=== PATIENT | female | born 1955 | race Caucasian/White ===

== ENCOUNTER 2020-04-09 12:00 | Emergency (ER) | payer MEDICARE, SELFPAY ==
[2020-04-09 12:17] VITALS: BP 139/55; PULSE 88; RESP 18; TEMP 36.5; O2SAT 98
--- NOTE | 2020-04-09 12:56 | ED.GENADULT ---
HPI - General Adult General Chief complaint: Extremity Injury, Lower Stated complaint: right hip pain Time Seen by Provider: 04/09/20 12:45 Source: patient Mode of arrival: ambulatory Limitations: no limitations History of Present Illness HPI narrative: A 64-year-old female presents to the emergency department today with complaints of low back pain radiating down her right leg. Patient states she feels it across her low back down through her buttock and down to the posterior right leg. Patient does endorse numbness and tingling in her right lower extremity below the knee. Patient notes she had a surgery a few years ago on her foot for which she received a nerve block. 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 She is not sure if her symptoms today could be exacerbating this but she complains of severe pain radiating through her lower back and down through her right leg. She denies any bowel or bladder incontinence or any saddle anesthesia. Related Data Allergies Allergy/AdvReac Type Severity Reaction Status Date / Time erythromycin base AdvReac Unknown Nausea Verified 04/09/20 12:23 fentanyl AdvReac Unknown Nausea Verified 04/09/20 12:23 Penicillins AdvReac Unknown Nausea Verified 04/09/20 12:23 Review of Systems Review of Systems: Narrative: CONSTITUTIONAL: Denies fever, chills, or sweats. EYES: Denies visual changes, redness, or discharge. ENT: Denies rhinorrhea, congestion, sore throat, or otalgia. CARDIOVASCULAR: Denies chest pain, palpitations, or edema. RESPIRATORY: Denies cough or dyspnea. GASTROINTESTINAL: Denies abdominal pain, nausea, vomiting, or diarrhea. GENITOURINARY: Denies dysuria or hematuria. SKIN: Denies rash or itching. MUSCULOSKELETAL: Denies joint pain or myalgia. Endorses back pain and radiculopathy. NEUROLOGIC: Denies headache, numbness, dizziness, or weakness. PSYCHIATRIC: Denies anxiety or depression. PMFSH Social History Social History Smoking end date: 03/24/10 Alcohol intake: never Exam Narrative: Exam Narrative: GENERAL: Well-appearing, well-nourished, and in no acute distress. Appears rather uncomfortable, shifting her weight back and forth on the gurney. HEAD: Normocephalic, atraumatic. EYES: PERRLA and EOMI. ENT: Nares clear, no rhinorrhea or epistaxis. Mucous membranes moist. Oropharynx without tonsillar hypertrophy exudate or other lesions. Bilateral TMs pearly borja nonbulging NECK: Supple. No adenopathy or masses. No carotid bruits or JVD CHEST: Clear to auscultation. No respiratory distress. No wheezes rales or rhonchi HEART: Regular rate and rhythm. No murmur heard. Normal peripheral pulses. ABDOMEN: Soft, nontender, nondistended, normal active bowel sounds. EXTREMITIES: Normal range of motion. No edema. Tenderness to palpation at the right lower back and buttock. SKIN: Warm, dry, no rash. NEURO: No focal deficits. Alert and oriented x3. PSYCH: Normal mood and affect. Course Reevaluation(s) Reevaluation #1: Reevaluated patient and provided care update. She notes that she is already starting to feel better. She notes that she just received the medications approximately 10 minutes ago. Time: 13:48 Reevaluation #2: Patient resting comfortably at this time. She notes a significant improvement in her pain. She states that it is still present but she is at least able to move much more comfortably now. Patient and her state that they are feeling well and ready to be discharged. Time: 14:33 Vital Signs Vital signs: Vital Signs Temperature 36.5 C 04/09/20 12:17 Pulse Rate 88 04/09/20 12:17 Respiratory Rate 18 04/09/20 12:17 Blood Pressure 139/55 L 04/09/20 12:17 Pulse Oximetry 98 04/09/20 12:17 Temperature 36.5 C 04/09/20 12:17 Pulse Rate 88 04/09/20 12:17 Respiratory Rate 18 04/09/20 12:17 Bl
[2020-04-09] MEDS: DEXAMETHASONE SOD PHOS INJ 4 MG/ML VIAL 10 MG IV PUSH (13:22)
[2020-04-09] MEDS: methocarbamoL 500 MG TABLET 1000 MG PO (13:22)
[2020-04-09] MEDS: KETOROLAC 15 MG/ML VIAL (*BKC) IV PUSH (13:23)
[2020-04-09] MEDS: MORPHINE SULFATE (*CRX) 4 MG/ML INJ IV PUSH (13:23)
[2020-04-09 15:10] VITALS: PULSE 80; RESP 20; O2SAT 99
== END 2020-04-09 15:10 | disposition home or self-care (01) ==
PROVIDERS: Emergency Provider Emergency Medicine
DX: M54.41 Lumbago with sciatica, right side (principal)
CPT/HCPCS: 96374; 96375; 99284; A9270; J1100; J1885; J2270

== ENCOUNTER 2020-05-25 16:27 | Outpatient (CLI) | payer MEDICARE, SELFPAY ==
--- NOTE | ~2020-05-25 | MR_ITS ---
EXAMINATION: MR lumbar spine wo con DATE: 05/25/2020 17:41 INDICATION: Low back pain. TECHNIQUE: Magnetic resonance imaging (MRI) of the lumbar spine was performed without intravenous con trast. Sequences included sagittal T2-weighted FSE, sagittal T2-weighted FS FSE, sagittal T1-weighted FSE, and axial T2-weighted FSE. COMPARISON: None FINDINGS: There is 9 degrees dextrocurvature of thoracolumbar spine. There are Schmorl's nodes at mul tiple levels. There is severely decreased disc height at L2-L3 and mildly decreased disc height at L3 -L4. The distal spinal cord signal intensity is normal. The conus medullaris is at L1-L2. The followi ng disc levels are specifically discussed: L1-L2: The disc is bulging. There is moderate bilateral facet joint osteoarthritis. There is mild lef t neural foraminal stenosis. There is mild central canal stenosis. L2-L3: The disc is bulging and has an annular fissure. There is moderate bilateral facet joint osteoa rthritis. There is mild bilateral neural foraminal stenosis. There is mild central canal stenosis. L3-L4: The disc is bulging and has an annular fissure. There is moderate right and mild left facet jose int osteoarthritis. There is moderate bilateral neural foraminal stenosis. There is mild central michelle l stenosis. L4-L5: The disc is bulging. There is mild right and moderate left facet joint osteoarthritis. There i s mild bilateral neural foraminal stenosis. There is mild central canal stenosis. L5-S1: The disc is bulging. There is severe bilateral facet joint osteoarthritis. There is mild bilat eral neural foraminal stenosis. There is mild central canal stenosis. IMPRESSION: 1. Severe spondylosis at L2-L3 and mild spondylosis at other levels. Reviewed, dictated and finalized at location A. [employer]
== END 2020-05-25 16:28 | disposition home or self-care (01) ==
PROVIDERS: Visit Provider Orthopaedic Surgery
DX: M47.896 Other spondylosis, lumbar region (principal)
CPT/HCPCS: 72148

== ENCOUNTER 2020-06-05 10:55 | Outpatient (CLI) | payer MEDICARE, SELFPAY ==
--- NOTE | 2020-06-05 11:39 | ECG_ITS ---
Measurements Intervals [place] Rate: 86 P: 73 MO: 163 QRS: -16 QRSD: 90 T: 66 QT: 353 QTc: 424 Interpretive Statements SINUS RHYTHM POSSIBLE LEFT ATRIAL ENLARGEMENT INCOMPLETE RIGHT BUNDLE BRANCH BLOCK DELAYED PRECORDIAL R/S TRANSITION BORDERLINE ECG Electronically Signed On 06-05-2020 12:45:25 CDT by Ahmet Medina D.O.
[2020-06-05 11:51] LABS: Albumin Level 4.1 g/dL (3.5-5.1); Estimated Glomerular Filt Rate > 60
== END 2020-06-05 10:56 | disposition home or self-care (01) ==
PROVIDERS: Visit Provider Orthopaedic Surgery
DX: M16.11 Unilateral primary osteoarthritis, right hip (principal); Z01.818 Encounter for other preprocedural examination; I45.10 Unspecified right bundle-branch block
CPT/HCPCS: 36415; 82040; 82565; 93005

== ENCOUNTER 2020-07-03 08:48 | Outpatient (CLI) | payer MEDICARE, SELFPAY ==
[2020-07-03 10:39] LABS: Basophils Absolute Auto 0.1 K/mm3 (0.0-0.1); Basophils Percent Auto 0.6 % (0.2-1.2); Eosinophils Absolute Auto 0.1 K/mm3 (0-0.3); Hematocrit 43.2 % (37.0-47.0); Hemoglobin 14.3 g/dL (12.0-15.0); Immature Granulocyte Absolute 0.03 K/mm3 (0.00-0.031); Immature Granulocyte Percent A 0.4 % (0-0.5); Lymphocytes Absolute Auto 2.18 K/mm3 (0.9-3.2); Lymphocytes Percent Auto 27.4 % (18.3-44.2); Mean Corpuscular HGB Conc 33.1 g/dl (32-36); Mean Corpuscular Hemoglobin 30.4 pg (26-34); Mean Corpuscular Volume 91.9 fl (80-100); Mean Platelet Volume 9.5 fl (7.4-10.4); Monocytes Absolute Auto 0.7 K/mm3 (0.1-0.6); Monocytes Percent Auto 8.2 % (2.6-8.5); Neutrophils Percent Auto 62.4 % (45.5-73.1); Platelet Count Result 314 k/mm3 (150-375); Red Cell Distribution Width 13.2 % (11.5-14.5)
[2020-07-03 10:41] LABS: Glucose 95 mg/dL (65-105)
[2020-07-03 10:45] LABS: Hemoglobin A1C 5.3 % (<5.7); Urine Cotinine NEGATIVE
== END 2020-07-03 08:49 | disposition home or self-care (01) ==
PROVIDERS: Visit Provider Orthopaedic Surgery
DX: M16.11 Unilateral primary osteoarthritis, right hip (principal); Z01.818 Encounter for other preprocedural examination
CPT/HCPCS: 80307; 82947; 83036; 85025; 87081

== ENCOUNTER → 2020-07-15 00:40 | Outpatient (CLI) | payer MEDICARE, SELFPAY ==
[2020-07-15 20:54] LABS: SARS-CoV-2 RNA PCR Negative
== END ==
PROVIDERS: Visit Provider Orthopaedic Surgery
DX: Z01.812 Encounter for preprocedural laboratory examination (principal); Z20.822 Contact with and (suspected) exposure to COVID-19
CPT/HCPCS: C9803; U0003; U0005

== ENCOUNTER 2020-07-18 01:17 | Day surgery (SDC) | payer MEDICARE, SELFPAY ==
[2020-07-03 08:57] VITALS: BMI 29.3
[2020-07-03 09:42] VITALS: BP 145/67; PULSE 71; RESP 16; TEMP 37; O2SAT 98
[2020-07-18] VITALS (23 sets, daily range): BP systolic 115–150; BP diastolic 46–78; PULSE 76–100; RESP 14–22; TEMP 35.7–36.7; O2SAT 96–100
--- NOTE | ~2020-07-18 | XR_ITS ---
EXAMINATION: XR hip RT min 2V EXAM DATE: 07/18/2020 10:30 INDICATION: Right hip arthroplasty. Postoperative image. TECHNIQUE: Portable frontal, crosstable lateral projections right hip obtained immediately following arthroplasty by Vidal Flores MD. FINDINGS: Patient is status post right hip arthroplasty. The orthopedic hardware is in expected pos ition. There is small amount of subcutaneous gas, some soft tissue swelling. Correlate with proce dure note. IMPRESSION: Status post right hip arthroplasty. Reviewed, dictated and finalized at location A.
[2020-07-18] MEDS: LACTATED RINGERS 1,000 ML 30 ML IV CONT ×2 (07:07→10:01)
[2020-07-18] MEDS: ACETAMINOPHEN 500 MG TABLET 1000 MG PO (07:08)
--- NOTE | 2020-07-18 07:15 | WPDHPUPDATE1 ---
History and Physical Update Update Date/Time: 07/18/20 07:15 History and Physical has been reviewed, including an updated exam of the patient. There are NO changes in the patient's condition. Risks, benefits, and alternatives have been discussed and questions answered. Patient agrees to proceed with procedure.
--- NOTE | 2020-07-18 07:19 | WPDANESEPPF ---
Anes - Initial Pre Proc Eval Procedure: Operation Date: 07/18/20 08:00 Proposed Procedures p Right Total Hip Arthroplasty - Vidal Flores MD Date/Time: 07/18/20 07:19 Surgeon: Vidal Flores MD Pre Op Diagnosis: primary OA right hip Patient Data Age: 65 Gender: F Height: 1.7 m Weight: 83.9 kg Last Vital Signs Temp 37.0 C 07/03/20 09:42 Pulse 71 07/03/20 09:42 Resp 16 07/03/20 09:42 BP 145/67 H 07/03/20 09:42 Pulse Ox 98 07/03/20 09:42 Allergies Allergy/AdvReac Type Severity Reaction Status Date / Time fentanyl AdvReac Severe Nausea Verified 07/18/20 06:18 erythromycin base AdvReac Mild Nausea Verified 07/18/20 06:18 Penicillins AdvReac Mild Nausea Verified 07/18/20 06:18 Home Medications Medication Instructions Recorded Confirmed Type atorvastatin 40 mg tablet 40 mg PO HS 04/18/20 07/18/20 History duloxetine 60 mg capsule,delayed 60 mg PO BID 04/18/20 07/18/20 History release levothyroxine 75 mcg tablet 75 mcg PO DAILY 04/18/20 07/18/20 History omeprazole 20 mg capsule,delayed 40 mg PO QAM 04/18/20 07/18/20 History release trazodone 50 mg tablet 50 mg PO HS 04/18/20 07/18/20 History acetaminophen [Tylenol Extended 1,300 mg PO Q12H PRN 07/03/20 07/03/20 History Release] sennosides-docusate sodium 2 tab-cap PO BID 07/03/20 07/18/20 History [Senna-S] Patient hx anesthesia problems: post op nausea/vomiting Family hx anesthesia problems: none PMFSH Past Medical History Medical History (Updated 07/17/20 @ 12:52 by Delta Castro DO) Anxiety Foot drop, 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 GERD (gastroesophageal reflux disease) History of breast cancer History of Mohs micrographic surgery for skin cancer (~2014) History of skin cancer Hyperlipidemia Hypothyroidism Osteoarthritis PONV (postoperative nausea and vomiting) Surgical History Surgical History (Updated 07/17/20 @ 12:52 by Delta Castro DO) History of appendectomy History of cholecystectomy History of hysterectomy History of spinal fusion fusion C5-6 Hx of breast surgery (~2016) Social History Social History Years smoked: 10 Smoking status: Former smoker Tobacco type: cigarettes Smoking end date: 03/24/10 Additional smoking assessment comments: DENIES ANY FORM OF TOBACCO USE Alcohol intake: never Living arrangements: with family Spiritual care concerns: No Anes - Eval Final PreProcedure Day of Procedure 07/18/20 07:19 Patient weight: overweight Heart: regular rate and rhythm Lungs: clear to auscultation and normal air movement Airway: Mallampati scale class II Neurological: alert and oriented Last oral intake: >/= 8 hours ASA classification: III Emergent: no Anesthetic plan: proceed Anesthesia type and monitoring: general ETT and standard monitoring Informed Consent: The patient's anesthetic plan and its attendant risks and benefits were discussed with the patient/family/POA. Questions were solicited and answers provided to the satisfaction of the patient/family/POA.
[2020-07-18] MEDS: SCOPOLAMINE 1.5 MG PATCH TRANSDERM (07:31)
[2020-07-18] MEDS: FAMOTIDINE 20 MG/2 ML VIAL IV PUSH (07:31)
[2020-07-18] MEDS: TRANEXAMIC ACID 1,000MG/ISO100 1,000 MG/100 ML BAG 200 MG IVPB (07:35)
[2020-07-18] MEDS: ceFAZolin 2 GM/D5W 50 ML 2 GM/50 ML BAG IVPB (08:10)
--- NOTE | 2020-07-18 10:41 | SUR.PHASEI ---
1034- Call to Dr. Castro patient complaining it feels hard to breathe and take breaths. Patient noted to have some expiratory coarseness upon auscultation. Oxygen saturation stable on 2 liters at 100%. Per Dr. Castro he will order the patient a breathing treatment at this time. Will continue to monitor status closely.
[2020-07-18] MEDS: ALBUTEROL SULFATE NEB 2.5 MG/3 ML INH INHALATION (10:45)
[2020-07-18] MEDS: racEPINEPHrine 2.25% NEBU SOLN 0.5 ML VIAL.NEB INHALATION (10:52)
--- NOTE | 2020-07-18 11:10 | SUR.PHASEI ---
1110- Updated Dr. Flores after he rounded on patient in PACU of patient's respiratory status and nebulizer treatments given, informed MD patient reports improvement with her breathing and monitoring her closely. No new orders from MD at this time.
[2020-07-18] MEDS: diphenhydrAMINE HCl INJ 50 MG/ML VIAL 12.5 MG IV PUSH (11:13)
[2020-07-18] MEDS: MIDAZOLAM HCL (*CRX) 2 MG/2 ML VIAL IV PUSH (11:16)
--- NOTE | 2020-07-18 11:19 | P.OP_ITS ---
Procedure Note - Detailed Date of procedure: 07/18/20 Pre-op diagnosis: primary OA right hip Post-op diagnosis: same Procedure performed: Total hip arthroplasty, right hip Implants: The Accolade II hip stem, 132 degree size 5 , was utilized with excellent press-fit. The 52 mm ADM acetabular component was impacted with excellent press-fit stability. The +0 , 28 mm Biolox ceramic femoral head was utilized. Anesthesia: GLMA Surgeon: Vidal Flores MD Estimated blood loss (mL): 200 Drains: No Complications: None Condition: stable Findings: OPERATIVE DETAILS: The patient was given preoperative antibiotics. A general anesthetic was administered. The patient was carefully placed in the lateral decubitus position on the PEG board. The shoulders and hips were carefully positioned for component and leg length positioning reference. The hip was prepped and draped in the usual sterile fashion. A longitudinal incision was created over the posterior aspect of the greater trochanter. Careful dissection was brought down through the deep fascia with electrocautery. A minimally invasive optimized posterior approach to the hip was performed. The short external rotators and capsule were taken down in an L-shaped capsulotomy. The tissue was tagged for later repair using number 2 high strength suture. The femoral neck was measured and taken in situ. The femoral head was removed. The acetabulum was carefully exposed. The inferior capsule was released. The labrum was resected. The acetabulum was sequentially reamed to one over the intended cup size. The cup was impacted into position with excellent press-fit. Typical anatomic landmarks, including the bony contact points as well as the inferior transverse acetabular ligament were used to confirm cup positioning with preoperative templating. Attention was turned to the femur, which was carefully exposed. The hip was reamed and then broached sequentially. Excellent press-fit was obtained with the broach. The hip was trialed. Measurements were utilized, including the lesser trochanter as well as the center of the femoral head and the tip of the trochanter, and excellent assessment of the offset and leg lengths were confirmed. The real component was impacted into position. Trialing confirmed appropriate leg length and offset with soft tissue balancing as well apparent feel of the leg, both at the knee and the heel. Soft tissues were assessed using the the iliotibial band. Reduction of the posterior capsule and external rotators were also used as a secondary assessment. The hip was copiously irrigated with pulsatile lavage antibiotic solution periodically throughout the procedure. The real components were then assembled and reduced. The hip was stable throughout typical maneuvers, including extension, external rotation to 70 degrees, the position of sleep as well as flexion to 90 degrees with internal rotation past 45 degrees. The shake test confirmed stability without impingement. Osteophytes were removed as necessary. The short external rotators and capsule were repaired back to the posterior trochanter through drill holes. The deep fascia was repaired with running number 2 Quill suture, followed by 0 Stratafix suture and 2-0 Stratafix suture in the dermis. Steri- Strips were placed on the skin, followed by a sterile silver occlusive dressing. There were no complications. Meticulous hemostasis was maintained with the AquaMantys device. The patient was brought to the recovery room in stable condition. There were no complications.
--- NOTE | 2020-07-18 11:36 | SUR.PHASEI ---
1050- Call to Dr. Castro to obtain additional orders for breathing treatment, patient stable at 100% on 2 liters nasal cannula. Orders obtained for Racemic Epi nebulizer. Per Dr. Castro continue to monitor patient and he will see her at bedside once breathing treatments finished. 1105- Call to notify Dr. Castro patient's breathing treatments complete at this time and patient stable at 100% on 2 liters nasal cannula. Patient's breathing improved and lung sounds along with upper airway have improved aeration at this time. 1107- Dr. Castro to bedside and assessing patient's respiratory status and lung sounds. Patient reporting improvement with breathing treatments complete but still feeling anxious about taking breaths and notes minimal difficulty with breaths. Patient remains stable at 100% on 2 liters nasal cannula. Orders obtained for 12.5MG benadryl IVP and 2MG versed IVP.
--- NOTE | 2020-07-18 12:18 | ADMGEN ---
This patient, Leanne Larsen, was admitted to Medical Room 248-. Patient/family oriented to hospital policies and general routines including ID bracelet, bed and alarms, visiting hours, pain management, procedures, bathroom and other care routines, personal items, smoking policy, room service/diet, and visiting hours. Information on how to activate the Rapid Response Team has been discussed. Patient/Family are encouraged to report perceived risks to care and to ask questions if they do not understand what they are told or what they should do.
[2020-07-18 12:22] LABS: Hematocrit 40.4 % (37.0-47.0); Hemoglobin 13.3 g/dL (12.0-15.0)
[2020-07-18] MEDS: SODIUM CHLORIDE 0.9% IV 1,000 ML 125 ML IV CONT (12:44)
[2020-07-18] MEDS: KETOROLAC 15 MG/ML VIAL (*BKC) IV PUSH ×3 (12:47→23:43)
[2020-07-18] MEDS: ASPIRIN 81 MG ENTERIC TABLET PO (16:30)
[2020-07-18] MEDS: DULoxetine HCL 60 MG CAPSULE.DR PO (16:32)
[2020-07-18] MEDS: traZODone HCL 50 MG TABLET PO (20:32)
[2020-07-18] MEDS: ATORVASTATIN 40 MG TABLET PO (20:32)
[2020-07-18] MEDS: oxyCODONE HCL (*CRX) 5 MG TAB IR PO (20:34)
[2020-07-19 05:17] VITALS: BP 121/47; PULSE 89; RESP 20; TEMP 36.1; O2SAT 18
[2020-07-19 05:45] LABS: Basophils Percent Auto 0.2 % (0.2-1.2); Hematocrit 33.7 % (37.0-47.0); Hemoglobin 10.8 g/dL (12.0-15.0); Immature Granulocyte Absolute 0.08 K/mm3 (0.00-0.031); Immature Granulocyte Percent A 0.5 % (0-0.5); Lymphocytes Absolute Auto 1.77 K/mm3 (0.9-3.2); Lymphocytes Percent Auto 11.5 % (18.3-44.2); Mean Corpuscular Hemoglobin 29.8 pg (26-34); Mean Corpuscular Volume 92.8 fl (80-100); Mean Platelet Volume 9.7 fl (7.4-10.4); Monocytes Percent Auto 13.1 % (2.6-8.5); Neutrophils Absolute Auto 11.5 K/mm3 (1.3-6.7); Neutrophils Percent Auto 74.7 % (45.5-73.1); Platelet Count Result 263 k/mm3 (150-375); Red Blood Count 3.63 M/mm3 (4.2-5.4); Red Cell Distribution Width 13.2 % (11.5-14.5); White Blood Count 15.4 K/mm3 (4.5-10.0)
[2020-07-19 05:56] LABS: Anion Gap 3 mmol/L (8-16); Blood Urea Nitrogen 13 mg/dL (7-17); Calcium 8.7 mg/dL (8.4-10.2); Carbon Dioxide 30 mmol/L (22-30); Chloride 103 mmol/L (98-107); Estimated CRCL calculation 76 ml/min; Estimated Glomerular Filt Rate > 60; Glucose 113 mg/dL (65-105); Sodium 136 mmol/L (137-145)
[2020-07-19] MEDS: KETOROLAC 15 MG/ML VIAL (*BKC) IV PUSH ×2 (06:02→11:52)
[2020-07-19] MEDS: LEVOTHYROXINE SODIUM 75 MCG TABLET PO (06:06)
[2020-07-19 08:00] VITALS: BP 121/44; PULSE 90; RESP 16; TEMP 36.6; O2SAT 97
[2020-07-19] MEDS: oxyCODONE HCL (*CRX) 5 MG TAB IR 10 MG PO (08:24)
[2020-07-19] MEDS: SENNA/DOCUSATE SODIUM TABLET 2 TAB PO (08:25)
[2020-07-19] MEDS: ASPIRIN 81 MG ENTERIC TABLET PO (08:25)
[2020-07-19] MEDS: DOCUSATE SODIUM 100 MG CAPSULE PO (08:25)
[2020-07-19] MEDS: PANTOPRAZOLE 40 MG TABLET PO (08:26)
[2020-07-19] MEDS: DULoxetine HCL 60 MG CAPSULE.DR PO (08:26)
--- NOTE | 2020-07-19 09:23 | WPDANESPN ---
Anes - Prog Note Post-Op Date/Time: 07/19/20 09:23 Cardiovascular status: normal Respiratory status: normal Airway patency: baseline Mental status: baseline Post-Op hydration status: normal Vital Signs: Last Vital Signs Temp 36.6 C 07/19/20 08:00 Pulse 90 07/19/20 08:00 Resp 16 07/19/20 08:00 BP 121/44 L 07/19/20 08:00 Pulse Ox 97 07/19/20 08:00 Pain Score (VAS): 4 I/O: Intake & Output 07/18/20 07/19/20 07/19/20 23:59 07:59 15:59 Intake Total 1240 540 580 Output Total 700 1950 Balance 540 -1410 580 Laboratory Tests 07/19/20 05:36 07/19/20 05:36 07/18/20 07/19/20 07/19/20 12:15 05:36 05:36 WBC 15.4 H RBC 3.63 L Hgb 13.3 10.8 L Hct 40.4 33.7 L MCV 92.8 MCH 29.8 MCHC 32.0 RDW 13.2 Plt Count 263 MPV 9.7 Immature Gran % (Auto) 0.5 Neut % (Auto) 74.7 H Lymph % (Auto) 11.5 L [place] % (Auto) 13.1 H Eos % (Auto) 0.0 Baso % (Auto) 0.2 Lymph # (Auto) 1.77 [place] # (Auto) 2.0 H Eos # (Auto) 0.0 Baso # (Auto) 0.0 Abs Immat Gran (auto) 0.08 H Absolute Neuts (auto) 11.5 H Absolute Nucleated RBC 0.0 Nucleated RBC % 0.0 Sodium 136 L Potassium 4.0 Chloride 103 Carbon Dioxide 30 Anion Gap 3 L BUN 13 Creatinine 0.70 Estim Creat Clear Calc 76 Estimated GFR > 60 Glucose 113 H Calcium 8.7 Post-procedural complaints: none Patient Feedback: Patient satisfied with anesthetic care.
--- NOTE | 2020-07-19 12:25 | PM.DS ---
DS: Admitting Diagnosis Admitting Diagnosis Admitting Diagnosis: hip arthritis right. DS: Discharge Diagnosis Discharge Diagnosis (1) Primary osteoarthritis of right hip: Code(s): M16.11 - Unilateral primary osteoarthritis, right hip Status: Acute (2) Status post total hip replacement, right: Code(s): Z96.641 - Presence of right artificial hip joint Status: Acute DS: Summary Hospital Course Reason for hospitalization: Total hip arthroplasty. Hospital Course: Tolerated surgery well. Progressed appropriately with therapy. Status at Discharge Functional status at discharge: uses cane/walker Overall status at discharge: patient is progressing back to baseline Time Spent with Patient Time attestation: Total time spent providing and/or coordinating discharge services: Exam Const: General: no acute distress Resp: Effort & Inspection: normal respiratory effort Skin: Other: Wound healing well. Mepilex dressing intact. No hematoma or drainage. Neuro: Motor exam (neuro): 5/5 motor strength present throughout Sensory Exam: normal sensation Psych: Mental Status: mental status grossly normal Speech and movement: Normal speech and movement present DS: Data Data Completed and Pending Labs on day of discharge: Labs from last 24 hours 07/19/20 07/19/20 05:36 05:36 WBC 15.4 H RBC 3.63 L Hgb 10.8 L Hct 33.7 L MCV 92.8 MCH 29.8 MCHC 32.0 RDW 13.2 Plt Count 263 MPV 9.7 Immature Gran % (Auto) 0.5 Neut % (Auto) 74.7 H Lymph % (Auto) 11.5 L [place] % (Auto) 13.1 H Eos % (Auto) 0.0 Baso % (Auto) 0.2 Lymph # (Auto) 1.77 [place] # (Auto) 2.0 H Eos # (Auto) 0.0 Baso # (Auto) 0.0 Abs Immat Gran (auto) 0.08 H Absolute Neuts (auto) 11.5 H Absolute Nucleated RBC 0.0 Nucleated RBC % 0.0 Sodium 136 L Potassium 4.0 Chloride 103 Carbon Dioxide 30 Anion Gap 3 L BUN 13 Creatinine 0.70 Estim Creat Clear Calc 76 Estimated GFR > 60 Glucose 113 H Calcium 8.7 Discharge Plan Discharge Patient Disposition: Home, Self-Care Discharge Instructions: Remove the Scopolamine patch that was placed behind your ear in 72 hours or less. Wash your hands after touching. See instruction sheet. Stand Alone Forms: General Discharge Instructions Follow-up/Referrals: Vidal Flores MD [Physician] - Discharge Medications: New oxycodone-acetaminophen 5-325 mg tablet 1 - 2 tablet PO Q4-6H MDD 8 tablets PRN (Reason: pain) Qty: 30 RF: 0 Continued trazodone 50 mg tablet 50 mg PO HS RF: 0 atorvastatin 40 mg tablet 40 mg PO HS RF: 0 omeprazole 20 mg capsule,delayed release(DR/EC) 40 mg PO QAM RF: 0 levothyroxine [Synthroid] 75 mcg tablet 75 mcg PO DAILY RF: 0 duloxetine 60 mg capsule,delayed release(DR/EC) 60 mg PO BID RF: 0 sennosides-docusate sodium [Senna-S] 8.6-50 mg Tablet 2 tab-cap PO BID RF: 0 Discontinued acetaminophen [Tylenol Extended Release] 650 mg Tablet Extended Release 1,300 mg PO Q12H PRN (Reason: Pain) RF: 0
--- NOTE | 2020-07-19 13:42 | PC.NURSE ---
On 07/19/20, the student, [Sue Goncalves ], provided care and [facility]. I have reviewed the student's documentation and agree with the findings.
== END 2020-07-19 13:55 | disposition home or self-care (01) ==
LOC: ANHSURGERY 10:20 → ANH2MED 12:03
PROVIDERS: Visit Provider Orthopaedic Surgery
PROC: (CPT 27130; principal; 2020-07-18 08:00)
DX: M16.11 Unilateral primary osteoarthritis, right hip (principal); E78.5 Hyperlipidemia, unspecified; E03.9 Hypothyroidism, unspecified; K21.9 Gastro-esophageal reflux disease without esophagitis; F41.9 Anxiety disorder, unspecified; E66.3 Overweight; Z68.28 Body mass index [BMI] 28.0-28.9, adult; Z85.828 Personal history of other malignant neoplasm of skin; Z85.3 Personal history of malignant neoplasm of breast; Z87.891 Personal history of nicotine dependence
CPT/HCPCS: 27130; 36415; 73502; 80048; 80307; 82947; 83036; 85014; 85018; 85025; 86850; 86900; 86901; 87081; 94640; 97110; 97116; 97161; 97165; 97530; 97535; A9270; C1776; C9803; J0131; J0171; J0690; J1100; J1170; J1200; J1885; J2250; J2270; J2370; J2405; J2704; J2710; J2795; J3010; J7030; J7120; U0003; U0005

== ENCOUNTER 2020-11-08 11:11 | Outpatient (CLI) | payer MEDICARE, SELFPAY ==
--- NOTE | ~2020-11-08 | CT_ITS ---
EXAMINATION:CT lung screening DATE: 11/08/2020 11:32 INDICATION: Personal history of tobacco dependence. Smoker who quit 5 years ago with 43 pack year his tory. TECHNIQUE: Computed tomography (CT) of the chest was performed without intravenous contrast. Automate d exposure control and iterative reconstruction technique were employed. The dose-length product (DLP ) was 84.47 mGy-cm. COMPARISON: CT abdomen and pelvis 10/04/2009 FINDINGS: There is mild scarring at the lung apices. There is a 4 mm nodule in right middle lobe. The re is a 2 mm nodule in right upper lobe. There is a 3 mm nodule at left major fissure. There is mild atelectasis in right middle lobe and lingula. There is a 4 mm nodule in left lower lobe. No pleural e ffusion. The heart size is normal. No pericardial effusion. There is a small sliding hiatal hernia. T here are changes of cholecystectomy. There are changes of anterior fusion procedure in cervical spine . There is moderate thoracic spondylosis. IMPRESSION: 1. Lung-RADS category 2: Benign appearance or behavior. Continue annual screening with noncontrast lo w-dose chest CT in 12 months. Reviewed, dictated and finalized at location B. IMPRESSION: 1. Lung-RADS category 2: Benign appearance or behavior. Continue annual screeni ng with noncontrast low-dose chest CT in 12 months.
== END 2020-11-08 11:12 | disposition home or self-care (01) ==
LOC: ANHIMG 11:16
PROVIDERS: PCP Family Medicine
DX: Z87.891 Personal history of nicotine dependence (principal)
CPT/HCPCS: 71271

== ENCOUNTER → 2020-12-13 14:12 | Outpatient (CLI) | payer MEDICARE, SELFPAY ==
--- NOTE | ~2020-12-13 | DEXA_ITS ---
Bone Density Report Name: Leanne Larsen Age: 65 Sex: Female Ethnicity: White Date of : 1955 Indication: osteopenia; height loss; prior fracture; hysterectomy; Referring Provider: Tri Matos Study: Bone densitometry was performed. Exam Date: December 13, 2020 Accession number: [id number] Bone Density: Region BMD T-score Z-score Classification AP Spine (L1-L4) 1.155 1.0 2.9 Normal Femoral Neck (Left) 0.701 -1.3 0.3 Osteopenia Total Hip (Left) 0.828 -0.9 0.4 Normal World Health Organization criteria for BMD impression classify patients as: Normal (T-score at or above -1.0), Osteopenia (T-score between -1.0 and -2.5), or Osteoporosis (T-score at or below -2.5). 10-year Fracture Risk: FRAX not reported because: Prior hip or vertebral fracture Previous Exams: Region Exam Age BMD T-score BMD Change BMD Change Date g/cm2 vs Baseline vs Previous AP Spine(L1-L4) 12/13/2020 65 1.155 1.0 0.044* 0.044* 02/26/2008 52 1.111 0.6 Total Hip(Left) 12/13/2020 65 0.828 -0.9 0.024 0.024 02/26/2008 52 0.804 -1.1 *Denotes significance at 95% confidence level, LSC for AP Spine = 0.022 g/cm2, LSC for Total Hip = 0.027 g/cm2 Clinical Information Provided by Patient: Have had a previous hip or vertebral fracture Has had a low trauma fracture Has the following medical conditions: Hysterectomy Patient maximum height was 67 Menopause Age: 37 No regular weight bearing exercise Drinks caffeinated beverages Onset of menses at age 11 Number of children 2 Impression: The patient has low bone mass, based on the Left Femoral Neck T-score. The patient has risk factors, including: previous fracture. No significant bone loss was observed. Discussion: INCREASED RISK OF FRACTURE DUE TO HISTORY OF FRACTURE. The patient's previous fracture puts the patient at high risk of a future fracture. In untreated patients, the risk of osteoporotic fracture increases approximately two-fold for each 1.0 SD decrease in T-score. Low bone density is not the only risk factor for fracture; also consider factors such as patient's age, frailty or poor health, risk of falling, risk of injury, previous osteoporotic fracture, family history of osteoporosis, cigarette smoking, low body weight, etc. Not everyone with a low trauma fracture has osteoporosis; osteomalacia and other metabolic bone disorders should also be considered. Patients who have osteoporosis should be evaluated for specific diseases and conditions (secondary
== END ==
DX: Z78.0 Asymptomatic menopausal state (principal); M85.852 Other specified disorders of bone density and structure, left thigh
CPT/HCPCS: 77080

== ENCOUNTER → 2020-12-29 08:55 | Outpatient (CLI) | payer MEDICARE, SELFPAY ==
--- NOTE | ~2020-12-29 | MR_ITS ---
EXAMINATION: MR knee RT wo con DATE: 12/29/2020 09:36 INDICATION: Unilateral primary osteoarthritis of the right knee with generalized right knee pain, bur shellie and giving out. TECHNIQUE: Magnetic resonance imaging (MRI) of the right knee was performed without intravenous contr ast. Sequences included coronal PD-weighted FSE, coronal PD-weighted FS FSE, sagittal T2-weighted FS E, sagittal PD-weighted FS FSE and axial PD weighted fat saturated FSE. COMPARISON: Right knee radiographs dated 12/19/2020 FINDINGS: Medial compartment: Medial meniscus is normal. Partial-thickness chondral ulceration at the junction of the anterior most weightbearing medial femoral condyle and the inferior margin of the medial trochlea. Cartilage in me dial compartment is otherwise normal. Lateral compartment: Lateral meniscus is normal. Approximately 6 x 5 mm region of full/near full-thickness chondral ulcera tion without degenerative subchondral changes at the anterior weightbearing lateral femoral condyle. Juxtaposed deep chondral fissuring without degenerative subchondral changes at the central aspect of the lateral tibial plateau. Patellofemoral compartment: Diffusely partial-thickness patellar cartilage loss. This is most prominent at the apical ridge and m edial facet where it involves greater than 50% of the cartilage thickness with scattered deep chondra l fissuring and minimal underlying subarticular edema. Shallow chondral ulceration at the trochlear g roove and is previous noted at the inferior most aspect of the medial trochlea. Ligaments and tendons: Anterior and posterior cruciate ligaments are normal. The medial collateral ligament and fibular nolan ateral ligament complex are normal. Mild distal quadriceps tendinopathy without discrete tear. The pa tellar tendon is normal. The visualized medial and lateral hamstring tendons as well as the iliotibia l band are normal. Fluid: Physiologic amount of fluid in the joint space. No loose osteochondral bodies identified. Mild prepat ellar edema without discrete bursal fluid collection. Osseous/other: Normal marrow signal. No fracture or pathologic marrow replacing process. IMPRESSION: 1. Mild tricompartmental osteoarthritis with high-grade patellar chondromalacia and small regions of moderate grade chondromalacia in the lateral compartment, trochlear groove and junction of the medial trochlea and anterior most weightbearing medial femoral condyle. Reviewed, dictated and finalized at location A. IMPRESSION: 1. Mild tricompartmental osteoarthritis with high-grade patellar chondromalacia and small regions of moderate grade chondromalacia in the lateral compartment, trochlear groove and junction of the medial trochlea and anterior most weightb earing medial femoral condyle.
== END ==
PROVIDERS: Visit Provider Orthopaedic Surgery
DX: M17.11 Unilateral primary osteoarthritis, right knee (principal); M22.41 Chondromalacia patellae, right knee
CPT/HCPCS: 73721

== ENCOUNTER → 2021-02-01 14:03 | Outpatient (CLI) | payer MEDICARE, SELFPAY ==
--- NOTE | ~2021-02-01 | MR_ITS ---
EXAMINATION: MR ankle LT wo con DATE: 02/01/2021 15:49 INDICATION: Chronic left ankle pain and swelling. TECHNIQUE: Magnetic resonance imaging (MRI) of the left ankle was performed without intravenous contr ast. Sequences included sagittal PD-weighted FS FSE, sagittal PD-weighted FSE, coronal PD-weighted FS FSE, coronal PD-weighted FSE, axial PD-weighted FS FSE, and axial PD-weighted FSE. COMPARISON: None. FINDINGS: Medial ankle ligaments: The superficial and deep components of the deltoid ligament are intact. Lateral ankle ligaments: There are changes of prior sprains of anterior talofibular ligament and anterior tibiofibular ligamen t characterized by thickening and increased signal intensity. Calcaneofibular ligament is normal. Pos terior talofibular ligament and posterior tibiofibular ligament are normal. Tendons: The anterior and medial ankle tendons are normal. The peroneal tendons are normal. Achilles tendon is normal. Plantar fascia: The central band of plantar fascia demonstrates thickening and increased signal intensity, consistent with fasciitis. There is an enthesophyte at the calcaneal attachment. Bones/other: Bone alignment is normal. No fracture. The talar dome is normal. Fluid: There is no joint effusion. There is subcutaneous edema of the foot and lower leg. IMPRESSION: 1. Changes of lateral ankle sprain. 2. Plantar fasciitis. Reviewed, dictated and finalized at location A. RICT DIRECTOR
== END ==
DX: M72.2 Plantar fascial fibromatosis (principal); S93.402A Sprain of unspecified ligament of left ankle, initial encounter; X58.XXXA Exposure to other specified factors, initial encounter
CPT/HCPCS: 73721

== ENCOUNTER 2021-05-27 11:31 | Emergency (ER) | payer MEDICARE, SELFPAY ==
--- NOTE | ~2021-05-27 | XR_ITS ---
EXAMINATION: XR foot RT min 3V DATE: 05/27/2021 12:08 INDICATION: Right foot pain. Fall. TECHNIQUE: 4 views of right foot were obtained. COMPARISON: None. FINDINGS: Bone alignment is normal. There are changes of bunionectomy. There is severe osteoarthritis of first metatarsophalangeal joint and mild osteoarthritis of talonavicular joint and some the inter phalangeal joints. There are enthesophytes at the posterior and plantar aspects of calcaneal tuberosi ty. IMPRESSION: 1. Polyarticular osteoarthritis. Reviewed, dictated and finalized at location A. R TESTER PRIMARY
--- NOTE | ~2021-05-27 | XR_ITS ---
EXAMINATION: XR ankle RT min 3V DATE: 05/27/2021 12:08 INDICATION: Right ankle pain. Fall. TECHNIQUE: 4 views of right ankle were obtained. COMPARISON: None. FINDINGS: Bone alignment is normal. No fracture. There is mild osteoarthritis of talonavicular joint. There are enthesophytes at the posterior and plantar aspects of calcaneal tuberosity. Ankle soft tis valorie swelling is noted. IMPRESSION: 1. No fracture. Reviewed, dictated and finalized at location A. WARE DESIGN ANALYST IMPRESSION: 1. No fracture.
[2021-05-27 11:43] VITALS: BP 136/71; PULSE 82; RESP 16; TEMP 36.6; O2SAT 97
--- NOTE | 2021-05-27 12:07 | ED.GENADULT ---
HPI - General Adult General Chief complaint: Extremity Injury, Lower Stated complaint: Right foot injury Source: patient Mode of arrival: ambulatory Limitations: no limitations History of Present Illness HPI narrative: Patient presents for evaluation of right foot/ankle pain since yesterday. She states she was coming down a ladder and missed the last step. Her foot hit the ground and she developed pain in right ankle at that time. Pain has been constant since that time. She rates her pain 6/10 in severity and describes pain as sharp. Movement makes her pain worse. She has been ambulating with a cane since that time. She does intermittently use a cane on a regular basis. She took tylenol for her pain which has not made considerable amount of difference in her pain level. No paresthesias. Her tobacco sweeper is Dr Nicholas. Related Data Home Medications Medication Instructions Recorded Confirmed atorvastatin 40 mg tablet 40 mg PO HS 04/18/20 01/01/21 duloxetine 60 mg capsule,delayed 60 mg PO BID 04/18/20 01/01/21 release levothyroxine 75 mcg tablet 75 mcg PO DAILY 04/18/20 01/01/21 omeprazole 05/27/21 trazodone 05/27/21 Allergies Allergy/AdvReac Type Severity Reaction Status Date / Time fentanyl AdvReac Severe Nausea Verified 01/01/21 11:14 erythromycin base AdvReac Mild Nausea Verified 01/01/21 11:14 Penicillins AdvReac Mild Nausea Verified 01/01/21 11:14 Review of Systems Review of Systems: CONSTITUTIONAL: Denies fever, chills, or sweats. EYES: Denies visual changes, redness, or discharge. ENT: Denies rhinorrhea, congestion, sore throat, or otalgia. CARDIOVASCULAR: Denies chest pain, palpitations RESPIRATORY: Denies cough or dyspnea. GASTROINTESTINAL: Denies abdominal pain, nausea, vomiting, or diarrhea. GENITOURINARY: Denies dysuria or hematuria. SKIN: Denies rash or itching. MUSCULOSKELETAL: Reports right ankle pain and swelling. NEUROLOGIC: Denies headache, numbness, dizziness, or weakness. PSYCHIATRIC: Denies anxiety or depression. [facility] Past Medical History Medical History Anxiety Foot drop, 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 GERD (gastroesophageal reflux disease) History of breast cancer History of Mohs micrographic surgery for skin cancer (~2014) History of skin cancer Hyperlipidemia Hypothyroidism Osteoarthritis PONV (postoperative nausea and vomiting) Surgical History Surgical History History of appendectomy History of cholecystectomy History of hysterectomy History of spinal fusion fusion C5-6 Hx of breast surgery (~2015) Status post total hip replacement, right (~07/18/20) Family History Family History Mother Lung cancer Social History Social History Years smoked: 10 Tobacco type: cigarettes Smoking end date: 03/24/10 Additional smoking assessment comments: DENIES ANY FORM OF TOBACCO USE Alcohol intake: never Substance use: never Living arrangements: with family Gender identity (if verbalized by the patient): Female Sexual Orientation (if Verbalized by the Patient): Straight or Heterosexual Spiritual care concerns: No Exam Narrative: GENERAL: Well-appearing, well-nourished, and in no acute distress. HEAD: Normocephalic, atraumatic. EYES: PERRLA and EOMI. ENT: Nares clear, no rhinorrhea or epistaxis. Mucous membranes moist. Oropharynx without tonsillar hypertrophy exudate or other lesions. Bilateral TMs pearly borja nonbulging NECK: Supple. No adenopathy or masses. No carotid bruits or JVD CHEST: Clear to auscultation. No respiratory distress. No wheezes rales or rhonchi HEART: Regular rate and rhythm. No murmur heard. Normal peripheral pulses. ABDOMEN: Soft, nontender, nondistended, normal active bowel sounds. E
== END 2021-05-27 12:29 | disposition home or self-care (01) ==
PROVIDERS: Emergency Provider Nurse Practitioner
DX: S93.401A Sprain of unspecified ligament of right ankle, initial encounter (principal); W11.XXXA Fall on and from ladder, initial encounter; K21.9 Gastro-esophageal reflux disease without esophagitis; E78.5 Hyperlipidemia, unspecified; E03.9 Hypothyroidism, unspecified; M19.90 Unspecified osteoarthritis, unspecified site; Z96.641 Presence of right artificial hip joint
CPT/HCPCS: 73610; 73630; 99213; G0463

== ENCOUNTER → 2021-07-26 08:48 | Outpatient (CLI) | payer MEDICARE, SELFPAY ==
--- NOTE | ~2021-07-26 | MR_ITS ---
EXAMINATION: MR lumbar spine wo con DATE: 07/26/2021 13:17 INDICATION: Low back pain. Right-sided sciatica. TECHNIQUE: Magnetic resonance imaging (MRI) of the lumbar spine was performed without intravenous con trast. Sequences included sagittal T2-weighted FSE, sagittal T2-weighted FS FSE, sagittal T1-weighted FSE, and axial T2-weighted FSE. COMPARISON: Lumbar spine MRI 05/25/2020 FINDINGS: There is 5 degrees dextrocurvature of lumbar spine. There is 3 mm retrolisthesis of L2 on L 3. There is mild chronic anterior wedging of T11 and L1 vertebral bodies. There are Schmorl's nodes a t most levels. There is mildly decreased disc height at L1-L2, severely decreased disc height at L2-L 3, and mildly decreased disc height at L3-L4. The distal spinal cord signal intensity is normal. The conus medullaris is at L1. The following disc levels are specifically discussed: L1-L2: There is a left central extrusion. There is severe right and moderate left facet joint osteoar thritis. There is mild left neural foraminal stenosis. There is mild central canal stenosis. L2-L3: The disc is bulging. There is moderate right and mild left facet joint osteoarthritis. There i s mild bilateral neural foraminal stenosis. There is mild central canal stenosis. L3-L4: The disc is bulging and has an annular fissure. There is moderate right and mild left facet jose int osteoarthritis. There is mild bilateral neural foraminal stenosis. There is mild central canal st enosis. L4-L5: The disc is bulging and has an annular fissure. There is moderate bilateral facet joint osteoa rthritis. There is mild bilateral neural foraminal stenosis. There is mild central canal stenosis. L5-S1: The disc does not extend beyond the endplate margin. There is severe bilateral facet joint ost eoarthritis. There is mild bilateral neural foraminal stenosis. There is no central canal stenosis. IMPRESSION: 1. Severe lumbar spondylosis, stable from 05/25/2020. Reviewed, dictated and finalized at location A.
== END ==
DX: M54.31 Sciatica, right side (principal); M47.896 Other spondylosis, lumbar region
CPT/HCPCS: 72148

== ENCOUNTER → 2021-11-16 10:01 | Outpatient (CLI) | payer MEDICARE, SELFPAY ==
--- NOTE | ~2021-11-16 | CT_ITS ---
EXAMINATION: CT lung screening DATE: 11/16/2021 10:20 INDICATION: Personal history of nicotine dependence prior smoker with 43 pack year history TECHNIQUE: Computed tomography (CT) of the chest was performed without intravenous contrast. The dose -length product (DLP) was 89.43 mGy-cm. Automated exposure control and iterative reconstruction techn [id number] were employed. COMPARISON: 11/08/2020 FINDINGS: There is a stable 2 mm nodule of the right upper lobe. The previously described 4 mm nodule of the right middle lobe is slightly decreased in size. There is a stable 4 mm nodule of the left lo wer lobe. No new pulmonary nodules are identified. No pleural effusion or pneumothorax. The lungs are free of acute opacities. No pathologically enlarged thoracic lymph nodes are identified. The heart s ize is normal. There are changes of anterior fusion in the lower cervical spine. The gallbladder is s urgically absent. There is moderate thoracic spondylosis. IMPRESSION: 1. Lung-RADS category 2: Benign appearance or behavior. Continue annual screening with noncontrast lo w-dose chest CT in 12 months. Reviewed, dictated and finalized at location B. IMPRESSION: 1. Lung-RADS category 2: Benign appearance or behavior. Continue annual screeni ng with noncontrast low-dose chest CT in 12 months.
== END ==
DX: Z12.2 Encounter for screening for malignant neoplasm of respiratory organs (principal); Z87.891 Personal history of nicotine dependence
CPT/HCPCS: 71271

== ENCOUNTER → 2022-01-17 17:44 | Outpatient (CLI) | payer MEDICARE, SELFPAY ==
--- NOTE | ~2022-01-17 | XR_ITS ---
XR chest 2V DATE: 01/17/2022 17:56 INDICATION: Emphysema TECHNIQUE: 2 views COMPARISON: 11/16/2021 CT lung screening examinations FINDINGS: Normal heart size. No hilar or mediastinal enlargement. Moderate bilateral hyperinflation. No pulmonary infiltrate or consolidation, pleural effusion or pulmonary vascular congestion or pneumo thorax. Status post lower anterior cervical spine surgical fusion. IMPRESSION: Moderate hyperinflation; no active cardiopulmonary disease Reviewed, dictated and finalized at location A.
== END ==
PROVIDERS: PCP Family Medicine; Visit Provider Family Medicine
DX: J43.9 Emphysema, unspecified (principal); R91.8 Other nonspecific abnormal finding of lung field
CPT/HCPCS: 71046

== ENCOUNTER 2022-04-08 06:07 | Day surgery (SDC) | payer MEDICARE, SELFPAY ==
[2022-02-06 13:58] VITALS: BMI 28.5
[2022-03-26 11:53] VITALS: BMI 27.9
--- NOTE | 2022-04-05 11:58 | PM.HPGS ---
History of Present Illness History of Present Illness Consent: Risks, benefits, and alternatives have been discussed and questions answered. Patient agrees to proceed with procedure. Chief complaint: Neoplasm Screening Narrative: Leanne Larsen is a 66 year old female Referred for colon cancer screening. Review of Systems Review of Systems: All systems reviewed & are unremarkable except as noted in HPI and below PMFSH Past Medical History Medical History Anxiety Foot drop, 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 GERD (gastroesophageal reflux disease) History of breast cancer History of Mohs micrographic surgery for skin cancer (~2014) History of skin cancer Hyperlipidemia Hypothyroidism Osteoarthritis PONV (postoperative nausea and vomiting) Surgical History Surgical History History of appendectomy History of cholecystectomy History of hysterectomy History of spinal fusion fusion C5-6 Hx of breast surgery (~2015) Status post total hip replacement, right (~07/18/20) Family History Family History Mother Lung cancer Social History Social History Years smoked: 30 Smoking status: Former smoker Tobacco type: cigarettes Smoking end date: 03/24/10 Additional smoking assessment comments: DENIES ANY FORM OF TOBACCO USE Alcohol intake: never Substance use: never Living arrangements: with family Gender identity (if verbalized by the patient): Female Sexual Orientation (if Verbalized by the Patient): Straight or Heterosexual Spiritual care concerns: No Meds Home Medications and Allergies Home Medications Medication Instructions Recorded Confirmed Type atorvastatin 40 mg tablet 40 mg PO HS 04/18/20 04/08/22 History levothyroxine 75 mcg tablet 75 mcg PO DAILY 04/18/20 04/08/22 History (Synthroid) omeprazole 20 mg PO DAILY 05/27/21 04/08/22 History trazodone 50 mg PO HS 05/27/21 04/08/22 History Bifidobacterium infantis 4 mg 4 mg PO DAILY 03/26/22 04/08/22 History capsule (Align) biotin 1,250 mcg-collagen 50 1 tablet PO DAILY 03/26/22 04/08/22 History mg-vit C 67.5 mg-vit E-herbal chew tablet pregabalin 75 mg capsule 75 mg PO HS 03/26/22 04/08/22 History vitamin B complex 1 cap PO DAILY 03/26/22 04/08/22 History Allergies Allergy/AdvReac Type Severity Reaction Status Date / Time fentanyl AdvReac Severe Nausea Verified 04/08/22 06:44 erythromycin base AdvReac Mild Nausea Verified 04/08/22 06:44 Penicillins AdvReac Mild Nausea Verified 04/08/22 06:44 Exam Resp: Auscultation: clear to auscultation bilaterally Cardio: Rate: regular rate Rhythm: regular rhythm GI: GI Palp: Yes Soft to palpation and No Tenderness to palpation present (GI) Assessment and Plan Assessment and plan (1) Colon cancer screening: Code(s): Z12.11 - Encounter for screening for malignant neoplasm of colon Status: Acute Assessment and Plan: Colonoscopy with possible biopsy or polypectomy or cautery or injection of substances.
[2022-04-08 06:35] VITALS: BP 127/74; PULSE 89; RESP 18; TEMP 36.9; O2SAT 97
[2022-04-08] MEDS: LACTATED RINGERS 1,000 ML 150 ML IV CONT (06:35)
--- NOTE | 2022-04-08 07:40 | WPDANESEPPF ---
Anes - Initial Pre Proc Eval Procedure: Operation Date: 04/08/22 08:00 Proposed Procedures p Screening Colonoscopy - Maik Lee MD Date/Time: 04/08/22 07:40 Surgeon: Maik Lee MD Pre Op Diagnosis: Neoplasm Screening Patient Data Age: 66 Gender: F Height: 1.7 m Weight: 87 kg Last Vital Signs Temp 36.9 C 04/08/22 06:35 Pulse 89 04/08/22 06:35 Resp 18 04/08/22 06:35 BP 127/74 04/08/22 06:35 Pulse Ox 97 04/08/22 06:35 O2 Del Method Room Air 04/08/22 06:35 Allergies Allergy/AdvReac Type Severity Reaction Status Date / Time fentanyl AdvReac Severe Nausea Verified 04/08/22 06:44 erythromycin base AdvReac Mild Nausea Verified 04/08/22 06:44 Penicillins AdvReac Mild Nausea Verified 04/08/22 06:44 Home Medications Medication Instructions Recorded Confirmed Type atorvastatin 40 mg tablet 40 mg PO HS 04/18/20 04/08/22 History levothyroxine 75 mcg tablet 75 mcg PO DAILY 04/18/20 04/08/22 History (Synthroid) omeprazole 20 mg PO DAILY 05/27/21 04/08/22 History trazodone 50 mg PO HS 05/27/21 04/08/22 History Bifidobacterium infantis 4 mg 4 mg PO DAILY 03/26/22 04/08/22 History capsule (Align) biotin 1,250 mcg-collagen 50 1 tablet PO DAILY 03/26/22 04/08/22 History mg-vit C 67.5 mg-vit E-herbal chew tablet pregabalin 75 mg capsule 75 mg PO HS 03/26/22 04/08/22 History vitamin B complex 1 cap PO DAILY 03/26/22 04/08/22 History Patient hx anesthesia problems: none Family hx anesthesia problems: none Results Review: All pre-operative results and documents have been reviewed as part of the pre-operative evaluation. [facility] Past Medical History Medical History Anxiety Foot drop, 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 GERD (gastroesophageal reflux disease) History of breast cancer History of Mohs micrographic surgery for skin cancer (~2014) History of skin cancer Hyperlipidemia Hypothyroidism Osteoarthritis PONV (postoperative nausea and vomiting) Surgical History Surgical History History of appendectomy History of cholecystectomy History of hysterectomy History of spinal fusion fusion C5-6 Hx of breast surgery (~2015) Status post total hip replacement, right (~07/18/20) Family History Family History Mother Lung cancer Social History Social History Years smoked: 30 Smoking status: Former smoker Tobacco type: cigarettes Smoking end date: 03/24/10 Additional smoking assessment comments: DENIES ANY FORM OF TOBACCO USE Alcohol intake: never Substance use: never Living arrangements: with family Gender identity (if verbalized by the patient): Female Sexual Orientation (if Verbalized by the Patient): Straight or Heterosexual Spiritual care concerns: No Anes - Eval Final PreProcedure Day of Procedure 04/08/22 07:40 Patient weight: overweight Heart: regular rate and rhythm Lungs: clear to auscultation Airway: Mallampati scale class 1 Neurological: alert and oriented ASA classification: III Emergent: no Anesthetic plan: proceed Anesthesia type and monitoring: general GIVS and standard monitoring Results Review: All pre-operative results and documents have been reviewed as part of the pre-operative evaluation. Informed Consent: The patient's anesthetic plan and its attendant risks and benefits were discussed with the patient/family/POA. Questions were solicited and answers provided to the satisfaction of the patient/family/POA.
[2022-04-08 08:19] VITALS: BP 108/61; PULSE 66; RESP 16; O2SAT 98
[2022-04-08 08:29] VITALS: BP 128/66; PULSE 70; RESP 18; O2SAT 100
[2022-04-08 08:39] VITALS: BP 116/55; PULSE 68; RESP 20; O2SAT 99
--- NOTE | 2022-04-08 12:23 | WPDANESPN ---
Anes - Prog Note Post-Op Date/Time: 04/08/22 12:23 Cardiovascular status: normal Respiratory status: normal Airway patency: baseline Mental status: baseline Post-Op hydration status: normal Vital Signs: Last Vital Signs Temp 36.9 C 04/08/22 06:35 Pulse 68 04/08/22 08:39 Resp 20 04/08/22 08:39 BP 116/55 L 04/08/22 08:39 Pulse Ox 99 04/08/22 08:39 O2 Del Method Room Air 04/08/22 08:39 Pain Score (VAS): 0 I/O: Intake & Output 04/07/22 04/08/22 04/08/22 23:59 07:59 15:59 Intake Total 450 Balance 450 Patient Feedback: Patient satisfied with anesthetic care.
== END 2022-04-08 08:55 | disposition home or self-care (01) ==
PROVIDERS: PCP Family Medicine; Visit Provider Internal Medicine Gastroenterology
PROC: 0DJD8ZZ Inspection of Lower Intestinal Tract, Via Natural or Artificial Opening Endoscopic (ICD-10-PCS; CPT 45378; principal; 2022-04-08 08:00)
DX: Z12.11 Encounter for screening for malignant neoplasm of colon (principal)
CPT/HCPCS: 45378

== ENCOUNTER 2022-04-08 09:00 | Outpatient (NON) | payer MEDICARE, SELFPAY | END 2022-04-08 09:01 | disposition home or self-care (01) | PROVIDERS: PCP Family Medicine; Visit Provider Internal Medicine Gastroenterology | DX: Z12.11 Encounter for screening for malignant neoplasm of colon (principal) | CPT/HCPCS: 88305 ==

== ENCOUNTER → 2022-04-25 10:41 | Outpatient (CLI) | payer MEDICARE, SELFPAY ==
--- NOTE | ~2022-04-25 | XR_ITS ---
Left ankle Technique: AP, oblique, and lateral views were obtained. Clinical History: Pain Findings: No acute fracture or dislocation is seen. Osseous alignment is anatomic. Ankle mortise and other visualized joint spaces are preserved. Mild diffuse soft tissue swelling noted. Impression: No fracture or dislocation. Mild diffuse soft tissue swelling. Reviewed, dictated and finalized at [facility]. NTEER RECRUITMENT COORDINATOR Impression: No fracture or dislocation. Mild diffuse soft tissue swelling.
== END ==
PROVIDERS: PCP Family Medicine
DX: M25.572 Pain in left ankle and joints of left foot (principal); G89.29 Other chronic pain; M79.89 Other specified soft tissue disorders
CPT/HCPCS: 73610

== ENCOUNTER 2022-05-29 11:18 | Emergency (ER) | payer MEDICARE, SELFPAY ==
[2022-05-29 11:27] VITALS: BP 151/61; PULSE 80; RESP 16; TEMP 36.5; O2SAT 100
--- NOTE | 2022-05-29 11:36 | ED.URI ---
HPI - URI/Sore Throat General Chief Complaint: Upper Respiratory Infection Stated Complaint: COLD/SWEATS/CONGESTION Time Seen by Provider: 05/29/22 11:28 Source: patient Mode of arrival: ambulatory Limitations: no limitations History of Present Illness HPI Narrative: Patient is a 67-year-old female presenting with body aches, fever, chills, headache, ear pain, congestion, sore throat, cough for 1 week. Has tried DayQuil and NyQuil with no relief. Related Data Home Medications Medication Instructions Recorded Confirmed atorvastatin 40 mg tablet 40 mg PO HS 04/18/20 05/29/22 levothyroxine 75 mcg tablet 75 mcg PO DAILY 04/18/20 05/29/22 (Synthroid) omeprazole 20 mg PO DAILY 05/27/21 05/29/22 trazodone 50 mg PO HS 05/27/21 05/29/22 Bifidobacterium infantis 4 mg 4 mg PO DAILY 03/26/22 05/29/22 capsule (Align) biotin 1,250 mcg-collagen 50 1 tablet PO DAILY 03/26/22 05/29/22 mg-vit C 67.5 mg-vit E-herbal chew tablet pregabalin 75 mg capsule 75 mg PO BID 03/26/22 05/29/22 vitamin B complex 1 cap PO DAILY 03/26/22 05/29/22 Allergies Allergy/AdvReac Type Severity Reaction Status Date / Time fentanyl AdvReac Severe Nausea Verified 05/29/22 11:33 erythromycin base AdvReac Mild Nausea Verified 05/29/22 11:33 Penicillins AdvReac Mild Nausea Verified 05/29/22 11:33 Review of Systems Review of Systems: All systems reviewed & are unremarkable except as noted in HPI and below Constitutional: Constitutional: Reports body ache(s), Reports fever(s), Reports malaise and Denies weakness Eyes: Eyes: Denies loss of vision ENT: Reports otalgia, Reports headache(s), Reports nasal congestion, Reports sinus pain and Reports sore throat Cardiovascular: Cardiovascular: Denies chest pain, Denies irregular heart rhythm and Denies dyspnea Respiratory: Respiratory: Reports cough and Denies dyspnea Gastrointestinal: Gastrointestinal: Denies abdominal pain, Denies melena, Denies hematochezia, Denies diarrhea, Denies nausea and Denies vomiting Musculoskeletal: Musculoskeletal: Denies back pain, Denies myalgias and Denies arthralgias Integumentary/Breasts: Skin/Breast: Denies pruritus and Denies rash Neurologic: Denies headache(s), Denies loss of vision and Denies weakness Psychiatric: Psychiatric: Reports no additional psychiatric complaints PMFSH Past Medical History Medical History Anxiety Foot drop, 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 GERD (gastroesophageal reflux disease) History of breast cancer History of Mohs micrographic surgery for skin cancer (~2014) History of skin cancer Hyperlipidemia Hypothyroidism Osteoarthritis PONV (postoperative nausea and vomiting) Surgical History Surgical History History of appendectomy History of cholecystectomy History of hysterectomy History of spinal fusion fusion C5-6 Hx of breast surgery (~2015) Status post total hip replacement, right (~07/18/20) Family History Family History Mother Lung cancer Social History Social History Years smoked: 30 Smoking status: Former smoker Tobacco type: cigarettes Smoking end date: 03/24/10 Additional smoking assessment comments: DENIES ANY FORM OF TOBACCO USE Alcohol intake: never Substance use: never Living arrangements: with family Gender identity (if verbalized by the patient): Female Sexual Orientation (if Verbalized by the Patient): Straight or Heterosexual Spiritual care concerns: No Comments At time of signature, agree with nursing past medical, surgical, social and family history. There is no relevant family history pertinent to the presenting complaint. Exam Const: General: cooperative, healthy appearing, comfortable, no acute distress and well nourished Nutritional Rohan
== END 2022-05-29 11:44 | disposition home or self-care (01) ==
PROVIDERS: Emergency Provider Nurse Practitioner Family
DX: H66.90 Otitis media, unspecified, unspecified ear (principal); E03.9 Hypothyroidism, unspecified; E78.5 Hyperlipidemia, unspecified; Z85.3 Personal history of malignant neoplasm of breast; Z85.828 Personal history of other malignant neoplasm of skin; Z87.891 Personal history of nicotine dependence
CPT/HCPCS: 99213; G0463

== ENCOUNTER 2022-07-18 07:43 | Outpatient (CLI) | payer MEDICARE, SELFPAY | END 2022-07-18 07:44 | disposition home or self-care (01) | LOC: ANHAUDIO 07:46 | PROVIDERS: Visit Provider Otolaryngology | DX: H90.3 Sensorineural hearing loss, bilateral (principal); H74.02 Tympanosclerosis, left ear | CPT/HCPCS: 92557; 92567 ==

== ENCOUNTER 2022-12-06 17:52 | Emergency (ER) | payer MEDICARE, SELFPAY ==
[2022-12-06 18:09] VITALS: BP 141/73; PULSE 68; RESP 16; TEMP 36.5; O2SAT 98
--- NOTE | 2022-12-06 18:26 | ED.GENADULT ---
HPI - General Adult General Chief complaint: Upper Respiratory Infection Stated complaint: BODY ACHES S/P VACCINATIONS Time Seen by Provider: 12/06/22 18:20 Source: patient, RN notes reviewed and old records reviewed Mode of arrival: ambulatory Limitations: no limitations History of Present Illness HPI narrative: 67-year-old female who presents to [facility] with complaints of having body aches, low grade temperature extreme fatigue,and sore throat for the past 2 days. Patient reports that she had RSV, shingles, and Flu shot on Friday and symptoms started after vaccinations. Patient reports that she has taken some Tylenol and gargled MD complaint: sore throat, low grade temp, body aches and extreme fatigue Onset (ago): day(s) (2) Treatments prior to arrival: other (Tylenol) Related Data Home Medications Medication Instructions Recorded Confirmed atorvastatin 40 mg tablet 40 mg PO HS 04/18/20 12/06/22 levothyroxine 75 mcg tablet 75 mcg PO DAILY 04/18/20 12/06/22 (Synthroid) omeprazole 20 mg PO DAILY 05/27/21 12/06/22 trazodone 50 mg PO HS 05/27/21 12/06/22 Bifidobacterium infantis 4 mg 4 mg PO DAILY 03/26/22 12/06/22 capsule (Align) biotin 1,250 mcg-collagen 50 1 tablet PO DAILY 03/26/22 12/06/22 mg-vit C 67.5 mg-vit E-herbal chew tablet pregabalin 75 mg capsule 75 mg PO BID 03/26/22 12/06/22 vitamin B complex 1 cap PO DAILY 03/26/22 12/06/22 linaclotide 290 mcg capsule 290 mcg PO DAILY 07/02/22 12/06/22 (Linzess) furosemide 20 mg tablet 20 mg PO BID 07/30/22 12/06/22 Allergies Allergy/AdvReac Type Severity Reaction Status Date / Time fentanyl AdvReac Severe Nausea Verified 12/06/22 18:01 erythromycin base AdvReac Mild Nausea Verified 12/06/22 18:01 Penicillins AdvReac Mild Nausea Verified 12/06/22 18:01 Review of Systems Review of Systems: CONSTITUTIONAL: Reports malaise, chills, sweats, or fever. EYES: Denies visual changes, redness, or discharge. ENT: Reports rhinorrhea, congestion, sinus pain, no otalgia positive for sore throat. CARDIOVASCULAR: Denies chest pain, palpitations, or edema. RESPIRATORY: Reports no cough.? Denies dyspnea. GASTROINTESTINAL: Denies abdominal pain, nausea, vomiting, diarrhea SKIN: Denies rash or itching. MUSCULOSKELETAL: Reports myalgia.denies any muscle weakness, reports fatigue NEUROLOGIC: Denies headache. All systems reviewed & are unremarkable except as noted in HPI and below PMFSH Past Medical History Medical History Anxiety Foot drop, 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 GERD (gastroesophageal reflux disease) History of breast cancer History of Mohs micrographic surgery for skin cancer (~2014) History of skin cancer Hyperlipidemia Hypothyroidism Osteoarthritis PONV (postoperative nausea and vomiting) Surgical History Surgical History History of appendectomy History of cholecystectomy History of hysterectomy History of spinal fusion fusion C5-6 Hx of breast surgery (~2015) Status post total hip replacement, right (~07/18/20) Family History Family History Mother Lung cancer Heart disease Father Heart disease Social History Social History Years smoked: 30 Smoking status: Former smoker Tobacco type: cigarettes Smoking end date: 03/24/10 Additional smoking assessment comments: DENIES ANY FORM OF TOBACCO USE Alcohol intake: never Substance use: never Lack of Transportation: No Lack of Food: Never True Current Housing: I Have Housing Concerned About Future Housing: No Difficulty Paying Gas/Electric Bills: No Difficulty Paying for Meds: No Currently Unemployed: No Education: High School Diploma/GED Difficulty w/ Childcare or Family Care: No Living arrangements: with famil
== END 2022-12-06 18:48 | disposition home or self-care (01) ==
PROVIDERS: Emergency Provider Registered Nurse
DX: R52 Pain, unspecified (principal); R53.83 Other fatigue; T50.B95A Adverse effect of other viral vaccines, initial encounter; Z20.822 Contact with and (suspected) exposure to COVID-19; Z87.891 Personal history of nicotine dependence; K21.9 Gastro-esophageal reflux disease without esophagitis; E78.5 Hyperlipidemia, unspecified; E03.9 Hypothyroidism, unspecified; M19.90 Unspecified osteoarthritis, unspecified site; Z85.3 Personal history of malignant neoplasm of breast; Z85.828 Personal history of other malignant neoplasm of skin; Z96.641 Presence of right artificial hip joint
CPT/HCPCS: 87426; 87804; 99213; C9803; G0463

== ENCOUNTER 2022-12-16 12:58 | Emergency (ER) | payer MEDICARE, SELFPAY ==
--- NOTE | ~2022-12-16 | XR_ITS ---
EXAMINATION: XR chest 2V 12/16/2022 14:27 INDICATION: Chest congestion PROCEDURE: 2 view chest COMPARISON: 01/17/2022 FINDINGS: The lungs are clear. The cardiomediastinal silhouette is within normal limits. There are no pleural effusions. There is no pneumothorax suspected. IMPRESSION: 1: NO ACUTE CARDIOPULMONARY DISEASE. Reviewed, dictated and finalized at location B.
--- NOTE | 2022-12-16 13:02 | ED.URI ---
HPI - URI/Sore Throat General Chief Complaint: Upper Respiratory Infection Stated Complaint: Sore Throat;Chest pain Time Seen by Provider: 12/16/22 13:02 Source: patient Mode of arrival: ambulatory Limitations: no limitations History of Present Illness HPI Narrative: Patient is a 59-year-old female who presents with 10 days of sore throat, hoarse voice and chest pressure. Patient states she was seen and tested negative for COVID. Patient has also been seen by primary care provider without any diagnosis. Patient states symptoms started after receiving flu, RSV, and shingles vaccines in 1 day. Patient denies any fever, chills, nausea, vomiting, diarrhea, congestion. Related Data Home Medications Medication Instructions Recorded Confirmed atorvastatin 40 mg tablet 40 mg PO HS 04/18/20 12/16/22 levothyroxine 75 mcg tablet 75 mcg PO DAILY 04/18/20 12/16/22 (Synthroid) omeprazole 20 mg PO DAILY 05/27/21 12/16/22 trazodone 50 mg PO HS 05/27/21 12/16/22 Bifidobacterium infantis 4 mg 4 mg PO DAILY 03/26/22 12/16/22 capsule (Align) biotin 1,250 mcg-collagen 50 1 tablet PO DAILY 03/26/22 12/16/22 mg-vit C 67.5 mg-vit E-herbal chew tablet pregabalin 75 mg capsule 75 mg PO BID 03/26/22 12/16/22 vitamin B complex 1 cap PO DAILY 03/26/22 12/16/22 linaclotide 290 mcg capsule 290 mcg PO DAILY 07/02/22 12/16/22 (Linzess) furosemide 20 mg tablet 20 mg PO BID 07/30/22 12/16/22 meloxicam submicronized 10 mg 10 mg PO DAILY 12/16/22 12/16/22 capsule Allergies Allergy/AdvReac Type Severity Reaction Status Date / Time fentanyl AdvReac Severe Nausea Verified 12/16/22 13:07 erythromycin base AdvReac Mild Nausea Verified 12/16/22 13:07 Penicillins AdvReac Mild Nausea Verified 12/16/22 13:07 Review of Systems Review of Systems: All systems reviewed & are unremarkable except as noted in HPI and below Constitutional: Constitutional: Denies body ache(s), Denies chills, Denies fatigue, Denies fever(s), Denies headache(s), Denies malaise and Denies weakness Eyes: Eyes: Denies blurry vision, Denies itchy eyes and Denies loss of vision ENT: Denies otalgia, Denies headache(s), Reports hoarseness, Denies nasal congestion, Denies sinus pain and Reports sore throat Cardiovascular: Cardiovascular: Denies chest pain, Denies irregular heart rhythm and Denies dyspnea Respiratory: Respiratory: Reports cough and Denies dyspnea Gastrointestinal: Gastrointestinal: Denies abdominal pain, Denies diarrhea, Denies nausea and Denies vomiting Musculoskeletal: Musculoskeletal: Denies back pain, Denies myalgias and Denies arthralgias Integumentary/Breasts: Skin/Breast: Denies pruritus and Denies rash Neurologic: Denies headache(s), Denies loss of vision and Denies weakness Psychiatric: Psychiatric: Reports no additional psychiatric complaints Endocrine: Endocrine: Denies fatigue Allergic/Immunologic: Allergic/Immunologic: Denies itchy eyes PMFSH Past Medical History Medical History Anxiety Foot drop, 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 GERD (gastroesophageal reflux disease) History of breast cancer History of Mohs micrographic surgery for skin cancer (~2014) History of skin cancer Hyperlipidemia Hypothyroidism Osteoarthritis PONV (postoperative nausea and vomiting) Surgical History Surgical History History of appendectomy History of cholecystectomy History of hysterectomy History of spinal fusion fusion C5-6 Hx of breast surgery (~2015) Status post total hip replacement, right (~07/18/20) Family History Family History Mother Lung cancer Heart disease Father Heart disease Social History Social History Years smoked: 30 Smoking status: Former smoker Tobacco type: cigarettes Smoking end date:
[2022-12-16 13:06] VITALS: BP 133/61; PULSE 79; RESP 20; TEMP 36.7; O2SAT 96
[2022-12-16 13:09] VITALS: BP 133/61; PULSE 79; RESP 20; TEMP 36.7; O2SAT 96
== END 2022-12-16 14:40 | disposition home or self-care (01) ==
PROVIDERS: Emergency Provider Nurse Practitioner Family
DX: J04.0 Acute laryngitis (principal); E78.5 Hyperlipidemia, unspecified; E03.9 Hypothyroidism, unspecified; Z85.3 Personal history of malignant neoplasm of breast; Z79.899 Other long term (current) drug therapy; Z79.1 Long term (current) use of non-steroidal anti-inflammatories (NSAID); Z87.891 Personal history of nicotine dependence
CPT/HCPCS: 71046; 99213; G0463

== ENCOUNTER 2022-12-30 13:40 | Emergency (ER) | payer MEDICARE, SELFPAY ==
--- NOTE | 2022-12-30 13:51 | ED.WOUNDLAC ---
HPI - Wound/Laceration General Chief Complaint: Wound/Laceration Stated Complaint: Cut finger Time Seen by Provider: 12/30/22 13:42 Source: patient Mode of arrival: ambulatory Limitations: no limitations History of Present Illness HPI narrative: Leanne is a 67-year-old female patient presenting to the clinic today with complaints of a cut to her right thumb. She reports she was closing an umbrella and she cut the tip of her right thumb. Bleeding is controlled. This occurred prior to arrival. Tetanus is greater than 10 years Related Data Home Medications Medication Instructions Recorded Confirmed atorvastatin 40 mg tablet 40 mg PO HS 04/18/20 12/30/22 levothyroxine 75 mcg tablet 75 mcg PO DAILY 04/18/20 12/30/22 (Synthroid) omeprazole 20 mg PO DAILY 05/27/21 12/30/22 trazodone 50 mg PO HS 05/27/21 12/30/22 Bifidobacterium infantis 4 mg 4 mg PO DAILY 03/26/22 12/30/22 capsule (Align) biotin 1,250 mcg-collagen 50 1 tablet PO DAILY 03/26/22 12/30/22 mg-vit C 67.5 mg-vit E-herbal chew tablet pregabalin 75 mg capsule 75 mg PO BID 03/26/22 12/30/22 vitamin B complex 1 cap PO DAILY 03/26/22 12/30/22 linaclotide 290 mcg capsule 290 mcg PO DAILY 07/02/22 12/30/22 (Linzess) furosemide 20 mg tablet 20 mg PO BID 07/30/22 12/30/22 meloxicam submicronized 10 mg 10 mg PO DAILY 12/16/22 12/30/22 capsule chlorthalidone 25 mg tablet 25 mg PO DAILY 12/30/22 12/30/22 Allergies Allergy/AdvReac Type Severity Reaction Status Date / Time fentanyl AdvReac Severe Nausea Verified 12/30/22 13:48 erythromycin base AdvReac Mild Nausea Verified 12/30/22 13:48 Penicillins AdvReac Mild Nausea Verified 12/30/22 13:48 Review of Systems Review of Systems: Pertinent positives per HPI. Patient denies any fever, chills, rash, headache, visual changes, dizziness, cough, runny nose, sore throat, shortness of breath, chest pain, palpitations, nausea, vomiting, diarrhea, constipation, abdominal pain, or any urinary issues. 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 GERD (gastroesophageal reflux disease) History of breast cancer History of Mohs micrographic surgery for skin cancer (~2014) History of skin cancer Hyperlipidemia Hypothyroidism Osteoarthritis PONV (postoperative nausea and vomiting) Surgical History Surgical History History of appendectomy History of cholecystectomy History of hysterectomy History of spinal fusion fusion C5-6 Hx of breast surgery (~2015) Status post total hip replacement, right (~07/18/20) Family History Family History Mother Lung cancer Heart disease Father Heart disease Social History Social History Years smoked: 30 Smoking status: Former smoker Tobacco type: cigarettes Smoking end date: 03/24/10 Additional smoking assessment comments: DENIES ANY FORM OF TOBACCO USE Alcohol intake: never Substance use: never Lack of Transportation: No Lack of Food: Never True Current Housing: I Have Housing Concerned About Future Housing: No Difficulty Paying Gas/Electric Bills: No Difficulty Paying for Meds: No Currently Unemployed: No Education: High School Diploma/GED Difficulty w/ Childcare or Family Care: No Living arrangements: with family Gender identity (if verbalized by the patient): Female Sexual Orientation (if Verbalized by the Patient): Straight or Heterosexual Spiritual care concerns: No Comments At the time of my signature, I reviewed and agree with the nursing past medical, surgical, social, and family history. There is no relevant family history pertinent to the patient complaint. Exam Narrative: General: Well-developed, well nourished, in no tiny
[2022-12-30 13:52] VITALS: BP 139/78; PULSE 98; RESP 16; TEMP 37.1; O2SAT 97
[2022-12-30] MEDS: TETANUS,DIPHTHERIA,AC PERTUSSIS ADULT (0.5 ML) BOOSTRIX IM (14:00)
== END 2022-12-30 14:09 | disposition home or self-care (01) ==
PROVIDERS: Emergency Provider Nurse Practitioner Family
DX: S61.001A Unspecified open wound of right thumb without damage to nail, initial encounter (principal); E78.5 Hyperlipidemia, unspecified; E03.9 Hypothyroidism, unspecified; Z85.828 Personal history of other malignant neoplasm of skin; Z79.899 Other long term (current) drug therapy; Z79.1 Long term (current) use of non-steroidal anti-inflammatories (NSAID); Z85.3 Personal history of malignant neoplasm of breast; Z87.891 Personal history of nicotine dependence; Z23 Encounter for immunization; W45.8XXA Other foreign body or object entering through skin, initial encounter
CPT/HCPCS: 90471; 90715; 99212; G0463

== ENCOUNTER → 2023-01-07 08:40 | Outpatient (CLI) | payer MEDICARE, SELFPAY ==
--- NOTE | ~2023-01-07 | CT_ITS ---
CT Scan of the Chest without Contrast: Clinical Indication: Lung cancer screening, personal history of nicotine dependence Technique: Contiguous sections were acquired throughout the chest without intravenous contrast. Dose reduction technique was used on this scan by utilizing automated exposure control and iterative recon struction technique. The dose-length product (DLP) was 80.53 mGy-cm. COMPARISON: 11/16/2021, 11/08/2020 Findings: There is no evidence of any significant mediastinal, hilar or axillary lymphadenopathy. The mediastin al soft tissues appear normal. There is no evidence of pleural or pericardial effusion. Stable 2 mm right upper lobe pulmonary nodule. Stable linear scarring left upper lobe. Stable 3 mm ri ght middle lobe pulmonary nodule. Images through the upper abdomen reveal no abnormalities. Impression: Lung RADS 2: Benign appearance. 12 month follow-up screening CT advised. Reviewed, dictated and finalized at [facility]. Impression: Lung RADS 2: Benign appearance. 12 month follow-up screening CT advised.
== END ==
DX: Z12.2 Encounter for screening for malignant neoplasm of respiratory organs (principal); Z87.891 Personal history of nicotine dependence
CPT/HCPCS: 71271

== ENCOUNTER → 2023-02-27 14:03 | Outpatient (CLI) | payer MEDICARE, SELFPAY ==
--- NOTE | ~2023-02-27 | DEXA_ITS ---
Bone Density Report Name: KAILA VAEL Age: 67 Sex: Female Ethnicity: White Date of : 1955 Indication: postmenopausal; screening for osteoporosis; height loss; prior fracture; hysterectomy; Referring Provider: UNKNOWN, UNKNOWN Study: Bone densitometry was performed. Exam Date: February 27, 2023 Accession number: [id number] Bone Density: Region BMD T-score Z-score Classification AP Spine (L1, L4) 1.086 0.4 2.5 Normal Femoral Neck (Left) 0.679 -1.5 0.2 Osteopenia Total Hip (Left) 0.842 -0.8 0.6 Normal World Health Organization criteria for BMD impression classify patients as: Normal (T-score at or above -1.0), Osteopenia (T-score between -1.0 and -2.5), or Osteoporosis (T-score at or below -2.5). 10-year Fracture Risk: FRAX not reported because: Prior hip or vertebral fracture Previous Exams: Region Exam Age BMD T-score BMD Change BMD Change Date g/cm2 vs Baseline vs Previous AP Spine(L1, L4) 02/27/2023 67 1.086 0.4 0.058* 0.044* 12/13/2020 65 1.042 0.0 0.014 0.014 02/26/2008 52 1.028 -0.1 Total Hip(Left) 02/27/2023 67 0.842 -0.8 0.038* 0.014 12/13/2020 65 0.828 -0.9 0.024 0.024 02/26/2008 52 0.804 -1.1 *Denotes significance at 95% confidence level, LSC for AP Spine = 0.022 g/cm2, LSC for Total Hip = 0.027 g/cm2 Clinical Information Provided by Patient: Have had a previous hip or vertebral fracture Has had a low trauma fracture Has the following medical conditions: Hysterectomy Patient maximum height was 67 Menopause Age: 37 No regular weight bearing exercise Does not regularly consume dairy products Drinks caffeinated beverages Onset of menses at age 11 Number of children 2 Impression: The patient has low bone mass, based on the Left Femoral Neck T-score. The patient has risk factors, including: previous fracture. No significant bone loss was observed. Discussion: INCREASED RISK OF FRACTURE DUE TO HISTORY OF FRACTURE. The patient's previous fracture puts the patient at high risk of a future fracture. In untreated patients, the risk of osteoporotic fracture increases approximately two-fold for each 1.0 SD decrease in T-score. Low bone density is not the only risk factor for fracture; also consider factors such as patient's age, frailty or poor health, risk of falling, risk of injury, previous osteoporotic fracture, family history of osteoporosis, cigarette smoking, low body weight, etc. Not everyone with a low trauma
== END ==
DX: M85.88 Other specified disorders of bone density and structure, other site (principal); M85.852 Other specified disorders of bone density and structure, left thigh; Z78.0 Asymptomatic menopausal state
CPT/HCPCS: 77080

== ENCOUNTER 2023-05-03 09:40 | Outpatient (CLI) | payer MEDICARE, SELFPAY ==
--- NOTE | ~2023-05-03 | MR_ITS ---
MRI of the lumbar spine Clinical History: Spinal stenosis Technique: Axial T2-weighted images, and sagittal T1-weighted, T2-weighted, and T2 fat-sat images wer e acquired. Findings: No fracture and 5. Minimal grade 1 retrolisthesis of L2 over L3 present. No suspicious bone marrow signal abnormality seen. At L1-L2, there is mild degenerative disc narrowing. There is minimal disc bulge and moderate facet a rthropathy. No central canal stenosis or neural foraminal narrowing. At L2-L3, there is advanced degenerative disc narrowing. There is mild disc bulge and mild facet arth ropathy. No central canal stenosis or neural foraminal narrowing. L3-L4, there is mild disc bulge and moderate facet arthropathy. No central canal stenosis. There is m ild right neural foraminal narrowing. Left neural foramen preserved. At L4-L5, there is mild disc bulge and moderate facet arthropathy. No central canal stenosis or defin ite neural foraminal narrowing. At L5-S1, there is minimal disc bulge and moderate to advanced facet arthropathy. No central canal st enosis or neural foraminal narrowing. Paravertebral soft tissues are unremarkable. Impression: Mild degenerative spondylosis overall, as detailed above. Reviewed, dictated and finalized at location M. [employer] Impression: Mild degenerative spondylosis overall, as detailed above.
== END 2023-05-03 09:41 ==
LOC: MICIMG 09:40
DX: M48.062 Spinal stenosis, lumbar region with neurogenic claudication (principal)
CPT/HCPCS: 72148

== ENCOUNTER 2023-12-03 09:11 | Emergency (ER) | payer MEDICARE, SELFPAY ==
--- NOTE | 2023-12-03 09:20 | ED.GENADULT ---
HPI - General Adult General Chief complaint: Upper Respiratory Infection Stated complaint: COVID Time Seen by Provider: 12/03/23 09:20 Source: patient, RN notes reviewed and old records reviewed Mode of arrival: ambulatory Limitations: no limitations History of Present Illness HPI narrative: 68-year-old [facility] to [facility] complaint excessive sneezing, runny nose, body aches, diarrhea for 2 days. Patient also endorses generalized fatigue. Patient denies fever, nausea, vomiting, headache, dizziness, urinary changes, abdominal pain, pertinent medical history. Patient's states that she was able to eat a bagel this morning and has been able to tolerate fluids well. Patient reports last urinary output this morning prior to arrival. Patient has treated at home with [place]leen-[place] Plus cold and flu. Patient reports that her symptoms are generally improving. [facility] with her to tested positive for COVID at home last night. Patient resting in exam room comfortably, appears tired. Respirations even and nonlabored. Patient in no acute distress. Related Data Home Medications Medication Instructions Recorded Confirmed levothyroxine 75 mcg tablet 75 mcg PO DAILY 04/18/20 12/03/23 (Synthroid) omeprazole 20 mg PO DAILY 05/27/21 12/03/23 trazodone 50 mg PO HS 05/27/21 12/03/23 biotin 1,250 mcg-collagen 50 1 tablet PO DAILY 03/26/22 12/03/23 mg-vit C 67.5 mg-vit E-herbal chew tablet pregabalin 75 mg capsule 75 mg PO BID 03/26/22 12/03/23 vitamin B complex 1 cap PO DAILY 03/26/22 12/03/23 chlorthalidone 25 mg tablet 25 mg PO DAILY 12/30/22 12/03/23 furosemide 20 mg tablet 20 mg PO BID PRN Edema 05/14/23 12/03/23 linaclotide 290 mcg capsule 290 mcg PO DAILY PRN Constipation 05/14/23 12/03/23 (Linzess) meloxicam 7.5 mg tablet 7.5 mg PO DAILY 05/14/23 12/03/23 pravastatin 10 mg tablet 10 mg PO DAILY 11/19/23 12/03/23 Allergies Allergy/AdvReac Type Severity Reaction Status Date / Time fentanyl AdvReac Severe Nausea Verified 12/03/23 09:28 erythromycin base AdvReac Mild Rash Verified 12/03/23 09:28 Penicillins AdvReac Mild Nausea Verified 12/03/23 09:28 Review of Systems Review of Systems: All systems reviewed & are unremarkable except as noted in HPI and below Constitutional: Constitutional: Reports as per HPI, Reports body ache(s) and Reports fatigue Eyes: Eyes: Reports no additional eye complaints ENT: Reports as per HPI, Reports nasal discharge and Reports other ( Sneezing) Cardiovascular: Cardiovascular: Reports no additional cardiovascular complaints, Denies chest pain and Denies dyspnea Respiratory: Respiratory: Reports no additional respiratory complaints, Denies cough and Denies dyspnea Gastrointestinal: Gastrointestinal: Reports as per HPI, Reports diarrhea, Denies nausea and Denies vomiting Musculoskeletal: Musculoskeletal: Reports no additional musculoskeletal complaints Neurologic: Reports system reviewed and no additional complaints, except as documented Psychiatric: Psychiatric: Reports no additional psychiatric complaints PMFSH Past Medical History Medical History Anxiety Foot drop, 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
[2023-12-03 09:29] VITALS: BP 99/58; PULSE 77; RESP 16; TEMP 36.6; O2SAT 98
[2023-12-03 09:32] VITALS: BP 99/58; PULSE 77; RESP 16; TEMP 36.6; O2SAT 98
[2023-12-03 09:59] LABS: EDCOVIDSCREEN Negative (Negative)
== END 2023-12-03 10:10 | disposition home or self-care (01) ==
LOC: EXPGOSH 10:20
PROVIDERS: Emergency Provider Nurse Practitioner Family
DX: U07.1 COVID-19 (principal); F41.9 Anxiety disorder, unspecified; K21.9 Gastro-esophageal reflux disease without esophagitis; Z85.3 Personal history of malignant neoplasm of breast; E78.5 Hyperlipidemia, unspecified; E03.9 Hypothyroidism, unspecified; Z90.710 Acquired absence of both cervix and uterus; Z96.641 Presence of right artificial hip joint; Z87.891 Personal history of nicotine dependence
CPT/HCPCS: 87635; 99212; G0463

== ENCOUNTER 2023-12-30 08:13 | Emergency (ER) | payer MEDICARE, SELFPAY ==
--- NOTE | ~2023-12-30 | XR_ITS ---
CHEST RADIOGRAPH, PA AND LATERAL CLINICAL HISTORY: heaviness upper chest post COVID 4 weeks ago sob . COMPARISON: 12/16/2022 TECHNIQUE: PA and lateral views of the chest. FINDINGS The cardiomediastinal silhouette is unremarkable. The lungs are clear. Fixation hardware within the lower cervical spine. Clips within the right upper quadrant consistent with prior cholecystectomy. Visualized osseous structures and remaining soft tissues are otherwise unremarkable. IMPRESSION: No focal infiltrate or effusion. Reviewed, dictated and finalized at location A.
[2023-12-30 08:30] VITALS: BP 115/63; PULSE 69; RESP 16; TEMP 36.6; O2SAT 100
[2023-12-30 08:32] VITALS: BP 115/63; PULSE 69; RESP 16; TEMP 36.6; O2SAT 100
--- NOTE | 2023-12-30 08:53 | ED.FEMALEGU ---
HPI - Female Genitourinary General Chief complaint: Urogenital-Female Stated complaint: uti,chest discomfort Time Seen by Provider: 12/30/23 08:44 Source: patient Mode of arrival: ambulatory Limitations: no limitations History of Present Illness HPI Narrative: 68 year old female who presents to [facility] care with complaints of 1 week duration of urinary urgency and frequency and odorous urine with no known fevers, chills or any nausea or vomiting. Patient reports that she has urostimulator in place for overactive bladder problems. Patient also reports that she had COVID 12/06/2023 and has since had heaviness sensation to her upper chest, denies chest pain, no radiation of pain or any cough or any shortness of breath. MD elicited complaint: UTI Pertinent past history: other (previous UTI's and uro-stimulator for overactive bladder) Onset (ago): week(s) (1) Location of symptoms: urethra Severity: mild Severity scale (1-10): 2 Quality of pain: aching Vaginal discharge: none Treatment prior to arrival: none Related Data Home Medications Medication Instructions Recorded Confirmed levothyroxine 75 mcg tablet 75 mcg PO DAILY 04/18/20 12/30/23 (Synthroid) biotin 1,250 mcg-collagen 50 1 tablet PO DAILY 03/26/22 12/30/23 mg-vit C 67.5 mg-vit E-herbal chew tablet vitamin B complex 1 cap PO DAILY 03/26/22 12/30/23 chlorthalidone 25 mg tablet 25 mg PO DAILY 12/30/22 12/30/23 furosemide 20 mg tablet 20 mg PO BID PRN Edema 05/14/23 12/30/23 linaclotide 290 mcg capsule 290 mcg PO DAILY PRN Constipation 05/14/23 12/30/23 (Linzess) meloxicam 7.5 mg tablet 7.5 mg PO DAILY 05/14/23 12/30/23 pravastatin 10 mg tablet 10 mg PO DAILY 11/19/23 12/30/23 omeprazole 20 mg capsule,delayed 20 mg PO DAILY 12/30/23 12/30/23 release pregabalin 300 mg capsule 300 mg PO DAILY 12/30/23 12/30/23 trazodone 50 mg tablet 50 mg PO DAILY 12/30/23 12/30/23 Allergies Allergy/AdvReac Type Severity Reaction Status Date / Time fentanyl AdvReac Severe Nausea Verified 12/30/23 08:29 erythromycin base AdvReac Mild Rash Verified 12/30/23 08:29 Penicillins AdvReac Mild Nausea Verified 12/30/23 08:29 Review of Systems Review of Systems: CONSTITUTIONAL: Denies fever, chills, or sweats. CARDIOVASCULAR: Denies chest pain, palpitations, or edema.reports upper chest heaviness feeling since had COVID 4 weeks ago, denies chest pain or any shortness of breath RESPIRATORY: Denies cough or dyspnea. GASTROINTESTINAL: Denies abdominal pain, nausea, vomiting, or diarrhea. GENITOURINARY: Reports no burning positive for frequency, urgency.of urination, foul odor of urine, Denies flank pain or hematuria. SKIN: Denies rash or itching. MUSCULOSKELETAL: Denies back pain or myalgia. 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 Social History Social History Years smoked: 30 Smoking status: Former smoker Tobacco type: cigarettes Smoking end date: 03/24/10 Additional smoking assessmen
[2023-12-30 09:01] LABS: EDUAAPPEAR Cloudy; EDUABILI Negative (Negative); EDUABLOOD Negative (Negative); EDUACOLOR1 Yellow; EDUAGLUCOSE Negative (Negative); EDUAKETONE Negative (Negative); EDUALEUKO 2+ (Negative); EDUANITRATE Positive (Negative); EDUAPH 6.5; EDUAPROTEIN Negative (Negative); EDUAUROBILI 0.2
== END 2023-12-30 09:43 | disposition home or self-care (01) ==
PROVIDERS: Emergency Provider Registered Nurse
DX: N39.0 Urinary tract infection, site not specified (principal); R07.89 Other chest pain; Z87.891 Personal history of nicotine dependence; K21.9 Gastro-esophageal reflux disease without esophagitis; E78.5 Hyperlipidemia, unspecified; E03.9 Hypothyroidism, unspecified; M19.90 Unspecified osteoarthritis, unspecified site; Z96.641 Presence of right artificial hip joint; Z86.16 Personal history of COVID-19
CPT/HCPCS: 71046; 81003; 87077; 87086; 87186; 99213; G0463

== ENCOUNTER → 2024-01-08 13:58 | Outpatient (REF) | payer MEDICARE, SELFPAY | LOC: ANHLAB 13:58 | PROVIDERS: Visit Provider Plastic Surgery | DX: D22.9 Melanocytic nevi, unspecified (principal) | CPT/HCPCS: 88305 ==

== ENCOUNTER 2024-02-26 12:35 | Outpatient (CLI) | payer MEDICARE, SELFPAY ==
--- NOTE | ~2024-02-26 | CT_ITS ---
CT Scan of the Chest without Contrast: Clinical Indication: Lung cancer screening, nicotine dependence Technique: Contiguous sections were acquired throughout the chest without intravenous contrast. Dose reduction technique was used on this scan by utilizing automated exposure control and iterative recon struction technique. The dose-length product (DLP) was 73.03 mGy-cm. COMPARISON: 01/07/2023 Findings: There is no evidence of any significant mediastinal, hilar or axillary lymphadenopathy. The mediastin al soft tissues appear normal. There is no evidence of pleural or pericardial effusion. Stable linear scarring anterior left lung apex. Tiny group nodular opacities in the inferior right up per lobe are stable from prior exam. Stable 3 mm right middle lobe pulmonary nodule. Stable scarring right middle lobe. Stable 2 mm left lower lobe pulmonary nodule. Images through the upper abdomen reveal no abnormalities. Impression: Lung RADS 2: Benign appearance. 12 month follow-up screening CT advised. Reviewed, dictated and finalized at [facility]. RT PROGRAMMER Impression: Lung RADS 2: Benign appearance. 12 month follow-up screening CT advised.
== END 2024-02-26 12:36 | disposition home or self-care (01) ==
DX: Z12.2 Encounter for screening for malignant neoplasm of respiratory organs (principal); Z87.891 Personal history of nicotine dependence
CPT/HCPCS: 71271

== ENCOUNTER 2024-04-08 10:37 | Emergency (ER) | payer MEDICARE, SELFPAY ==
--- NOTE | ~2024-04-08 | XR_ITS ---
EXAMINATION: XR hand RT min 3V, XR wrist RT min 3V DATE: 04/08/2024 11:48 INDICATION: Right hand and wrist injury post fall onto outstretched hand one week prior TECHNIQUE: 1. Posteroanterior, ulnar deviation, oblique, and lateral views of the right wrist were obtained. 2. Dorsal palmar, oblique and lateral views of the right hand were obtained. COMPARISON: None. FINDINGS: Alignment of the right hand and wrist is normal. No fracture identified. Mild polyarticular osteoart hritis at the triscaphe, first carpometacarpal and multiple metacarpophalangeal and interphalangeal j oints. No focal soft tissue swelling. IMPRESSION: 1. Typical distribution of mild polyarticular osteoarthritis. No acute osseous abnormality. Reviewed, dictated and finalized at location B. EANT MISSILE CREWMAN IMPRESSION: 1. Typical distribution of mild polyarticular osteoarthritis. No acute osseous abnormality.
[2024-04-08 10:54] VITALS: BP 132/64; PULSE 73; RESP 16; TEMP 36.6; O2SAT 98
--- NOTE | 2024-04-08 11:36 | ED.UPPEXIN ---
HPI - Extremity Injury (Upper) General Chief Complaint: Extremity Injury, Upper Stated Complaint: R ARM INJURY Time Seen by Provider: 04/08/24 11:29 Source: patient and RN notes reviewed Mode of arrival: ambulatory Limitations: no limitations History of Present Illness HPI narrative: Patient presents today complaining of right wrist and hand pain. She fell 7 days ago backwards, putting her hand behind her to catch her fall. States symptoms have not improved since the injury. Denies numbness or tingling in the arm or hand. She currently rates her pain 3/10 and describes the pain as throbbing. Pain increases with movement or when making a fist. She has tried Tylenol with short-term relief. Related Data Home Medications ?Medication ?Instructions ?Recorded ?Confirmed ?Last Taken ?Type levothyroxine 75 mcg tablet 75 mcg PO DAILY 04/18/20 04/08/24 03/26/22 History (Synthroid) biotin 1,250 mcg-collagen 50 1 tablet PO DAILY 03/26/22 12/30/23 03/26/22 History mg-vit C 67.5 mg-vit E-herbal chew tablet vitamin B complex 1 cap PO DAILY 03/26/22 04/08/24 03/26/22 History chlorthalidone 25 mg tablet 25 mg PO DAILY 12/30/22 04/08/24 Unknown History furosemide 20 mg tablet 20 mg PO BID PRN Edema 05/14/23 12/30/23 Unknown History linaclotide 290 mcg capsule 290 mcg PO DAILY PRN Constipation 05/14/23 04/08/24 Unknown History (Linzess) meloxicam 7.5 mg tablet 7.5 mg PO DAILY 05/14/23 04/08/24 Unknown History pravastatin 10 mg tablet 10 mg PO DAILY 11/19/23 04/08/24 Unknown History pregabalin 300 mg capsule 300 mg PO DAILY 12/30/23 04/08/24 Unknown History trazodone 50 mg tablet 50 mg PO DAILY 12/30/23 04/08/24 Unknown History famotidine 20 mg tablet mg 04/08/24 Unknown History Allergies Allergy/AdvReac Type Severity Reaction Status Date / Time fentanyl AdvReac Severe Nausea Verified 04/08/24 10:58 erythromycin base AdvReac Mild Rash Verified 04/08/24 10:58 Penicillins AdvReac Mild Nausea Verified 04/08/24 10:58 Review of Systems Review of Systems: CONSTITUTIONAL: Denies body aches, fever, chills, or sweats. EYES: Denies visual changes, redness, or discharge. ENT: Denies rhinorrhea, congestion, sore throat, or otalgia. CARDIOVASCULAR: Denies chest pain, palpitations, or edema. RESPIRATORY: Denies cough or dyspnea. GASTROINTESTINAL: Denies abdominal pain, nausea, vomiting, or diarrhea. GENITOURINARY: Denies dysuria or hematuria. SKIN: Denies rash, itching, or wounds. MUSCULOSKELETAL: + right hand and wrist injury. NEUROLOGIC: Denies headache, numbness, tingling, or weakness. PSYCH: Denies depression or anxiety. [facility] Past Medical History Medical History PONV (postoperative nausea and vomiting) Anxiety Hypothyroidism Osteoarthritis GERD (gastroesophageal reflux disease) Hyperlipidemia Foot drop, 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 History of Mohs micrographic surgery for skin cancer (~2014) History of skin cancer History of breast cancer Surgical History Surgical History Status post total hip replacement, right (~07/18/20) History of hysterectomy History of spinal fusion fusion C5-6 History of cholecystectomy History of appendectomy Hx of breast surgery (~2015) Family History Family History Mother Lung cancer Heart disease Hypertension Father Heart disease Hypertension Social History Social History Years smoked: 30 Smoking status: Former smoker Tobacco type: cigarettes Smoking end date: 03/24/10 Additional smoking assessment comments: DENIES ANY FORM OF TOBACCO USE Alcohol intake: never Substance use: never Do You Feel Safe in your Home?: Yes Lack of Transportation: No Lack of Food: Never True Current Housing: I Have Housing Concerned About Future Housing: No Difficulty Paying Gas/Electric Bills: No Difficulty Paying for Meds: No Currently Unemployed: No Education: High School Diploma/GED Difficulty w/ Childcare or Family Care: No Living arrangements: with family Gender identity (if verbalized by the patient): Female Sexual Orientation (if Verbalized by the Patient): Straight or Heterosexual Spiritual care concerns: No Comments At time of signature, I have reviewed and agree with nursing past medical, surgical, social and family history unless otherwise noted. Please see nursing chart for further information. There is no relevant family history pertinent to the presenting complaint Exam Narrative: GENERAL: Well-appearing, well-nourished, and in no acute distress. HEAD: Normocephalic, atraumatic. EYES: EOMI. No redness or drainage. Conjunctivae normal. ENT: Mucous membranes pink and moist. NECK: Normal AROM. CHEST: No respiratory distress. EXTREMITIES: Right arm: Tenderness generally about the wrist and dorsum of the hand. Scant edema of the wrist. No ecchymosis of the wrist or hand. Distal sensation intact. Capillary refill normal. Radial pulse normal. Full range of motion of the wrist and fingers with increased pain. SKIN: Warm, dry, no rash. Capillary refill normal. Normal skin turgor. NEURO: No focal deficits. Alert and oriented x3. Gait steady. PSYCH: Normal affect. No signs of depression or anxiety. Course Course Level of Care: Express Care Visit Vital Signs Vital signs: Vital Signs Temperature 97.8 F 04/08/24 10:54 Pulse Rate 73 04/08/24 10:54 Respiratory Rate 16 04/08/24 10:54 Blood Pressure 132/64 04/08/24 10:54 Pulse Oximetry 98 04/08/24 10:54 Temperature 97.8 F 04/08/24 10:54 Pulse Rate 73 04/08/24 10:54 Respiratory Rate 16 04/08/24 10:54 Blood Pressure 132/64 04/08/24 10:54 Pulse Oximetry 98 04/08/24 10:54 Reviewed MDM - Extremity Injury (Upper) MDM Narrative Medical decision making narrative: Wrist and hand x-rays are negative. Recommend conservative treatment with PCP/ortho follow-up in 1-2 weeks if symptoms persist. Patient agrees with plan. Anticipatory guidance given. Differential Diagnosis Differential diagnosis: Likely sprain and strain of wrist, fracture of wrist, fracture of hand and other Imaging Data Radiologist's impression: ITS Impressions Hand X-Ray 04/08/24 11:49 IMPRESSION: 1. Typical distribution of mild polyarticular osteoarthritis. No acute osseous abnormality. Wrist X-Ray 04/08/24 11:49 IMPRESSION: 1. Typical distribution of mild polyarticular osteoarthritis. No acute osseous abnormality. Critical Care Time Critical Care Time Critical Care Time: No Discharge Plan Discharge Clinical Impression: Right wrist sprain Qualifiers: Encounter type: initial encounter Qualified Code(s): S63.501A - Unspecified sprain of right wrist, initial encounter Sprain of hand, right Qualifiers: Encounter type: initial encounter Qualified Code(s): S63.91XA - Sprain of unspecified part of right wrist and hand, initial encounter Patient Disposition: Home, Self-Care Condition: Stable Instructions: Wrist Sprain (ED) Additional Instructions: Your x-rays are negative for fracture. Elevate and ice your wrist and hand. Take Tylenol or ibuprofen if needed. Follow-up with your PCP or hand specialist if symptoms persist. Your blood pressure was elevated above 120/80 today at Urgent Care. This puts you above the threshold for follow up. Please schedule a followup visit with your personal physician as soon as possible, for further evaluation and treatment. Even blood pressure exceeding 120/80 may indicate pre-hypertension. Patient Language: Nepali Prescriptions: No Action (DME) Aerochamber MV Spacer See Rx Instructions .Route Qty: 1 0RF Rx Instructions: As directed albuterol sulfate 90 mcg/actuation HFA aerosol inhaler 2 puff inhalation QID PRN (Reason: shortness of breath or wheezing) Qty: 6.7 0RF chlorthalidone 25 mg tablet 25 mg PO DAILY trazodone 50 mg tablet 50 mg PO DAILY pregabalin 300 mg capsule 300 mg PO DAILY cefuroxime axetil 250 mg tablet 250 mg PO BID Qty: 14 0RF famotidine 20 mg tablet levothyroxine [Synthroid] 75 mcg tablet 75 mcg PO DAILY Linzess 290 mcg capsule 290 mcg PO DAILY PRN (Reason: Constipation) pravastatin 10 mg tablet 10 mg PO DAILY furosemide 20 mg tablet 20 mg PO BID PRN (Reason: Edema) meloxicam 7.5 mg tablet 7.5 mg PO DAILY vitamin B complex Capsule 1 cap PO DAILY qafvrt-tgyfikhi-hjm C-E-herbal 1,250 mcg-50 mg -67.5 mg-15 mg Tablet,Chewable 1 tablet PO DAILY Follow-up/Referrals: Yas,Tri [Other] Brenda Guerra MD [Physician] - Time of Disposition: 12:01
== END 2024-04-08 12:06 | disposition home or self-care (01) ==
PROVIDERS: Emergency Provider Nurse Practitioner
DX: S63.501A Unspecified sprain of right wrist, initial encounter (principal); S63.91XA Sprain of unspecified part of right wrist and hand, initial encounter; E03.9 Hypothyroidism, unspecified; Z79.1 Long term (current) use of non-steroidal anti-inflammatories (NSAID); Z79.899 Other long term (current) drug therapy; Z87.891 Personal history of nicotine dependence; W19.XXXA Unspecified fall, initial encounter
CPT/HCPCS: 73110; 73130; 99213; G0463

== ENCOUNTER 2024-10-02 09:15 | Outpatient (CLI) | payer MEDICARE, SELFPAY ==
--- NOTE | ~2024-10-02 | XR_ITS ---
Left Shoulder Technique: AP and axillary views were obtained. Clinical History: Pain Findings: No fracture or dislocation is seen. Osseous alignment is anatomic. The glenohumeral joint s pace is intact, with small inferomedial humeral head osteophyte. AC joint intact. Soft tissues are un remarkable. Impression: Mild degenerative change of the glenohumeral joint, as above. Reviewed, dictated and finalized at location M. Impression: Mild degenerative change of the glenohumeral joint, as above.
--- OUTSIDE RECORDS SUMMARY | 2024-10-02 09:20 | XMS_ITS | Encounter Summary ---
Author Organization [facility] Address [facility] [place] [address] Care Team Providers Care Irrigator Name Role Phone Tri Sorenson MD Primary Care Provider [phone] Encounter Details Date Type Department Care Team (Late st Contact Info) Description 01/22/2021 MyChart Message Enc [facility] Medical Group Family Medicine [facility] [address] [place], [place] [id number] Tri Sorenson MD [address] [place] [phone] RE: Medication Questions Social History Tobacco Use Types Packs/Day Years Used Date Smoking Tobacco: Former Cigarettes 1 43 0 10/17/1972 - 10/18/2015 Smokeless Tobacco: Never Alcohol Use Standard Drinks/Week Comments Not Currently 0 (1 standard drink = 0.6 oz pur e alcohol) PHQ-2 Answer Date Recorded PHQ-2 Score - If the patient scores above 3, please move on to questions 3-9 2 12/08/2020 Comments No Sex and Gender Information Value Date Recorded Sex Assigned at Not on file Legal Sex Female 1:40 PM CDT Gender Identity Not on file Sexual Orientation Not on file COVID-19 Exposure Response Date Recorded In the last month, have you been in contact with someone who was confirmed or suspected to have Coronavirus / COVID-19? No / Unsure 01/08/2021 11:06 AM CDT documented as of this encounter Plan of Treatment Upcoming Encounters Date Type Department Care Team (Late st Contact Info) Description 10/21/2024 7:[address] Coord[employer] [address] [address] Sanford Martines MD Three [facility]. [address] [place] [address] documented as of this encounter Visit Diagnoses Not on filedocumented in this encounter Additional Health Concerns Assessment Noted Time PHQ-9 Depression Total Score: 2 12/09/19 21 11:40 AM CDT documented as of this encounter Care Teams Irrigator Relationship Specialty Start Date End Date Tri Sorenson MD PCP - General FAMILY PRACTICE 10/17/20 documented as of this encounter
--- OUTSIDE RECORDS SUMMARY | 2024-10-02 09:20 | XMS_ITS | Encounter Summary ---
Author Organization [facility] Address [facility] [place] [address] Care Team Providers Care Preload Supervisor Name Role Phone Sherine Flor MD Unavailable [phone] Ashley Dyson MD Unavailable [phone] Jodi Cooper MD Unavailable Juvenal Whipple MD, Reinaldo Hyde Primary Care Provider Tri Sorenson MD Primary Care Provide r Tri Sorenson MD Unavailable [phone] Encounter Details Date Type Department Care Team (Late st Contact Info) Description 12/15/2019 [facility] Outpatient Visit [facility] - Family Medicine [address] [place] [id number] Reinaldo Sanford Jr., MD [address] [place] [address] Social History Tobacco Use Types Packs/Day Years Used Date Smoking Tobacco: Former Cigarettes Q uit: 11/22/1997 Smokeless Tobacco: Never Alcohol Use Standard Drinks/Week Comments No 0 (1 standard drink = 0.6 oz pur e alcohol) Comments No Sex and Gender Information Value Date Recorded Sex Assigned at Female 06/10/2020 6:46 PM CDT Legal Sex Female 6:25 AM ROBOTICS SOFTWARE ENGINEER Gender Identity Female 06/10/2020 6:46 PM CDT Sexual Orientation Choose not to disclose 2020 6:46 PM CDT 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 Answer Date of Assessment Author No 02/05/2017 3:39 PM Cheyenne Montalvo RN * Is person blind or have serious difficulty seeing? Answer Date of Assessment Author No 02/05/2017 3:39 PM Cheyenne Montalvo RN * Does person have serious difficulty walking/climbing stairs? Answer Date of Assessment Author No 02/05/2017 3:39 PM Cheyenne Montalvo RN * Does person have difficulty dressing/bathing? Answer Date of Assessment Author No 02/05/2017 3:39 PM Cheyenne Montalvo RN * Does person have difficulty doing errands alone? Answer Date of Assessment Author No 02/05/2017 3:39 PM Cheyenne Montalvo RN documented as of this encounter Mental Status * Does person have difficulty concentrating/remembering/making decisions? Answer Entry Date Author No 02/05/2017 3:39 PM Cheyenne Montalvo RN documented in this encounter Plan of Treatment Not on file documented as of this encounter Goals Goal Patient Goal Type Associated Problems Recent Progress Patient-Stated? Author Quit smoking / using tobacco Lifestyle On track( 12:59 PM CDT) No Nora Nickerson Take recommended medication(s) Lifestyle On track( 12:59 PM CDT) No Amina Tadeo MA documented as of this encounter Visit Diagnoses Not on filedocumented in this encounter Care Teams Preload Supervisor Relationship Specialty Start Date End Date Jodi Cooper MD [address] [place] [address] PCP - [facility] 09/22/19 09/09/22 Reinaldo Sanford Jr., MD [address] [place] [address] PCP - General 04/17/21 09/06/21 Tri Sorenson MD [address] [place] [address] PCP - General Family Medicine 09/07/21 Tri Sorenson MD [address] [facility] [address] [place] [address] PCP - [facility] 03/24/22 Sherine Flor MD [address] [place] [address] Referring Physician General Surgery 04/16/15 Ashley Dyson MD [address] [place] [address] Urogynecology 12/14/18 documented as of this encounter
--- OUTSIDE RECORDS SUMMARY | 2024-10-02 09:20 | XMS_ITS | Encounter Summary ---
Author Organization [facility] Address [facility] [place] [address] Care Team Providers Care Medical Staff Physician Name Role Phone Tri Sorenson MD Primary Care Provider [phone] Encounter Details Date Type Department Care Team (Late st Contact Info) Description 03/18/2021 MyChart Message Enc [facility] Medical Group Family Medicine [facility] [address], [place] [id number] Tri Sorenson MD [address] [place] [phone] Flu Symptoms Social History Tobacco Use Types Packs/Day Years [...] on file Sexual Orientation Not on file documented as of this encounter Plan of Treatment Upcoming Encounters Date Type Department Care Team (Late st Contact Info) Description 10/21/2024 7:30 AM CDT Appointment [employer] [address] [address] Sanford Martines MD Three [facility]. [id number] [place] [address] documented as of this encounter Visit Diagnoses Not on filedocumented in this encounter Additional Health Concerns Assessment Noted Time PHQ-9 Depression Total Score: 2 12/09/19 21 11:40 AM CDT documented as of this encounter Care Teams Medical Staff Physician Relationship Specialty Start Date End Date Tri Sorenson MD PCP - General FAMILY PRACTICE 10/17/20 documented as of this encounter
--- OUTSIDE RECORDS SUMMARY | 2024-10-02 09:20 | XMS_ITS | Encounter Summary ---
Author Organization [facility] Address [facility] [place] [address] Care Team Providers Care Gun Barrel Finisher Name Role Phone Tri Sorenson MD Primary Care Provider [phone] Encounter Details Date Type Department Care Team (Late st Contact Info) Description 04/27/2021 Optifreeze Message Enc [facility] Medical Group Family Medicine [facility] [address] [place], [place] [phone] [facility], [facility] Provider Refills from [employer] Social History Tobacco Use Types Packs/Day Years [...] Info) Description 10/21/2024 7:30 AM CDT Appointment [employer] [address] [place], [place] [id number] Sanford Martines MD Three [facility]. [address] [place], [place] [id number] documented as of this encounter Visit Diagnoses Not on filedocumented in this encounter Additional Health Concerns Assessment Noted Time PHQ-9 Depression Total Score: 2 12/09/19 21 11:40 AM CDT documented as of this encounter Care Teams Gun Barrel Finisher Relationship Specialty Start Date End Date Tri Sorenson MD PCP - General FAMILY PRACTICE 10/17/20 documented as of this encounter
--- OUTSIDE RECORDS SUMMARY | 2024-10-02 09:20 | XMS_ITS | Clinical Summary ---
Author Organization [employer] [address] Address [address] [place] [address] Care Team Providers Care Chute Boss Name Role Phone Tri Sorenson MD Primary Care Provide r Allergies Active Allergy Reactions Criticality Noted Date Comments Erythromycin Nausea and Vomiting, Shortness of Breath/Wheezing High 08/26/2008 Fentanyl Nausea and Vomiting, Shortness of Breath/Wheezing High 08/26/2008 Penicillins Nausea and Vomiting, Rash,Shortness of Breath/Wheezing High 06/23/2009 Medications albuterol sulfate HFA 90 mcg/actuation aerosol inhaler 07/30/19 24 Active Bifidobacterium infantis (Align) 4 mg Capsule Take by mouth. 07/12/19 22 Active vitamin B complex (B COMPLEX VITAMINS ORAL) Take by mouth. 07/12/19 22 Active omeprazole (PriLOSEC) 20 mg Capsule, Delayed Release(E.C.) Take 2 Capsules by mouth daily. 04/12/19 23 Active linaCLOtide (LINZESS) 290 mcg capsule Take 290 mcg by mouth 1 time daily as needed. Active doxycycline hyclate (VIBRAMYCIN) 100 mg capsule 09/02/19 24 Active levothyroxine 75 mcg tablet Take 1 Tablet (75 mcg) by mouth daily before breakfast. 100 Tablet 3 11/25/19 24 Active chlorthalidone (HYGROTON) 25 mg tablet Take 1 Tablet (25 mg) by mouth daily. 100 Tablet 3 12/24/19 24 Active calcium carbonate-vitamin D3 1,000 mg-20 mcg (800 unit) Tablet Take 1 tablet every day by oral route. 03/25/19 24 Active furosemide (LASIX) 20 mg tablet TAKE 2 TABLETS BY MOUTH ONCE DAILY NEEDED FOR LEG SWELLING Active meloxicam (MOBIC) 7.5 mg tabletIndications: Osteoarthritis, unspecified osteoarthritis type, unspecified site Take 1 Tablet (7.5 mg) by mouth daily. 100 Tablet 3 05/11/19 25 Active pravastatin (PRAVACHOL) 10 mg tablet Take 1 Tablet (10 mg) by mouth daily at bedtime. 90 Tablet 3 07/15/19 25 Active traZODone (DESYREL) 50 mg tablet Take 1 Tablet (50 mg) by mouth daily at bedtime. 90 Tablet 3 07/20/19 25 Active pregabalin (LYRICA) 300 mg Capsule Take 1 Capsule (300 mg) by mouth every 12 hours. 180 Capsule 3 08/03/19 25 Active propranoloL (INDERAL) 40 mg tabletIndications: Intractable headache, unspecified chronicity pattern, unspecified headache type Take 1 Tablet (40 mg) by mouth 2 times daily. 180 Tablet 08/31/19 25 Active famotidine (PEPCID) 20 mg tablet TAKE 1 TABLET BY MOUTH TWICE DAILY 200 Tablet 3 09/08/19 25 Active famotidine (PEPCID) 20 mg tablet Take 1 Tablet (20 mg) by mouth 2 times daily. 100 Tablet 3 03/04/20 24 025 Discontinued Active Problems Problem Noted Date Diagnosed Date Headache, unspecified 08/09/2024 Dyslipidemia 11/04/2023 Overview (11/04/2023): Has elevated ASCVD risk, and had been on atorvastatin 40 but requested to stop it around to see if it stopping would help with pains in legs - it has not Assessment & Plan (11/04/2023 8:04 AM CDT): Revisit restarting statin next visit since it didn't seem to be overly helpful Venous stasis 11/04/2023 Overview (11/04/2023): See neuropathy Gastroesophageal reflux disease without esophagi tis 11/04/2023 Overview (11/04/2023): Continues on PPI therapy BID, has been on it years If she misses dose will get sx Assessment & Plan (11/04/2023 8:06 AM CDT): Discussed option of going for screening endoscopy given length of use and persistent symptoms, does not want to do that at this time but is agreeable to try to cut down, will try to go to [facility] just once daily 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 Flor Assessment & Plan (11/04/2023 8:12 AM CDT): F/U per Dr. Flor Benign hypertension 11/04/2023 Overview (11/04/2023): Asymptomatic On chlorthalidone and Lasix Assessment & Plan (11/04/2023 8:04 AM CDT): Good control today, renal function pending Intercostal pain 11/04/2023 Overview (11/04/2023): APR23: A few weeks of chest pain. Seems to occur mostly at rest, doesn't notice on exertion if it is happening. Lasts about 15 seconds, resolves on it's own. Sharp/dull. Feels heart race also, several times a day. Never feels like she'll pass out. No SOB. No nausea/diaphoresis. Has been a bit more anxious lately, related to her relationship. Doesn't think will attend counseling with her but he assures me today he will. SEP23: Noted last visit, EKG ok. Thought to be costochondritis. Still has it occ, no change in character A&P: Continue to monitor Neurocognitive disorder 11/04/2023 Overview (11/04/2023): Has been showing signs of forgetfulness at last few visits, has also noticed Assessment & Plan (11/04/2023 8:41 AM CDT): Discussed differentials for memory loss Labs pending, if ok my consider MRI vs neuro referral Anxiety/stress may be playing a role OAB (overactive bladder) 11/03/2023 Overview (11/04/2023): Had been on Vesicare but recently had bladder stimulator placed and working well Follows with Dr. Dyson Functional constipation 11/03/2023 Overview (11/04/2023): Has been on Linzess to control symptoms but recently had bladder stimulator placed and seems to be helping her have regular bowel movements as well! Has only needed Linzess 1 time since the procedure Assessment & Plan (11/04/2023 8:06 AM CDT): Improved with bladder stimulator, continue Linzess. COPD (chronic obstructive pulmonary disease) 02/2024 Overview (11/04/2023): History of tobacco use Used to be on ICS, now just uses albuterol as needed which is rare Assessment & Plan (11/04/2023 8:03 AM CDT): Continue with albuterol as needed Neuropathy 11/03/2023 Overview (11/04/2023): Has ongoing problems with weakness in her right leg with occasional sciatica, complicated by swelling and venous stasis SEP23: Hx of R sided sciatica. MRI lumbar spine showed multilevel DDD and severe stenosis L4-S1. Saw Neurosurg (Dr. Vicente) who didn't think surgery would help. Then had EMG which showed length dependent axonal sensorimotor neuropathy in lower ext, no evidence of radiculopathy Then went for lab testing - CRP, ESR, B12, CBC all nl; A/G ration increased but normal SPEP, a1c 5.7. Now following with neurology, Dr. Mcfarland, who thinks this IS lumbosacral radiculopathy. The plan is to repeat EMG to try to localize issue. Also going to send her to pain management. has already had R SI joint injection without relief; they think ZAY might help. SEP23: Has had 2 SI joints which has helped radicular sx but numbness and swelling in feet remain. Sounds like most recent test she had was repeat SARAH, not EMG. After test was done Dr. Martines started her on pneumatic compression which she's been doing. A&P: Sx are managed about as best can be expected; no changes DEC23: Continues to struggle with heaviness or legs, especially RLE as well as numbness on bottom of R foot and unsteady gait. Had been on cymbalta previously for help with pain but stopped that at some point and pain hasn't really returned. Very bothered by unsteadiness/heaviness. AP: Back to square one - I think her issues are still from her spinal stenosis however I'm questioning my memory because I cannot see most recent MRI results from , last results on chart are from 2019. In any case she saw Dr. Vicente and his read was that there was no significant stenosis, more likely sacroilitis. Certainly since that time, her SI pain has improved with injections, but still has problems with discomfort, paresthesias, and unsteadiness on feet. She has also undergone vascular eval for her issues and she does daily pneumatic compression with out great relief in sx. She would like to get a second opinion with neurosurg. I will track down MRI results from 2021 and if she did indeed have stenosis, will order updated MRI and send referral for second opinion. Here for f/u. Sx seem to be worsening - more unsteady, still struggles with pain. At last we increased her gabapentin from 150mg BID to 150mg in AM 300mg in PM and that seems to be helping. She would love to have definitive tx for this. I have received MRI results from 2021 and reviewed them. AP: At this time she'd like to go forward with another neurosurgeon opinion. We will get an updated MRI given her worsening pain, parathesia, and gait. Exam today is negative radicular pain - she has very tight hamstrings and I'm wondering if she would be feeling better with some PT to the RLE which she's not done before and she's agreeable to do APR24: Has done PT an sx are not any better. Has appt with PM coming up. Saw neurosurg also but doesn't seem to remember having this appt 2 months ago. Continues with pneumatic compression. AP: Discussed I think that her lack of sensation, weakness, and unsteadiness unfortunately may be chronic but I'm hopeful PM can help with some relief. I'm somewhat worried about her memory - will administer SLUMS at next visit : No change in symptoms today. Has seen pain management and got a shot in her back, this was about 3 months ago, sounds like she again does not recall having this appointment or getting any relief. Going to see Ortho soon to discuss right knee pain Assessment & Plan (11/04/2023 8:10 AM CDT): Not sure what options we have left at this point, not sure if an orthotic to the right ankle would help keep her foot from turning inward which is her biggest concern, tripping over herself and falling. Appreciate orthopedic input. Lumbar radiculopathy 11/03/2023 Overview (11/04/2023): See neuropathy SI joint arthritis 06/20/2023 Marital conflict 07/19/2022 Overview (11/05/2023): Continues to be an ongoing issue for her that is quite distressing and mostly related to her insomnia and anxiety. Denies other depressive sx, no anhedonia/SI but is frustrated by her 's lack of effort to resolve their issues Assessment & Plan (11/04/2023 8:11 AM CDT): Conversations about next steps with her are ongoing Unclear if her memory issues are due to her mood issues at this time but it is a possibility Insomnia 10/17/2020 Overview (11/04/2023): On trazodone with good relief Osteoarthrosis 10/17/2020 Overview (11/04/2023): Dr. Flores S/p total R hip, toe surgeries On meloxicam, renal function ok Assessment & Plan (11/04/2023 8:14 AM CDT): No changes renal function pending Right foot drop 04/25/2017 Overview (11/04/2023): See neuropathy Hx of tobacco use, presenting hazards to health 05/11/2014 Overview (11/04/2023): Quit completely in 2016 Gets yearly screening for lung cancer Assessment & Plan (11/04/2023 8:12 AM CDT): Will be due for lung cancer screening in about 2 months, she will call at that time for orders Stress incontinence in female 05/11/2014 Overview (11/04/2023): S/p bladder sling with Dr. Dyson with [facility] and recently also had bladder stimulator Acquired hypothyroidism 06/14/2010 Overview (11/04/2023): TFTs in range OCT23 Levo 75mcg Asymptomatic Assessment & Plan (11/04/2023 8:05 AM CDT): TFTs pending Low bone mass 08/26/2008 Overview (11/04/2023): Dexas from [place]: (Has also had done with [facility] and they measure different sites) DEXA 2020: AP spine 0.0, L hip -0.9 DEXA 2022: AP spine 0.4, L hip -0.8 On ca/vit D Assessment & Plan (11/04/2023 4:14 PM CDT): Improving. No hx of fracture, only hip replacement. Will consider repeating ~2027. Supposed to be on both ca and Vit D but apparently no longer taking vit d. Will check level. Resolved Problems Problem Noted Date Diagnosed Date Resolved Date Preventative health care 11/04/2023 Overview (11/04/2023): Colorectal screening: LDCT: Vaccines: UTD on all recommend POA/Code Status: Encounters Date Type Department Care Team Description 09/30/2024 Telephone [facility] [address] [place] [phone] Tri Sorenson MD Needs Orders Written 09/07/2024 Refill [facility] [address] [place] [phone] Tri Sorenson MD 08/27/2024 Telephone [facility] [address] [place] [phone] Tri Sorenson MD Medication Question 08/11/2024 External Device Data [facility] ABSTRACTION Provider, Abstract 08/10/2024 External Device Data [facility] Provider, Abstract 08/09/2024 10:00 AM CDT Office Visit [facility] [address] [phone] Tri Sorenson MD SI joint arthritis (Primary Dx); Venous stasis; Chronic obstructive pulmonary disease, unspecified COPD type ([facility]); Benign hypertension; Dyslipidemia; Acquired hypothyroidism; Functional constipation; Nonintractable headache, unspecified chronicity pattern, unspecified headache type; Insomnia, unspecified type; Low bone mass; Neuropathy; OAB (overactive bladder); Stress incontinence in female 08/02/2024 Refill [facility] [address] [phone] Tri Sorenson MD 08/01/2024 Refill [facility] [address] [place] [phone] Tri Sorenson MD 07/27/2024 External Device Data [facility] ABSTRACTION Provider, Abstract 07/27/2024 Orders Only [facility] [address] [phone] Provider, Abstract 07/19/2024 Refill [facility] [address] [place] [phone] Tri Sorenson MD 07/14/2024 Refill [facility] [address] [phone] Tri Sorenson MD from Last 3 Months Immunizations Immunization Administration Dates Next Due (ADACEL/BOOSTRIX)(10 YR UP) TDAP VACCINE, 0.5ML, IM 12/30/2022,09/18/2012 (AREXVY)(60 YR UP) RSV, DMITRI MBINANT, PROTEIN SUBUNIT RSVPREF, ADJUVANT RECONSTITUTED, 0.5 ML, PF 12/04/2022 (CAPVAXIVE)(18 YRS AND UP) PNEUMOCOCCAL CONJUGATE PCV21, POLYSACCHARIDE CRM [id number] CONJUGATE, 0.5 ML (PF) IM ADJUVANT 0.5 ML (PF) IM 04/21/2024 (PFIZER)(12 YR UP) COVID-19 VACCINE - EMERGENCY USE AUTHORIZATION, MRNA, [id number](PF) 30 MCG/0.3 ML IM SUSP 10/01/2021 (PNEUMOVAX 23)(50 YRS UP) PN EUMOCOCCAL POLYSACCHARIDE (PPV23) 0.5 ML, IM 07/21/2018 (PREVNAR 13)(6 WKS UP) PNEUM OCOCCAL CONJUGATE (PCV13) 0.5 ML, IM 01/31/2015 (PREVNAR 20)(6 WKS UP) PNEUM OCOCCAL CONJUGATE VACCINE 20-VALENT (PCV20), POLYSACCHARIDE [id number] CONJUGATE, ADJUVANT 0.5 ML (PF) IM 11/01/2021 (Pfizer Bivalent)(12 Yr Up) COVID-19 Vaccine - Emergency Use Authorization, MRNA, Lnp-S(Pf) 30 Mcg/0.3 Ml Susp 02/04/2022 (SHINGRIX)(50 YRS UP) ZOSTER VACCINE RECOMBINANT, 0.5 ML, IM 01/19/2020,10/13/2019 INFLUENZA VACCINE HIGH DOSE QUADRIVALENT 65 YR UP PF IM 12/21/2022,01/09/2021 INFLUENZA VACCINE QUADRIVALE NT RECOMB 18 YR UP PF IM 12/31/2019 Influenza, Unspecified Formulation 12/14,01/03/2018,12/16/2016,12/17,11/22/2014 Zoster, Unspecified Formulation 12/04/2022,10/03 Family History Medical History Relation Name Comments Cancer Mother Relation Name Status Comments Father Mother Social History Tobacco Use Types Packs/Day Years Used Date Smoking Tobacco: Former Cigarettes 0.5 39 S tarted: 1977 Smokeless Tobacco: Never Tobacco Cessation:Counseling Given: Not Answered Alcohol Use Standard Drinks/Week Comments Yes 0 (1 standard drink = 0.6 oz pur e alcohol) Comments No Sex and Gender Information Value Date Recorded Sex Assigned at Female 03/12/2024 2:21 PM LINK TRAINER TEACHER Legal Sex Female 8:50 AM CDT Gender Identity Female 03/12/2024 2:21 PM LINK TRAINER TEACHER Sexual Orientation Choose not to disclose 2023 2:21 PM LINK TRAINER TEACHER Last Filed Vital Signs Vital Sign Reading Time Taken Comments Blood Pressure 136/76 08/09/2024 10:04 AM CDT Pulse 61 08/09/2024 10:04 AM CDT Temperature 36.7 C (98.1 F) 08/09/2024 10:04 AM CDT Respiratory Rate 16 11/03/2023 9:51 AM CDT Oxygen Saturation 94% 08/09/2024 10:04 AM CDT Inhaled Oxygen Concentration - - Weight 79.4 kg (175 lb) 08/09/2024 10:04 AM CDT Height 167.6 cm (5' 6) 08/09/2024 10:04 AM CDT Body Mass Index 28.25 08/09/2024 10:04 AM CDT Plan of Treatment Upcoming Encounters Date Type Department Care Team (Late st Contact Info) Description 11/26/2024 8:30 AM CDT Office Visit [facility] [address] [phone] Tri Sorenson MD [address] [phone] Health Maintenance Due Date Last Done Comments Pre-Diabetes and Diabetes Screening 1954 FIT/ DNA Q 3 YEARS (AUTO ORDER) 1972 FIT/FOBT Q 1 YEAR (AUTO ORDER) 1972 FIT-DNA Q 3 years 1999 FIT/FOBT Q 1 year 1999 Flex Sig/CT Colonography Q 5 years 1999 COVID-19 Vaccine (5 - 2024-2 5 season) 2023 02/04/2022, 10/01/2021, 05/13/2020, Additional history exists Medicare Ad[place] ([place] Preventative Visit/Annual Wellness Visit 03/24/2024 02/09/2024 INFLUENZA VACCINE (#1) 2024 , 01/09/2021, 01/19/2020, Additional history exists BREAST CANCER SCREENING 07/27/2025 07/27/2024 OSTEOPOROSIS SCREENING 12/13/2025 12/13/2020, 2020 FLEX SIG/CT COLONOGRAPHY Q 5 YEARS (AUTO ORDER) 04/08/2027 04/08/2022, 04/08/2022 COLORECTAL CANCER SCREENING (AUTO ORDER) 04/08/2032 04/08/2022 COLORECTAL SCREENING 04/08/2032 04/08/2022 Colorectal Cancer Screening (AUTO ORDER) 04/08/2032 Colorectal Cancer Screening 04/08/2032 DTAP/TDAP/TD VACCINES (3 - T d or Tdap) 12/30/2032 12/30/2022, 09/18/2012 ZOSTER VACCINE Completed 01/19/2020, 10/13/2019 RSV VACCINE (60+ or ) Completed 12/04/2022 PNEUMOCOCCAL VACCINE 50+ YEARS Completed 0 04/21/2024, 11/01/2021, 07/21/2018, Additional history exists Procedures Procedure Name Priority Date/Time Associated Diagnosis Comments MAMMOGRAM REPORT Routine 07/27/2024 2:14 PM CDT from Last 3 Months Results * MAMMOGRAM REPORT (07/27/2024 2:14 PM CDT) us Abstract Provider MAMMO ORDERABLES Final Result [facility] CLIA# [id number] [address] [phone] from Last 3 Months Insurance [facility] [id number] Care Teams Chute Boss Relationship Specialty Start Date End Date Tri Sorenson MD [address] [phone] PCP - General Family Practice 11/03/23
--- OUTSIDE RECORDS SUMMARY | 2024-10-02 09:20 | XMS_ITS | Encounter Summary ---
Author Organization [facility] Address [facility] [place] [address] Care Team Providers Care [employer]. Revenue Officer Name Role Phone Tri Sorenson MD Primary Care Provider [phone] Encounter Details Date Type Department Care Team (Late Contact Info) Description 12/07/2020 MyChart Message Enc [facility] Family Medicine [facility] [address], [place] [id number] Tri Sorenson MD [address] [place] [phone] Question Social History Tobacco Use Types Packs/Day Years [...] have Coronavirus / COVID-19? No / Unsure 12/07/2020 10:57 AM CDT documented as of this encounter Plan of Treatment Upcoming Encounters Date Type Department Care Team (Late st Contact Info) Description 10/21/2024 7:[address] [employer] [place] [address] Sanford Martines MD Three [facility]. [address] [place], [place] [id number] documented as of this encounter Visit Diagnoses Not on filedocumented in this encounter Care Teams U.[employer]. Revenue Officer Relationship Specialty Start Date End Date Tri Sorenson MD PCP - General FAMILY PRACTICE 10/17/20 documented as of this encounter
--- OUTSIDE RECORDS SUMMARY | 2024-10-02 09:20 | XMS_ITS | Encounter Summary ---
Author Organization [facility] Address [address] [place] [address] Care Team Providers Care Flower Buncher Or Picker Name Role Phone Tri Sorenson MD Primary Care Provide r Reason for Visit * Reason Comments Needs Orders Written Encounter Details Date Type Department Care Team (Late st Contact Info) Description 09/30/2024 Telephone [facility] [address] [address] Tri Sorenson MD 637 [facility] [address] [place] [address] Needs Orders Written Social History Tobacco Use Types Packs/Day Years Used Date Smoking Tobacco: Former Cigarettes 0.5 39 S tarted: 1978 Smokeless Tobacco: Never Alcohol Use Standard Drinks/Week Comments Yes 0 (1 standard drink = 0.6 oz pur e alcohol) Comments No Sex and Gender Information Value Date Recorded Sex Assigned at Female 03/12/2024 2:21 PM FACILITY PLANNER Legal Sex Female 8:50 AM CDT Gender Identity Female 03/12/2024 2:21 PM FACILITY PLANNER Sexual Orientation Choose not to disclose 2023 2:21 PM FACILITY PLANNER documented as of this encounter Miscellaneous Notes * Telephone Encounter - Clara Singh RN - 10/01/2024 2:36 PM CDT This nurse printed the order for the x-ray and faxed it over to the fax number the patient providedas their preferred location. See information below. Preferred Facility/Location: [facility] [address], [place] [address] COREEN Elizabeth * Telephone Encounter - Clara Singh RN - 10/01/2024 1:31 PM CDT 10/01/2024 1:31 PM Returned call and spoke with patient. Patient would like to complete the x-ray first and discuss the results with Dr. Sorenson at her upcoming appointment on 11/26/24. She does not want to make a sooner appointment at this time. Clara ANGELA * Addendum Note - Tri Sorenson MD - 10/01/2024 10:43 AM CDTAddended by: TRI SORENSON on: 10/01/2024 10:43 AM Modules accepted: Orders * Telephone Encounter - Tri Sorenson MD - 10/01/2024 10:42 AM CDT I'm happy to see her for acute appt if she wants to see me before Dr. Flores. * Addendum Note - Clara Singh RN - 10/01/2024 9:04 AM CDTAddended by: CLARA SINGH on: 10/01/2024 09:04 AM Modules accepted: Orders * Telephone Encounter - Clara Singh RN - 10/01/2024 8:38 AM CDT 10/01/2024 8:38 AM Returned call and spoke with patient. Discussed pain in her left shoulder and her request for an X-ray. Patient states that her left shoulder hurts and dubon all the time. She reports 4-5/10 pain in her left shoulder that shoots down her left arm. The burning sensation is located in the ball and joint of the left shoulder. She said that she is able to move her left arm slightly, but that she stops after she feels the pain. Patient reports taking Aleve and extra strength Tylenol for the pain. She reports that the Tylenol is more effective and it brings the pain down to a 2/10. She also tried topical Bengay, but it wasn't as effective. She has an upcoming appointment with Dr. Vidal Flores an Orthopedic surgeon at [place], [place] in November. She states that he told her to call her PCP and get an order for anX-ray in the mean time. Last office visit: 08/09/24 Upcoming office visit: 11/26/24 Order request: XRAY Reason for Request: Left shoulder Preferred Facility/Location: [facility] [address] [address], [place] [address] Clara ANGELA * Telephone Encounter - Radha Diaz RN - 09/30/2024 2:13 PM CDT 09/30/2024 2:13 PM Returned call. No answer. Left voice mail/message to return our call. If patient/caregiver calls back, contact center please transfer caller to N line. Radha ANGELA * Telephone Encounter - Ashley Gong - 09/30/2024 12:28 PM CDT Copied from [facility] #[id number]. Topic: CPA Information Request - Order or Referral Request >> Sep 30, 2024 12:23 PM Ashley Cordero wrote: Caller Name: Leanne Larsen Patient/Caregiver Callback Number: [phone] (home) Call Notes: Patient states she can't see an ortho doctor until november and states she was told to call her pcp and get an xray in the meantime . Caller is requesting: New Non Lab Order Has the patient been seen for this issue? Yes Order: XRAY Reason for Request: Left shoulder Preferred Facility/Location: [facility] [address], [place], [place] [id number] documented in this encounter Plan of Treatment Upcoming Encounters Date Type Department Care Team (Late st Contact Info) Description 11/26/2024 8:30 AM CDT Office Visit [facility] [address] [place] [phone] Tri Sorenson MD [address] [facility] [address] [place] [address] Scheduled Orders Name Type Priority Associated Diagnoses Orde r Schedule XR SHOULDER 2+ VW LEFT Imaging Routine Acute pain of left shoulder 1 Occurrences starting 10/01/2024 until 10/01/2025 documented as of this encounter Visit Diagnoses Diagnosis SI joint arthritis- Primary Sacroiliitis, not elsewhere classified Acute pain of left shoulder documented in this encounter Additional Health Concerns Assessment Noted Time PHQ-9 Depression Total Score: 1 02/09/20 24 10:00 AM FACILITY PLANNER documented as of this encounter Care Teams Flower Buncher Or Picker Relationship Specialty Start Date End Date Tri Sorenson MD [address] [place] [phone] PCP - General Family Practice 11/03/23 documented as of this encounter
--- OUTSIDE RECORDS SUMMARY | 2024-10-02 09:20 | XMS_ITS | Encounter Summary ---
Author Organization [facility] Address [facility] [place] [address] Care Team Providers Care Inner Tube Inserter Name Role Phone Sherine Flor MD Unavailable [phone] Ashley Dyson MD Unavailable [phone] Jodi Cooper MD Unavailable Juvenal Whipple MD, Reinaldo Hyde Primary Care Provider Tri Sorenson MD Primary Care Provide r Tri Sorenson MD Unavailable [phone] Encounter Details Date Type Department Care Team (Late st Contact Info) Description 12/30/2019 [facility] Outpatient Visit [facility] - Family Medicine [address] [place] [phone] Reinaldo Sanford Jr., MD [address] [place] [address] Social History Tobacco Use Types Packs/Day Years Used Date Smoking Tobacco: Former Cigarettes Q uit: 11/22/1997 Smokeless Tobacco: Never Alcohol Use Standard Drinks/Week Comments No 0 (1 standard drink = 0.6 oz pur e alcohol) Comments No Sex and Gender Information Value Date Recorded Sex Assigned at Female 06/10/2020 6:46 PM CDT Legal Sex Female 6:25 AM BIOLOGICAL AIDE Gender Identity Female 06/10/2020 6:46 PM CDT Sexual Orientation Choose not to disclose 2020 6:46 PM CDT 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 Not on file Not on [...] on filedocumented in this encounter Care Teams Inner Tube Inserter Relationship Specialty Start Date End Date Jodi Cooper MD [address] [place] [address] PCP - Attributed[facility] 09/22/19 09/09/22 Reinaldo Sanford Jr., MD [address] [place] [address] PCP - General 04/17/21 09/06/21 Tri Sorenson MD [address] [place] [address] PCP - General Family Medicine 09/07/21 Tri Sorenson MD [address] [facility] [address] [place] [address] PCP - [facility] 03/24/22 Sherine Flor MD [address] [place] [address] Referring Physician General Surgery 04/16/15 Ashley Dyson MD [address] [place] [address] Urogynecology 12/14/18 documented as of this encounter
--- OUTSIDE RECORDS SUMMARY | 2024-10-02 09:21 | XMS_ITS | Clinical Summary ---
Author Organization [facility] Address [facility] [place] [address] Care Team Providers Care Dehydrogenation Supervisor Name Role Phone Tri Sorenson MD Primary Care Provider [phone]- [phone] Allergies Active Allergy Reactions Criticality Noted Date Comments Erythromycin Nausea Only High 08/26/2008 Fentanyl Nausea Only,Nausea and Vomiting High 07/2008 Penicillins Nausea Only,Rash High 06/23/2009 Medications B Complex Vitamins (VITAMIN B COMPLEX) Tab 2 Active Probiotic Product (ALIGN) 4 MG Cap 2 Active traZODone (DESYREL) 50 MG tabletIndications:P rimary insomnia TAKE 1 TABLET BY MOUTH AT NIGHT AT BEDTIME 90 tablet 3 2 Active levothyroxine (SYNTHROID) 75 MCG tabletIndications:A cquired hypothyroidism TAKE 1 TABLET BY MOUTH IN THE MORNING 90 tablet 3 2 Active chlorthalidone (HYGROTEN) 25 MG tablet 3 Active meloxicam (MOBIC) 7.5 MG tablet 3 Active linaCLOtide (LINZESS) 290 MCG capsule Take 1 capsule (290 mcg total) by mouth daily as needed. Take on empty stomach at least 30 minutes prior to first meal of the day. Swallow whole. Do not open capsule or chew. Active albuterol sulfate HFA 108 (90 Base) MCG/ACT inhaler 4 Active Pregabalin 300 MG Cap Take 1 capsule by mouth 2 (two) times daily. 4 Active pravastatin (PRAVACHOL) 10 MG tablet Take 1 tablet (10 mg total) by mouth. 5 Active famotidine (PEPCID) 20 MG tablet Take 1 tablet (20 mg total) by mouth 2 (two) times daily. 5 Active propranolol (INDERAL) 40 MG tablet Take 1 tablet (40 mg total) by mouth 2 (two) times daily. 5 Active Active Problems Problem Noted Date Diagnosed Date Intercostal pain 11/04/2023 Overview (08/25/2024): APR23: A few weeks of chest pain. [...] Continue to monitor Neurocognitive disorder 11/04/2023 Overview (08/25/2024): Has been showing signs of forgetfulness at last few visits, has also noticed Neuropathy 11/03/2023 Overview (08/25/2024): Has ongoing problems with weakness in her right leg with occasional sciatica, complicated by swelling and venous stasis JUL23: Hx of R sided sciatica. MRI lumbar [...] not EMG. After test was done Dr. Cornell started her on pneumatic compression which she's [...] Ortho soon to discuss right knee pain OAB (overactive bladder) 11/03/2023 Overview (08/25/2024): Had been on Vesicare but recently had bladder stimulator placed and working well Follows with Dr. Dyson SI joint arthritis 06/20/2023 Secondary lymphedema 09/01/2022 History of malignant neoplasm of breast 07/20/19 23 Marital conflict 07/19/2022 Overview (08/25/2024): Continues to be an ongoing issue for her that is quite distressing and mostly related to her insomnia and anxiety. Denies other depressive sx, no anhedonia/SI but is frustrated by her 's lack of effort to resolve their issues Osteopenia 07/19/2022 Obesity (BMI 30-39.9) 04/05/2022 Overview (04/05/2022): In about 10 pounds in the last year, attributed to Cymbalta and less activity because of lower extremity symptoms Dietary recall from yesterday Oatmeal - premade Skipped lunch Supper - beef stroganoff and salad Evening snack - pringles A&P: Offered doctor of veterinary medicine referral, declines at this time, wants to see if she is able to get more activity and lose the weight, will work on adding in more fruits and vegetables Pain in both lower extremities 04/04/2022 Constipation 11/01/2021 Overview (04/05/2022): Uses Linzess as needed with good relief Eating more prunes lately A&P: No changes Pulmonary emphysema, unspeci fied emphysema type ([facility]) 07/11/2021 Overview (11/01/2021): Used to be on symbicort but was able to get of when she quit smoking around 2016 Has an albuterol inhaler she uses PRN ( last year) Feeling a bit wheezy today A&P: Lungs sound ok. 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 Cornell, [facility] 10/17/2020 Overview (11/02/2021): Colon screening: overdue -agreeable for referral today Lung screening: Breast screening: just had 5 years cancer free; will continue f/u with local care A&P referred for colonoscopy, would like to continue lung ca screening (we've previously discussed risk and benefits of screening); Prev 20 today Assessment & Plan (10/17/2020 7:51 PM CDT): Agreeable to do a bone density and lung cancer screening, holding off on colonoscopy at this time The patient and I discussed benefits and harms of screening, follow-up diagnostic testing, over-diagnosis, false positive rate and radiation exposure. We also discussed the importance of adherence to annual lung cancer Low Dose CT screening, impact of co-morbidities, and ability or willingness to undergo diagnosis and treatment. Finally, we discussed the importance of maintaining cigarette smoking abstinence as a former smoker. Up-to-date on Covid vaccination, discussed pneumonia vaccination next visit Osteoarthritis 10/17/2020 Overview (11/01/2021): Has problems all over her body, just had a right hip replacement about 3 months ago, also has had surgery on her toes, has issues with her knees and hands Right knee is giving her more problems now that the hip is better, continues to see Dr. Flores Has found that topical CBD oil is quite helpful Also uses 8-hour Tylenol Also put on meloxicam for some foot pain, she is no longer taking that At her last visit last year she was on Cymbalta for this problem, it still been getting dispensed but she does not think she been taking it A&P: She will make sure that she has not been taking Cymbalta, it was discontinued from med list. She does not think she has been a problem to take daily meloxicam so we have stopped that as well Assessment & Plan (10/17/2020 7:45 PM CDT): Information given for how to set up medical cannabis account, will call me to verify when the account is ready Dyslipidemia 10/17/2020 Overview (11/01/2021): Atorvastatin 40 mg daily Asymptomatic Lipids ok , mildly high trigs A&P: No changes Assessment & Plan (10/17/2020 7:46 PM CDT): Lipids pending Insomnia 10/17/2020 Overview (11/01/2021): Uses trazodone with good relief A&P: No changes Assessment & Plan (10/17/2020 7:48 PM CDT): Continue trazodone Venous stasis 10/17/2020 Overview (04/05/2022): See leg numnbness Studies pending Assessment & Plan (10/17/2020 7:50 PM CDT): We will send Lasix for her to use as needed Continue to avoid sodium and elevate feet at the end of the day Primary localized osteoarthrosis, hand 9 Neck pain 06/10/2017 Overview (03/27/2022): Fell on Feb 21 on her R side in a parking lot. Was wearing a boot on R side after foot surgery. Fell again on the and hit her R side of her head and R shoulder and neck. Since then she has pain in her R neck and shoulder. Cerivical fusion done in 2004 and 2005. No numbness or tingling of arm. No arm weakness. No imaging done of cervical spine since surgery. Last Assessment & Plan: Concerned about possible cervical spine damage. Continues to have pain. Not relieved with NSAIDs or Ultram. Requesting Percocet. MRI ordered. Need to see consumer affairs specialist after MRI. Right foot drop 04/25/2017 Overview (03/27/2022): 04/24/2018: Ongoing problem. Seeing a neurologist. She continues to have painful paresthesia affecting her right lower extremity both proximal and distal in the sciatic nerve distribution as well as right peroneal nerve distribution Has been referred to a neurologist at [facility]. Scheduled to see her next week. No worsening of symptoms. 07/21/18: Received EMG results. No further treatment. 10/14/18: Still has numbness of lateral aspect of R lower leg. Did not get labs done. 12/14/18: No change in symptoms. More frequent falls due to foot drop. Last Assessment & Plan: Recommend imaging. Consult neuro again. 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 Flor Just had 5 year clearance Stress incontinence in female 05/11/2014 Overview (04/05/2022): S/p bladder sling with Dr. Dyson with [facility]; still follows Has issues now with retention as well as overactivity, urgency/frequency; has to self cath Never done PT A&P: Will talk to about utility of PT Hx of tobacco use, presenting hazards to health 05/11/2014 Overview (03/27/2022): Has cut down so that a pack lasts for 3 days She would like to cut down altogether but is trying to talk her into quitting with her 04/24/18: Quit completely in 2015. Last Assessment & Plan: Resolved. IBS (irritable bowel syndrome) 05/11/2014 Restless legs syndrome 05/11/2014 Lumbar radiculopathy 10/15/2011 Overview (03/27/2022): Last Assessment & Plan: NSAIDs, RICE, tylenol PT Acquired hypothyroidism 06/14/2010 Overview (04/05/2022): Asymptomatic, levothyroxine 75 mcg daily TSH nl A&P: no changes Assessment & Plan (10/17/2020 7:47 PM CDT): Thyroid function tests pending Esophageal reflux 06/14/2010 Overview (11/01/2021): Was on omeprazole 40mg daily, weaned last year to 20mg and doing ok A&P: No changes Assessment & Plan (10/17/2020 7:47 PM CDT): Try reducing to 20 mg daily and if successful at next visit we will start to alternate with H2 mena Hypercholesterolemia 08/26/2008 Low bone mass 08/26/2008 Overview (04/05/2022): DEXA SEP21 A&P: Repeat dexa 2022 Palpitations 08/26/2008 Resolved Problems Problem Noted Date Diagnosed Date Resolved Date Low bone mass 12/18/2020 04/05/2022 Overview (12/18/2020): DEXA SEP21; repeat SEP23 Hypertension, essential 08/26/2008 07/2 09/2020 Encounters Date Type Department Care Team Description 09/22/2024 10:15 AM CDT Office Visit [facility] [address] [place] [address] Sanford Cornell MD Follow Up 09/22/2024 Prep for Procedure [facility], [address] [address] Sanford Cornell MD 09/22/2024 Orders Only [facility] [address] [address] Snaford Cornell MD 09/01/2024 11:38 AM CDT - 09/01/2024 11:59 PM CDT Hospital Encounter [facility] [address] [place] [address] Sanford Cornell MD Discharge Disposition: Home or Self Care (Routine Discharge) 09/01/2024 Travel 08/30/2024 MyChart Message Enc [facility] [address] [place] [address] Sanford Cornell MD Right leg 08/25/2024 11:30 AM CDT Office Visit [facility] [address] [place] [address] Sanford Cornell MD Follow Up 08/25/2024 Orders Only [facility] [address] [address] Sanford Cornell MD 08/25/2024 Travel 07/13/2024 9:20 AM CDT - 07/13/2024 9:40 AM CDT Surgery [facility] [place] [address] [phone] Tanesha Walsh MD BLOCK SACROILIAC JOINT 07/13/2024 8:13 AM CDT - 07/13/2024 9:43 AM CDT Hospital Encounter [facility] [place] [address] [phone] Tanesha Walsh MD Discharge Disposition: Home or Self Care (Routine Discharge) 07/13/2024 Travel from Last 3 Months Immunizations Immunization Administration Dates Next Due Arexvy Respiratory Syncytial Virus (RSV, adjuvanted) 0.5 mL, PF 12/04/2022 Flublok (Quadrivalent) 12/31/2019 Fluzone High Dose - >Age 65 (Prefilled Syringe) 01/09/2021 Influenza (Generic) 01/03/2018, 7,12/18/2015,2014 Influenza Adult (Generic) 12/14/2018 PFIZER COVID-19 (ORIGINAL FORMULATION, PURPLE CAP) mRNA, LNP-S, PF, 30 MCG/0.3 ML DOSE 10/01/2021,05/13/2020,04/25/2020 PFIZER COVID-19 BIVALENT (12 +) mRNA, LNP-S, PF, 30 MCG/0.3 ML DOSE 02/04/2022 Pneumococcal (Capvaxive - PCV 21) 04/21/2024 Pneumococcal (Pneumovax 23) 07/21/2018 Pneumococcal (Prevnar 13) 01/31/2015 Pneumococcal (Prevnar 20) 11/01/2021 Shingrix 01/19/2020,10/13/2019 Tdap (Generic) 12/30/2022,09/18/2012 Zoster Unspecified Formulation 12/04/2022,2022 Family History Medical History Relation Comments Diabetes Father Cancer Mother Relation Status Comments Father Alive Mother Social History Tobacco Use Types Packs/Day Years Used Date Smoking Tobacco: Former Cigarettes 1 43 0 10/17/1972 - 10/18/2015 Smokeless Tobacco: Never Tobacco Cessation:Counseling Given: No Alcohol Use Standard Drinks/Week Comments Not Currently 0 (1 standard drink = 0.6 oz pur e alcohol) PHQ-2 Answer Date Recorded Patient Health Questionnaire-2 Score 0 04/25/2022 Comments No Sex and Gender Information Value Date Recorded Sex Assigned at Not on file Legal Sex Female 1:40 PM CDT Gender Identity Not on file Sexual Orientation Not on file Last Filed Vital Signs Vital Sign Reading Time Taken Comments Blood Pressure 128/64 09/22/2024 10:19 AM CDT Pulse 72 09/22/2024 10:19 AM CDT Temperature 36.3 C (97.3 F) 07/13/2024 8:26 AM CDT Respiratory Rate 18 07/13/2024 9:33 AM CDT Oxygen Saturation 98% 07/13/2024 9:33 AM CDT Inhaled Oxygen Concentration - - Weight 78.9 kg (174 lb) 09/22/2024 10:19 AM CDT Height 165.1 cm (5' 5) 09/22/2024 10:19 AM CDT Body Mass Index 28.96 09/22/2024 10:19 AM CDT Plan of Treatment Upcoming Encounters Date Type Department Care Team (Late st Contact Info) Description 10/21/2024 7:30 AM CDT Appointment [facility] [place], [place] [phone] Sanford Cornell MD Three [facility]. [address] [id number] [place], [place] [phone] Health Maintenance Due Date Last Done Comments Lung Cancer Screening 2004 Annual Medicare Wellness Visit 2019 COVID-19 Vaccine ( season) 2023 02/04/2022, 10/01/2021, 11/21/2020, Additional history exists Mammogram Screening 07/27/2026 07/27/2024, 07/23/2023, 06/24/2022, Additional history exists Colorectal Cancer Screening Colonoscopy (10 Years) 04/08/2032 04/08/2022, 04/08/2022 DTaP, Tdap and Td Vaccines (3 - Td or Tdap) 12/30/2032 12/30/2022, 09/18/2012 Hepatitis C Completed 10/19/2020, 05/11/2014 Dexa Scan (General) Completed 12/13/2020, 12/13/2020, 12/23/2018, Additional history exists RSV Immunization or 60+ Years Completed 12/04/2022 Zoster Vaccines Completed 12/04/2022, 09/21, 01/19/2020, Additional history exists Pneumococcal Vaccine: 50+ Years Completed 04/21/2024, 11/01/2021, 07/21/2018, Additional history exists Meningococcal B Vaccine Aged Out No l onger eligible based on patient's age to complete this topic Meningococcal Vaccine Aged Out No ranulfo silvestre eligible based on patient's age to complete this topic RSV Immunizations Under 20 Months Aged Out No longer eligible based on patient's age to complete this topic Procedures Procedure Name Priority Date/Time Associated Diagnosis Comments USV VENOUS REFLUX LOW ANTONINO Routine 09/01/2024 12:51 PM CDT Varicose veins of both lower extremities with pain INJECTION,SACROILIAC JOINT 07/13/2024 9:25 AM CDT SI joint arthritis Lumbar radiculopathy XR PAIN CLINIC C-ARM Today 07/13/2024 8:28 AM CDT COLONOSCOPY GENERIC (SCAN ORDER) 04/08/2022 BONE DENSITY GENERIC (SCAN ORDER) 12/13/2020 HEPATITIS C ANTIBODY 10/19/2020 10:49 AM CDT from Last 3 Months or Most Recently Relevant to Health Maintenance Results * USV VENOUS REFLUX LOW ANTONINO (09/01/2024 12:51 PM CDT) Anatomical Region Laterality Modality Extremity Ultrasound 09/01/2024 1:08 PM CDT Impressions 09/01/2024 1:10 PM CDT IMPRESSION: 1. No evidence of DVT in either lower extremity. 2. Positive reflux in the right saphenofemoral junction, right greater saphenous vein in the mid thigh, right greater saphenous vein at the knee, and right greater saphenous vein in the mid calf. Ordered By: SANFORD CORNELL Interpreted By: Yahaira Shrestha, 09/01/2024 1:08 PM Narrative 09/01/2024 1:10 PM CDT [facility] [address] [address] [place] [address] IMAGING STUDIES: USV VENOUS REFLUX LOW ANTONINO EXAM DATE/TIME: 09/01/2024 11:59 AM CLINICAL HISTORY: EVAL FOR VENOUS INSUFF. & REFLUX AT SAPHENOUS FEMORAL JUNCTION . Varicose veins FINDINGS: THERE IS NO EVIDENCE OF DVT WITHIN THE RIGHT AND LEFT COMMON FEMORAL VEINS OR BILATERAL PROXIMAL SAPHENOUS VEINS. THERE IS NO EVIDENCE OF DVT WITHIN THE ENTIRE COURSE OF THE RIGHT AND LEFT FEMORAL VEINS. NO EVIDENCE OF DVT WITHIN THE RIGHT AND LEFT POPLITEAL VEINS OR POSTERIOR TIBIAL VEINS. . No evidence of reflux within the deep venous system. Positive reflux in the right saphenofemoral junction of 0.72 seconds. Diameter of 8.2 mm. Positive reflux in the right greater saphenous vein in the mid thigh of 2.3 seconds. Diameter of 3 mm. Positive reflux in the right greater saphenous vein at the knee of 3.6 seconds. Diameter of 2.7 mm. Positive reflux in the right greater saphenous vein in the mid calf of 4.6 seconds. Diameter of 3.5 mm. No reflux within the left superficial venous system. COLOR FLOW DOPPLER WITH SPECTRAL AND WAVEFORM ANALYSIS Procedure Note Gerardo Shrestha MD - 09/01/2024 [facility] [address] [place] [phone] IMAGING STUDIES: USV VENOUS REFLUX LOW ANTONINO EXAM DATE/TIME: 09/01/2024 11:59 AM CLINICAL HISTORY: EVAL FOR VENOUS INSUFF. & REFLUX AT SAPHENOUS FEMORALJUNCTION . Varicose veins FINDINGS: THERE IS NO EVIDENCE OF DVT WITHIN THE RIGHT AND LEFT COMMON FEMORAL VEINSOR BILATERAL PROXIMAL SAPHENOUS VEINS. THERE IS NO EVIDENCE OF DVT WITHIN THE ENTIRE COURSE OF THE RIGHT AND LEFTFEMORAL VEINS. NO EVIDENCE OF DVT WITHIN THE RIGHT AND LEFT POPLITEAL VEINS OR POSTERIORTIBIAL VEINS. . No evidence of reflux within the deep venous system. Positive reflux in the right saphenofemoral junction of 0.72 seconds.Diameter of 8.2 mm. Positive reflux in the right greater saphenous vein in the mid thigh of2.3 seconds. Diameter of 3 mm. Positive reflux in the right greater saphenous vein at the knee of 3.6seconds. Diameter of 2.7 mm. Positive reflux in the right greater saphenous vein in the mid calf of 4.6seconds. Diameter of 3.5 mm. No reflux within the left superficial venous system. COLOR FLOW DOPPLER WITH SPECTRAL AND WAVEFORM ANALYSIS IMPRESSION: 1. No evidence of DVT in either lower extremity. 2. Positive reflux in the right saphenofemoral junction, right greatersaphenous vein in the mid thigh, right greater saphenous vein at the knee,and right greater saphenous vein in the mid calf. Ordered By: SANFORD CORNELL Interpreted By: Yahaira Shrestha, 09/01/2024 1:08 PM us Sanford Cornell MD [facility] Final Result * XR PAIN CLINIC C-ARM (07/13/2024 8:28 AM CDT) Narrative Radiology, Technologist - 07/13/2024 8:28 AM CDT This report does not contain a radiologist's interpretation. Please review associated procedure and/or operative report. us Tanesha Walsh MD GENERAL IMAGING Final Result * COLONOSCOPY GENERIC (04/08/2022) 04/08/2022 [facility] Scanned SCANNING Final Resu lt * BONE DENSITY GENERIC (12/13/2020) Anatomical Region Laterality Modality Other 12/13/2020 Narrative 12/13/2020 Ordered by an unspecified provider. us Documents Scanned SCANNING Final Result * HEPATITIS C ANTIBODY (10/19/2020 10:49 AM CDT) HEPATITIS C AB <0.1 0.0 - 0.9 s/co ratio [facility] 1 Comment: Negative: < 0.8 Indeterminate: 0.8 - 0.9 Positive: > 0.9 The CDC recommends that a positive HCV antibody result be followed up with a HCV Nucleic Acid Amplification test ([id number]). 10/19/2020 10:4 9 AM CDT 10/19/2020 Narrative [facility] - 10/20/2020 4:06 AM CDT Performed at: 01 - [facility] [address] [id number] Lamina Searcher: Daniel Faith PhD, Phone: [phone] us Tri Sorenson MD LABORATORY Final Resu lt Performing Organization Address City/State/[facility] Co de Phone Number [facility] [address] [place] [address] [facility] 1 from Last 3 Months or Most Recently Relevant to [place] [address] Care Teams Dehydrogenation Supervisor Relationship Specialty Start Date End Date Tri Sorenson MD PCP - General FAMILY PRACTICE 10/17/20
--- OUTSIDE RECORDS SUMMARY | 2024-10-02 09:21 | XMS_ITS | Encounter Summary ---
Author Organization [facility] Address [facility] [place] [address] Care Team Providers Care Care Clinician Name Role Phone Tri Sorenson MD Primary Care Provider +1- [phone] Encounter Details Date Type Department Care Team (Late st Contact Info) Description 02/20/2022 Semasiohart Message Enc [facility] Family Medicine [facility] [address] [place], [place] [phone] Tri Sorenson MD [address] [place] [phone] Leg pain Social History Tobacco Use Types Packs/Day Years Used Date Smoking Tobacco: Former Cigarettes 1 43 0 10/17/1972 - 10/18/2015 Smokeless Tobacco: Never Alcohol Use Standard Drinks/Week Comments Not Currently 0 (1 standard drink = 0.6 oz pur e alcohol) PHQ-2 Answer Date Recorded PHQ-2 Score - If the patient scores above 3, please move on to questions 3-9 0 12/27/2021 Comments No Sex and Gender Information Value Date Recorded Sex Assigned at Not on file Legal Sex Female 1:40 PM CDT Gender Identity Not on file Sexual Orientation Not on file COVID-19 Exposure Response Date Recorded In the last 10 days, have yo u been in contact with someone who was confirmed or suspected to have Coronavirus/COVID-19? No / Unsure 02/06/2022 6:42 AM RELEASE AND TECHNICAL RECORDS CLERK documented as of this encounter Progress Notes * Lalitha Ayoub RN - 02/21/2022 8:39 AM CSTFrom: Leanne Larsen To: Dr. Tri Sorenson Sent: 02/20/2022 4:51 PM RELEASE AND TECHNICAL RECORDS CLERK Subject: Leg pain Dr Andrade said: besides asper cream and bio freeze I don't have any treatment options. Please ask her tocheck with her PCP to see if they have other options. Ivory RN ASE AND TECHNICAL RECORDS CLERK documented in this encounter Plan of Treatment Upcoming Encounters Date Type Department Care Team (Late st Contact Info) Description 10/21/2024 7:30 AM CDT Appointment [facility] [place] [address] Sanford Martines MD Three [facility]. [address] [place], [place] [phone] documented as of this encounter Visit Diagnoses Not on filedocumented in this encounter Additional Health Concerns Assessment Noted Time PHQ-9 Depression Total Score: 2 12/09/19 21 11:40 AM CDT documented as of this encounter Care Teams Care Clinician Relationship Specialty Start Date End Date Tri Sorenson MD PCP - General FAMILY PRACTICE 10/17/20 documented as of this encounter
--- OUTSIDE RECORDS SUMMARY | 2024-10-02 09:21 | XMS_ITS | Encounter Summary ---
Author Organization [facility] Address [facility] [place] [address] Care Team Providers Care Can Technician Name Role Phone Tri Sorenson MD Primary Care Provider [phone] Encounter Details Date Type Department Care Team (Late st Contact Info) Description 08/29/2021 MyChart Message Enc [facility] Family Medicine [facility] [address], [place] [id number] Tri Sorenson MD [address] [place] [id number] Colonoscopy Social History Tobacco Use Types Packs/Day Years [...] Info) Description 10/21/2024 7:30 AM CDT Appointment [facility] [address] [facility] [place] [address] Sanford Martines MD Three [facility]. [facility] [address] [place] [address] documented as of this encounter Visit Diagnoses Not on filedocumented in this encounter Additional Health Concerns Assessment Noted Time PHQ-9 Depression Total Score: 2 12/09/19 21 11:40 AM CDT documented as of this encounter Care Teams Can Technician Relationship Specialty Start Date End Date Tri Sorenson MD PCP - General FAMILY PRACTICE 10/17/20 documented as of this encounter
--- OUTSIDE RECORDS SUMMARY | 2024-10-02 09:21 | XMS_ITS | Continuity of Care Document ---
Author Organization [facility] Address [address] [facility] [address] [place] [address] Phone Care Team Providers Care Printer Assistant Name Role Phone Swapnil Meléndez PA-C Unavailable Unavailable Allergies, Adverse Reactions, Alerts Substance Reaction Status Criticality erythromycin base Active No Informa tion FENTANYL CITRATE Active No Informat ion Penicillins Active No Information Medications Medication Instructions Dosage Effective Dates (start - stop) Status Comments meloxicam 7.5 mg tablet take 1 tablet by oral route every day 7.5 MG - Active acetaminophen 300 mg-codeine 30 mg tablet take 1 to 2 by oral route every 4 to 6 hours as needed - Active OMEPRAZOLE (unknown strength) Not Available - Active ALPRAZOLAM (unknown strength) Not Available - Active ALENDRONATE SODIUM (unknown strength) Not Available - Active LIPOFEN (unknown strength) Not Available - Active ELESTRIN (unknown strength) Not Available - Active Procedures Procedure Date POSTOP FOLLOW-UP VISIT POSTOP FOLLOW-UP VISIT POSTOP FOLLOW-UP VISIT OFFICE/OUTPATIENT VISIT NEW OFFICE/OUTPATIENT VISIT EST OFFICE/OUTPATIENT VISIT NEW Advance Directives Directive Yes / No Effective Date File Name No Information Encounters Encounter Description Practice Location Reason(s) For Visit Diagnoses Date Provider Providers Copied on Encounter [facility], [address], [place], [address], [place] tel:[phone] [facility] [place] Closed nondisp fracture of head of right radius with routine healing [address], [place], [place], [id number] , [place]. tel: [phone] [facility], [address] [place] [address], [address], [place] tel:[phone] [facility] [place] Closed nondisp fracture of head of right radius with routine healing [address] Med[address]. [address], [place], [place], [id number] , [place]. tel: [phone] Referring Provider: Tri Pappas, [address] [place], [address]. tel:[phone] [facility], [address] [place] [address], [address], [place] tel:[phone] [facility] [place] Follow Up of RT ELBOW (chief complaint) Closed nondisp fracture of head of right radius with routine healing 8 Med[address]. [address], [place], [place], [id number] , [place]. tel: [phone] [facility], [address] [place] [address], [address], [place] tel:[phone] [facility] [place] No Information 8 Julito Alexander. [address] [place] [address], [id number] . tel: [phone] OFFICE/OUTPAT IENT VISIT [facility], [address] [place] [address], [address], [place] tel:[phone] [facility] Body mass index (BMI) 33.0-33.9, adultClosed nondisplaced fracture of head of right radius, initial encounter 8 Julito Alexander. [address] [place] [address], [id number] . tel: [phone] OFFICE/OUTPAT IENT VISIT [facility], [address] [place] [address], [address], [place] tel:[phone] [facility] [address] Primary localized osteoarthrosi s, hand 4 Medhat Kraft. [address], [place], [place], [id number] , [place]. tel: [phone] OFFICE/OUTPAT IENT VISIT [facility], [address], [place], [address], [place] tel:[phone] [facility] [place] Primary localized osteoarthrosi s, hand 0 3 Julito Alexander. [address] [facility], [place], [place], [id number] . tel: [phone] Family History Family Member Type Diagnosis Age At Onset Father Problem (finding) Alive and well Payers Payer name Insurance type Covered libertarian ID Authoriza tion(s) Exclusive Choice - [employer] OT [id number] Social History Type Description Quantity Date Captured Comments Alcohol Use Details Unknown Caffeine Use Details Unknown Tobacco Use Status No Information Smoking Status Never smoker Sex Female Chief Complaint And Reason For Visit No Information Reason For Referral Reason For Referral No Information Plan Of Treatment Date Type Action Status Goal Dietary management education , guidance, and counseling completed Referral Ordered: RADEX ELBW COMPL MINIMUM 3 VIEWS RT ordered Referral Ordered: RADEX HAND MINIMUM 3 VIEWS LT ordered History Of Present Illness Encounter Date Complaint History Of Prese nt Illness Follow Up of RT ELBOW Functional Status Date Functional Assessmen t No Information Instructions Date Instruction Additional Infor elsy Elevate extremity above heart. R elated to Closed nondisp fracture of head of right radius with routine healing Immobilize as directed. Related to Closed nondisp fracture of head of right radius with routine healing Immobilize as directed. Related to Closed nondisp fracture of head of right radius with routine healing Dietary management e ducation, guidance, and counseling Related to Body mass index (BMI) 33.0-33.9, adult Physical activity counseling Rel ated to Dietary Surveillance Counseling Assessments Type Assessment Date assessment Closed nondisp fract ure of head of right radius with routine healing Patient Care Teams Name Effective Dates (start - stop) Status Members No Information
--- OUTSIDE RECORDS SUMMARY | 2024-10-02 09:21 | XMS_ITS | Clinical Summary ---
Author Organization [facility] Address [address] [place] [address] Care Team Providers Care Brass Molder Name Role Phone Sherine Flor MD Unavailable [phone] Ashley Dyson MD Unavailable [phone] Tri Sorenson MD Primary Care Provide r Source Comments [facility],non-owned Affiliates and Associated Physician Practices is amultiple site organization consisting of ambulatory clinics and hospital sitesin [place], [place], [place] and [place]. This disclosure is being madepursuant to the Care Everywhere program and may not contain all information available regarding this patient. Last updated 17.[facility] Allergies Active Allergy Reactions Criticality Noted Date Comments Erythromycin Nausea 06/23/2009 Fentanyl Nausea,Nausea and/or Vomiting 2009 Penicillins Rash,Nausea Low 06/23/2009 Medications * Be aware that medications may not be up to date on this document. Alwaysverify current medications with the patient. traZODone (DESYREL) 50 MG tabletIndications :Anxiety Take 1 tablet by mouth at bedtime 90 tablet 4 1 Active levothyroxine (SYNTHROID) 75 MCG tablet Take 1 tablet by mouth once daily 90 tablet 4 1 Active linaCLOtide (Linzess) 290 MCG capsule Take 1 (one) capsule by mouth daily before breakfast Patient will need an appt for future refills 90 capsule 2 Active B Complex Vitamins (vitamin B complex) tablet 2 Active omeprazole (PriLOSEC) 20 MG capsule Take 2 (two) capsules by mouth once daily 3 Active pregabalin (Lyrica) 150 MG capsule Take 2 (two) capsules by mouth 2 times daily 3 Active sulfamethoxazole- trimethoprim (Bactrim; Septra) 400-80 MG tabletIndications :OAB (overactive bladder),Urge incontinence Take 1 (one) tablet by mouth every 12 hours 14 tablet 4 Active apoaequorin (Prevagen Extra Strength) 20 MG capsule Active chlorthalidone (Hygroton) 25 MG tablet Take 1 (one) tablet by mouth once daily 3 Active meloxicam (Mobic) 7.5 MG tablet 3 Active albuterol HFA (Proventil; Ventolin; Proair) 108 (90 Base) MCG/ACT inhaler INHALE 2 PUFFS BY MOUTH 4 TIMES DAILY NEEDED FOR SHORTNESS OF BREATH AND FOR WHEEZING Active Multiple Minerals-Vitamins ([facility] HJEF-ETA-KMPE-VIT D PO) Take by mouth once daily Active B Iqhzxjr-Yymoxf-AC (B COMPLETE PO) Take by mouth once daily Active calcium-vitamin D (Caltrate Plus D) 600-200 MG-UNIT tablet Take 1 (one) tablet by mouth once daily Active oxyCODONE, immediate release, (Roxicodone) 5 MG tabletIndications :Overactive bladder,Post-oper ative state Take 1 (one) tablet by mouth every 4 hours as needed for Pain 12 tablet 4 Active Active Problems Problem Noted Date Diagnosed Date Primary localized osteoarthrosis, hand 9 Welcome to Medicare preventive visit 05/29/2018 Overview (12/14/2018): 10/14/18: Here for annual exam. 12/14/18: Need DEXA. Assessment & Plan (12/23/2018 1:05 PM CDT): Test ordered. Assessment & Plan (10/16/2018 5:10 PM CDT): Immunizations and screening tests updated. Neck pain 06/10/2017 Overview (06/10/2017): Fell on Feb 21 on her R [...] imaging done of cervical spine since surgery. Assessment & Plan (06/13/2017 1:18 PM CDT): Concerned about possible cervical spine damage. Continues to have pain. Not relieved with NSAIDs or Ultram. Requesting Percocet. MRI ordered. Need to see financial specialist after MRI. Right foot drop 04/25/2017 Overview (12/23/2018): 04/24/2018: Ongoing problem. Seeing a neurologist. She continues to have painful paresthesia affecting her right lower extremity both proximal and distal in the sciatic nerve distribution as well as right peroneal nerve distribution Has been referred to a neurologist at [facility]. Scheduled to see her next week. No worsening of symptoms. 07/21/18: Received EMG results. No further treatment. 10/14/18: Still has numbness of lateral aspect of R lower leg. Did not get labs done. 12/14/18: No change in symptoms. More frequent falls due to foot drop. Assessment & Plan (12/23/2018 1:07 PM CDT): Recommend imaging. Consult neuro again. Assessment & Plan (10/16/2018 5:14 PM CDT): Symptoms are unchanged. Need to get labs done and follow up with neurology. Assessment & Plan (07/26/2018 6:10 PM CDT): Need to follow up with Neurology. Assessment & Plan (04/25/2018 12:40 PM ATM TECHNICIAN): FU with neurology as noted. Ductal carcinoma in situ (DCIS) of left breast 0 04/10/2015 Cancer Staging:Clinical stage from 12/15/2015:Stage 0(Tis (DCIS), N0, M0) - Signed by Betty Schafer MD on 12/16/2015 Pathologic stage from 12/16/2015:Stage Unknown(Tis (DCIS), NX, cM0) - Signed by Betty Schafer MD on 12/16/2015 Overview (12/16/2015): Left, upper inner, high grade DCIS. Tis(DCIS)NxM0, stage 0. ER/CA neg, Her-2 neg Architectural distortion on mamm not amenable to core bx S/p 04/10/2015 needle loc excisional biopsy (schnepp): 2.5 cm DCIS, high grade. Margin negative but no measurement on report. Rad onc: Dr. Bañuelos: adjuvant hypofractionated radiation with boost, done 05/2015 Med onc: Dr. Ruiz: no adjuvant systemic therapy Other and unspecified hyperlipidemia 05/11/2014 Overview (05/29/2018): ASCVD risk from 2013 blood work was elevated (mainly because of tobacco use) No CP/SOB Assessment & Plan (02/01/2015 8:55 AM ATM TECHNICIAN): Patient understands that she needs to quit smoking in order to reduce her risk, I advised her that while she is still smoking I would recommend she takes a statin medication She is going to talk with her about the 2 of them quitting together and we will follow up on this in a few months Stress incontinence in female 05/11/2014 Overview (05/11/2014): rare IBS (irritable bowel syndrome) 05/11/2014 Restless legs syndrome 05/11/2014 Hx of tobacco use, presenting hazards to health 05/11/2014 Overview (05/29/2018): Has cut down so that a pack lasts for 3 days She would like to cut down altogether but is trying to talk her into quitting with her 04/24/18: Quit completely in 2015. Assessment & Plan (04/24/2018 10:38 AM ATM TECHNICIAN): Resolved. Assessment & Plan (02/01/2015 8:56 AM ATM TECHNICIAN): Declines the aid of other medications to help her with smoking cessation at this time We will follow up on this in a few months at her next appointment Lumbar radiculopathy 10/15/2011 Assessment & Plan (04/20/2020 8:33 PM ATM TECHNICIAN): NSAIDs, RICE, tylenol PT Acquired hypothyroidism 06/14/2010 Overview (10/16/2018): Not symptomatic Thyroid function tests have been stable 10/14/18: On levothyroxine 75 mcg daily. Labs last done a year ago. No h/o tremor, weight gain/loss. Assessment & Plan (10/16/2018 5:20 PM CDT): Check labs today. Assessment & Plan (02/01/2015 8:55 AM ATM TECHNICIAN): TSH pending Esophageal reflux 06/14/2010 Overview (07/26/2018): 07/21/2018: Taking 40 mg murmur resolved daily. Has recurrence of symptoms if she stops medication. Assessment & Plan (07/26/2018 6:15 PM CDT): Consider decreasing dose to 20 mg daily. May need to increase back to 40 mg if symptoms recur. Osteoporosis 06/14/2010 Assessment & Plan (04/20/2020 8:34 PM ATM TECHNICIAN): osteoporosis plan: - Continue Calcium 1200 mg/day and Vitamin D 800 units/day - Discontinue Fosamax due to taking it for more than 5 years. - Fall risk reduction discussed:yes - Weight bearing exercise discussed: yes Resolved Problems Problem Noted Date Diagnosed Date Resolved Date Left ankle swelling 09/30/2019 10/13/19 Overview (09/30/2019): 09/30/19: Fell 14 days ago at home. Thinks she tripped in her house shoes. L mckeon hit a coffee table. Developed a bruise over her mckeon. Now has a bump over L mckeon. No LOC. Noticed a bruise around her L heel 10 days ago which has now faded. Continues to have swelling of her L ankle. Unable to bend her toes due to swelling. Top of foot throbs. Foot feels heavy when walking. No trouble bearing weight. Assessment & Plan (09/30/2019 1:10 PM CDT): Most likely due to tibial injury. Requesting imaging. Memory loss 03/31/2019 09/08/2020 Overview (04/01/2019): 03/31/19: says she forgets things he told her for the past 1-2 months. Multiple falls in the past 2 years. No h/o getting lost in town. Concerned about multiple falls in the past 2 years due to weakness. No imaging done so far. Assessment & Plan (04/01/2019 1:56 PM ATM TECHNICIAN): CT head ordered. Consider Neurology consult. Possible worsening anxiety/depression. Itchy scalp 10/14/2018 10/13/2019 Overview (10/16/2018): 10/14/18: Started about 10 weeks ago when she changed shampoos. Beautician did not see anything. Tried using Baking soda along with her shampoo which was abrasive. Tried cool baths. Wears a hat when working outside. Was placed on Fluocinolone lotion for 5 days followed by ketoconazole shampoo with minimal relief. Continues to have severe itching. Assessment & Plan (10/16/2018 5:16 PM CDT): Minimal redness. Most likely due to contact dermatitis. Will try a short course of prednisone. May stop antifungal agent. Advised on moisturization. Need to see derm if not improved. Acute upper respiratory infe ctions of other multiple sites 05/29/2018 07/26/2018 Acute bronchitis 05/29/2018 07/21/2018 Chest pain 05/29/2018 10/13/2019 Overview (03/31/2019): 03/31/19: Has pain across her chest for the past month. Radiates to R arm. Son is alcoholic and homeless. Daughter is estranged since July 2018. Having problems with 's attitude. Has trouble grasping with R hand. No cold sweats or profound fatigue. Pain occurs randomly and lasts upto 2-3 days. Changes in severity. Assessment & Plan (04/01/2019 1:48 PM ATM TECHNICIAN): Tender along ribs on right side. Most likely secondary to costochondritis. Normal EKG. Follow-up in ER if pain worsens at any time. Recommend naproxen 500 mg b.i.d. for 2 weeks. Constipation 05/29/2018 06/26/2018 Cough 05/29/2018 06/26/2018 Need for prophylactic hormon e replacement therapy (postmenopausal) 05/29/2018 07/21/2018 Lateral epicondylitis of elbow 05/29/2018 07/26/2018 Onychia and paronychia of toe 05/29/2018 10/13/2019 Pain in joint, lower leg 05/29/2018 Irregular heart rate 04/24/2018 020 Overview (04/25/2018): 04/24/18: Started a month after her son moved in. Feels it is due to anxiety. Has a sensation of pressure in her chest when she gets anxious. Denies any pain, no history of dizziness Assessment & Plan (04/25/2018 12:20 PM ATM TECHNICIAN): Recommend Holter monitor. Patient wants to defer for now. States it is due to anxiety. Will follow up if symptoms persist after increasing dose of Lexapro. History of basal cell carcinoma 02/24/2018 04/24/2018 Dysuria 01/21/2018 04/24/2018 Overview (01/21/2018): 01/21/18: has sensation of fullness, increased frequency and dysuria. Status post Botox injection bladder for overactive bladder. Concerned she has infection. Assessment & Plan (01/21/2018 7:10 PM CDT): Normal UA. Recommend [id number] Pyridium for symptom relief. Urine culture awaited Right knee pain 01/21/2018 10/13/2019 Overview (01/21/2018): 01/21/2018: Sporadic pain in right knee. Started after she developed right hip pain and had surgery on right ankle. Continues to have numbness of right foot following surgery. Assessment & Plan (01/21/2018 7:08 PM CDT): Need to discuss new onset pain with Ortho. Imaging hip awaited. Hip pain, chronic, right 01/21/2018 Overview (12/14/2018): 01/21/18: Has fallen 3 times in the past year. Has trouble lying on the R side. Has a burning sensation is on the anterior aspect of thigh. Has pain radiating to R knee. Leg is weaker. Seeing Dr. Rivas.. Underwent EMG last month. Abnormal. Continues to have numbness secondary to nerve block prior to surgery. 12/14/18: Continues to have pain in R hip with burning sensation radiating upto knee posteriorily. Has fallen 3 times this year. Loses her balance secondary to R foot numbness. Using a TENS unit on R calf. Unsure if it helps. Hip pain has worsened. Cannot lie on R side after falls. Assessment & Plan (12/23/2018 1:04 PM CDT): Recommend CT hips. Need further testing as she has associated R foot drop and numbness. Assessment & Plan (01/21/2018 7:07 PM CDT): Recommend imaging. Need to rule out hip pathology. Neurology consult. Will continue to see ortho Closed nondisplaced fracture of head of right radius 07/23/2017 10/13/2019 Body mass index (bmi) 33.0-33.9, adult 07/02/2017 07/26/2018 Pain in joint of right shoulder 06/10/2017 10/13/2019 Overview (06/13/2017): Has pain along right shoulder for the past 3 months. No pain with range of motion of arm.X-rays done in February within normal limits. Assessment & Plan (06/13/2017 1:23 PM CDT): Normal range of motion with no weakness of arms. Unclear if pain is secondary to muscle strain upper back. Delayed surgical wound healing 03/14/2017 01/21/2018 Fall 02/25/2017 07/26/2018 Overview (03/03/2017): Fell in parking lot on Feb 21 on the R side. Did not lose consciousness. Did not go to the ER. Pain is worst on R shoulder. Bruise on R thigh has increased in size. Had R foot surgery on 02/05/17 and is wearing a surgical boot. Pain on abducting R arm. Hit R side of head. No LOC. Assessment & Plan (03/04/2017 4:33 AM ATM TECHNICIAN): Recommend shoulder X rays prior to starting PT. Bruising in multiple areas noted. FU if pain persists at other sites. Hallux rigidus of right foot 02/21/2017 01/21/2018 Great toe pain, right 02/04/20172017 Symptomatic varicose veins, bilateral 11/26/2016 01/21/2018 Chronic venous insufficiency 11/08/2016 01/21/2018 Leg swelling 11/08/2016 01/21/2018 Saphenofemoral venous reflux 11/06/2016 07/26/2018 Hot flashes, menopausal 05/11/201401/22 Overview (02/01/2015): Stops the hormone therapy at the last visit Overall doing much better, not having any hot flashes Assessment & Plan (02/01/2015 8:55 AM ATM TECHNICIAN): Resolved Overactive bladder 05/11/2014 9 Anxiety 05/11/2014 09/08/2020 Overview (07/26/2018): My records show that she was rx'd 30 tabs of xanax 9 months ago; however pt states she received 90 tabs Takes it about twice a week, mainly for sleep Never started lexapro 01/21/18:On Lexapro 10 mg daily. Takes Xanax at night to sleep. Not crying. No suicidal ideation. 04/24/18:Not any better. Not worse. Son 45, girlfriend 43, and grand son, 3 moved in as he lost his job in Jan. Planning on collecting social security this year. Having trouble with her relationship with her . MARIZOL 7 score is 4. 07/21/18: MARIZOL 7 score is 1. Doing well as her son has moved out. Was homeless for a while. GF and grandson moved back with her parents. Working on disability. Assessment & Plan (07/26/2018 6:02 PM CDT): Wants to continue present dose of Lexapro at 10 mg daily. Continues to takes trazodone 50 mg at night. Assessment & Plan (04/24/2018 10:45 AM ATM TECHNICIAN): Consider increasing Lexapro to 15 mg daily. Encouraged to consider therapy. Assessment & Plan (01/21/2018 1:39 PM CDT): Recommend trying Buspar instead. Need to stop Xanax. May increase Lexapro to 15 mg daily. Assessment & Plan (02/01/2015 8:54 AM ATM TECHNICIAN): Stable, no changes to meds at this time TMJ (temporomandibular joint disorder) 05/11/2014 10/13/2019 Postmenopausal atrophic vaginitis 07/19/2013 07/21/2018 Degeneration of cervical intervertebral disc 2 10/13/2019 Low back pain 10/15/2011 10/13/2019 Disorder of nail 03/02/2011 07/21/2018 Osteoarthrosis 03/02/2011 07/21/2018 Postmenopausal state 05/12/2010 019 Rectocele 10/23/2009 01/21/2018 Stress incontinence 05/04/2008 01/22/20 18 Carpal tunnel syndrome 10/12 Sciatic neuropathy 0 Encounters Date Type Department Care Team Description 07/27/2024 10:00 AM CDT - 07/27/2024 11:59 PM CDT Hospital Encounter [facility] [address] [place] [address] Tri Sorenson MD Discharge Disposition: Home or Self Care 07/20/2024 Travel from Last 3 Months Immunizations Immunization Administration Dates Next Due [employer] [place] primary monoval ent 12+ yr 0.3mL Purple cap 10/01/2021,05/13/2020,04/25/2020 INFLUENZA VACCINE 01/03/2018, 7,12/18/2015,2014 INFLUENZA VACCINE, QUADR. (F LUZONE; FLULAVAL; FLUARIX; AFLURIA QUADRIVALENT; 6MO+), 0.5 ML (IIV4) 12/14/2018 PNEUMOCOCCAL PPSV23 07/21/2018 Pneumococcal Pcv13 Conj 01/31/2015 TDAP (7yrs+) 09/18/2012 Zoster Hzv Vacc Recombinant Inj Im 01/19/2020, iNFLUENZA VACCINE, RECOM-WORTHY, QUADR. (FLUBLOCK QUADRIVALENT; 18Y+) (RIV4) 12/31/2019 Family History Medical History Relation Name Comments CAD (Coronary Artery Disease) Father Diabetes Father Hypertension Father Other - Cardiac Father pacemaker CVA<65(female) Maternal Aunt Aneurysm Mother Cancer - Colon Mother Cancer - Breast Neg Hx Cancer - Ovarian Neg Hx Relation Name Status Comments Father Alive Maternal Aunt Mother Social History Tobacco Use Types Packs/Day Years Used Date Smoking Tobacco: Former Cigarettes Q uit: 11/22/1997 Smokeless Tobacco: Never Tobacco Cessation:Counseling Given: Not Answered Alcohol Use Standard Drinks/Week Comments No 0 (1 standard drink = 0.6 oz pur e alcohol) AUDIT-C Answer Date Recorded Q1: How often do you have a drink containing alcohol? Never 09/16/2023 Q2: How many drinks containi ng alcohol do you have on a typical day when you are drinking? Patient does not drink Q3: How often do you have si x or more drinks on one occasion? 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 Not on file Not on file Not on file Last Filed Vital Signs Vital Sign Reading Time Taken Comments Blood Pressure 104/65 09/16/2023 9:47 AM CDT Pulse 65 09/16/2023 9:47 AM CDT Temperature 36.7 C (98.1 F) 09/16/2023 9:14 AM CDT Respiratory Rate 20 09/16/2023 9:47 AM CDT Oxygen Saturation 96% 09/16/2023 9:47 AM CDT Inhaled Oxygen Concentration - - Weight 76.7 kg (169 lb) 09/16/2023 6:05 AM CDT Height 165.1 cm (5' 5) 09/16/2023 6:05 AM CDT Body Mass Index 28.12 09/16/2023 6:05 AM CDT Plan of Treatment Health Maintenance Due Date Last Done Comments COLOGUARD (AGES 45-75) - COLON CA SCREENING 1954 CT COLONOGRAPHY - COLON CA SCREENING 1955 FIT - COLON CA SCREENING 1955 FLEX SIG - COLON CA SCREENING 1955 DTAP/TDAP/TD VACCINES (2 - Td or Tdap) 09/18/2022 09/18/2012 COLON MONITORING 02/08/2023 02/08/2013, 02/08/2013 COLONOSCOPY - COLON CA SCREENING 02/08/2023 02/08/2013, 02/08/2013 Colorectal Cancer Screening 02/08/2023 PNEUMOCOCCAL VACCINE 50+ (3 of 3 - PCV20 or PCV21) 07/22/2023 07/21/2018, 01/31/2015 COVID-19 VACCINE ( season) 2023 02/04/2022, 10/01/2021, 10/01/2021, Additional history exists DEPRESSION SCREENING 03/24/2024 MEDICARE AWV CALENDAR YEAR 2024 04/20/2020 SCREENING FOR DIABETES 11/01/2024 , 09/21/2021, 09/21/2021, Additional history exists INFLUENZA VACCINE (#1) 2024 3, 01/09/2021, 01/19/2020, Additional history exists MAMMOGRAM 07/27/2026 07/27/2024, 05/0 03/2023, 07/23/2023, Additional history exists LIPID TESTING 10/29/2026 10/29/2021, 09/22, 10/14/2018, Additional history exists Respiratory Syncytial Virus (RSV) Vaccine Pt: or over 60 yrs (1 - 1-dose 75+ series) 2029 BONE DENSITY TESTING Completed 12/23/2018, 09/08/19 11 ZOSTER VACCINE Completed 01/19/2020, 10/13/2019 HEPATITIS C SCREENING Completed 10/19/2020, 015 HEPATITIS B VACCINE Aged Out No longe r eligible based on patient's age to complete this topic HIB VACCINE Aged Out No longer eligi ble based on patient's age to complete this topic HPV VACCINE Aged Out No longer eligi ble based on patient's age to complete this topic MENINGOCOCCAL (Group B) VACCINE SHARED DECISION-MAKING Aged Out No longer eligible based on patient's age to complete this topic MENINGOCOCCAL GROUPS A/C/Y/W VACCINE Aged Out No longer eligible based on patient's age to complete this topic Goals Goal Patient Goal Type Associated Problems Recent Progress Patient-Stated? Author Quit smoking / using tobacco Lifestyle On track( 12:59 PM CDT) No Nora Nickerson Take recommended medication(s) Lifestyle On track( 12:59 PM CDT) No Amina Tadeo, EMILY Medical Devices Implanted Type Area Pay Clerk Device Identifier Shelf Expiration Date Model / Serial / Lot Grft Tiss Rep Xenform 4 X 7cm Implanted:Qty: 1 on 11/30/2013 by Ashley Dyson MD at [facility] [employer] 12/22/2015 [id number] / / [id number] K-Wire Implanted:Qty: 1 on 02/05/2017 by Benjamin Rivas DO at [facility] 09/20/2026 [id number] / / [id number] Cbl Perc Xtn Intstm Surescan 4.32mm Implanted:Qty: 1 on 09/02/2023 by Ashley Dyson MD at [facility] [employer] 07/07/2025 [id number] / / [id number] Ld Nrstm Intstm 4.32mm Spc L28 Cm Qdpl Implanted:Qty: 1 on 09/02/2023 by Ashley Dyson MD at [facility] N/A: Back [employer] 04/15/2025 [id number] / / [id number] Nrstm Impl 2inx1.7in Intstm Ii Thk.3in - [id number] Implanted:Qty: 1 on 09/16/2023 by Ashley Dyson MD at [facility] N/A: Back [employer] 12/19/2024 [id number] / [id number] / Procedures Procedure Name Priority Date/Time Associated Diagnosis Comments MAMMO BILAT SCREENING W TIMMY Routine 07/27/2024 10:43 AM CDT Visit for screening mammogram COMPREHENSIVE METABOLIC PANEL Routine 10/13/2019 11:53 AM CDT Hyperlipidemia, unspecified hyperlipidemia type LIPID PROFILE Routine 10/13/2019 11:53 AM CDT Hyperlipidemia, unspecified hyperlipidemia type DEXA BONE DENSITY AXIAL SKELETON Routine 12/23/2018 8:45 AM CDT Visit for preventive health examination HEPATITIS C ANTIBODY Routine 05/11/2014 4:07 PM ATM TECHNICIAN Need for hepatitis C screening test ENDOSCOPY, COLON, SCREENING Routine 02/08/2013 6:28 AM ATM TECHNICIAN from Last 3 Months or Most Recently Relevant to Health Maintenance Results * Mammo Bilat Screening W Timmy (07/27/2024 10:43 AM CDT) Anatomical Region Laterality Modality Breast Bilateral Mammography 07/27/2024 1:56 PM CDT Impressions 07/27/2024 1:57 PM CDT IMPRESSION: Stable findings of left breast conservation therapy are noted. No new suspicious abnormality is identified within either breast. OVERALL FINAL ASSESSMENT: BI-RADS Category 2: Benign. Annual screening mammography is recommended. > Interpreting Provider: Sulema Bynum MD on 07/27/2024 1:57 PM Narrative 07/27/2024 1:57 PM CDT EXAMINATION: BILATERAL DIGITAL SCREENING MAMMOGRAM AND BILATERAL BREAST TOMOSYNTHESIS HISTORY: Personal history of left breast cancer in 2016, treated with left breast conserving therapy. COMPARISON: Serial examinations dating back to 2020 TECHNIQUE: BILATERAL digital breast tomosynthesis (DBT) and synthetic 2D digital mammogram images were obtained (bilateral craniocaudal and mediolateral oblique projections) including computer aided detection (CAD.) BREAST PARENCHYMAL COMPOSITION: Category B: There are scattered areas of fibroglandular density. MAMMOGRAM FINDINGS: Findings compatible with prior left breast conservation therapy are noted. No new suspicious abnormality is identified within either breast. Tri Sorenson MD MAMMO ORDERABLES Joanie l Result * COMPREHENSIVE METABOLIC PANEL (10/13/2019 11:53 AM CDT) Glucose 95 70 - 105 mg/dL [facility] ACCOUNT BILL BUN 16 9.8 - 20.1 mg/dL [facility] ACCOUNT BILL Creatinine 0.75 0.57 - 1.11 mg/dL [facility] ACCOUNT BILL eGFR by MDRD >60 >60 mL/min/1.7 3m2 [facility] ACCOUNT BILL eGFR by MDRD >60 >60 mL/min/1.7 3m2 [facility] ACCOUNT BILL Sodium 140 136 - 145 mmol/L [facility] ACCOUNT BILL Potassium 4.4 3.5 - 5.1 mmol/L [facility] ACCOUNT BILL Chloride 104 98 - 107 mmol/L [facility] ACCOUNT BILL CO2 25 23 - 31 mmol/L [facility] ACCOUNT BILL Calcium 9.4 8.4 - 10.4 mg/dL [facility] ACCOUNT BILL Protein Total 6.5 6.4 - 8.3 gm/dL [facility] ACCOUNT BILL Albumin 4.3 3.2 - 4.6 gm/dL [facility] ACCOUNT BILL Bilirubin Total 0.5 0.2 - 1.0 mg/dL [facility] ACCOUNT BILL Alkaline Phosphatase 68 40 - 150 U/L [facility] ACCOUNT BILL AST 18 5 - 34 U/L [facility] ACCOUNT BILL ALT 23 0 - 61 U/L [facility] ACCOUNT BILL Blood BLOOD SPECIMEN / Unknown 10/13/2019 11:53 AM CDT 10/13/2019 Narrative Resulting Agency Comment Lab Testing performed at: [address] [phone] us Reinaldo Sanford Jr., MD LAB - CHEMISTR Y ORDERABLES Final Result Performing Organization Address City/[facility]/ZIP Co de Phone Number [facility] ACCOUNT BILL [address] [place] [address] * (ABNORMAL) LIPID PROFILE (10/13/2019 11:53 AM CDT) [facility] Signature Cholesterol 179 <200 mg/dL [facility] ACCOUNT BILL Triglycerides 159(H) <150 mg/dL [facility] ACCOUNT BILL HDL Cholesterol 57 >40 mg/dL [facility] ACCOUNT BILL VLDL Calculated 32(H) <=30 mg/dL [facility] ACCOUNT BILL LDL Calculated 90 <130 mg/dL [facility] ACCOUNT BILL Blood BLOOD SPECIMEN / Unknown 10/13/2019 11:53 AM CDT 10/13/2019 Narrative Resulting Agency Comment Lab Testing performed at: [address] [phone] us Reinaldo Sanford Jr., MD LAB - CHEMISTR Y ORDERABLES Final Result Performing Organization Address City/[facility]/ZIP Co de Phone Number [facility] ACCOUNT BILL [address] [place] [address] * DEXA BONE DENSITY AXIAL SKELETON (12/23/2018 8:45 AM CDT) Anatomical Region Laterality Modality Nuclear Medicine 12/23/2018 10:1 9 AM CDT Impressions 12/23/2018 10:21 AM CDT Osteopenia of the hips. Normal bone mineral density of the lumbar spine. WORLD HEALTH ORGANIZATION DEFINITIONS NORMAL= T-Score at or above -1.0 SD OSTEOPENIA = T-Score between -1 and -2.5 SD OSTEOPOROSIS = T-Score at or below -2.5 SD Reading Radiologist: Delgado Eng MD on 12/23/2018 at 10:21 AM Narrative 12/23/2018 10:21 AM CDT BONE MINERAL DENSITY STUDY: INDICATION: 63-year-old for osteoporosis screening. FINDINGS: Comparison is made to prior exam from 09/07/2010. The mean bone mineral content of the lumbar spine is 1.373 g/cm2 and T-score 1.6, consistent with normal bone mineral density (previously 1.364 g/cm2 and T-score was 1.5). The mean bone mineral content of the left femoral neck is 0.815 g/cm2 and T-score -1.6, consistent with osteopenic bone mineral density (previously 0.850 g/cm2 and T-score was -1.4). The mean bone mineral content of the left total hip is 0.880 g/cm2 and T-score -1.0, consistent with normal bone mineral density (previously 0.898 g/cm2 and T-score was -0.9). The mean bone mineral content of the right femoral neck is 0.844 g/cm2 and T-score -1.4, consistent with osteopenic bone mineral density (previously 0.763 g/cm2 and T-score was -2.0). The mean bone mineral content of the right total hip is 0.813 g/cm2 and T-score -1.5, consistent with osteopenic bone mineral density (previously 0.837 g/cm2 and T-score was -1.4). FRAX 10 year fracture risk Major osteoporotic fracture: 9.2% Hip fracture: 1.0% Procedure Note Delgado Eng, - 12/23/2018 BONE MINERAL DENSITY STUDY: INDICATION: 63-year-old for osteoporosis screening. FINDINGS: Comparison is made to prior exam from 09/07/2010. The mean bone mineral content of the lumbar spine is 1.373 g/cm2 and T-score 1.6, consistent with normal bone mineral density (previously 1.364 g/cm2 and T-score was 1.5). The mean bone mineral content of the left femoral neck is 0.815 g/cm2 and T-score -1.6, consistent with osteopenic bone mineral density (previously 0.850 g/cm2 and T-score was -1.4). The mean bone mineral content of the left total hip is 0.880 g/cm2 and T-score -1.0, consistent with normal bone mineral density (previously 0.898 g/cm2 and T-score was -0.9). The mean bone mineral content of the right femoral neck is 0.844 g/cm2 and T-score -1.4, consistent with osteopenic bone mineral density (previously 0.763 g/cm2 and T-score was -2.0). The mean bone mineral content of the right total hip is 0.813 g/cm2 and T-score -1.5, consistent with osteopenic bone mineral density (previously 0.837 g/cm2 and T-score was -1.4). FRAX 10 year fracture risk Major osteoporotic fracture: 9.2% Hip fracture: 1.0% IMPRESSION Osteopenia of the hips. Normal bone mineral density of the lumbar spine. WORLD HEALTH ORGANIZATION DEFINITIONS NORMAL= T-Score at or above -1.0 SD OSTEOPENIA = T-Score between -1 and -2.5 SD OSTEOPOROSIS = T-Score at or below -2.5 SD Reading Radiologist: Delgado Eng MD on 12/23/2018 at 10:21 AM us Jodi Cooper MD DEXA ORDERABLES Final Result * HEPATITIS C ANTIBODY (05/11/2014 4:07 PM ATM TECHNICIAN) Hepatitis C Antibody NON-REACTI VE NON-REACT [facility] Signal to Cut-Off 0.02 <1.00 [facility] Comment: Test Performed at: [facility] [address] [place] [address] KERRI DUBOIS DO,MPH Blood specimen (specimen) BLOOD SPECIMEN / Unknown 05/11/2014 4:07 PM ATM TECHNICIAN 05/11/2014 4:09 PM ATM TECHNICIAN us Tri Sorenson MD LAB - CHEMISTRY ORDER JUDITH Final Result [facility] [id number] [place] [id number] * ENDOSCOPY, COLON, SCREENING (02/08/2013 6:28 AM ATM TECHNICIAN) Report Endoscopy POC _ Patient Name: Kaila Larsen Procedure Date: 02/08/2013 6:28 AM Date of : 1955 Admit Type: Outpatient Gender: Female Age: 57 Attending MD: Barbie Harris MD _ Procedure: Colonoscopy Indications: Lower abdominal pain, Constipation, Obstipation, Weight loss Providers: Barbie Harris MD (Doctor), Ashley Wilson RN, Thao Fernandez, Bacon Slicer Referring MD: Blake Cronin (Referring MD) Medicines: Monitored Anesthesia Care Complications: No immediate complications. _ Procedure: After I obtained informed consent, the scope was passed under direct vision. Throughout the procedure, the patient's blood pressure, pulse, and oxygen saturations were monitored continuously. The Colonoscope was introduced through the anus and advanced to the terminal ileum, with identification of the appendiceal orifice and IC valve. The colonoscopy was performed without difficulty. The patient tolerated the procedure well. The quality of the bowel preparation was good. Impression: - Non-thrombosed external hemorrhoids found on perianal exam. - Decreased sphincter tone found on digital rectal exam. - Normal mucosa in the entire examined colon. - Two 5 mm polyps in the rectum. Resected and retrieved. - The examination was otherwise normal. - Internal hemorrhoids. Findings: The perianal exam was abnormal. Findings include non-thrombosed external hemorrhoids. The digital rectal exam was abnormal. Findings include decreased sphincter tone. Pertinent negatives include no palpable rectal lesions. Normal mucosa was found in the entire colon. Two flat polyps were found in the rectum. The polyps were 5 mm in size. These polyps were removed with a cold biopsy forceps. Resection and retrieval were complete. Verification of patient identification for the specimen was done. Estimated blood loss was minimal. The exam was otherwise without abnormality. There were no diverticulae. I saw no blood, pus, or mucus. There was no obstruction. Internal hemorrhoids were found during retroflexion and were mild. Retroflexion was done in the rectum. _ Recommendation: - Continue present medications. - No aspirin, ibuprofen, naproxen, or other non-steroidal anti-inflammatory drugs. - Telephone my office for pathology results in 2 days. - Call my office on Fri. - High fiber diet. - Use fiber, for example Citrucel, Fibercon, Konsyl or Metamucil. - Take the probiotics. - Discharge patient to home. Procedure Code(s): --- Professional --- 63429, Colonoscopy, flexible, proximal to splenic flexure; with biopsy, single or multiple Diagnosis Code(s): --- Professional --- 569.49, Other specified disorders of rectum and anus 569.0, Anal and rectal polyp 455.3, External hemorrhoids without mention of complication 455.0, Internal hemorrhoids without mention of complication 789.09, Abdominal pain, other specified site 564.00, Constipation, unspecified 783.21, Loss of weight CPT (R) 2012 [employer]. All Rights Reserved. The codes documented in this report are preliminary and upon printer slotter operator review may be revised to meet current compliance requirements. Barbie Harris MD 02/08/2013 7:49 AM Number of Addenda: 0 Note Initiated On: 02/08/2013 6:[address] [facility] ENDOSCOPY 02/08/2013 6:28 AM ATM TECHNICIAN Narrative [facility] ENDOSCOPY - 02/08/2013 7:50 AM ATM TECHNICIAN Procedure Note Barbie Harris MD - 02/08/2013 7:50 AM CST us Barbie Harris MD GI PROCEDURE ORDERABLES Edited [facility] ENDOSCOPY from Last 3 Months or Most Recently Relevant to Health Maintenance Insurance [facility] MANAGED MEDICARE ADV SELF PAY NO INSURANCE Member Subscriber Plan / Payer (Ef fective for All Dates) Name:Kaila Larsen Member ID:Not on file Relation to Subscriber:Not on file Name:KAILA LARSEN Subscriber ID:Not on file (Home) Address: [address] [place] [address] Payer ID:Not on file Group ID:Not on file Type:Self Pay Address: [place], [place] [facility] MANAGED MEDICARE ADV [id number] [facility] [place] [id number] Advance Directives * Full Code (Latest Code Status on File) Date Activated Date Inactivated Comments 02/05/2017 3:06 PM 02/06/2017 2:57 PM * Full Code Date Activated Date Inactivated Comments 11/30/2013 2:01 PM 12/01/2013 7:37 PM * FULL RESUSCITATION Date Activated Date Inactivated Comments 11/29/2011 12:00 PM 11/30/2011 1:35 PM * Full Code Date Activated Date Inactivated Comments 06/14/2010 4:19 PM 06/16/2010 3:56 AM * Full Code Date Activated Date Inactivated Comments 11/07/2009 11:36 AM 11/09/2009 5:41 AM Care Teams Brass Molder Relationship Specialty Start Date End Date Tri Sorenson MD [address] [place] [address] PCP - General Family Medicine 09/07/21 Sherine Flor MD [address] [place] [address] Referring Physician General Surgery 04/16/15 Ashley Dyson MD [address] [address] Urogynecology 12/14/18
--- OUTSIDE RECORDS SUMMARY | 2024-10-02 09:21 | XMS_ITS | Encounter Summary ---
Author Organization [facility] Address [address] [place] [address] Care Team Providers Care Cotton Seed Culler Name Role Phone Sherine Flor MD Unavailable [phone] Ashley Dyson MD Unavailable [phone] Tri Sorenson MD Primary Care Provide r Reason for Visit * Reason Onset Date Comments Discuss Surgery 09/04/2023 Encounter Details Date Type Department Care Team (Late st Contact Info) Description 09/04/2023 Telephone [facility] - Centralized Scheduling [address] [place] [address] Ashley Dyson MD [address] [place] [address] Discuss Surgery Social History Tobacco Use Types Packs/Day Years Used Date Smoking Tobacco: Former Cigarettes Q uit: 11/22/1997 Smokeless Tobacco: Never Alcohol Use Standard Drinks/Week Comments No 0 (1 standard drink = 0.6 oz pur e alcohol) PHQ-2 Answer Date Recorded PHQ2 TOTAL SCORE 0 09/08/2020 Comments No Sex and Gender Information Value Date Recorded Sex Assigned at Female 06/10/2020 6:46 PM CDT Legal Sex Female 6:25 AM LOGISTICAL ENGINEER Gender Identity Female 06/10/2020 6:46 PM CDT Sexual Orientation Choose not to disclose 2020 6:46 PM CDT 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 Pt can be reached at [phone]. documented in this encounter Plan of Treatment [...] on filedocumented in this encounter Care Teams Cotton Seed Culler Relationship Specialty Start Date End Date Tri Sorenson MD [address] [phone] PCP - General Family Medicine 09/07/21 Sherine Flor MD [address] [place] [address] Referring Physician General Surgery 04/16/15 Ashley Dyson MD [address] [place] [phone] Urogynecology 12/14/18 documented as of this encounter
--- OUTSIDE RECORDS SUMMARY | 2024-10-02 09:21 | XMS_ITS | Encounter Summary ---
Author Organization [facility] Address [facility] [place] [address] Care Team Providers Care Specialty Department Supervisor Name Role Phone Tri Sorenson MD Primary Care Provider [phone] Encounter Details Date Type Department Care Team (Late Contact Info) Description 09/22/2024 Prep for Procedure [facility] THREE [facility], [facility] [address] [place], [place] [id number] Sanford Martines MD Three [facility]. [facility] [address] [place], [place] [phone] Social History Tobacco Use Types Packs/Day Years [...] Info) Description 10/21/2024 7:30 AM CDT Appointment [facility] Automated Equipment Engineer Technician [address] [place], [place] [phone] Sanford Martines MD Three [facility]. [place] [address] [place], [place] [id number] documented as of this encounter Visit Diagnoses Not on filedocumented in this encounter Additional Health Concerns Assessment Noted Time PHQ-9 Depression Total Score: 2 12/09/19 21 11:40 AM CDT documented as of this encounter Care Teams Specialty Department Supervisor Relationship Specialty Start Date End Date Tri Sorenson MD PCP - General FAMILY PRACTICE 10/17/20 documented as of this encounter
--- OUTSIDE RECORDS SUMMARY | 2024-10-02 09:21 | XMS_ITS | Encounter Summary ---
Author Organization [facility] Address [facility] [place] [address] Care Team Providers Care Proposition Player Name Role Phone Tri Sorenson MD Primary Care Provider [phone] Encounter Details Date Type Department Care Team (Late st Contact Info) Description 08/30/2024 [employer] [facility] Message [facility] Cardiovascular Outreach [facility] [id number] [place] [phone] Sanford Martines MD Three [facility]. [address] [phone] Right leg Social History Tobacco Use Types Packs/Day Years [...] Info) Description 10/21/2024 7:30 AM CDT Appointment [place] Crop Adjuster [address] [place], [place] [phone] Sanford Martines MD Three [facility]. [facility] [address] [place], [place] [phone] documented as of this encounter Visit Diagnoses Not on filedocumented in this encounter Additional Health Concerns Assessment Noted Time PHQ-9 Depression Total Score: 2 12/09/19 21 11:40 AM CDT documented as of this encounter Care Teams Proposition Player Relationship Specialty Start Date End Date Tri Sorenson MD PCP - General FAMILY PRACTICE 10/17/20 documented as of this encounter
--- OUTSIDE RECORDS SUMMARY | 2024-10-02 09:21 | XMS_ITS | Encounter Summary ---
Author Organization [facility] Address [address] [place] [address] Care Team Providers Care Make Ready Mechanic Name Role Phone Tri Sorenson MD Primary Care Provide r Reason for Visit * Reason Comments Patient Communication Encounter Details Date Type Department Care Team (Late st Contact Info) Description 11/04/2023 Telephone [facility] [address] [address] Tri Sorenson MD [address] [address] Patient Communication Social History Tobacco Use Types Packs/Day Years Used Date Smoking Tobacco: Former Cigarettes Smokeless Tobacco: Never Alcohol Use Standard Drinks/Week Comments Never 0 (1 standard drink = 0.6 oz pur e alcohol) Comments No Sex and Gender Information Value Date Recorded Sex Assigned at Female 03/12/2024 2:21 PM WHEEL WORKER Legal Sex Female 8:50 AM CDT Gender Identity Female 03/12/2024 2:21 PM WHEEL WORKER Sexual Orientation Choose not to disclose 2023 2:21 PM WHEEL WORKER documented as of this encounter Miscellaneous Notes * Telephone Encounter - Cash Peace - 11/04/2023 10:27 AM CDT Copied from [facility] #[id number]. Topic: Patient or Caregiver Communication Request >> Nov 04, 2023 10:20 AM Cash Betancur wrote: Patient or Caregiver insisting that a message be sent to Care Team Caller: Leanne Larsen Patient/Caregiver Callback Number: [phone] (mobile) Call Notes: Patient states insurance info is not going through and was told to call and be transferred to office if she had any issues documented in this encounter Plan of Treatment Upcoming Encounters Date Type Department Care Team (Late st Contact Info) Description 11/26/2024 8:30 AM CDT Office Visit [facility] [address] [place] [address] Tri Sorenson MD [address] [place] [address] documented as of this encounter Visit Diagnoses Not on filedocumented in this encounter Additional Health Concerns Assessment Noted Time PHQ-9 Depression Total Score: 1 11/03/19 24 9:59 AM CDT documented as of this encounter Care Teams Make Ready Mechanic Relationship Specialty Start Date End Date Tri Sorenson MD [address] [place] [address] PCP - General Family Practice 11/03/23 documented as of this encounter
--- OUTSIDE RECORDS SUMMARY | 2024-10-02 09:21 | XMS_ITS | Encounter Summary ---
Author Organization [facility] Address [facility] [place] [address] Care Team Prov[address] Care Ct Tech Name Role Phone Tri Sorenson MD Primary Care Provider +1- [phone] Encounter Details Date Type Department Care Team (Late Contact Info) Description 09/10/2022 [email or web address] Message Enc [facility] THREE [facility], [facility] [address] [place], [place] [phone] Sanfrod Martines MD Three [facility]. [facility] [address] [place], [place] [phone] Good morning Social History Tobacco Use Types Packs/Day Years [...] suspected to have Coronavirus/COVID-19? No / Unsure 08/28/2022 3:07 PM CDT documented as of this encounter Plan of Treatment Upcoming Encounters Date Type Department Care Team (Late Contact Info) Description 10/21/2024 7:30 AM CDT Appointment [facility] Firer Helper [address] [place] [address] Sanford Martines MD Three [facility]. [address] [place] [address] documented as of this encounter Visit Diagnoses Not on filedocumented in this encounter Additional Health Concerns Assessment Noted Time PHQ-9 Depression Total Score: 2 12/09/19 21 11:40 AM CDT documented as of this encounter Care Teams Ct Tech Relationship Specialty Start Date End Date Tri Sorenson MD PCP - General FAMILY PRACTICE 10/17/20 documented as of this encounter
--- OUTSIDE RECORDS SUMMARY | 2024-10-02 09:21 | XMS_ITS | Encounter Summary ---
Author Organization [facility] Address [facility] [place] [address] Care Team Providers Care Central Supply Aide Name Role Phone Tri Sorenson MD Primary Care Provider +1- [phone] Encounter Details Date Type Department Care Team (Late st Contact Info) Description 05/30/2022 [employer] Message [facility] [phone] [place] [phone] Sanford Martines MD [address] [address] Test Social History Tobacco Use Types Packs/Day Years [...] suspected to have Coronavirus/COVID-19? No / Unsure 05/27/2022 12:36 PM INTERIOR PAINTER documented as of this encounter Progress Notes * Ayse Dean RN - 05/30/2022 9:06 AM CST . RIOR PAINTER documented in this encounter Plan of Treatment Upcoming Encounters Date Type Department Care Team (Late st Contact Info) Description 10/21/2024 7:30 AM CDT Appointment [place] Costume Draper [address] [facility] [place] [address] Sanford Martines MD Three [facility]. [address] [place] [address] documented as of this encounter Visit Diagnoses Not on filedocumented in this encounter Additional Health Concerns Assessment Noted Time PHQ-9 Depression Total Score: 2 12/09/19 21 11:40 AM CDT documented as of this encounter Care Teams Central Supply Aide Relationship Specialty Start Date End Date Tri Sorenson MD PCP - General FAMILY PRACTICE 10/17/20 documented as of this encounter
--- OUTSIDE RECORDS SUMMARY | 2024-10-02 09:21 | XMS_ITS | Encounter Summary ---
Author Organization [facility] Address [facility], [facility] [place] [address] Care Team Providers Care Melt Supervisor Name Role Phone Tri Sorenson MD Primary Care Provider +1- [phone] Encounter Details Date Type Department Care Team (Late st Contact Info) Description 07/23/[address] [facility] Family Medicine [facility] [address] [place], [place] [phone] Tri Sorenson MD [address] [place] [phone] Test Social History Tobacco Use Types Packs/Day [...] suspected to have Coronavirus/COVID-19? No / Unsure 07/11/2021 8:49 AM CDT documented as of this encounter Progress Notes * Yelena Torre LPN - 07/24/2021 8:49 AM CDTFrom: Leanne Larsen To: Dr. Tri Matos Sent: 07/23/2021 4:59 PM CDT Subject: Test I finally go this for my MRI lumbar area. I hope I don???t have to wait a long time for myresults. Please feel free to call me anytime with results. My back hurts a lot. documented in this encounter Plan of Treatment Upcoming Encounters Date Type Department Care Team (Late st Contact Info) Description 10/21/2024 7:30 AM CDT Appointment [facility] Auto Engine Mechanic [address] [place], [place] [phone] Sanford Martines MD Three [facility]. [address] [place] [address] documented as of this encounter Visit Diagnoses Not on filedocumented in this encounter Additional Health Concerns Assessment Noted Time PHQ-9 Depression Total Score: 2 12/09/19 21 11:40 AM CDT documented as of this encounter Care Teams Melt Supervisor Relationship Specialty Start Date End Date Tri Sorenson MD PCP - General FAMILY PRACTICE 10/17/20 documented as of this encounter
--- OUTSIDE RECORDS SUMMARY | 2024-10-02 09:21 | XMS_ITS | Encounter Summary ---
Author Organization [facility] Address [address] [place] [address] Care Team Providers Care Commercial Trailer Truck Driver Name Role Phone Tri Sorenson MD Primary Care Provide r + Sherine Flor MD Unavailable [phone] Valentin Bañuelos MD Unavailable [phone] Sanford Gonzalez MD Unavailable [phone] Dwayne Hernandez RN Unavailable Unavailab le Jodi Cooper MD Primary Care Provider + 8 Tri Sorenson MD Primary Care Provide r + Jodi Cooper MD Primary Care Provider + Tri Sorenson MD Primary Care Provide r + Jodi Cooper MD Primary Care Provider + 8 Ashley Dyson MD Unavailable [phone] Jodi Cooper MD Unavailable Lior Cheek MD Unavailable [phone] Juvenal Whipple MD, Reinaldo Hyde Primary Care Provider Jodi Cooper MD Primary Care Provider + Jodi Cooper MD Unavailable Juvenal Whipple MD, Reinaldo Hyde Primary Care Provider Tri Sorenson MD Primary Care Provide r Tri Sorenson MD Unavailable +1-3 Tri Sorenson MD Unavailable +[phone] Tri Sorenson MD Unavailable +1-3 Jodi Cooper MD Unavailable Encounter Details Date Type Department Care Team (Late st Contact Info) Description 08/28/[address] [facility] DermPath Lab [address] [facility], [place] [address] Delta Mahajan MD RETIRED Social History Tobacco Use Types Packs/Day Years Used Date Smoking Tobacco: Former Cigarettes Q uit: 11/22/1997 Smokeless Tobacco: Never Comments:2 YRS AGO Alcohol Use Standard Drinks/Week Comments No 0 (1 standard drink = 0.6 oz pur e alcohol) Comments No Sex and Gender Information Value Date Recorded Sex Assigned at Female 06/10/2020 6:46 PM CDT Legal Sex Female 6:25 AM MILKING WORKER Gender Identity Female 06/10/2020 6:46 PM CDT Sexual Orientation Choose not to disclose 2020 6:46 PM CDT 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 Author Quit smoking / using tobacco Lifestyle On track( 12:59 PM CDT) No Nora Nickerson Take recommended medication(s) Lifestyle On track( 12:59 PM CDT) No Amina Tadeo MA documented as of this encounter Procedures Procedure Name Priority Date/Time Associated Diagnosis Comments DERMATOPATHOLOGY Routine 08/27/2017 12:0 0 AM CDT documented in this encounter Results * DERMATOPATHOLOGY (08/27/2017 12:00 AM CDT) Case Report Dermatopathology Report Case: [id number] Authorizing Provider: Delta Mahajan MD Collected: 08/27/2017 12:00 AM Pathologist: Elisabeth Dumont MD Received: 08/28/2017 11:47 AM Specimen: Skin, left posterior shoulder 1:04 PM CDT DERMATOPATHOLOGY LABORATORY Final Diagnosis Specimen A. SKIN, left posterior shoulder: BENIGN VERRUCOUS KERATOSIS (L82.1) 1:04 PM CDT DERMATOPATHOLOGY LABORATORY at 1304 CDT Clinical History SK. 1:04 PM CDT DERMATOPATHOLOGY LABORATORY Gross Description Specimen A: Received is one formalin filled container labeled with the patient's name and designated left posterior shoulder. The specimen consists of a shave biopsy measuring [id number]. Jar 0. 1:04 PM CDT DERMATOPATHOLOGY LABORATORY Microscopic Description Specimen A. SKIN, left posterior shoulder: Sections show hyperkeratosis, papillomatosis, hypergranulosis, and acanthosis. These histological findings can be seen in a verruca vulgaris or a seborrheic keratosis. 1:04 PM CDT DERMATOPATHOLOGY LABORATORY Disclaimer An external and internal positive and negative controls are appropriate for the histochemical, immunohistochemical and immunofluorescence stain(s) in this case (if any), except where stated explicitly. The performance characteristics of the stain(s) cited in this report were developed and its performance characteristic determined by the Dermatopathology Laboratory at [facility]. These tests need not be, and therefore are not, approved by the [place] Food and Drug Administration. The tests are used for clinical purposes. Billing Codes Specimen Charges Stain Charges 41371 1 8 1:04 PM CDT DERMATOPATHOLOGY LABORATORY Embedded Images 8 1:04 PM CDT DERMATOPATHOLOGY LABORATORY Pathology/Cytolog y TISSUE SPECIMEN FROM SKIN / Unknown 08/27/2017 08/28/2017 11:47 AM CDT Delta Mahajan MD LAB - PATHOLOGY/CYTOLOGY ORD ERABLES Final Result DERMATOPATHOLOGY LABORATORY [facility] - Department of Dermatology [address] [place] [address], 5th Floor Lab [address] [phone] documented in this encounter Visit Diagnoses Not on filedocumented in this encounter Care Teams Commercial Trailer Truck Driver Relationship Specialty Start Date End Date Tri Sorenson MD PCP - General Family Medicine 05/10/14 11/27/17 Jodi Cooper MD PCP - General Family Medicine 11/28/17 12/02/17 Tri Sorenson MD PCP - General 12/03/17 01/20/18 Jodi Cooper MD PCP - General Family Medicine 01/21/18 02/02/18 Tri Sorenson MD PCP - General 02/03/18 02/26/18 Jodi Cooper MD PCP - General Family Medicine 02/27/18 10/12/19 Jodi Cooper MD [address] [place] [address] PCP - Attributed-Exclusive Choice 12/22/18 03/23/19 Reinaldo Sanford Jr., MD [address] [place] [address] PCP - General Family Medicine 10/13/19 10/28/19 Jodi Cooper MD PCP - General 10/29/19 10/30/19 Jodi Cooper MD [address] [place] [phone] PCP - Attributed-[facility] ST[facility] 09/22/19 09/09/22 Reinaldo Sanford Jr., MD [address] [place] [address] PCP - General 04/17/21 09/06/21 Tri Sorenson MD [address] [place] [address] PCP - General Family Medicine 09/07/21 Tri Sorenson MD [address] [address] PCP - Attributed-C MA 03/24/22 12/09/22 Tri Sorenson MD [address] [place] [address] PCP - Attributed-Exclusive Choice 12/12/16 07/29/18 Tri Sorenson MD [address] [place] [address] PCP - Attributed-Exclusive Choice 09/21/18 12/21/18 Jodi Cooper MD [address] [place] [address] PCP - Attributed-Exclusive Choice 07/30/18 09/20/18 Sherine Flor MD [address] [place] [address] Referring Physician General Surgery 04/16/15 Valentin Bañuelos MD [address] [place] [address] Radiation Oncologist Radiation Oncology 04/16/15 Sanford Gonzalez MD [address] [place] [address] Obstetrics and Gynecology 08/01/15 12/13/18 Dwayne Hernandez, RN 02/05/17 12/13/18 Ashley Dyson MD [address] [place] [address] Urogynecology 12/14/18 Lior Cheek MD [address] [place] [address] Orthopedic Surgery 03/31/19 04/13/19 documented as of this encounter
--- OUTSIDE RECORDS SUMMARY | 2024-10-02 09:21 | XMS_ITS | Encounter Summary ---
Author Organization [facility] Address [facility] [place] [address] Care Team Providers Care Director Of Distribution Name Role Phone Tri Sorenson MD Primary Care Provider [phone] Encounter Details Date Type Department Care Team (Late Contact Info) Description 12/27/2021 MyChart Message Enc [facility] Medical Group Neurology Speciality [facility] - [place] [id number] [facility] [address] [place] [address] Hadley Mcfarland MD [address] [place] [address] [facility] results Social History Tobacco Use Types Packs/Day Years [...] suspected to have Coronavirus/COVID-19? No / Unsure 12/27/2021 8:44 AM CDT documented as of this encounter Plan of Treatment Upcoming Encounters Date Type Department Care Team (Late Contact Info) Description 10/21/2024 7:30 AM CDT Appointment [place] Bulldozer Mechanic [address] [place] [address] Safnord Martines MD [address] [facility]. [address] [place] [address] documented as of this encounter Visit Diagnoses Not on filedocumented in this encounter Additional Health Concerns Assessment Noted Time PHQ-9 Depression Total Score: 2 12/09/19 21 11:40 AM CDT documented as of this encounter Care Teams Director Of Distribution Relationship Specialty Start Date End Date Tri Sorenson MD PCP - General FAMILY PRACTICE 10/17/20 documented as of this encounter
--- OUTSIDE RECORDS SUMMARY | 2024-10-02 09:21 | XMS_ITS | Encounter Summary ---
Author Organization [facility] Address [address] [place] [address] Care Team Providers Care Management Engineer Name Role Phone Tri Sorenson MD Primary Care Provide r Reason for Visit * Reason Comments Results Encounter Details Date Type Department Care Team (Late st Contact Info) Description 04/21/2024 Telephone [address] [facility] [address] [address] Tri Sorenson MD [address] [facility] [address] [place] [address] Results Social History Tobacco Use Types Packs/Day Years Used Date Smoking Tobacco: Former Cigarettes 0.5 39 S tarted: 1978 Smokeless Tobacco: Never Alcohol Use Standard Drinks/Week Comments Yes 0 (1 standard drink = 0.6 oz pur e alcohol) Comments No Sex and Gender Information Value Date Recorded Sex Assigned at Female 03/12/2024 2:21 PM WORD PROCESSING SPECIALIST Legal Sex Female 8:50 AM CDT Gender Identity Female 03/12/2024 2:21 PM WORD PROCESSING SPECIALIST Sexual Orientation Choose not to disclose 2023 2:21 PM WORD PROCESSING SPECIALIST documented as of this encounter Miscellaneous Notes * Telephone Encounter - Rose Garcia RN - 04/21/2024 12:21 PM WORD PROCESSING SPECIALIST Just fyi regarding patients response to sleep study results. PROCESSING SPECIALIST * Telephone Encounter - Rose Garcia RN - 04/21/2024 12:19 PM WORD PROCESSING SPECIALIST Patient also stated that she had her pneumonia (Capvaxibe) vaccine today at [facility]. Vaccination record updated. PROCESSING SPECIALIST * Telephone Encounter - Rose Garcia RN - 04/21/2024 12:10 PM WORD PROCESSING SPECIALIST 04/21/2024 12:10 PM Called and notified patient of results. She would like Dr. Sorenson to know that she feels her headaches (that come and go) are related to the emotional stress she is going through. She said you knowabout her stress as she has discussed this with you in the past. She said she sleeps really well and no concern with sleeping. She said she would like to wait and discuss with you further at her appointment on 08/09/24. Appreciative of call. Verbalized understanding. No further questions. PROCESSING SPECIALIST * Telephone Encounter - Tri Sorenson MD - 04/21/2024 11:15 AM WORD PROCESSING SPECIALIST Looks like the final interpretation was updated today. She does have mild sleep apnea. If she is still having headaches, I think we should get her set up with CPAP therapy and see if that improves things. The other option is to talk to a sleep doctor/neurologist - her abnormal results are pretty mild, I'm not sure if it explains the headaches. Happy totalk to her about this more if she wants appt. PROCESSING SPECIALIST * Telephone Encounter - Rose Garcia RN - 04/21/2024 9:07 AM WORD PROCESSING SPECIALIST Patient inquiring about sleep study results. Noted results were scanned in chart Scan on 04/01/2024 . Noted that Yany called and left a message with [facility] on 04/14/24 regarding formal results of sleep study. She noted Call center if [facility] calls back please transfer to back line. Not sure if they called back regarding this. Please let me know if you want me to call [facility] again regarding this. ty PROCESSING SPECIALIST PROCESSING SPECIALIST * Telephone Encounter - Ashley Rojas - 04/21/2024 8:45 AM CST Copied from [facility] #[id number]. Topic: Patient or Caregiver Communication Request >> Apr 21, 2024 8:43 AM Massiel wrote: Patient or Caregiver requesting advice Caller: Leanne Larsen Patient/Caregiver Callback Number: [phone] (home) Call Notes: Leanne Larsen asking for the sleep study test results which 03/18/24. Please advisethe patient, she has made multiple calls to find out results. PROCESSING SPECIALIST documented in this encounter Plan of Treatment Upcoming Encounters Date Type Department Care Team (Late st Contact Info) Description 11/26/2024 8:30 AM CDT Office Visit [address] [facility] [address] [phone] Tri Sorenson MD [address] [phone] documented as of this encounter Visit Diagnoses Not on filedocumented in this encounter Additional Health Concerns Assessment Noted Time PHQ-9 Depression Total Score: 1 02/09/20 24 10:00 AM WORD PROCESSING SPECIALIST documented as of this encounter Care Teams Management Engineer Relationship Specialty Start Date End Date Tri Sorenson MD [address] [facility] [address] [place] [phone] PCP - General Family Practice 11/03/23 documented as of this encounter
--- OUTSIDE RECORDS SUMMARY | 2024-10-02 09:21 | XMS_ITS | Encounter Summary ---
Author Organization [facility] Address [facility] [place] [address] Care Team Providers Care Convention Services Manager Name Role Phone Tri Sorenson MD Primary Care Provider [phone]- [phone] Encounter Details Date Type Department Care Team (Late st Contact Info) Description 02/10/2022 MyChart Message Enc [facility] Medical Group Neurology Speciality Clinic - [place] [id number] [facility] [address] [place] [address] Hadley Mcfarland MD [address] [place] [address] Nerves Social History Tobacco Use Types Packs/Day Years [...] Coronavirus/COVID-19? No / Unsure 02/06/2022 6:42 AM DEPUTY GRAND JURY documented as of this encounter Progress Notes * Radha Ayers MA - 02/11/2022 4:18 PM CST Pt stated she has had injections but has not seen any improvement. TY GRAND JURY * Radha Ayers MA - 02/11/2022 3:38 PM CST Please review. TY GRAND JURY documented in this encounter Plan of Treatment Upcoming Encounters Date Type Department Care Team (Late st Contact Info) Description 10/21/2024 7:30 AM CDT Appointment [facility] [place] [address] Sanford Martines MD Three [facility]. [facility] [address] [place] [address] documented as of this encounter Visit Diagnoses Not on filedocumented in this encounter Additional Health Concerns Assessment Noted Time PHQ-9 Depression Total Score: 2 12/09/19 21 11:40 AM CDT documented as of this encounter Care Teams Convention Services Manager Relationship Specialty Start Date End Date Tri Sorenson MD PCP - General FAMILY PRACTICE 10/17/20 documented as of this encounter
--- OUTSIDE RECORDS SUMMARY | 2024-10-02 09:21 | XMS_ITS | Encounter Summary ---
Author Organization [facility] Address [facility] [place] [address] Care Team Providers Care Solar Energy Systems Engineer Name Role Phone Tri Sorenson MD Primary Care Provider [phone] Encounter Details Date Type Department Care Team (Late st Contact Info) Description 09/26/2021 MyChart Message Enc [facility] Medical Group Family Medicine [facility] [address] [place], [place] [phone] Tri Sorenson MD [address] [place] [phone] Blood work Social History Tobacco Use Types Packs/Day Years [...] Info) Description 10/21/2024 7:30 AM CDT Appointment [employer] Pit [facility] [address] [place] [address] Sanford Martines MD Three [facility]. [facility] [address] [place] [address] documented as of this encounter Visit Diagnoses Not on filedocumented in this encounter Additional Health Concerns Assessment Noted Time PHQ-9 Depression Total Score: 2 12/09/19 21 11:40 AM CDT documented as of this encounter Care Teams Solar Energy Systems Engineer Relationship Specialty Start Date End Date Tri Sorenson MD PCP - General FAMILY PRACTICE 10/17/20 documented as of this encounter
--- OUTSIDE RECORDS SUMMARY | 2024-10-02 09:21 | XMS_ITS | Data Portability ---
Author Organization DUC Jael CAST Address [address] [facility] [place] [address] Care Team Providers Care Racebook Writer Name Role Phone TRI LUCIA Primary Care Provider Wendie brown Assessment No assessment recorded. Plan of Treatment Reminders Order Date Submit Date Provider Last Modified By Organization Details Last Modified Time Details Appointments None recorded. Lab None recorded. Referral neurologica l surgeon referral 2023 024 JOCELYN Douglas MD, [address] [facility] [address], [place], [address], 4 10:34:59 physical therapist referral 2023 024 [facility], [address] [facility], [place], [address], 4 10:53:47 Procedures None recorded. Surgeries None recorded. Imaging MRI, lumbar spine, w/o contrast 2023 024 [facility], [address], [place], [address], 4 07:25:22 DEXA 2022 023 [facility], [address], [place], [address], 3 17:58:48 electrocard iogram 2022 023 [email or web address] In-Office Order, Internal Use Only DO Not Attach Compendium DO Not Attach Compendium, Do Not Delete/merge, [id number] 12:08:48 Medication Orders chlorthalid one 25 mg tablet 2022 023 JOCELYN [facility], [facility] [address], [address], [id number], 18:15:34 Patient TargetsNo targets recorded. Patient Instructions Encounter Date Encounter Id Patient Instructions Last Modified By Organization Details Last Modified Time 12/10/2022 [id number] A healthy lifestyle: care instructions [email or web address] Not available 12/10/2022 18:15:33 04/28/2023 [id number] A healthy lifestyle: care instructions [email or web address] Not available 04/28/2023 12:25:42 Reason for Referral Neurological Surgeon Referra l for Spinal stenosis of lumbar region Referring Physician: Tri Lucia, Family Medicine, Encounter Date: 04/28/2023 Physical Therapist Referral for Spinal stenosis of lumbar region Referring Physician: Tri Lucia, Family Medicine, Encounter Date: 04/28/2023 Results Created Date Observation Date Name Description Value Unit Range Abnormal Flag Note LastModifiedBy Organization Detail LastModifiedTime 11/08/1911/08/2022 COMP. METAB OLIC PANEL (14) glucose 89 mg/dL 70-99 Not Available [facility] ([facility]) [address] [place], [address], 11/08/2022 10:13:28 11/08/19 23 11/08/2022 COMP. METAB OLIC PANEL (14) BUN 18 mg/dL 8-27 Not Available [facility] ([facility]) [address] [place], [address], 11/08/2022 10:13:28 11/08/19 23 11/08/2022 COMP. METAB OLIC PANEL (14) creatinine 0.83 mg/dL 0.57-1 .00 Not Available [facility] ([facility]) [address] [place], [address], 11/08/2022 10:13:28 11/08/19 23 11/08/2022 COMP. METAB OLIC PANEL (14) eGFR 77 mL/mi n/1.7 3 >59 Not Available [facility] ([facility]) [address] [facility], [place], [address], 11/08/2022 10:13:28 11/08/19 23 11/08/2022 COMP. METAB OLIC PANEL (14) BUN/creatini ne ratio 22 12-28 Not Available [facility] ([facility]) [address] [facility], [place], [address], 11/08/2022 10:13:28 11/08/19 23 11/08/2022 COMP. METAB OLIC PANEL (14) sodium 141 mmol/ L 134-14 4 Not Available [facility] ([facility]) [address] [facility], [place], [address], 11/08/2022 10:13:28 11/08/19 23 11/08/2022 COMP. METAB OLIC PANEL (14) potassium 4.1 mmol/ L 3.5-5. 2 Not Available [facility] ([facility]) [address] [facility], [place], [address], 11/08/2022 10:13:28 11/08/19 23 11/08/2022 COMP. METAB OLIC PANEL (14) chloride 102 mmol/ L 96-106 Not Available [facility] ([facility]) [address] [facility], [place], [address], 11/08/2022 10:13:28 11/08/19 23 11/08/2022 COMP. METAB OLIC PANEL (14) carbon dioxide, total 26 mmol/ L 20-29 Not Available [facility] ([facility]) [address] [facility], [place], [address], 11/08/2022 10:13:28 11/08/19 23 11/08/2022 COMP. METAB OLIC PANEL (14) calcium 9.5 mg/dL 8.7-10 .3 Not Available [facility] ([facility]) [address] [place], [address], 11/08/2022 10:13:28 11/08/19 23 11/08/2022 COMP. METAB OLIC PANEL (14) protein, total 5.9 g/dL 6.0-8. 5 below low normal Not Available [facility] ([facility]) [address] [place], [address], 11/08/2022 10:13:28 11/08/19 23 11/08/2022 COMP. METAB OLIC PANEL (14) albumin 4.1 g/dL 3.9-4. 9 Not Available [facility] ([facility]) [address] [place], [address], 11/08/2022 10:13:28 11/08/19 23 11/08/2022 COMP. METAB OLIC PANEL (14) globulin, total 1.8 g/dL 1.5-4. 5 Not Available [facility] ([facility]) [address] [place], [address], 11/08/2022 10:13:28 11/08/19 23 11/08/2022 COMP. METAB OLIC PANEL (14) A/G ratio 2.3 1.2-2. 2 above high normal Not Available [facility] ([facility]) [address] [place], [address], 11/08/2022 10:13:28 11/08/19 23 11/08/2022 COMP. METAB OLIC PANEL (14) bilirubin, total 0.3 mg/dL 0.0-1. 2 Not Available [facility] ([facility]) [address] [place], [address], 11/08/2022 10:13:28 11/08/19 23 11/08/2022 COMP. METAB OLIC PANEL (14) alkaline phosphatase 68 IU/L 44-121 Not Available [facility] ([facility]) [address] [facility], [place], [address], 11/08/2022 10:13:28 11/08/19 23 11/08/2022 COMP. METAB OLIC PANEL (14) AST (SGOT) 23 IU/L 0-40 Not Available [facility] ([facility]) [address] [facility], [place], [address], 11/08/2022 10:13:28 11/08/19 23 11/08/2022 COMP. METAB OLIC PANEL (14) ALT (SGPT) 21 IU/L 0-32 Not Available [facility] ([facility]) [address] [facility], [place], [address], 11/08/2022 10:13:28 11/08/19 23 11/08/2022 TSH REFLE X TO T4F TSH 1.850 uIU/m L 0.450- 4.500 Not Available [facility] ([facility]) [address] [facility], [place], [address], 11/08/2022 10:13:30 07/20/19 23 07/22/2022 elect rocar diogr am No observ ation record ed. [email or web address] In-Office Order Internal Use Only DO Not Attach Compendium DO Not Attach Compendium, Do Not Delete/merge, [id number] 07/22/2022 09:26:24 07/20/19 23 07/19/2022 elect rocar diogr am No observ ation record ed. [email or web address] In-Office Order Internal Use Only DO Not Attach Compendium DO Not Attach Compendium, Do Not Delete/merge, [id number] 07/19/2022 12:18:25 01/08/20 23 01/07/2023 LDCT, chest , for lung cance r scree shellie No observ ation record ed. JOCELYN [facility] [address] [address], [place], [address], 01/07/2023 15:59:40 02/13/20 23 12/27/2021 nerve condu ction study /EMG (PROC ) No observ ation record ed. [email or web address] Not Available 01/23 09:14:00 02/28/20 23 02/27/2023 DEXA No observ ation record ed. [email or web address] [facility] [address], [place], [address], 03/12/2023 14:30:44 03/04/20 23 07/26/2021 MRI, lumba r spine , w/o contr ast No observ ation record ed. [email or web address] [facility] [address], [place], [address], 05/02/2023 11:29:22 05/05/19 24 05/03/2023 MRI, lumba r spine , w/o contr ast No observ ation record ed. [email or web address] [facility] [address], [place], [address], 05/08/2023 10:01:21 03/29/19 25 07/23/2023 MAMMO , scree shellie, tomos ynthe sis, bilat eral No observ ation record ed. [email or web address] Not Available 03/29 11:17:47 04/01/19 25 03/18/2024 sleep study , diagn ostic (PROC ) No observ ation record ed. [email or web address] [facility] [address] [facility], [place], [address], 04/02/2024 08:22:12 04/01/19 25 03/18/2024 sleep study , diagn ostic (PROC ) No observ ation record ed. [email or web address] [address] [place], [address], 04/02/2024 08:22:27 Result Notes None recorded. Problems Name Problem SNOMED Code Status Onset Date Resolution Date Notes Provider Name and Address Organization Details Recorded Time Constipation 59192685 Active 2022 Tri Lucia MD Attn: Accounting ,[address] [facility], [place], [address] , [facility] 3 18:02:33 Pulmonary emphysema 69326958 Active 2022 Tri Lucia MD Attn: Accounting ,[address] [facility], [place], [address] , [facility] 3 18:08:05 Numbness of foot 431417034 Active 2022 Tri Lucia MD Attn: Accounting ,[address] [place], [address] , [facility] 3 18:05:37 Osteopenia 454231866 Active 2022 Tri Lucia MD Attn: Accounting ,[address] [place], [address] , [facility] 3 18:08:15 History of malignant neoplasm of breast 338880242 Active 2022 Tri Lucia MD Attn: Accounting ,[address] [place], [address] , [facility] 3 18:02:53 Osteoarthriti s 249569445 Active 2022 Tri Lucia MD Attn: Accounting ,[address] [place], [address] , [facility] 3 18:08:21 Dyslipidemia 162860549 Active 2022 Tri Lucia MD Attn: Accounting ,[address] [place], [address] , [facility] 3 18:02:28 Insomnia 116680567 Active 2022 Tri Lucia MD Attn: Accounting ,[address] [place], [address] , [place] [facility] 3 18:02:43 Venous stasis 99581029 Active 2022 Tri Lucia MD Attn: Accounting ,[address] [place], [address] , [place] [facility] 3 18:08:30 Female stress incontinence 89462836 Active 2022 Tri Lucia MD Attn: Accounting ,[address] [place], [address] , [place] [facility] 3 18:02:25 Hypothyroidis m 44134403 Active 2022 Tri Lucia MD Attn: Accounting ,[address] [place], [address] , [place] [facility] 3 09:17:06 Gastroesophag eal reflux disease 536274279 Active 2022 Tri Lucia MD Attn: Accounting ,[address] [place], [address] , [place] [facility] 3 18:11:59 Chest pain 55839318 Active 2022 Tri Lucia MD Attn: Accounting ,[address] [place], [address] , [place] [facility] 3 18:11:44 Marital conflict 17125956 Active 2022 Tri Lucia MD Attn: Accounting ,[address] [place], [address] , [place] [facility] 3 11:11:41 Essential hypertension 70237782 Active 2022 Tri Lucia MD Attn: Accounting ,[address] [place], [address] , [place] [facility] 3 18:12:43 Lumbar radiculopathy 519178516 Active 2022 Tri Lucia MD Attn: Accounting ,[address] [place], [address] , [facility] 18:19:30 Problem Notes None recorded. Procedures Surgical History Date Name Laterality Status Provider Name and Address Organization Details Recorded Time Partial hysterectomy completed Dahlia ArceEMILY [facility] 07/19/2022 09:22:01 screening for malignant neoplasm of breast completed Dahlia ArceEMILY [facility] 07/19/2022 09:22:16 cholecystectomy completed Dahlia Miranda emeterioEMILY [facility] 07/19/2022 09:22:27 Appendectomy completed Dahlia ArceEMILY [facility] 07/19/2022 09:22:39 total replacement of hip completed Dahlia MirandaemeterioEMILY [facility] 07/19/2022 09:23:02 excision of bunion completed Dahlia JeanemeterioEMILY [facility] 07/19/2022 09:23:17 procedure on neck completed Dahlia Rios bamEMILY storm [facility] 07/19/2022 09:23:52 Imaging Results None recorded. Procedure Notes None recorded. Medical Equipment None Reported. Allergies Allergen ID Allergen Name Allergen Category Reaction Reaction Severity Criticality Documentation Date Start Date Code Code System Note Provider Name and Address Organization Details Recorded Time 594901 Product containin g penicilli n (product) medicatio n nausea Not available Not available 07/19/2022 07332 8001 SNOMED [facility] 08:57:38 324481 fentanyl medicatio n nausea Not available Not available 07/19/2022 4337 RxNorm Dahlia Arce MA monica [facility] 3 08:57:57 369662 erythromy aniyah medicatio n nausea Not available Not available 07/19/2022 4053 RxNorm Dahlia Arce MA monica [facility] 3 08:58:47 Medications Name Sig Start Date Stop Date Status Note LastModified by Organization Details LastModified Time atorvasta tin 40 mg tablet 03/03 completed Not Available Not Available Not Available doxycycli ne hyclate 100 mg capsule TAKE 1 CAPSULE BY MOUTH TWICE DAILY FOR 7 DAYS 07/19 completed Not Available Not Available Not Available cefuroxim e axetil 250 mg tablet TAKE 1 TABLET BY MOUTH TWICE DAILY FOR 10 DAYS 07/19 completed Not Available Not Available Not Available clindamyc in HCl 300 mg capsule TAKE 1 CAPSULE BY MOUTH EVERY 8 HOURS FOR 7 DAYS 07/07 completed Not Available Not Available Not Available trazodone 50 mg tablet TAKE 1 TABLET BY MOUTH EVERY NIGHT active Not Available Not Available No t Available azithromy aniyah 250 mg tablet TAKE 2 TABLETS BY MOUTH ON DAY 1, AND THEN TAKE 1 TABLET BY MOUTH ONCE A DAY ON DAY 2 THROUGH DAY 5 03/03 completed Not Available Not Available Not Available sulfameth oxazole 400 mg-trimet hoprim 80 mg tablet TAKE 1 TABLET BY MOUTH EVERY 12 HOURS active Not Available Not Available No t Available hydrocodo ne 5 mg-acetam inophen 325 mg tablet TAKE 1 TABLET BY MOUTH EVERY 6 HOURS NEEDED FOR PAIN 07/19 completed Not Available Not Available Not Available phenazopy ridine 200 mg tablet TAKE 1 TABLET BY MOUTH THREE TIMES DAILY NEEDED 07/19 completed Not Available Not Available Not Available prednison e 20 mg tablet TAKE 2 TABLETS BY MOUTH ONCE DAILY FOR 5 DAYS 03/03 completed Not Available Not Available Not Available clindamyc in HCl 150 mg capsule TAKE 1 CAPSULE BY MOUTH 4 TIMES DAILY 07/19 completed Not Available Not Available Not Available Space Chamber USE DIRECTED active Not Available Not Available No t Available chlorthal idone 25 mg tablet TAKE 1 TABLET BY MOUTH DAILY active Not Available Not Available No t Available sulfameth oxazole 800 mg-trimet hoprim 160 mg tablet TAKE 1 TABLET BY MOUTH ONCE DAILY FOR 2 WEEKS, THEN SWITCH TO THE CEFTIN. WILL ALTERNAT E THESE 2 ANTIBIOT ICS EVERY 2 WEEKS. 07/19 completed Not Available Not Available Not Available levothyro xine 75 mcg tablet Take 1 tablet(s ) every day by oral route. 2023 active Not Available Not Available Not Avai lable meloxicam 7.5 mg tablet TAKE 1 TABLET BY MOUTH DAILY active Not Available Not Available No t Available gabapenti n 300 mg capsule PATIENT NOT ON GABAPENT IN. SENT NEW RX FOR PREGABAL IN. active Not Available Not Available No t Available omeprazol e 20 mg capsule,d elayed release TAKE 1 CAPSULE BY MOUTH TWICE DAILY active Not Available Not Available No t Available amoxicill in 250 mg capsule TAKE 1 CAPSULE BY MOUTH THREE TIMES DAILY FOR 7 DAYS 07/07 completed Not Available Not Available Not Available furosemid e 20 mg tablet TAKE 2 TABLETS BY MOUTH ONCE DAILY NEEDED FOR LEG SWELLING active PRN Not Available Not Available No t Available levofloxa aniyah 500 mg tablet TAKE 1 TABLET BY MOUTH ONCE DAILY FOR 7 DAYS 07/19 completed Not Available Not Available Not Available albuterol sulfate HFA 90 mcg/actua tion aerosol inhaler INHALE 2 PUFFS BY MOUTH 4 TIMES DAILY NEEDED FOR SHORTNES S OF BREATH AND FOR WHEEZING active Not Available Not Available No t Available cefdinir 300 mg capsule TAKE 1 CAPSULE BY MOUTH EVERY 12 HOURS FOR 7 DAYS 07/19 completed Not Available Not Available Not Available doxycycli ne hyclate 100 mg tablet TAKE 1 TABLET BY MOUTH TWICE DAILY FOR 7 DAYS 07/19 completed Not Available Not Available Not Available nitrofura ntoin monohydra te/macroc rystals 100 mg capsule TAKE 1 CAPSULE BY MOUTH TWICE DAILY WITH MORNING MEAL AND WITH EVENING MEAL FOR 7 DAYS 12/12 completed Not Available Not Available Not Available solifenac in 5 mg tablet TAKE 1 TABLET BY MOUTH ONCE DAILY active Not Available Not Available No t Available solifenac in 10 mg tablet TAKE 1 TABLET BY MOUTH ONCE DAILY active Not Available Not Available No t Available pregabali n 150 mg capsule Take 1 capsule twice a day by oral route. 07/07 completed increase to 300mgbid Not Available Not Available Not Available pregabali n 300 mg capsule take 1 capsule by mouth twice daily 2023 active Not Available Not Available Not Avai kevin Align (B. is) active Not Available Not Available Not Available calcium 1,000 mg (as carbonate )-vitamin D3 20 mcg (800 unit) tablet Take 1 tablet every day by oral route. 2023 active Not Available Not Available Not Avai lable Linzess 290 mcg capsule Take 1 capsule every day by oral route. active Not Available Not Available No t Available Trelegy Ellipta 100 mcg-62.5 mcg-25 mcg powder for inhalatio n INHALE 1 PUFF BY MOUTH ONCE DAILY 07/19 completed Not Available Not Available Not Available Vitals Date Recorded Body height Body mass index (BMI) Body weight Body temperature Heart rate Respiratory rate Systolic And Diastolic Provider Name and Address Organization Details Last Updated DateTime 4 170.18 cm 28.3 kg/m2 11097.2 2 g 98.3 [degF] 60 /min 18 /min 113/68 mm[Hg] Yessica Evans MA [facility] 4 11:29:21 Date Recorded Body height Body mass index (BMI) Body weight Respiratory rate Body temperature Heart rate Systolic And Diastolic Provider Name and Address Organization Details Last Updated DateTime 4 170.18 cm 28.1 kg/m2 84187.7 8 g 16 /min 96.7 [degF] 61 /min 128/76 mm[Hg] Keith Aguilar MA [facility] 4 10:34:40 Date Recorded Body height Body mass index (BMI) Body weight Body temperature Heart rate Oxygen saturation Oxygen saturation in Arterial blood by Pulse oximetry Respiratory rate Systolic And Diastolic Provider Name and Address Organization Details Last Updated DateTime 3 170.18 cm 30.1 kg/m2 36857.8 4 g 98.3 [degF] 67 /min 97 % 97 % 16 /min 158/85 mm[Hg] Dahlia Arce MA [facility] 3 09:08:07 Date Recorded Body height Body mass index (BMI) Body weight Body temperature Respiratory rate Oxygen saturation Oxygen saturation in Arterial blood by Pulse oximetry Heart rate Systolic And Diastolic Provider Name and Address Organization Details Last Updated DateTime 3 170.18 cm 28.4 kg/m2 36971.0 2 g 97.1 [degF] 16 /min 99 % 99 % 61 /min 153/82 mm[Hg] Keith Aguilar MA [facility] 3 09:38:08 Date Recorded Body height Body mass index (BMI) Body weight Respiratory rate Body temperature Oxygen saturation Oxygen saturation in Arterial blood by Pulse oximetry Heart rate Systolic And Diastolic Provider Name and Address Organization Details Last Updated DateTime 3 170.18 cm 27.6 kg/m2 48750.3 6 g 16 /min 98.4 [degF] 100 % 100 % 63 /min 127/76 mm[Hg] Dahlia Arce MA [facility] 3 09:38:40 Social History Question Answer Notes LastModified by Organizat ion Details LastModified Time Tobacco Smoking Status Former Smoker Dahlia Arce MA [facility], [place] - [facility] 07/19/2022 09:03:16 Do You Have An Advance Directive? No Information not available 07/19/2022 Are You Blind Or Do You Have Difficulty Seeing? Yes Glasses Information not available 07/19/2022 What Is Your Level Of Caffeine Consumption? Moderate 2 Cups Coffee Information not available 07/19/2022 Are You Deaf Or Do You Have Serious Difficulty Hearing? No Information not available 07/19/2022 What Type Of Diet Are You Following? REGULAR Information not available 07/19/2022 What Was The Date Of Your Most Recent Tobacco Screening? 07/08/2023 Information not available 07/08/2023 How Many Children Do You Have? 2 Information not available 07/19/2022 What Is Your Relationship Status? Information not available 07/19/2022 Has Tobacco Cessation Counseling Been Provided? No Information not available 12/10/2022 On What Date Was Tobacco Cessation Counseling Provided? 07/08/2023 Information not available 07/08/2023 Sex: Female Functional Status Question Answer Note LastModified by [employer] Details LastModified Time Do you use any illicit or recreational drugs? No Information not available 07/19/2022 What is your level of alcohol consumption? None Information not available 07/19/2022 Are you currently employed? No retired Information not available 07/19/2022 Are you able to care for yourself? Yes Information not available 07/19/2022 What is your exercise level? Occasional Information not available 07/19/2022 Mental Status None recorded. Family History Relationship Description Onset Age of this Age Resolved Age Notes LastModified by Organization Details LastModified Time Father Heart disease [email or web address] Not available 2022 09:02:10 Notes:Mother: cancer between heart/lung-now Medical History Condition Response Coronary Artery Disease N Other N High Blood Pressure N Atrial Fibrillation N Kidney or Bladder Problems Y Thyroid Problems Y GI Problems N Depression N COPD N Blood Clots N Skin Problems N Eating Disorder N Anemia N Heart Attack (ME) N Anxiety Disorder N Diabetes N Muscle, Joint, or Bone Problems N Seizures/Epilepsy N Acid Reflux (GERD) Y Cancer Y Stroke N Asthma N Allergies N ADHD N Substance Abuse N High Cholesterol N Hepatitis N Liver Disease N Schizophrenia N Headaches N Osteoporosis N Heart Failure N Gynecological History Statement/Question Response Date of LMP Obstetrics History GPAL:G 0 P 0 0 0 0 Immunizations Vaccine Type Date Status Note Provider Nam e and Address Organization Details Recorded Time zoster, unspecified formulation 3 completed Benjamin Maria RN [place], [place] [facility] 10/04/2022 14:10:11 Influenza, high-dose, quadrivalent, PF 3 completed EMILY [place], [place] [facility] 03/03/2023 09:33:50 zoster, unspecified formulation 3 completed EMILY [place] [facility] 03/03/2023 09:36:42 Tdap 3 completed EMILY [place] [facility] 03/03/2023 10:25:47 RSV, recombinant, protein subunit RSVpreF, adjuvant reconstituted, 0.5 mL, PF 3 completed EMILY [place] [facility] 03/03/2023 10:26:25 Pneumococcal conjugate PCV20, polysaccharide [id number] conjugate, adjuvant, PF 2 completed EMILY [place] [facility] 03/03/2023 10:28:14 COVID-19, mRNA, LNP-S, bivalent, PF, 30 mcg/0.3 mL dose 2 completed EMILY [place], [place] [facility] 03/03/2023 10:30:03 Past Encounters Encounter ID Performer Location Encounter Start Date Encounter Closed Date Diagnosis/Indication Diagnosis SNOMED-CT Code Diagnosis ICD10 Code Diagnosis Note [id number] MD Alisson Pereira 14 IM 4 [facility] [place]UC [place] [id number] 07/19/2022 08:48:17 07/23/2022 15:49:55 Constipation 00163451 K59.00 Stable, no changes, continue linzess Dyslipidemia 003021839 E 78.5 Stable. Labs when she RTC in 6 mo for AMWV Female str ess incontinence 55363358 N39.3 Stable, cont f/u with Dr. Dyson Gastroesop hageal reflux disease 111031410 K21.9 Continues on PPI therapyNex t visit get length of time she's had GERD, may want to consider EGD History of malignant neoplasm of breast 785741954 Z85.3 Plan for screening mammogram when she RTC in 6 mo Hypothyroidism 89208379 E03.9 Labs in 6 mo Insomnia 711691207 G47.0 0 Cont trazodone, no changes Numbness of foot 8778338 00 R20.0 We'll reach out to Dr. Andrade's office to coordinate why she was never contacted with results of EMG or for pain management referral to consider ZAY Osteopenia 848537698 M85 .80 Plan for repeat dexa FALL23 Pulmonary emphysema 8743 3001 J43.9 Stable, continue albuterol PRN Chest pain 88051462 R07. 9 I think this is costochond ritisEKG is okWill treat with NSAIDSwill touch base in 1 week how sx are doing; if still having issues will check holter and stress test Essential hypertension 12053749 I10 New dx todayBP high yesterday at Dr. Martines, worse todayWill check BID x 1 week and we'll start rx if needed Marital conflict 1104658 0 Z63.0 She and are both in agreement to make appt with counselor I have suggested [id number] MD Alisson Pereira 14 IM 4 [facility] [place] [address] 12/10/2022 09:16:15 12/24/2022 15:25:41 Overweight 219912341 E66.3 Essential hypertension 38527644 I10 Osteopenia 882478721 M85 .80 Venous stasis 64898800 I 87.8 Numbness of foot 6914986 00 R20.0 Lumbar radiculopathy 128 458877 M54.16 Gastroesop hageal reflux disease 356730716 K21.9 History of malignant neoplasm of breast 402195788 Z85.3 Hypothyroidism 90600211 E03.9 Marital conflict 1541553 0 Z63.0 [id number] MD Alisson Pereira 14 IM 4 [facility] [place] [address] 03/03/2023 09:21:42 03/04/2023 08:09:42 Dyslipidemia 603433799 E78.5 Essential hypertension 26934925 I10 Numbness of foot 2673230 00 R20.0 Osteopenia 711025282 M85 .80 [id number] MD Alisson Pereira 14 IM 4 [facility] [place] [address] 04/28/2023 11:05:58 05/01/2023 11:14:00 Overweight 997972364 E66.3 Spinal serge nosis of lumbar region 66424302 M48.414 [id number] MD Alisson Pereiar 14 IM 4 [facility] [place] [address] 07/08/2023 10:26:37 07/14/2023 14:52:46 Essential hypertension 65847424 I10 Lumbar radiculopathy 128 555482 M54.16 Marital conflict 1699024 0 Z63.0 Numbness of foot 3124839 00 R20.0 Venous stasis 33361091 I 87.8 Osteopenia 229706358 M85 .80 Osteoarthritis 528578798 M19.90 Health Concerns Section Related Observation LastModified by Organization Detai ls LastModified Time None Recorded Concern Status LastModified by Organization Details LastModified Time None Recorded Advance Directives Directive N: Payers Insurance Date Sequence Insurance Name Policy Number Policy Esteban Covered Member ID Esteban Member ID Guarantor Name 10/06/2023 1 [facility] (MEDICARE REPLACEMENT/A DVANTAGE - HMO) [id number] Leanne Larsen [id number] Leanne Larsen Notes Date Note Type Note Provider Name and Address Organization Details Recorded Time 3 text/html Here to est care with this office, known well to me from previous offices.Reviewed med problems and med list. Discussed some updates with her radicular sx but otherwise her chronic issues are stable. Needs no med refills today. Does complain of chest pain - see problem list Tri Lucia MD Attn: Accounting,[address] [facility], [place], [address], [place] [facility] 07/19/2022 11:15:07 3 text/html Here for f/u on numerous issues Chest tblcSQK19: A few weeks of chest pain. Seems [...] her but he assures me today he will.SEP23: Noted last visit, EKG ok. Thought to be costochondritis. Still has it occ, no change in characterA&P: Continue to monitor ConstipationFunctional, on linzess COPDHx of tobacco useUsed to be on ICS, now just uses albuterol PRN which is rare DyslipidemiaHas elevated ASCVD risk, on atorvastatin 40Foot numbnessLumbar radiculopathyVenous undtmdNZG57: Hx of R sided sciatica. MRI lumbar spine showed multilevel DDD and severe stenosis L4-S1.Saw Neurosurg (Dr. 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 Now following with neurology, Dr. Mcfarland, who thinks this IS lumbosacral radiculopathy. The plan is to repeat EMG to try to localize issue. Also going to send her to pain management. has already had R SI joint injection without relief; they think ZAY might help.SEP23: Has had 2 SI joints which has helped radicular sx but numbness and swelling in feet remain. Sounds like most recent test she had was repeat SARAH, not EMG. After test was done Dr. Martines started her on pneumatic compression which she's been doing.A&P: Sx are managed about as best can be expected; no changes GERDContinues on PPI therapyA&P: Next visit get length of time she's had GERD, may want to consider EGD Hx of breast [id number] s/p lumpectomyFollows with Dr. FlorA&P: Mammos per Dr. Flor HypertensionBP high last 2 visitsAlready active and uses minimal added saltA&P: Trial of chlorthalidone. Needs BMP in 3 months HypothryoidismTFTs in range SXZ52Bfwb 75mcgA&P: No changesInsomniaOn trazodone Marital ConflictThings are status quo; never went to counselingA&P: Declines referral just for herself at this time OsteoarthrithsS/p total R hip, toe surgeries OsteopeniaDEXA &P: Agreeable to repeat now Stress incontinence/Overactive bladderSeed Dr. Mcdowell with [facility] bo[facility] x 2 in bladder - helping immenselyA&P: F/u per [facility] PreventionColorectal screening: cancer screening: via Dr. FlorOsteoporosis screening:LDCT: RET31Ahaixlbc:POA/Code Status: Tri Lucia MD Attn: Accounting,[address] [facility], [place], [address], [facility] 12/12/2022 09:15:07 3 text/html Here for f/u on numerous issues: Chest bbtpFFC45: A few weeks of chest pain. Seems [...] her but he assures me today he will.: Noted last visit, EKG ok. Thought to be costochondritis. Still has it occ, no change in characterA&P: Continue to monitor ConstipationFunctional, on linzess COPDHx of tobacco useUsed to be on ICS, now just uses albuterol PRN which is rare HwvijgdzpdayVIN98Ulh elevated ASCVD risk, and had been on atorvastatin 40 but requested to stop it around to see if it stopping would help with pains in legs - it has notAP: Revisit restarting statin next visit since it didn't seem to be overly helpfulFoot numbnessLumbar radiculopathyVenous mfjjbbAOU13: Hx of R sided sciatica. MRI lumbar spine showed multilevel DDD and severe stenosis L4-S1.Saw Neurosurg (Dr. 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 Now following with neurology, Dr. Mcfarland, who thinks this IS lumbosacral radiculopathy. The plan is to repeat EMG to try to localize issue. Also going to send her to pain management. has already had R SI joint injection without relief; they think ZAY might help.SEP23: Has had 2 SI joints which has helped radicular sx but numbness and swelling in feet remain. Sounds like most recent test she had was repeat SARAH, not EMG. After test was done Dr. Martines started her on pneumatic compression which she's been doing.A&P: Sx are managed about as best can be expected; no dawaksyTDO46: Continues to struggle with heaviness or legs, especially RLE as well as numbness on bottom of R foot and unsteady gait. Had been on cymbalta previously for help with pain but stopped that at some point and pain hasn't really returned. Very bothered by unsteadiness/heaviness.A P: Back to square one - I think [...] MRI and send referral for second opinion. GERDContinues on PPI therapyA&P: Next visit get length of time she's had GERD, july want to consider EGD Hx of breast [id number] s/p lumpectomyFollows with Dr. FlorA&P: Mammos per Dr. Flor HypertensionBP high last 2 visitsAlready active and uses minimal added saltA&P: Trial of chlorthalidone. Needs BMP in 3 mkohvuLIU56: Chlorthalidone started last visit. No complaintsAP: RTC in 3 months and labs at that time HypothyroidismTFTs in range ZJV26Grhu 75mcgA&P: No changesInsomniaOn trazodone Marital ConflictThings are status quo; never went to counselingA&P: Declines referral just for herself at this time. Info given to her re: Prostate Ca Support group OsteoarthritisS/p total R hip, toe surgeries OsteopeniaDexas from [place]: (Has also had done with [facility] and they measure different sites)DEXA 2020: AP spine 0.0, L hip -0.9DEXA 2022: AP spine 0.4, L hip -0.8A&P: Improving. She had hip replacement after a fall but we're not sure she fractured it. Awaiting records from Dr. Flores and will confirm; if no fx repeat dexa in 5 years or more Stress incontinence/Overactive bladderSeed Dr. Mcdowell with [facility]UGetting boxtox x 2 in bladder - helping immenselyA&P: F/u per [facility] PreventionColorectal screening: IAT52WJYF: NHW73Vkdpzkcm:POA/Code Status: Tri Lucia MD Attn: Accounting,[address] [place], [address], [facility] 03/03/2023 15:42:45 4 text/html Here for f/u on numerous issues: Chest efeoHVD21: A few weeks of chest pain. Seems [...] her but he assures me today he will.SEP23: Noted last visit, EKG ok. Thought to be costochondritis. Still has it occ, no change in characterA&P: Continue to monitor ConstipationFunctional, on linzess COPDHx of tobacco useUsed to be on ICS, now just uses albuterol PRN which is rare DfnvwzonuomcGFD49Yuc elevated ASCVD risk, and had been on atorvastatin 40 but requested to stop it around to see if it stopping would help with pains in legs - it has notAP: Revisit restarting statin next visit since it didn't seem to be overly helpfulNeuropathy with impaired gaitLumbar radiculopathy secondary to spinal OA and sacroilitisVenous hrgvugDDQ64: Hx of R sided sciatica. MRI lumbar spine showed multilevel DDD and severe stenosis L4-S1.Saw Neurosurg (Dr. 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 Had been on cymbalta previously for help with pain but stopped that at some point and pain hasn't really returned. Very bothered by unsteadiness/heaviness.A P: Back to square one - I think [...] received MRI results from 2021 and reviewed them.AP: At this time she'd like to go forward with another neurosurgeon opinion. We will get an updated MRI given her worsening pain, parathesia, and gait. Exam today is negative radicular pain - she has very tight hamstrings and I'm wondering if she would be feeling better with some PT to the RLE which she's not done before and she's agreeable to do GERDContinues on PPI therapyA&P: Next visit get length of time she's had GERD, may want to consider EGD Hx of breast [id number] s/p lumpectomyFollows with Dr. lForA&P: Mammos per Dr. Flro HypertensionBP high last 2 visitsAlready active and uses minimal added saltA&P: Trial of chlorthalidone. Needs BMP in 3 flysnoBVX14: Chlorthalidone started last visit. No complaintsAP: RTC in 3 months and labs at that time HypothyroidismTFTs in range DAO18Zizi 75mcgA&P: No changesInsomniaOn trazodone Marital ConflictThings are status quo; never went to counselingA&P: Declines referral just for herself at this time. Info given to her re: Prostate Ca Support group OsteoarthritisS/p total R hip, toe surgeries OsteopeniaDexas from [place]: (Has also had done with [facility] and they measure different sites)DEXA 2020: AP spine 0.0, L hip -0.9DEXA 2022: AP spine 0.4, L hip -0.8A&P: Improving. She had hip replacement after a fall but we're not sure she fractured it. Awaiting records from Dr. Flores and will confirm; if no fx repeat dexa in 5 years or more Stress incontinence/Overactive bladderSeed Dr. Mcdowell with [facility]Getting bo[facility] x 2 in bladder - helping immenselyA&P: F/u per [facility] PreventionColorectal screening: DKY56VPRZ: ECY30Szvmoxmh:POA/Code Status: Tri Lucia MD Attn: Accounting,[address] [facility], [place], [address], [facility] 04/28/2023 14:29:03 4 text/html Here for f/u on numerous issues: Chest vjgeOVV77: A few weeks of chest pain. Seems [...] her but he assures me today he will.: Noted last visit, EKG ok. Thought to be costochondritis. Still has it occ, no change in characterA&P: Continue to monitor ConstipationFunctional, on linzess COPDHx of tobacco useUsed to be on ICS, now just uses albuterol PRN which is rare HbwuprjsggabOSI10She elevated ASCVD risk, and had been on atorvastatin 40 but requested to stop it around to see if it stopping would help with pains in legs - it has notAP: Revisit restarting statin next visit since it didn't seem to be overly helpfulNeuropathy with impaired gaitLumbar radiculopathy secondary to spinal OA and sacroilitisVenous drmtmvQIS10: Hx of R sided sciatica. MRI lumbar spine showed multilevel DDD and severe stenosis L4-S1.Saw Neurosurg (Dr. 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 Had been on cymbalta previously for help with pain but stopped that at some point and pain hasn't really returned. Very bothered by unsteadiness/heaviness.A P: Back to square one - I think [...] received MRI results from 2021 and reviewed them.AP: At this time she'd like to go [...] appt 2 months ago. Continues with pneumatic compression.AP: Discussed I think that her lack of sensation, weakness, and unsteadiness unfortunately may be chronic but I'm hopeful PM can help with some relief. I'm somewhat worried about her memory - will administer [facility] at next visit GERDContinues on PPI therapyA&P: Next visit get length of time she's had GERD, may want to consider EGD Hx of breast [id number] s/p lumpectomyFollows with Dr. FlorA&P: Mammos per Dr. Flor QkvwfhityqkyBWR55: Did not discuss in detail today but does't not c/o any related sx On chlorthalidone, lasix.AP: No changes to regimen, will check labs on yearly basis, plan to do in OCT HypothyroidismTFTs in range PBL94Ptbt 75mcgA&P: No changesInsomniaOn trazodone Marital ConflictThings are status quo; never went to counselingA&P: Declines referral just for herself at this time. Info given to her re: Prostate Ca Support jvxoyZBU39: This issue continues to be very pressing for her.AP: Discussed options at length encouraged her to see counselor independently and she'll consider. Info given for [facility] which is near her OsteoarthritisS/p total R hip, toe surgeriesOn meloxicam, renal function ok SWQ84IO: No changes, repeat bmp in a few months OsteopeniaDexas from [place]: (Has also had done with [facility] and they measure different sites)DEXA 2020: AP spine 0.0, L hip -0.9DEXA 2022: AP spine 0.4, L hip -0.8On ca/vit DA&P: Improving. No hx of fracture, only hip replacement. Will consider repeating ~2027 Stress incontinence/Overactive bladderSees Dr. Mcdowell with [facility]Getting bo[facility]ox x 2 in bladder - helping immenselyContinues on solifenacinA&P: F/u per [facility] PreventionColorectal screening: JZG35PQDO: ONP33Lqcmbilr: UTD on all recommendPOA/Code Status: Social: lives with of 21 years. Has two children, a son who struggles with homelessness and she talks to intermittently. Also has a daughter she hasn't talked to since 2019 due to a poor interaction at last attempt. Has 2 neighbor friends she spends time with but don't know extent of her marital issues. Sister she's close with but she is traveling and involved in her own new relationship. Tri Lucia MD Attn: Accounting,[address] [place], [address], [facility] 07/08/2023 16:00:56 OBGyn Episode No OBEpisode recorded.
--- OUTSIDE RECORDS SUMMARY | 2024-10-02 09:21 | XMS_ITS | Encounter Summary ---
Author Organization [facility] Address [facility] [place] [address] Care Team Providers Care Terminologist Name Role Phone Tri Sorenson MD Primary Care Provider [phone] Encounter Details Date Type Department Care Team (Late st Contact Info) Description 02/04/2023 Dianwoba Message [facility] Cardiovascular Outreach [facility] [id number] [place] [phone] Sanford Martines MD Three [facility]. [address] [id number] Update on my legs Social History Tobacco Use Types Packs/Day Years [...] Info) Description 10/21/2024 7:30 AM CDT Appointment [facility] Email Marketing Executive [address] [place], [place] [phone] Sanford Martines MD Three [facility]. [facility] [[email or web address] [address] [place], [place] [phone] documented as of this encounter Visit Diagnoses Not on filedocumented in this encounter Additional Health Concerns Assessment Noted Time PHQ-9 Depression Total Score: 2 12/09/19 21 11:40 AM CDT documented as of this encounter Care Teams Terminologist Relationship Specialty Start Date End Date Tri Sorenson MD PCP - General FAMILY PRACTICE 10/17/20 documented as of this encounter
--- OUTSIDE RECORDS SUMMARY | 2024-10-02 09:21 | XMS_ITS | Encounter Summary ---
Author Organization [facility] Address [facility] [place] [address] Care Team Providers Care Property Utilization Manager Name Role Phone Tri Sorenson MD Primary Care Provider [phone]- [phone] Encounter Details Date Type Department Care Team (Late st Contact Info) Description 09/07/2022 Gezlong Message [facility], [facility] [address] [place], [place] [phone] Sanford Martines MD [facility]. [facility] [address] [place], [place] [phone] Lymphedema pump Social History Tobacco Use Types Packs/Day Years [...] PM CDT documented as of this encounter Progress Notes * Ayse Dean RN - 09/09/2022 12:49 PM CDT . documented in this encounter Plan of Treatment Upcoming Encounters Date Type Department Care Team (Late st Contact Info) Description 10/21/2024 7:30 AM CDT Appointment [facility] Contract Administrative Assistant [address] [place] [address] Sanford Martines MD Three [facility]. [address] [place], [place] [phone] documented as of this encounter Visit Diagnoses Not on filedocumented in this encounter Additional Health Concerns Assessment Noted Time PHQ-9 Depression Total Score: 2 12/09/19 21 11:40 AM CDT documented as of this encounter Care Teams Property Utilization Manager Relationship Specialty Start Date End Date Tri Sorenson MD PCP - General FAMILY PRACTICE 10/17/20 documented as of this encounter
--- OUTSIDE RECORDS SUMMARY | 2024-10-02 09:21 | XMS_ITS | Continuity of Care Document ---
Author Organization [facility] Address [address] [facility] [address] [place] [address] Phone Care Team Providers Care Senior Information Security Consultant Name Role Phone Wilde OD, Filipe Unavailable Unavailable Procedures Procedure Date Eye Exam & Treatment Refraction Office/outpatient Visit, Est Eye Exam & Treatment Refraction Advance Directives Directive Yes / No Effective Date File Name No Information Encounters Encounter Description Practice Location Reason(s) For Visit Diagnoses Date Provider Providers Copied on Encounter [facility], [address] [place] [address] [address], [place], [place], [address], tel:[phone] [facility] No Information 6-200 8 Wilde OD Filipe. [address] , [address], [place], [place], [facility], [place]. tel:[phone] Office/outpat ient Visit, Est [facility], [address] [place] [address] [address], [place], [place], [address], [place] tel:[phone] [facility] No Information 5-200 7 Wilde OD Filipe. [address], [place], [place], [facility], [place]. tel:[phone] [facility], [address] [place] [address] [address], [place], [place], [address], [place] tel:[phone] [facility] No Information 8-200 7 Wilde OD Filipe. [address] , [address], [place], [address], [place]. tel:[phone] Family History Family Member Type Diagnosis Age At Onset No Information Payers Payer name Insurance type Covered alliance party ID Authoriza tion(s) No Information Social History Type Description Quantity Date Captured Comments Sex Female Smoking Status No Information Chief Complaint And Reason For Visit No Information Reason For Referral Reason For Referral No Information History Of Present Illness Encounter Date Complaint History Of Prese nt Illness No Information Functional Status Date Functional Assessmen t No Information Instructions Date Instruction Additional Infor mation No Information Assessments Type Assessment Date No Information Patient Care Teams Name Effective Dates (start - stop) Status Members No Information
--- OUTSIDE RECORDS SUMMARY | 2024-10-02 09:21 | XMS_ITS | Encounter Summary ---
Author Organization [facility] Address [address] [place] [address] Care Team Providers Care Drawer In Dobby Loom Name Role Phone Tri Sorenson MD Primary Care Provide r Reason for Visit * Reason Comments Question Encounter Details Date Type Department Care Team (Late st Contact Info) Description 10/15/2023 Telephone [facility] by [facility] [address] [address] Tri Sorenson MD [address] 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 Topic: Patient or Caregiver Communication Request >> Oct 15, 2023 4:43 PM Erika Cordero wrote: Patient or Caregiver requesting advice Caller: leanne Patient/Caregiver Callback Number: [phone] (home) Call Notes: Patient states insurance [facility] stated they aren't sure if dr. Sorenson in still working on her contracts or not , so they can't relay if she is in network, please call and advise if she is in network as patient has appointment 11/02 documented in this encounter Plan of Treatment Upcoming Encounters Date Type Department Care Team (Late st Contact Info) Description 11/26/2024 8:30 AM CDT Office Visit [facility] [address] [address] Tri Sorenson MD [address] [address] documented as of this encounter Visit Diagnoses Not on filedocumented in this encounter Care Teams Drawer In Dobby Loom Relationship Specialty Start Date End Date Tri Sorenson MD [address] [address] PCP - General Family Practice 11/03/23 documented as of this encounter
--- OUTSIDE RECORDS SUMMARY | 2024-10-02 09:21 | XMS_ITS | Encounter Summary ---
Author Organization [facility] Address [facility] [place] [address] Care Team Providers Care School Leader Name Role Phone Tri Sorenson MD Primary Care Provider [phone] Encounter Details Date Type Department Care Team (Late Contact Info) Description 12/27/2021 MyChart Message Enc [facility] Medical Group Neurology [facility]ity [facility] - [place] [address] [facility] [address] [place] [address] Hadley Mcfarland MD [address] [place], [place] [id number] Test at [facility] Social History Tobacco Use Types Packs/Day Years [...] Info) Description 10/21/2024 7:30 AM CDT Appointment [facility] Executive Assistant To General Counsel [address] [place] [address] Sanford Martines MD [address] [place] [address] documented as of this encounter Visit Diagnoses Not on filedocumented in this encounter Additional Health Concerns Assessment Noted Time PHQ-9 Depression Total Score: 2 12/09/19 21 11:40 AM CDT documented as of this encounter Care Teams School Leader Relationship Specialty Start Date End Date Tri Sorenson MD PCP - General FAMILY PRACTICE 10/17/20 documented as of this encounter
--- OUTSIDE RECORDS SUMMARY | 2024-10-02 09:21 | XMS_ITS | Encounter Summary ---
Author Organization [facility] Address [facility] [place] [address] Care Team Providers Care Director Of Valuation Name Role Phone Tri Sorenson MD Primary Care Provider [phone] Encounter Details Date Type Department Care Team (Late st Contact Info) Description 09/18/2022 MyChart Message Enc [facility] Medical Group - [address] [phone] [employer] Provider Air Quality Message Social History Tobacco Use Types Packs/Day Years [...] Info) Description 10/21/2024 7:30 AM CDT Appointment [facility] General Assistant [address] [place], [place] [phone] Sanford Martines MD Three [facility] [place] [address] [place], [place] [id number] documented as of this encounter Visit Diagnoses Not on filedocumented in this encounter Additional Health Concerns Assessment Noted Time PHQ-9 Depression Total Score: 2 12/09/19 21 11:40 AM CDT documented as of this encounter Care Teams Director Of Valuation Relationship Specialty Start Date End Date Tri Sorenson MD PCP - General FAMILY PRACTICE 10/17/20 documented as of this encounter
--- OUTSIDE RECORDS SUMMARY | 2024-10-02 09:21 | XMS_ITS | Encounter Summary ---
Author Organization [facility] Address [facility] [place] [address] Care Team Providers Care Director Patient Financial Services Name Role Phone Tri Sorenson MD Primary Care Provider [phone]- [phone] Encounter Details Date Type Department Care Team (Late st Contact Info) Description 10/18/2021 [employer] Message Enc [facility] Medical Group Family Medicine [facility] [address] [place], [place] [id number] Tri Sorenson MD [address] [place] [id number] Issues Social History Tobacco Use Types Packs/Day Years [...] on file documented as of this encounter Progress Notes * Yelena Torre LPN - 10/19/2021 8:04 AM CDTFrom: Leanne Larsen To: Dr. Tri Matos Sent: 10/18/2021 2:37 PM CDT Subject: Issues Devi Lawson, ASSEMBLIES AND INSTALLATIONS INSPECTOR-MANAGER OF SALES 1:01 PM You can ask your primary for a referral to a neurologist closer to home then. You saw Dr. Vicente who is a neurosurgeon. You need to see a general neurologist. Back to step one to find help documented in this encounter Plan of Treatment Upcoming Encounters Date Type Department Care Team (Late st Contact Info) Description 10/21/2024 7:30 AM CDT Appointment [facility] Rail Filler [address] [place] [address] Sanford Martines MD Three [facility] [address] [place] [address] documented as of this encounter Visit Diagnoses Not on filedocumented in this encounter Additional Health Concerns Assessment Noted Time PHQ-9 Depression Total Score: 2 12/09/19 21 11:40 AM CDT documented as of this encounter Care Teams Director Patient Financial Services Relationship Specialty Start Date End Date Tri Sorenson MD PCP - General FAMILY PRACTICE 10/17/20 documented as of this encounter
--- OUTSIDE RECORDS SUMMARY | 2024-10-02 09:21 | XMS_ITS | Encounter Summary ---
Author Organization [facility] Address [facility] [place] [address] Care Team Providers Care Funeral Planner Name Role Phone Tri Sorenson MD Primary Care Provider [phone]- [phone] Encounter Details Date Type Department Care Team (Late Contact Info) Description 12/27/2021 MyChart Message Enc [facility] Medical Group Neurology Speciality Clinic - [place] [address] [facility] [address] [place] [address] Hadley Mcfarland MD [address] [place] [address] More test results Social History Tobacco Use Types Packs/Day [...] Info) Description 10/21/2024 7:30 AM CDT Appointment [place] Director Paid Media [address] [place] [place] [address] Sanford Martines MD Three [facility]. [address] [place] [address] documented as of this encounter Visit Diagnoses Not on filedocumented in this encounter Additional Health Concerns Assessment Noted Time PHQ-9 Depression Total Score: 2 12/09/19 21 11:40 AM CDT documented as of this encounter Care Teams Funeral Planner Relationship Specialty Start Date End Date Tri Sorenson MD PCP - General FAMILY PRACTICE 10/17/20 documented as of this encounter
--- OUTSIDE RECORDS SUMMARY | 2024-10-02 09:21 | XMS_ITS | Encounter Summary ---
Author Organization [facility] Address [facility] [place] [address] Care Team Providers Care Hip Hop Dancer Name Role Phone Sherine Flor MD Unavailable [phone] Jodi Cooper MD Primary Care Provider [phone] Ashley Dyson MD Unavailable [phone] Juvenal Whipple MD, Reinaldo Hyde Primary Care Provider Jodi Cooper MD Primary Care Provider [phone] Jodi Cooper MD Unavailable Juvenal Whipple MD, Reinaldo Hyde Primary Care Provider Tri Sorenson MD Primary Care Provide r Tri Sorenson MD Unavailable [phone] Encounter Details Date Type Department Care Team (Late st Contact Info) Description 06/23/2019 [facility] Outpatient Visit [facility] Medical [facility] - Family Medicine [address] [place] [phone] Jodi Cooper MD [address] [place] [address] Social History Tobacco Use Types Packs/Day Years Used Date Smoking Tobacco: Former Cigarettes Q uit: 11/22/1997 Smokeless Tobacco: Never Alcohol Use Standard Drinks/Week Comments No 0 (1 standard drink = 0.6 oz pur e alcohol) Comments No Sex and Gender Information Value Date Recorded Sex Assigned at Female 06/10/2020 6:46 PM CDT Legal Sex Female 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 Answer Date of Assessment Author No 02/05/2017 3:39 PM COMPUTER CUSTOMER SUPPORT SPECIALIST Cheyenne Jarquin RN * Is person blind or have [...] on filedocumented in this encounter Care Teams Hip Hop Dancer Relationship Specialty Start Date End Date Jodi Cooper MD [address] [facility] [address] [place] [address] PCP - General Family Medicine 02/27/18 10/12/19 Reinaldo Sanford Jr., MD [address] [place] [address] PCP - General Family Medicine 10/13/19 10/28/19 Jodi Cooper MD [address] [place] [address] PCP - General 10/29/19 10/30/19 Jodi Cooper MD [address] [place] [address] PCP - Attributed-[facility] STL 09/22/19 09/09/22 Reinaldo Sanford Jr., MD [address] [place] [address] PCP - General 04/17/21 09/06/21 Tri Sorenson MD [address] [place] [address] PCP - General Family Medicine 09/07/21 Tri Sorenson MD [address] [place] [address] PCP - Attributed-C MA 03/24/22 Sherine Flor MD [address] [place] [address] Referring Physician General Surgery 04/16/15 Ashley Dyson MD [address] [place] [phone] Urogynecology 12/14/18 documented as of this encounter
== END 2024-10-02 09:16 | disposition home or self-care (01) ==
DX: M19.012 Primary osteoarthritis, left shoulder (principal)
CPT/HCPCS: 73030

== ENCOUNTER 2024-11-09 15:04 | Emergency (ER) | payer MEDICARE, SELFPAY ==
--- NOTE | ~2024-11-09 | XR_ITS ---
HISTORY: pain fall 1 week ago, shoulder pain COMPARISON: None TECHNIQUE: 3 views of the right shoulder were performed FINDINGS: No acute fracture. The glenohumeral and acromioclavicular joint space is maintained The visualized portion of the adjacent right lung is clear. The humeral head is well seated within the glenoid fossa. IMPRESSION: No acute fracture or anterior dislocation. Reviewed, dictated and finalized at location A.
--- NOTE | ~2024-11-09 | XR_ITS ---
EXAMINATION: XR shoulder LT min 2V DATE: 11/09/2024 15:41 INDICATION: Fall. Pain. TECHNIQUE: 4 images of the left shoulder were obtained. COMPARISON: 10/02/2024 FINDINGS: Subtle oblique lucency in the medial aspect of the head of the left humerus. Differential includes vascular channel or acute nondisplaced fracture. Stable degenerative change in the left AC joint and left ulna humeral joint. No dislocation of the left humeral head. Cervical hardware is noted. IMPRESSION: Subtle oblique lucency in the medial aspect of the head of the left humerus. Differential includes vascular channel or acute nondisplaced fracture. Consider a CT or MRI for further assessment. Reviewed, dictated and finalized at location A. IMPRESSION: Subtle oblique lucency in the medial aspect of the head of the left humerus. Di fferential includes vascular channel or acute nondisplaced fracture. Consider a CT or MRI for further assessment.
--- NOTE | 2024-11-09 15:07 | ED.UPPEXIN ---
HPI - Extremity Injury (Upper) General Chief Complaint: Extremity Injury, Upper Stated Complaint: INJURED L SHOULDER Source: patient, RN notes reviewed and old records reviewed Mode of arrival: ambulatory Limitations: no limitations History of Present Illness HPI narrative: 69-year-old female presents to the [facility] with left shoulder pain. States that she fell about a week ago, got her feet tangled in the vacuum cord and fell backwards landing on her elbows. States that she has taken Tylenol and Advil No bruising or swelling noted. Tenderness to the lateral aspect of the left shoulder Onset (ago): week(s) Treatments prior to arrival: NSAIDS Related Data Home Medications ?Medication ?Instructions ?Recorded ?Confirmed ?Last Taken ?Type levothyroxine 75 mcg tablet 75 mcg PO DAILY 04/18/20 04/08/24 03/26/22 History (Synthroid) biotin 1,250 mcg-collagen 50 1 tablet PO DAILY 03/26/22 12/30/23 03/26/22 History mg-vit C 67.5 mg-vit E-herbal chew tablet vitamin B complex 1 cap PO DAILY 03/26/22 04/08/24 03/26/22 History chlorthalidone 25 mg tablet 25 mg PO DAILY 12/30/22 04/08/24 Unknown History furosemide 20 mg tablet 20 mg PO BID PRN Edema 05/14/23 12/30/23 Unknown History linaclotide 290 mcg capsule 290 mcg PO DAILY PRN Constipation 05/14/23 04/08/24 Unknown History (Linzess) meloxicam 7.5 mg tablet 7.5 mg PO DAILY 05/14/23 04/08/24 Unknown History pravastatin 10 mg tablet 10 mg PO DAILY 11/19/23 04/08/24 Unknown History pregabalin 300 mg capsule 300 mg PO DAILY 12/30/23 04/08/24 Unknown History trazodone 50 mg tablet 50 mg PO DAILY 12/30/23 04/08/24 Unknown History famotidine 20 mg tablet mg 04/08/24 Unknown History Allergies Allergy/AdvReac Type Severity Reaction Status Date / Time fentanyl AdvReac Severe Nausea Verified 11/09/24 15:17 erythromycin base AdvReac Mild Rash Verified 11/09/24 15:17 Penicillins AdvReac Mild Nausea Verified 11/09/24 15:17 Review of Systems Review of Systems: All systems reviewed & are unremarkable except as noted in HPI and below Constitutional: Constitutional: Reports no additional constitutional complaints ENT: Reports system reviewed and no additional complaints, except as documented Cardiovascular: Cardiovascular: Reports no additional cardiovascular complaints, Denies chest pain and Denies dyspnea Respiratory: Respiratory: Reports no additional respiratory complaints, Denies chest congestion, Denies cough and Denies dyspnea Musculoskeletal: Musculoskeletal: Reports as per HPI Integumentary/Breasts: Skin/Breast: Reports system reviewed and no additional complaints, except as [facility] Past Medical History Medical History PONV (postoperative nausea and vomiting) Anxiety Hypothyroidism Osteoarthritis GERD (gastroesophageal reflux disease) Hyperlipidemia Foot drop, 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 History of Mohs micrographic surgery for skin cancer (~2014) History of skin cancer History of breast cancer Surgical History Surgical History Status post total hip replacement, right (~07/18/20) History of hysterectomy History of spinal fusion fusion C5-6 History of cholecystectomy History of appendectomy Hx of breast surgery (~2015) Family History Family History Mother Lung cancer Heart disease Hypertension Father Heart disease Hypertension Social History Social History Years smoked: 30 Smoking status: Former smoker Tobacco type: cigarettes Smoking end date: 03/24/10 Additional smoking assessment comments: DENIES ANY FORM OF TOBACCO USE Alcohol intake: never Substance use: never Do You Feel Safe in your Home?: Yes Lack of Transportation: No Lack of Food: Never True Current Housing: I Have Housing Concerned About Future Housing: No Difficulty Paying Gas/Electric Bills: No Difficulty Paying for Meds: No Currently Unemployed: No Education: High School Diploma/GED Difficulty w/ Childcare or Family Care: No Living arrangements: with family Gender identity (if verbalized by the patient): Female Sexual Orientation (if Verbalized by the Patient): Straight or Heterosexual Spiritual care concerns: No Comments At the time of my signature, I reviewed and agree with the nursing past medical, surgical, social, and family history. There is no relevant family history pertinent to the patient complaint. Exam Const: General: cooperative, healthy appearing, comfortable, no acute distress, well developed, alert and well nourished Nutritional Appearance: well nourished Orientation/consciousness: patient oriented x3 Limitations: no limitations HENMT: Head: normal to inspection Eyes: General: appearance normal, both eyes and all related structures Alignment and Position: alignment normal Neck: Neck: normal visual inspection, full ROM, no lymphadenopathy and no meningeal signs Chest: Chest palpation & inspection: normal inspection of the chest Resp: Effort & Inspection: normal respiratory effort and able to speak in complete sentences Cardio: Rate: regular rate Back/Spine/Pelvis: Back: No back tenderness Skin: General skin exam: normal color and no rashes or lesions noted Neuro: General: patient oriented x3, gait normal, moves all extremities and no meningeal signs Cognition (Neuro): normal cognition Speech: normal speech Gait exam (Neuro): Normal gait present Extrem: General: normal to inspection, full ROM, capillary refill normal and normal gait Left upper extremity: normal capillary refill, shoulder/upper arm tenderness (Lateral aspect) and abnormal ROM pain with active ROM and pain with passive ROM; no swelling, no abrasions, no lacerations, no ecchymosis and no deformity, elbow/forearm normal to inspection, wrist normal to inspection and hand normal to inspection and normal capillary refill Psych: Appearance: grossly normal and well kempt Mental Status: mental status grossly normal Speech and movement: Normal speech and movement present and Clear speech present Affect: normal affect Attitude: cooperative Course Course Level of Care: Express Care Visit Vital Signs Vital signs: Vital Signs Temperature 98 F 11/09/24 15:15 Pulse Rate 83 11/09/24 15:15 Respiratory Rate 16 11/09/24 15:15 Blood Pressure 130/87 11/09/24 15:15 Pulse Oximetry 100 11/09/24 15:15 Temperature 98 F 11/09/24 15:15 Pulse Rate 83 11/09/24 15:15 Respiratory Rate 16 11/09/24 15:15 Blood Pressure 130/87 11/09/24 15:15 Pulse Oximetry 100 11/09/24 15:15 Reviewed MDM - Extremity Injury (Upper) MDM Narrative Medical decision making narrative: Patient sitting in exam room. Patient is nontoxic, vitals stable. Patient reports that she tripped and fell about a week ago Patient has tenderness to the lateral aspect of the left shoulder X-ray shows possibility of a fracture, recommending follow-up with CT or MRI Patient with placed in splint and will follow up either with her ortho or with ortho on-call Discharge instructions reviewed with patient, as well as provided in writing per nursing staff. The instructions also include specific and strict return/GO TO THE ER as well as f/u information. All questions have been answered, and the patient deny any further questions with discharge and discharge plan. Some parts of this dictation were generated by voice recognition software and may contain typographical and/or grammatical inaccuracies. Differential Diagnosis Differential diagnosis: Likely other (Shoulder sprain, sprain, fracture) Imaging Data Radiologist's impression: HISTORY: pain fall 1 week ago, shoulder pain COMPARISON: None TECHNIQUE: 3 views of the right shoulder were performed FINDINGS: No acute fracture. The glenohumeral and acromioclavicular joint space is maintained The visualized portion of the adjacent right lung is clear. The humeral head is well seated within the glenoid fossa. IMPRESSION: No acute fracture or anterior dislocation. EXAMINATION: XR shoulder LT min 2V DATE: 11/09/2024 15:41 INDICATION: Fall. Pain. TECHNIQUE: 4 images of the left shoulder were obtained. COMPARISON: 10/02/2024 FINDINGS: Subtle oblique lucency in the medial aspect of the head of the left humerus. Differential includes vascular channel or acute nondisplaced fracture. Stable degenerative change in the left AC joint and left ulna humeral joint. No dislocation of the left humeral head. Cervical hardware is noted. IMPRESSION: Subtle oblique lucency in the medial aspect of the head of the left humerus. Differential includes vascular channel or acute nondisplaced fracture. Consider a CT or MRI for further assessment. Critical Care Time Critical Care Time Critical Care Time: No Discharge Plan Discharge Clinical Impression: Acute pain of right shoulder Fracture of head of left humerus Qualifiers: Encounter type: initial encounter Fracture type: closed Qualified Code(s): S42.292A - Other displaced fracture of upper end of left humerus, initial encounter for closed fracture Fall Qualifiers: Encounter type: initial encounter Qualified Code(s): W19.XXXA - Unspecified fall, initial encounter Patient Disposition: Home Condition: Stable Instructions: Arm Fracture in Adults (DC), How to Use a Sling (ED) Additional Instructions: Please call orthopedic for a close follow-up appointment for further evaluation Wear the sling at all times Take Motrin 600mg alternating every 4 hours with Tylenol 650 mg Your x-ray showed a possibility of a nondisplaced humeral head fracture Patient Language: Burundian Prescriptions: No Action (DME) Aerochamber MV Spacer See Rx Instructions .Route Qty: 1 0RF Rx Instructions: As directed albuterol sulfate 90 mcg/actuation HFA aerosol inhaler 2 puff inhalation QID PRN (Reason: shortness of breath or wheezing) Qty: 6.7 0RF chlorthalidone 25 mg tablet 25 mg PO DAILY trazodone 50 mg tablet 50 mg PO DAILY pregabalin 300 mg capsule 300 mg PO DAILY famotidine 20 mg tablet levothyroxine [Synthroid] 75 mcg tablet 75 mcg PO DAILY Linzess 290 mcg capsule 290 mcg PO DAILY PRN (Reason: Constipation) pravastatin 10 mg tablet 10 mg PO DAILY furosemide 20 mg tablet 20 mg PO BID PRN (Reason: Edema) meloxicam 7.5 mg tablet 7.5 mg PO DAILY vitamin B complex Capsule 1 cap PO DAILY [id number] C-E-herbal 1,250 mcg-50 mg -67.5 mg-15 mg Tablet,Chewable 1 tablet PO DAILY Follow-up/Referrals: Yas,Tri [Other] Will Rosado MD [Physician, Orthopedics] - 1 Day Referral Note: Possible fracture of the humeral head left fall 1 week ago Clinical Impression: Fracture of head of left humerus Time of Disposition: 16:01
[2024-11-09 15:15] VITALS: BP 130/87; PULSE 83; RESP 16; TEMP 36.6; O2SAT 100
== END 2024-11-09 16:04 | disposition home or self-care (01) ==
PROVIDERS: Emergency Provider Nurse Practitioner
DX: S42.202A Unspecified fracture of upper end of left humerus, initial encounter for closed fracture (principal); W18.09XA Striking against other object with subsequent fall, initial encounter; Z87.891 Personal history of nicotine dependence; E03.9 Hypothyroidism, unspecified; M19.90 Unspecified osteoarthritis, unspecified site; K21.9 Gastro-esophageal reflux disease without esophagitis; E78.5 Hyperlipidemia, unspecified; Z85.3 Personal history of malignant neoplasm of breast; Z85.828 Personal history of other malignant neoplasm of skin; Z96.641 Presence of right artificial hip joint
CPT/HCPCS: 73030; 99214; A4565; G0463

== ENCOUNTER 2024-11-17 14:19 | Outpatient (CLI) | payer MEDICARE, SELFPAY ==
--- NOTE | ~2024-11-17 | CT_ITS ---
EXAMINATION: CT_STKSHOLDWO_CT DATE: 11/17/2024 14:44 INDICATION: Left shoulder pain. TECHNIQUE: High resolution computed tomography (CT) of the left shoulder was performed without intravenous contrast. Additional sagittal and coronal reconstructions were performed. Automated exposure control and iterative reconstruction technique were employed. The dose-length product was 170.13 mGy-cm. COMPARISON: Radiographs dated 11/09/2024 FINDINGS: Bone alignment is normal. No fracture. Moderate to severe osteoarthritis at the right glenohumeral joint with cephalad predominant nonuniform joint space narrowing which appears moderate to severe on the prior radiographs. Small marginal osteophytes about the humeral head and glenoid. Heterotopic ossicle positioned along the 10:00-12:00 position of the posterior superior rim of the glenoid likely replacing the labrum at this location. This osteochondral body at the deep subscapular recess. No significant glenohumeral joint effusion. Mild left acromioclavicular osteoarthritis with small marginal osteophytes and additional heterotopic ossification along the superior joint capsule. No asymmetric rotator cuff muscle atrophy or other atrophy of the shoulder girdle. There is a pseudoarthrosis between the posterior left sixth and seventh ribs. No pathologically enlarged lymphadenopathy at the left axilla, left hilum or visualized mediastinum. Visualized portion of the left lung are clear. IMPRESSION: 1. Moderate to severe left glenohumeral osteoarthritis. Reviewed, dictated and finalized at location A.
--- OUTSIDE RECORDS SUMMARY | 2024-11-17 14:24 | XMS_ITS | Encounter Summary ---
Author Organization [facility] Address [facility] [facility] [place] [address] Care Team Providers Care Grease Packer Name Role Phone Sherine Flor MD Unavailable [phone] Ashley Dyson MD Unavailable [phone] Jodi Cooper MD Unavailable Juvenal Whipple MD, Reinaldo Hyde Primary Care Provider Tri Sorenson MD Primary Care Provide r Tri Sorenson MD Unavailable [phone] Encounter Details Date Type Department Care Team (Late st Contact Info) Description 12/15/2019 [facility] Outpatient Visit [facility] - Family Medicine [address] [place] [phone] Reinaldo Sanford Jr., MD [address] [place] [address] Social History Tobacco Use Types Packs/Day Years Used Date Smoking Tobacco: Former Cigarettes Q uit: 11/22/1997 Smokeless Tobacco: Never Alcohol Use Standard Drinks/Week Comments No 0 (1 standard drink = 0.6 oz pur e alcohol) Comments No Sex and Gender Information Value Date Recorded Sex Assigned at Female 06/10/2020 6:46 PM CDT 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 Gender Identity Female 06/10/2020 6:46 PM CDT [...] on filedocumented in this encounter Care Teams Grease Packer Relationship Specialty Start Date End Date Jodi Cooper MD [address] [place] [address] PCP - Attributed-[facility] STL 09/22/19 09/09/22 Reinlado Sanford Jr., MD [address] [place] [address] PCP - General 04/17/21 09/06/21 Tri Sorenson MD [address] [place] [address] PCP - General Family Medicine 09/07/21 Tri Sorenson MD [address] [facility] [address] [place] [address] PCP - [facility] 03/24/22 Sherine Flor MD [address] [place] [address] Referring Physician General Surgery 04/16/15 Ashley Dyson MD [address] [place] [address] Urogynecology 12/14/18 documented as of this encounter
--- OUTSIDE RECORDS SUMMARY | 2024-11-17 14:24 | XMS_ITS | Clinical Summary ---
Author Organization [facility] [employer] Address [address] [place] [address] Care Team Providers Care Cloth Drier Name Role Phone Sherine Flor MD Unavailable [phone] Ashley Dyson MD Unavailable [phone] Tri Sorenson MD Primary Care Provide r Source Comments [facility] [employer],non-owned Affiliates and Associated Physician Practices is amultiple site organization consisting of ambulatory clinics and hospital sitesin [place], [place] and [place]. This disclosure is being madepursuant to the Care Everywhere program and may not contain all information available regarding this patient. Last updated 17.[facility] [employer] Allergies Active Allergy Reactions Criticality Noted Date [...] BREATH AND FOR WHEEZING Active Multiple Minerals-Vitamins ([facility] YBGS-EKK-PJNU-VIT D PO) Take by mouth once daily Active B Rrpnljd-Exqdtj-SG (B COMPLETE PO) Take by mouth once [...] Requesting Percocet. MRI ordered. Need to see clutch specialist after MRI. Right foot drop 04/25/2017 Overview (12/23/2018): 04/24/2018: Ongoing problem. Seeing a neurologist. She continues to have painful paresthesia affecting her right lower extremity both proximal and distal in the sciatic nerve distribution as well as right peroneal nerve distribution Has been referred to a neurologist at [facility]. Scheduled to see her next week. No [...] Neurology. Assessment & Plan (04/25/2018 12:40 PM TAX MAP TECHNICIAN): FU with neurology as noted. Ductal carcinoma in situ (DCIS) of left breast 0 04/10/2015 Cancer Staging:Clinical stage from 12/15/2015:Stage 0(Tis (DCIS), N0, M0) - Signed by Betty Schafer MD on 12/16/2015 Pathologic stage from 12/16/2015:Stage Unknown(Tis (DCIS), NX, cM0) - Signed by Betty Schafer MD on 12/16/2015 Overview (12/16/2015): Left, upper inner, high grade DCIS. Tis(DCIS)NxM0, stage 0. ER/DC neg, Her-2 neg Architectural distortion on mamm [...] CP/SOB Assessment & Plan (02/01/2015 8:55 AM TAX MAP TECHNICIAN): Patient understands that she needs to [...] 2015. Assessment & Plan (04/24/2018 10:38 AM TAX MAP TECHNICIAN): Resolved. Assessment & Plan (02/01/2015 8:56 AM TAX MAP TECHNICIAN): Declines the aid of other medications to help her with smoking cessation at this time We will follow up on this in a few months at her next appointment Lumbar radiculopathy 10/15/2011 Assessment & Plan (04/20/2020 8:33 PM TAX MAP TECHNICIAN): NSAIDs, RICE, tylenol PT Acquired hypothyroidism 06/14/2010 Overview (10/16/2018): Not symptomatic Thyroid function tests have been stable 10/14/18: On levothyroxine 75 mcg daily. Labs last done a year ago. No h/o tremor, weight gain/loss. Assessment & Plan (10/16/2018 5:20 PM CDT): Check labs today. Assessment & Plan (02/01/2015 8:55 AM TAX MAP TECHNICIAN): TSH pending Esophageal reflux 06/14/2010 Overview (07/26/2018): 07/21/2018: Taking 40 mg murmur resolved daily. Has recurrence of symptoms if she stops medication. Assessment & Plan (07/26/2018 6:15 PM CDT): Consider decreasing dose to 20 mg daily. May need to increase back to 40 mg if symptoms recur. Osteoporosis 06/14/2010 Assessment & Plan (04/20/2020 8:34 PM TAX MAP TECHNICIAN): osteoporosis plan: - Continue Calcium 1200 [...] far. Assessment & Plan (04/01/2019 1:56 PM TAX MAP TECHNICIAN): CT head ordered. Consider Neurology consult. [...] severity. Assessment & Plan (04/01/2019 1:48 PM TAX MAP TECHNICIAN): Tender along ribs on right side. [...] dizziness Assessment & Plan (04/25/2018 12:20 PM TAX MAP TECHNICIAN): Recommend Holter monitor. Patient wants to [...] (01/21/2018 7:10 PM CDT): Normal UA. Recommend [id number] Pyridium for symptom relief. Urine culture awaited [...] LOC. Assessment & Plan (03/04/2017 4:33 AM TAX MAP TECHNICIAN): Recommend shoulder X rays prior to [...] flashes Assessment & Plan (02/01/2015 8:55 AM TAX MAP TECHNICIAN): Resolved Overactive bladder 05/11/2014 9 Anxiety [...] night. Assessment & Plan (04/24/2018 10:45 AM TAX MAP TECHNICIAN): Consider increasing Lexapro to 15 mg daily. Encouraged to consider therapy. Assessment & Plan (01/21/2018 1:39 PM CDT): Recommend trying Buspar instead. Need to stop Xanax. May increase Lexapro to 15 mg daily. Assessment & Plan (02/01/2015 8:54 AM TAX MAP TECHNICIAN): Stable, no changes to meds at this time TMJ (temporomandibular joint disorder) 05/11/2014 10/13/2019 Postmenopausal atrophic vaginitis 07/19/2013 07/21/2018 Degeneration of cervical intervertebral disc 2 10/13/2019 Low back pain 10/15/2011 10/13/2019 Disorder of nail 03/02/2011 07/21/2018 Osteoarthrosis 03/02/2011 07/21/2018 Postmenopausal state 05/12/2010 019 Rectocele 10/23/2009 01/21/2018 Stress incontinence 05/04/2008 01/22/20 18 Carpal tunnel syndrome 10/12 Sciatic neuropathy 0 Immunizations Immunization Administration Dates Next Due Reissued primary monoval ent 12+ yr 0.3mL Purple [...] PM CDT Legal Sex Female 6:25 AM TAX MAP TECHNICIAN Gender Identity Female 06/10/2020 6:46 PM CDT Sexual Orientation Choose not to disclose 2020 6:46 PM CDT 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 Not on [...] YEAR 2024 04/20/2020 SCREENING FOR DIABETES 11/01/2024 2, 09/21/2021, 09/21/2021, Additional history exists INFLUENZA VACCINE [...] track( 12:59 PM CDT) No Amina Tadeo, MA Medical Devices Implanted Type Area Pony Worker Device Identifier Shelf Expiration Date Model / Serial / Lot Grft Tiss Rep Xenform 4 X 7cm Implanted:Qty: 1 on 11/30/2013 by Ashley Dyson [place] [facility] [place] [facility] [place] [email or web address] 12/22/2015 [id number] / / [id number] K-Wire Implanted:Qty: 1 on 02/05/2017 by Benjamin Rivas DO at [facility] [place] [facility] [place] 09/20/2026 [id number] / / [id number] Cbl Perc Xtn Intstm Surescan 4.32mm Implanted:Qty: 1 on 09/02/2023 by Ashley Dyson MD at [facility] [place] [facility] [place] [employer] 07/07/2025 [id number] / / [id number] Ld Nrstm Intstm 4.32mm Spc L28 Cm Qdpl Implanted:Qty: 1 on 09/02/2023 by Ashley Dyson MD at [facility] [place] [facility] [place] N/A: Back [employer] 04/15/2025 [id number] / / [id number] Nrstm Impl 2inx1.7in Intstm Ii Thk.3in - [id number] Implanted:Qty: 1 on 09/16/2023 by Ashley Dyson MD at [facility] [place] [facility] [place] N/A: Back [employer] Neurological 12/19/2024 [id number] / [id number] / Procedures Procedure Name Priority Date/Time Associated [...] HEPATITIS C ANTIBODY Routine 05/11/2014 4:07 PM TAX MAP TECHNICIAN Need for hepatitis C screening test ENDOSCOPY, COLON, SCREENING Routine 02/08/2013 6:28 AM TAX MAP TECHNICIAN from Last 3 Months or Most [...] suspicious abnormality is identified within either breast. us Tri Sorenson MD MAMMO ORDERABLES Joanie l [...] Resulting Agency Comment Lab Testing performed at: [facility] [address] [place] [address] [id number] us Reinaldo Sanford Jr., MD LAB - CHEMISTR Y ORDERABLES Final Result Performing Organization Address [facility] de Phone Number [facility] ACCOUNT BILL [address] [place] [address] * (ABNORMAL) LIPID PROFILE (10/13/2019 11:53 AM CDT) Cholesterol 179 <200 mg/dL [facility] ACCOUNT BILL Triglycerides 159(H) <150 mg/dL [facility] ACCOUNT BILL HDL Cholesterol 57 >40 mg/dL [facility] ACCOUNT BILL VLDL Calculated 32(H) <=30 mg/dL [facility] ACCOUNT BILL LDL Calculated 90 <130 mg/dL [facility] ACCOUNT BILL Blood BLOOD SPECIMEN / Unknown 10/13/2019 11:53 AM CDT 10/13/2019 Narrative Resulting Agency Comment Lab Testing performed at: [facility] [address] [place] [address] [id number] us Reinaldo Sanford Jr., MD LAB - CHEMISTR Y ORDERABLES Final Result Performing Organization Address [facility] de Phone Number [facility] ACCOUNT BILL [address] [place] [address] * DEXA BONE DENSITY AXIAL SKELETON (12/23/2018 [...] 9.2% Hip fracture: 1.0% Procedure Note Delgado Eng DO - 12/23/2018 BONE MINERAL DENSITY STUDY: INDICATION: [...] Eng MD on 12/23/2018 at 10:21 AM Jodi Cooper MD DEXA ORDERABLES Final Result * HEPATITIS C ANTIBODY (05/11/2014 4:07 PM TAX MAP TECHNICIAN) [facility] Hepatitis C Antibody NON-REACTI VE NON-REACT GREG [facility]ST Signal to Cut-Off 0.02 <1.00 QUEST Comment: Test Performed at: [facility] [address] [place] [address] KERRI DUBOIS DO,MPH Blood specimen (specimen) BLOOD SPECIMEN / Unknown 05/11/2014 4:07 PM TAX MAP TECHNICIAN 05/11/2014 4:09 PM TAX MAP TECHNICIAN Tri Sorenson MD LAB - CHEMISTRY ORDER JUDITH Final Result [facility] [address] [place] [address] * ENDOSCOPY, COLON, SCREENING (02/08/2013 6:28 AM TAX MAP TECHNICIAN) [facility] Report Endoscopy POC _ Patient Name: Kaila Larsen Procedure Date: 02/08/2013 6:28 AM Date of : 1955 Admit Type: Outpatient Gender: Female Age: 57 Attending MD: Barbie Harris MD _ Procedure: Colonoscopy Indications: Lower abdominal pain, Constipation, Obstipation, Weight loss Providers: Barbie Harris MD (Doctor), Ashley Wilson RN, Thao Fernandez, Information Analyst Referring MD: Blake Cronin (Referring MD) Medicines: [...] to home. Procedure Code(s): --- Professional --- 20509, Colonoscopy, flexible, proximal to splenic flexure; with biopsy, single or multiple Diagnosis Code(s): --- Professional --- 569.49, Other specified disorders of rectum and anus 569.0, Anal and rectal polyp 455.3, External hemorrhoids without mention of complication 455.0, Internal hemorrhoids without mention of complication 789.09, Abdominal pain, other specified site 564.00, Constipation, unspecified 783.21, Loss of weight CPT (R) 2012 [employer]. All Rights Reserved. The codes documented in this report are preliminary and upon timber cruiser review may be revised to meet current compliance requirements. Barbie Harris MD 02/08/2013 7:49 AM Number of Addenda: 0 Note Initiated On: 02/08/2013 6:28 AM [facility] ENDOSCOPY 02/08/2013 6:28 AM TAX MAP TECHNICIAN Narrative [facility] ENDOSCOPY - 02/08/2013 7:50 AM TAX MAP TECHNICIAN Procedure Note Barbie Harris MD - 02/08/2013 7:50 AM CST Barbie Harris MD GI PROCEDURE ORDERABLES Edited [facility] ENDOSCOPY from Last 3 Months or Most Recently Relevant to Health Maintenance Insurance [facility] MANAGED MEDICARE ADV SELF PAY NO INSURANCE Member Subscriber Plan / Payer (Ef fective for All Dates) Name:Kaila Larsen Member ID:Not on file Relation to Subscriber:Not on file Name:KAILA LARSEN Subscriber ID:Not on file (Home) Address: [address] [place] [address] Payer ID:Not on file Group ID:Not on file Type:Self Pay Address: [place], [place] [facility] MANAGED MEDICARE ADV Advance Directives * Full Code (Latest Code [...] 11:36 AM 11/09/2009 5:41 AM Care Teams Cloth Drier Relationship Specialty Start Date End Date Tri Sorenson MD [address] [place] [address] PCP - General Family Medicine 09/07/21 Sherine Flor MD [address] [place] [address] Referring Physician General Surgery 04/16/15 Ashley Dyson MD [address] [place] [address] Urogynecology 12/14/18
--- OUTSIDE RECORDS SUMMARY | 2024-11-17 14:24 | XMS_ITS | Encounter Summary ---
Author Organization [facility] Address [address] [place] [address] Care Team Providers Care Aquaculture Program Director Name Role Phone Sherine Flor MD Unavailable [phone] Ashley Dyson MD Unavailable Tri Sorenson MD Primary Care Provide r Reason for Visit * Reason Onset Date Comments Discuss Surgery 09/04/2023 Encounter Details Date Type Department Care Team (Late st Contact Info) Description 09/04/2023 Telephone [facility] - Centralized Scheduling [address] [place] [address] Ashley Dyson MD [address] [place] [address] Discuss Surgery Social History Tobacco [...] PM CDT Legal Sex Female 6:25 AM DIAZO TECHNICIAN Gender Identity Female 06/10/2020 6:46 PM CDT Sexual Orientation Choose not to disclose 2020 6:46 PM CDT 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 Pt can be reached at [phone]. documented in this encounter Plan of Treatment [...] on filedocumented in this encounter Care Teams Aquaculture Program Director Relationship Specialty Start Date End Date Tri Sorenson MD [address] [phone] PCP - General Family Medicine 09/07/21 Sherine Flor MD [address] [place] [address] Referring Physician General Surgery 04/16/15 Ashley Dyson MD [address] [place] [phone] Urogynecology 12/14/18 documented as of this encounter
--- OUTSIDE RECORDS SUMMARY | 2024-11-17 14:24 | XMS_ITS | Encounter Summary ---
Author Organization Address [address] [place] [address] Care Team Providers Care Forestry Crew Chief Name Role Phone Tri Sorenson MD Primary Care Provide r Reason for Visit * Reason Comments Question Encounter Details Date Type Department Care Team (Late st Contact Info) Description 10/15/2023 Telephone [facility] [address] [address] Tri Sorenson MD [address] [facility] [address] [place] [address] Question Social History Tobacco Use Types Packs/Day Years Used Date Smoking Tobacco: Never Assessed Comments Unknown Sex and Gender Information Value Date Recorded Sex Assigned at Female 03/12/2024 2:21 PM TECHNICAL SALES ASSOCIATE Legal Sex Female 8:50 AM CDT Gender Identity Female 03/12/2024 2:21 PM TECHNICAL SALES ASSOCIATE Sexual Orientation Choose not to disclose 2023 2:21 PM TECHNICAL SALES ASSOCIATE documented as of this encounter Miscellaneous Notes * Telephone Encounter - Yaneth Hi - 10/23/2023 3:35 PM CDT LVM for pt to call office back * Telephone Encounter - Erika Caceres - 10/15/2023 4:49 PM CDT Copied from [facility] #[id number]. Topic: Patient or Caregiver Communication Request >> Oct 15, 2023 4:43 PM Erika Cordero wrote: Patient or Caregiver requesting advice Caller: leanne Patient/Caregiver Callback Number: [phone] (home) Call Notes: Patient states insurance [facility] stated they aren't sure if dr. [...] Office Visit [facility] [address] [address] Tri Sorenson MD [address] [address] documented as of this encounter Visit Diagnoses Not on filedocumented in this encounter Care Teams Forestry Crew Chief Relationship Specialty Start Date End Date Tri Sorenson MD [address] [address] PCP - General Family Practice 11/03/23 documented as of this encounter
--- OUTSIDE RECORDS SUMMARY | 2024-11-17 14:24 | XMS_ITS | Encounter Summary ---
Author Organization [facility] Address [address] [place] [address] Care Team Providers Care Wind Technician Name Role Phone Tri Sorenson MD Primary Care Provide r Reason for Visit * Reason Comments Patient Communication Encounter Details Date Type Department Care Team (Late st Contact Info) Description 11/04/2023 Telephone [facility] [address] [address] Tri Sorenson MD [address] [address] Patient Communication Social History Tobacco Use Types Packs/Day Years Used Date Smoking Tobacco: Former Cigarettes Smokeless Tobacco: Never Alcohol Use Standard Drinks/Week Comments Never 0 (1 standard drink = 0.6 oz pur e alcohol) Comments No Sex and Gender Information Value Date Recorded Sex Assigned at Female 03/12/2024 2:21 PM MARKER ASSEMBLER Legal Sex Female 8:50 AM CDT Gender Identity Female 03/12/2024 2:21 PM MARKER ASSEMBLER Sexual Orientation Choose not to disclose 2023 2:21 PM MARKER ASSEMBLER documented as of this encounter Miscellaneous Notes * Telephone Encounter - Cash Peace - 11/04/2023 10:27 AM CDT Copied from [facility] #[id number]. Topic: Patient or Caregiver Communication Request >> Nov 04, 2023 10:20 AM Cash Betancur wrote: Patient or Caregiver insisting that a message be sent to Care Team Caller: Leanne Larsen Patient/Caregiver Callback Number: [phone] (mobile) Call Notes: Patient states insurance info is not going through and was told to call and be transferred to office if she had any issues documented in this encounter Plan of Treatment Upcoming Encounters Date Type Department Care Team (Late st Contact Info) Description 11/26/2024 8:30 AM CDT Office Visit [facility] [address] [place] [address] Tri Sorenson MD [address] [place] [address] documented as of this encounter Visit Diagnoses Not on filedocumented in this encounter Additional Health Concerns Assessment Noted Time PHQ-9 Depression Total Score: 1 11/03/19 24 9:59 AM CDT documented as of this encounter Care Teams Wind Technician Relationship Specialty Start Date End Date Tri Sorenson MD [address] [place] [address] PCP - General Family Practice 11/03/23 documented as of this encounter
--- OUTSIDE RECORDS SUMMARY | 2024-11-17 14:24 | XMS_ITS | Encounter Summary ---
Author Organization [facility] Address [facility] [facility] [place] [address] Care Team Providers Care Insulation Helper Name Role Phone Sherine Flor MD Unavailable [phone] Jodi Cooper MD Primary Care Provider [phone] Ashley Dyson MD Unavailable [phone] Juvenal Whipple MD, Reinaldo Hyde Primary Care Provider Jodi Cooper MD Primary Care Provider [phone] Jodi Cooper MD Unavailable Juvenal Whipple MD, Reinaldo Hyde Primary Care Provider Tri Sorenson MD Primary Care Provide r Tri Sorenson MD Unavailable [phone] Encounter Details Date Type Department Care Team (Late st Contact Info) Description 06/23/2019 [facility] Outpatient Visit [facility] Medical [facility] - Family Medicine [address] [place] [phone] Jodi Cooper MD [address] [place] [address] Social History Tobacco Use Types Packs/Day Years Used Date Smoking Tobacco: Former Cigarettes Q uit: 11/22/1997 Smokeless Tobacco: Never Alcohol Use Standard Drinks/Week Comments No 0 (1 standard drink = 0.6 oz pur e alcohol) Comments No Sex and Gender Information Value Date Recorded Sex Assigned at Female 06/10/2020 6:46 PM CDT Legal Sex Female 6:25 AM POLICE DETENTION ATTENDANT Gender Identity Female 06/10/2020 6:46 PM CDT Sexual Orientation Choose not to disclose 2020 6:46 PM CDT 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 Answer Date of Assessment Author No 02/05/2017 3:39 PM POLICE DETENTION ATTENDANT Cheyenne Jarquin RN * Is person blind [...] on filedocumented in this encounter Care Teams Insulation Helper Relationship Specialty Start Date End Date Jodi Cooper MD [address] [facility] [address] [place] [address] PCP - General Family Medicine 02/27/18 10/12/19 Reinaldo Sanford Jr., MD [address] [place] [address] PCP - General Family Medicine 10/13/19 10/28/19 Jodi Cooper MD [address] [place] [address] PCP - General 10/29/19 10/30/19 Jodi Cooper MD [address] [place] [address] PCP - Attributed-[facility] 09/22/19 09/09/22 Reinaldo Sanford Jr., MD [address] [place] [address] PCP - General 04/17/21 09/06/21 Tri Sorenson MD [address] [place] [address] PCP - General Family Medicine 09/07/21 Tri Sorenson MD [address] [place] [address] PCP - Attributed-C MA 03/24/22 Sherine Flor MD [address] [place] [address] Referring Physician General Surgery 04/16/15 Ashley Dyson MD [address] [place] [phone] Urogynecology 12/14/18 documented as of this encounter
--- OUTSIDE RECORDS SUMMARY | 2024-11-17 14:24 | XMS_ITS | Encounter Summary ---
Author Organization [facility] Address [address] [place] [address] Care Team Providers Care Classroom Technology Coach Name Role Phone Tri Sorenson MD Primary Care Provide r Encounter Details Date Type Department Care Team (Late Contact Info) Description 11/10/2024 Orders Only [address] [facility] [address] [address] Provider, Abstract NO ADDRESS ON FILE Social History Tobacco Use Types Packs/Day Years Used Date Smoking Tobacco: Former Cigarettes 0.5 39 S tarted: 1979 Smokeless Tobacco: Never Alcohol Use Standard Drinks/Week Comments Yes 0 (1 standard drink = 0.6 oz pur e alcohol) Comments No Sex and Gender Information Value Date Recorded Sex Assigned at Female 03/12/2024 2:21 PM ALTERNATIVE MEDICINE PRACTITIONER Legal Sex Female 8:50 AM CDT Gender Identity Female 03/12/2024 2:21 PM ALTERNATIVE MEDICINE PRACTITIONER Sexual Orientation Choose not to disclose 2023 2:21 PM ALTERNATIVE MEDICINE PRACTITIONER documented as of this encounter Plan of Treatment Upcoming Encounters Date Type Department Care Team (Late st Contact Info) Description 11/26/2024 8:30 AM CDT Office Visit [facility] by [facility] [address] [facility] [address] [place] [address] Tri Sorenson MD [address] [facility] [address] [place] [address] documented as of this encounter Procedures Procedure Name Priority Date/Time Associated Diagnosis Comments XR SHOULDER 2+ VW LEFT Routine 11/09/2024 8:50 AM CDT XR SHOULDER 2+ VW RIGHT Routine 11/09/2024 8:48 AM CDT documented in this encounter Results * XR SHOULDER 2+ VW LEFT (11/09/2024 8:50 AM CDT) Anatomical Region Laterality Modality Upper Extremity Other us Abstract Provider DIAGNOSTIC IMAGING ORDERABLES Final Result * XR SHOULDER 2+ VW RIGHT (11/09/2024 8:48 AM CDT) Anatomical Region Laterality Modality Upper Extremity Other us Abstract Provider DIAGNOSTIC IMAGING ORDERABLES Final Result documented in this encounter Visit Diagnoses Not on filedocumented in this encounter Additional Health Concerns Assessment Noted Time PHQ-9 Depression Total Score: 1 02/09/20 24 10:00 AM ALTERNATIVE MEDICINE PRACTITIONER documented as of this encounter Care Teams Classroom Technology Coach Relationship Specialty Start Date End Date Tri Sorenson MD [address] [phone] PCP - General Family Practice 11/03/23 documented as of this encounter
--- OUTSIDE RECORDS SUMMARY | 2024-11-17 14:24 | XMS_ITS | Clinical Summary ---
Author Organization [facility] [address] Address [address] [place] [address] Care Team Providers Care Occupational Health Coordinator Name Role Phone Tri Sorenson MD Primary [...] (VIBRAMYCIN) 100 mg capsule 09/02/19 24 Active chlorthalidone (HYGROTON) 25 mg tablet Take 1 Tablet (25 mg) by mouth daily. 100 Tablet 3 12/24/19 24 Active calcium carbonate-vitamin D3 1,000 mg-20 mcg (800 unit) Tablet Take 1 tablet every day by oral route. 03/25/19 24 Active furosemide (LASIX) 20 mg tablet TAKE 2 TABLETS BY MOUTH ONCE DAILY NEEDED FOR LEG SWELLING Active meloxicam (MOBIC) 7.5 mg tabletIndications :Osteoarthritis, unspecified osteoarthritis type, unspecified site Take 1 [...] 08/03/19 25 Active propranoloL (INDERAL) 40 mg tabletIndications :Intractable headache, unspecified chronicity pattern, unspecified headache type Take 1 Tablet (40 mg) by mouth 2 times daily. 180 Tablet 08/31/19 25 Active famotidine (PEPCID) 20 mg tablet TAKE 1 TABLET BY MOUTH TWICE DAILY 200 Tablet 3 09/08/19 25 Active levothyroxine 75 mcg tablet TAKE 1 TABLET BY MOUTH DAILY BEFORE BREAKFAST 100 Tablet 3 11/16/19 25 Active levothyroxine 75 mcg tablet Take 1 Tablet (75 mcg) by mouth daily before breakfast. 100 Tablet 3 11/25/19 24 025 Discontinued Active Problems Problem Noted [...] cut down, will try to go to [facility] just once daily History of ductal [...] done before and she's agreeable to do JUN24: Has done PT an sx are not [...] hypothyroidism 06/14/2010 Overview (11/04/2023): TFTs in range AUG23 Levo 75mcg Asymptomatic Assessment & Plan (11/04/2023 8:05 AM CDT): TFTs pending Low bone mass 08/26/2008 Overview (11/04/2023): Dexas from [facility]: (Has also had done with [facility] and [...] Encounters Date Type Department Care Team Description 11/12/2024 Refill [facility] by [address] [place] [phone] Tri Sorenson MD 11/10/2024 Orders Only [facility] by [address] [place] [phone] Provider, Abstract 10/08/2024 Orders Only [facility] by [address] [place] [address] Provider, Abstract 10/06/2024 External Device Data [facility] ABSTRACTION Provider, Abstract 10/05/2024 External Device Data [facility] Provider, Abstract 10/04/2024 Telephone [facility] by [address] [address] Tri Sorenson MD Results; ORDER 09/30/2024 Telephone [facility] by [address] [address] Tri Sorenson MD Needs Orders Written 09/07/2024 Refill [facility] by [address] [address] Tri Sorenson MD 08/27/2024 Telephone [facility] [address] [phone] Tri Sorenson MD Medication Question from Last 3 Months Immunizations Immunization Administration [...] COVID-19 VACCINE - EMERGENCY USE AUTHORIZATION, MRNA, [id number](PF) 30 MCG/0.3 ML IM SUSP 10/01/2021 (PNEUMOVAX 23)(50 YRS UP) PN EUMOCOCCAL POLYSACCHARIDE (PPV23) 0.5 ML, IM 07/21/2018 (PREVNAR 13)(6 WKS UP) PNEUM OCOCCAL CONJUGATE (PCV13) 0.5 ML, IM 01/31/2015 (PREVNAR 20)(6 WKS UP) PNEUM OCOCCAL CONJUGATE VACCINE 20-VALENT (PCV20), POLYSACCHARIDE [id number] CONJUGATE, ADJUVANT 0.5 ML (PF) IM 11/01/2021 [...] [address] S tarted: 1979 Smokeless Tobacco: Never Tobacco Cessation:Counseling Given: Not Answered Alcohol Use Standard Drinks/Week Comments Yes 0 (1 standard drink = 0.6 oz pur e alcohol) Comments No Sex and Gender Information Value Date Recorded Sex Assigned at Female 03/12/2024 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 Legal Sex Female 8:50 AM CDT Gender Identity Female 03/12/2024 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 Sexual Orientation Choose not to disclose 2023 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 Last Filed Vital Signs Vital Sign Reading [...] CDT Office Visit [facility] by [facility] [address] [address] Tri Sorenson MD [address] [address] Health Maintenance Due Date Last Done Comments Pre-Diabetes and Diabetes Screening 1954 FIT/ DNA Q 3 YEARS (AUTO ORDER) 1972 FIT/FOBT Q 1 YEAR (AUTO ORDER) 1972 FIT-DNA Q 3 years 1999 FIT/FOBT Q 1 year 1999 Flex Sig/CT Colonography Q 5 years 1999 COVID-19 Vaccine (2023-2 5 season) 2023 02/04/2022, 10/01/2021, 05/13/2020, Additional history exists Medicare Ad[place]age ([place]) Preventative Visit/Annual Wellness Visit 03/24/2024 02/09/2024 INFLUENZA VACCINE (#1) 2024 3, 01/09/2021, 01/19/2020, Additional history exists BREAST CANCER [...] VW RIGHT Routine 11/09/2024 8:48 AM CDT XR SHOULDER 2+ VW LEFT Routine 10/02/2024 1:21 PM CDT MAMMOGRAM REPORT Routine 07/27/2024 2:14 PM CDT from Last 3 Months or Most Recently Relevant to Health Maintenance Results * XR SHOULDER 2+ VW LEFT (11/09/2024 8:50 AM CDT) Only the most recent of2 resultswithin the time period is included. Anatomical Region Laterality Modality Upper Extremity Other us Abstract Provider DIAGNOSTIC IMAGING ORDERABLES Final Result * XR SHOULDER 2+ VW RIGHT (11/09/2024 8:48 AM CDT) Anatomical Region Laterality Modality Upper Extremity Other us Abstract Provider DIAGNOSTIC IMAGING ORDERABLES Final Result * MAMMOGRAM REPORT (07/27/2024 2:14 PM CDT) us Abstract Provider MAMMO ORDERABLES Final Result [facility] BY [facility] CLIA# [id number] [address] [address] from Last 3 Months or Most Recently Relevant to Health Maintenance Insurance [facility] [id number] Care Teams Occupational Health Coordinator Relationship Specialty Start Date End Date Tri Sorenson MD [address] [phone] PCP - General Family Practice 11/03/23
--- OUTSIDE RECORDS SUMMARY | 2024-11-17 14:24 | XMS_ITS | Encounter Summary ---
Author Organization Address [address] [place] [address] Care Team Providers Care Rock Singer Name Role Phone Tri Sorenson MD Primary Care Provide r Reason for Visit * Reason Comments Results Encounter Details Date Type Department Care Team (Late st Contact Info) Description 04/21/2024 Telephone [facility] by [facility] [address] [address] Tri Sorenson MD 637 [facility] [address] [place] [address] Results Social History Tobacco Use Types Packs/Day Years Used Date Smoking Tobacco: Former Cigarettes 0.5 39 S tarted: 1979 Smokeless Tobacco: Never Alcohol Use Standard Drinks/Week Comments Yes 0 (1 standard drink = 0.6 oz pur e alcohol) Comments No Sex and Gender Information Value Date Recorded Sex Assigned at Female 03/12/2024 2:21 PM SHEAR HELPER Legal Sex Female 8:50 AM CDT Gender Identity Female 03/12/2024 2:21 PM SHEAR HELPER Sexual Orientation Choose not to disclose 2023 2:21 PM SHEAR HELPER documented as of this encounter Miscellaneous Notes * Telephone Encounter - Rose Garcia RN - 04/21/2024 12:21 PM SHEAR HELPER Just fyi regarding patients response to sleep study results. R HELPER * Telephone Encounter - Rose Garcia RN - 04/21/2024 12:19 PM SHEAR HELPER Patient also stated that she had her pneumonia (Capvaxibe) vaccine today at [facility]. Vaccination record updated. R HELPER * Telephone Encounter - Rose Garcia RN - 04/21/2024 12:10 PM SHEAR HELPER 04/21/2024 12:10 PM Called and notified patient [...] of call. Verbalized understanding. No further questions. R HELPER * Telephone Encounter - Tri Sorenson MD - 04/21/2024 11:15 AM SHEAR HELPER Looks like the final interpretation was updated [...] about this more if she wants appt. R HELPER * Telephone Encounter - Rose Garcia RN - 04/21/2024 9:07 AM SHEAR HELPER Patient inquiring about sleep study results. Noted results were scanned in chart Scan on 04/01/2024 . Noted that Yany called and left a message with [facility] on 04/14/24 regarding formal results of sleep study. She noted Call center if [facility] calls back please transfer to back line. Not sure if they called back regarding this. Please let me know if you want me to call [facility] again regarding this. ty R HELPER R HELPER * Telephone Encounter - Ashley Rojas - 04/21/2024 8:45 AM CST Copied from [facility] #[id number]. Topic: Patient or Caregiver Communication Request >> Apr 21, 2024 8:43 AM Massiel wrote: Patient or Caregiver requesting advice Caller: Leanne Larsen Patient/Caregiver Callback Number: [phone] (home) Call Notes: Leanne Larsen asking for the sleep study test results which 03/18/24. Please advisethe patient, she has made multiple calls to find out results. R HELPER documented in this encounter Plan of Treatment Upcoming Encounters Date Type Department Care Team (Late st Contact Info) Description 11/26/2024 8:30 AM CDT Office Visit [facility] by [facility] [address] [phone] Tri Sorenson MD [address] [phone] documented as of this encounter Visit Diagnoses Not on filedocumented in this encounter Additional Health Concerns Assessment Noted Time PHQ-9 Depression Total Score: 1 02/09/20 24 10:00 AM SHEAR HELPER documented as of this encounter Care Teams Rock Singer Relationship Specialty Start Date End Date Tri Sorenson MD [address] [facility] [address] [place] [phone] PCP - General Family Practice 11/03/23 documented as of this encounter
--- OUTSIDE RECORDS SUMMARY | 2024-11-17 14:24 | XMS_ITS | Encounter Summary ---
Author Organization [facility] Address [address] [facility] [place] [address] Care Team Providers Care Turn Down Attendant Name Role Phone Tri Sorenson MD Primary Care Provide r + Sherine Flor MD Unavailable [phone] Valentin Bañuelos MD Unavailable [phone] Sanford Gonzalez MD Unavailable [phone] Dwayne Hernandez RN Unavailable Unavailab le Jodi Cooper MD Primary Care Provider + 8 Tri Sorenson MD Primary Care Provide r + Jodi Cooper MD Primary Care Provider + Tri Sorenson MD Primary Care Provide r + Jodi Cooper MD Primary Care Provider + 8 Ashley Dyson MD Unavailable [phone] Jodi Cooper MD Unavailable Lior Cheek MD Unavailable [phone] Juvenal Whipple MD, Reinaldo Hyde Primary Care Provider Jodi Cooper MD Primary Care Provider + Jodi Cooper MD Unavailable Juvenal Whipple MD, Reinaldo Hyde Primary Care Provider Tri Sorenson MD Primary Care Provide r Tri Sorenson MD Unavailable +1-3 Tri Sorneson MD Unavailable +[phone] Tri Sorenson MD Unavailable +1-3 Jodi Cooper MD Unavailable Encounter Details Date Type Department Care Team (Late st Contact Info) Description 08/28/2017 Lab Requisition [facility] D[facility] Lab [address] [facility], [place] [address] Delta Mahajan MD RETIRED Social History Tobacco [...] PM CDT Legal Sex Female 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 Jar 0. 1:04 PM CDT DERMATOPATHOLOGY LABORATORY [...] characteristic determined by the Dermatopathology Laboratory at [facility]. These tests need not be, and therefore are not, approved by the [place] Food and Drug Administration. The tests are used for clinical purposes. Billing Codes Specimen Charges Stain Charges 87496 1 8 1:04 PM CDT DERMATOPATHOLOGY LABORATORY Embedded Images 8 1:04 PM CDT DERMATOPATHOLOGY LABORATORY Pathology/Cytolog y TISSUE SPECIMEN FROM SKIN / Unknown 08/27/2017 08/28/2017 11:47 AM CDT Delta Mahajan MD LAB - PATHOLOGY/CYTOLOGY ORD ERABLES Final Result DERMATOPATHOLOGY LABORATORY [facility] - Department of Dermatology [address] [place] [address], 5th Floor Lab [address] [phone] documented in this encounter Visit Diagnoses Not on filedocumented in this encounter Care Teams Turn Down Attendant Relationship Specialty Start Date End Date Tri [...] Medicine 02/27/18 10/12/19 Jodi Cooper MD [address] [place] [address] PCP - Attributed-[facility] 12/22/18 03/23/19 Reinaldo Sanford Jr., MD [address] [place] [address] PCP - General Family Medicine 10/13/19 10/28/19 Jodi Cooper MD PCP - General 10/29/19 10/30/19 Jodi Cooper MD [address] [place] [phone] PCP - Attributed-[facility] 09/22/19 09/09/22 Reinaldo Sanford Jr., MD [address] [place] [address] PCP - General 04/17/21 09/06/21 Tri Sorenson MD [address] [place] [address] PCP - General Family Medicine 09/07/21 Tri Sorenson MD [address] [address] PCP - Attributed-C MA 03/24/22 12/09/22 Tri Sorenson MD [address] [place] [address] PCP - Attributed-[facility] 12/12/16 07/29/18 Tri Sorenson MD [address] [place] [address] PCP - Attributed-[facility] 09/21/18 12/21/18 Jodi Cooper MD [address] [place] [address] PCP - Attributed-[facility] 07/30/18 09/20/18 Sherine Flor MD [address] [place] [address] Referring Physician General Surgery 04/16/15 Valentin Bañuelos MD [address] [place] [address] Radiation Oncologist Radiation Oncology 04/16/15 Sanford Gonzalez MD [address] [place] [address] Obstetrics and Gynecology 08/01/15 12/13/18 Dwayne Hernandez, RN 02/05/17 12/13/18 Ashley Dyson MD [address] [place] [address] Urogynecology 12/14/18 Lior Cheek MD [address] [place] [address] Orthopedic Surgery 03/31/19 04/13/19 documented as of this encounter
--- OUTSIDE RECORDS SUMMARY | 2024-11-17 14:24 | XMS_ITS | Encounter Summary ---
Author Organization [facility] Address [facility] [facility] [place] [address] Care Team Providers Care Heart Specialist Name Role Phone Sherine Flor MD Unavailable [phone] Ashley Dyson MD Unavailable [phone] Jodi Cooper MD Unavailable Juvenal Whipple MD, Reinaldo Hyde Primary Care Provider Tri Sorenson MD Primary Care Provide r Tri Sorenson MD Unavailable [phone] Encounter Details Date Type Department Care Team (Late st Contact Info) Description 12/30/2019 [facility] Outpatient Visit [facility] - Family Medicine [address] [place] [phone] Reinaldo Sanford Jr., MD [address] [place] [address] Social History Tobacco Use Types Packs/Day Years Used Date Smoking Tobacco: Former Cigarettes Q uit: 11/22/1997 Smokeless Tobacco: Never Alcohol Use Standard Drinks/Week Comments No 0 (1 standard drink = 0.6 oz pur e alcohol) Comments No Sex and Gender Information Value Date Recorded Sex Assigned at Female 06/10/2020 6:46 PM CDT 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 Gender Identity Female 06/10/2020 6:46 PM CDT Sexual Orientation Choose not to disclose 2020 6:46 PM CDT 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 Not on [...] on filedocumented in this encounter Care Teams Heart Specialist Relationship Specialty Start Date End Date Jodi Cooper MD [address] [place] [address] PCP - Attributed-[facility] 09/22/19 09/09/22 Reinaldo Sanford Jr., MD [address] [place] [address] PCP - General 04/17/21 09/06/21 Tri Sorenson MD [address] [place] [address] PCP - General Family Medicine 09/07/21 Tri Sorenson MD [address] [facility] [address] [place] [address] PCP - [facility] 03/24/22 Sherine Flor MD [address] [place] [address] Referring Physician General Surgery 04/16/15 Ashley Dyson MD [address] [place] [address] Urogynecology 12/14/18 documented as of this encounter
== END 2024-11-17 14:20 | disposition home or self-care (01) ==
PROVIDERS: Visit Provider Orthopaedic Surgery
DX: S42.292A Other displaced fracture of upper end of left humerus, initial encounter for closed fracture (principal); X58.XXXA Exposure to other specified factors, initial encounter; M19.012 Primary osteoarthritis, left shoulder
CPT/HCPCS: 73200

== ENCOUNTER 2024-11-19 11:22 | Outpatient (CLI) | payer MEDICARE, SELFPAY ==
--- NOTE | ~2024-11-19 | XR_ITS ---
EXAMINATION:XR cervical spine 4-5V DATE: 11/19/2024 12:12 INDICATION: Neck pain TECHNIQUE: AP, lateral, lateral flexion, lateral extension and odontoid views of the cervical spine are provided. COMPARISON: None FINDINGS: There is solid anterior fusion across the C6-C7 disc space. There is attempted anterior spinal fusion with plate and screw fixation at C5-C6 with residual lucency along the disc space. There is residual small amount of motion with the angles between the superior endplate of C5 and the inferior endplate of C7 are probably unchanged between neutral and extension at 4 degrees of dorsal angulation but with 12 degrees ventral angulation with the neck in flexion. There is a 2 mm lucency between the inferior margin of the plate and the anterior margin of the C6 vertebrae on the neutral and extension views which reduces to <1 mm on the flexion view. Odontoid is intact. Moderate osteoarthritis at the atlantoaxial articulation. Moderate disc height loss at C4-C5 with 2 mm retrolisthesis of C4 on C5 in extension, 1 mm in neutral which reduces to normal alignment with flexion. Normal alignment and disc spaces and the more cephalad cervical spine. Vertebral body heights are normal. Severe left-sided and moderate right-sided uncovertebral osteoarthritis at C4-C5. Mild to moderate uncovertebral osteoarthritis and more cephalad cervical spine. There is also multilevel bilateral moderate to severe facet osteoarthritis throughout the cervical spine most prominent at in the upper cervical spine. Prevertebral soft tissues are normal. IMPRESSION: 1. Moderate cervical spondylosis with solid anterior fusion without instrumentation at C6-C7 and with instrumented anterior spinal fusion at C5-C6. The C5-C6 disc space remains unfused with small amount of motion between the vertebral bodies with flexion. 2. Moderate disc height loss at C4-C5 with up to 2 mm transitory motion between flexion and extension. Reviewed, dictated and finalized at location A. IMPRESSION: 1. Moderate cervical spondylosis with solid anterior fusion without instrumenta tion at C6-C7 and with instrumented anterior spinal fusion at C5-C6. The C5-C6 disc space remains unfused with small amount of motion between the vertebral sujatha dies with flexion. 2. Moderate disc height loss at C4-C5 with up to 2 mm transitory motion between flexion and extension.
--- NOTE | ~2024-11-19 | XR_ITS ---
EXAMINATION: XR lumbar spine 2-3V DATE: 11/19/2024 12:12 INDICATION: Chronic midline low back pain TECHNIQUE: Anteroposterior and lateral views of the lumbar spine, and cone-down lateral view of the lumbosacral junction were obtained. COMPARISON: Lumbar spine MR dated 05/03/2023 FINDINGS: 15 degree dextroscoliosis measured between L1 and L3. 3 mm retrolisthesis L2 on L3 and 4 mm retrolisthesis L3 on L4. Vertebral body heights are normal. Severe left-sided predominant disc height loss with Modic type III sclerotic endplate changes at L2-L3. Mild disc height loss at remaining levels from T11-T12 through L4-L5. Moderate to severe lower lumbar predominant facet osteoarthritis. Sacral nerve root stimulator with lead in expected position extending through the left S3 neural foramen. Cholecystectomy clips in right upper quadrant. Partially visualized acetabular component of a likely bipolar type right hip hemiarthroplasty. IMPRESSION: 1. 15 degrees lumbar dextroscoliosis with spondylosis, severe at L2-L3 and otherwise mild. Reviewed, dictated and finalized at location A. IMPRESSION: 1. 15 degrees lumbar dextroscoliosis with spondylosis, severe at L2-L3 and othe rwise mild.
== END 2024-11-19 11:23 | disposition home or self-care (01) ==
LOC: MICIMG 11:25
PROVIDERS: PCP Orthopaedic Surgery
DX: M43.02 Spondylolysis, cervical region (principal); M43.06 Spondylolysis, lumbar region; M41.86 Other forms of scoliosis, lumbar region; M43.22 Fusion of spine, cervical region; G89.29 Other chronic pain; R29.890 Loss of height
CPT/HCPCS: 72050; 72100

== ENCOUNTER 2024-12-16 12:26 | Outpatient (CLI) | payer MEDICARE, SELFPAY ==
--- NOTE | 2024-12-16 12:49 | ECG_ITS ---
Test Date: 2024-12-16 13:01:44 Measurements Intervals [place] Rate: 60 P: 69 AL: 185 QRS: -38 QRSD: 95 T: 66 QT: 424 QTc: 424 Interpretive Statements SINUS RHYTHM LEFT AXIS DEVIATION [QRS AXIS < -30] INCOMPLETE RIGHT BUNDLE BRANCH BLOCK [90+ ms QRS DURATION, TERMINAL R IN V1/V2, 40+ ms S IN I/aVL/V4/V5/V6] No previous ECG available for comparison Electronically Signed On 12-16-2024 15:24:20 CDT by Rochelle Lam M.D.
[2024-12-16 13:31] LABS: Hematocrit 46.4 % (37.0-47.0); Hemoglobin 15.0 g/dL (12.0-15.0)
[2024-12-16 13:54] LABS: Albumin Level 4.4 g/dL (3.5-5.1); Estimated Glomerular Filt Rate > 60
== END 2024-12-16 12:27 | disposition home or self-care (01) ==
PROVIDERS: Visit Provider Orthopaedic Surgery
DX: M19.012 Primary osteoarthritis, left shoulder (principal); Z79.899 Other long term (current) drug therapy
CPT/HCPCS: 80307; 82040; 82565; 85014; 85018; 93005

== ENCOUNTER 2025-01-11 14:45 | Emergency (ER) | payer MEDICARE, SELFPAY ==
--- NOTE | 2025-01-11 14:52 | ED.FEMALEGU ---
HPI - Female Genitourinary General Chief complaint: Urogenital-Female Stated complaint: Uti Symptoms Time Seen by Provider: 01/11/25 15:05 Source: patient, RN notes reviewed and old records reviewed Mode of arrival: ambulatory Limitations: no limitations History of Present Illness HPI Narrative: 69-year-old female presents to the [facility] with concerns for UTI. Reports discoloration, abnormal smell, frequency and urgency. Denies any abdominal pain denies any back pain. Symptoms started yesterday. No treatment prior to arrival. History of UTI Onset (ago): day(s) (1) Related Data Home Medications ?Medication ?Instructions ?Recorded ?Confirmed ?Last Taken ?Type levothyroxine 75 mcg tablet 75 mcg PO DAILY 04/18/20 01/11/25 03/26/22 History (Synthroid) biotin 1,250 mcg-collagen 50 1 tablet PO DAILY 03/26/22 01/11/25 03/26/22 History mg-vit C 67.5 mg-vit E-herbal chew tablet vitamin B complex 1 cap PO DAILY 03/26/22 01/11/25 03/26/22 History chlorthalidone 25 mg tablet 25 mg PO DAILY 12/30/22 01/11/25 Unknown History furosemide 20 mg tablet 20 mg PO BID PRN Edema 05/14/23 01/11/25 Unknown History linaclotide 290 mcg capsule 290 mcg PO DAILY PRN Constipation 05/14/23 01/11/25 Unknown History (Linzess) meloxicam 7.5 mg tablet 7.5 mg PO DAILY 05/14/23 01/11/25 Unknown History pravastatin 10 mg tablet 10 mg PO DAILY 11/19/23 01/11/25 Unknown History pregabalin 300 mg capsule 300 mg PO DAILY 12/30/23 01/11/25 Unknown History trazodone 50 mg tablet 50 mg PO DAILY 12/30/23 01/11/25 Unknown History famotidine 20 mg tablet mg 04/08/24 12/06/24 Unknown History Allergies Allergy/AdvReac Type Severity Reaction Status Date / Time fentanyl AdvReac Severe Nausea Verified 01/11/25 14:57 erythromycin base AdvReac Mild Rash Verified 01/11/25 14:57 Penicillins AdvReac Mild Nausea Verified 01/11/25 14:57 Review of Systems Review of Systems: All systems reviewed & are unremarkable except as noted in HPI and below Constitutional: Constitutional: Reports no additional constitutional complaints Cardiovascular: Cardiovascular: Reports no additional cardiovascular complaints, Denies chest pain and Denies dyspnea Respiratory: Respiratory: Reports no additional respiratory complaints, Denies chest congestion, Denies cough and Denies dyspnea Gastrointestinal: Gastrointestinal: Reports no additional gastrointestinal complaints Genitourinary: Genitourinary: Reports as per HPI Musculoskeletal: Musculoskeletal: Reports no additional musculoskeletal complaints Integumentary/Breasts: Skin/Breast: Reports system reviewed and no additional complaints, except as docu PMFSH Past Medical History Medical History PONV (postoperative nausea and vomiting) Anxiety Hypothyroidism Osteoarthritis GERD (gastroesophageal reflux disease) Hyperlipidemia Foot drop, 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 History of Mohs micrographic surgery for skin cancer (~2014) History of skin cancer History of breast cancer Surgical History Surgical History Status post total hip replacement, right (~07/18/20) History of hysterectomy History of spinal fusion fusion C5-6 History of cholecystectomy History of appendectomy Hx of breast surgery (~2015) Family History Family History Mother Lung cancer Heart disease Hypertension Father Heart disease Hypertension Social History Social History Years smoked: 30 Smoking status: Former smoker Tobacco type: cigarettes Smoking end date: 03/24/10 Additional smoking assessment comments: DENIES ANY FORM OF TOBACCO USE Alcohol intake: never Substance use: never Do You Feel Safe in your Home?: Yes Lack of Transportation: No Lack of Food: Never True Current Housing: I Have Housing Concerned About Future Housing: No Difficulty Paying Gas/Electric Bills: No Difficulty Paying for Meds: No Currently Unemployed: No Education: High School Diploma/GED Difficulty w/ Childcare or Family Care: No Living arrangements: with family Gender identity (if verbalized by the patient): Female Sexual Orientation (if Verbalized by the Patient): Straight or Heterosexual Spiritual care concerns: No Comments At the time of my signature, I reviewed and agree with the nursing past medical, surgical, social, and family history. There is no relevant family history pertinent to the patient complaint. Exam Const: General: cooperative, healthy appearing, comfortable, no acute distress, well developed, alert and well nourished Nutritional Appearance: well nourished Orientation/consciousness: patient oriented x3 Limitations: no limitations HENMT: Head: normal to inspection Mouth: Yes Normal oral and palatal mucosa present, Yes lip normal, Yes tongue normal and Yes moist mucous membranes Eyes: General: appearance normal, both eyes and all related structures Alignment and Position: alignment normal Neck: Neck: normal visual inspection, full ROM, no lymphadenopathy and no meningeal signs Chest: Chest palpation & inspection: normal inspection of the chest Resp: Effort & Inspection: normal respiratory effort and able to speak in complete sentences Auscultation: clear to auscultation bilaterally, no crackles, no rales, no rhonchi and no wheezes Cardio: Rate: regular rate GI: GI Palp: No abdominal tenderness : General: Yes no CVA tenderness Skin: General skin exam: normal color and no rashes or lesions noted Neuro: General: patient oriented x3, gait normal, moves all extremities and no meningeal signs Cognition (Neuro): normal cognition Speech: normal speech Gait exam (Neuro): Normal gait present Extrem: General: normal to inspection, full ROM, capillary refill normal and normal gait Psych: Appearance: grossly normal and well kempt Mental Status: mental status grossly normal Speech and movement: Normal speech and movement present and Clear speech present Affect: normal affect Attitude: cooperative Course Course Level of Care: Express Care Visit Vital Signs Vital signs: Vital Signs Temperature 97.1 F L 01/11/25 14:57 Pulse Rate 54 L 01/11/25 14:57 Respiratory Rate 16 01/11/25 14:57 Blood Pressure 143/80 H 01/11/25 14:57 Pulse Oximetry 99 01/11/25 14:57 Temperature 97.1 F L 01/11/25 14:57 Pulse Rate 54 L 01/11/25 14:57 Respiratory Rate 16 01/11/25 14:57 Blood Pressure 143/80 H 01/11/25 14:57 Pulse Oximetry 99 01/11/25 14:57 Reviewed MDM - Female Genitourinary MDM Narrative Medical decision making narrative: Patient sitting in exam room. Patient is nontoxic, vitals stable. Patient presents with concerns for a UTI. Positive blood positive leukocytes. Will send for culture, cover with Bactrim. Patient appropriate for outpatient treatment with close follow-up Discharge instructions reviewed with patient, as well as provided in writing per nursing staff. The instructions also include specific and strict return/GO TO THE ER as well as f/u information. All questions have been answered, and the patient deny any further questions with discharge and discharge plan. Some parts of this dictation were generated by voice recognition software and may contain typographical and/or grammatical inaccuracies. Differential Diagnosis Differential diagnosis: Likely urinary tract infection and cystitis Lab Data Labs: Lab Results 01/11/25 Range/Units 15:06 POC Urine Color Yellow POC Urine Clarity Cloudy POC Urine pH 6.0 POC Ur Specif Camp 1.025 POC Urine Protein Negative (Negative) POC Ur Glucose (UA) Negative (Negative) POC Urine Ketones Negative (Negative) POC Urine Blood Trace (Negative) POC Urine Nitrite Negative (Negative) POC Urine Bilirubin Negative (Negative) POC Urine Urobilinogen 0.2 POC U Leukocyte Esteras 2+ (Negative) Reviewed Critical Care Time Critical Care Time Critical Care Time: No Discharge Plan Discharge Clinical Impression: Urinary tract infection Qualifiers: Urinary tract infection type: acute cystitis Hematuria presence: with hematuria Qualified Code(s): N30.01 - Acute cystitis with hematuria Patient Disposition: Home Condition: Stable Instructions: Antibiotic Form, Urinary Tract Infection in Women (ED) Additional Instructions: Increased water intake Take Tylenol as needed for pain Take antibiotic as prescribed Today your urine dip showed a probability of a UTI. You have been prescribed an antibiotic. Your urine will be sent to our lab for a culture. If at that time a bacteria grows that is not covered by the antibiotic prescribed you will be notified. Follow-up with primary care For new or worsening symptoms go directly to the emergency room Patient Language: German Prescriptions: New sulfamethoxazole-trimethoprim [Bactrim DS] 800-160 mg tablet 1 tablet PO Q12H Qty: 10 0RF No Action (DME) Aerochamber MV Spacer See Rx Instructions .Route Qty: 1 0RF Rx Instructions: As directed albuterol sulfate 90 mcg/actuation HFA aerosol inhaler 2 puff inhalation QID PRN (Reason: shortness of breath or wheezing) Qty: 6.7 0RF chlorthalidone 25 mg tablet 25 mg PO DAILY trazodone 50 mg tablet 50 mg PO DAILY pregabalin 300 mg capsule 300 mg PO DAILY famotidine 20 mg tablet levothyroxine [Synthroid] 75 mcg tablet 75 mcg PO DAILY Linzess 290 mcg capsule 290 mcg PO DAILY PRN (Reason: Constipation) pravastatin 10 mg tablet 10 mg PO DAILY furosemide 20 mg tablet 20 mg PO BID PRN (Reason: Edema) meloxicam 7.5 mg tablet 7.5 mg PO DAILY vitamin B complex Capsule 1 cap PO DAILY jqkaue-rvzljbmw-jux C-E-herbal 1,250 mcg-50 mg -67.5 mg-15 mg Tablet,Chewable 1 tablet PO DAILY Follow-up/Referrals: PHYSICIAN,CHARGE ACCOUNT CLERK [Primary Care Provider, Internal Medicine] Time of Disposition: 15:15
[2025-01-11 14:57] VITALS: BP 143/80; PULSE 54; RESP 16; TEMP 36.2; O2SAT 99
[2025-01-11 15:08] LABS: EDUAAPPEAR Cloudy; EDUABILI Negative (Negative); EDUABLOOD Trace (Negative); EDUACOLOR1 Yellow; EDUAGLUCOSE Negative (Negative); EDUAKETONE Negative (Negative); EDUALEUKO 2+ (Negative); EDUANITRATE Negative (Negative); EDUAPH 6.0; EDUAPROTEIN Negative (Negative); EDUASPGRAVITY 1.025; EDUAUROBILI 0.2
== END 2025-01-11 15:20 | disposition home or self-care (01) ==
PROVIDERS: Emergency Provider Nurse Practitioner
DX: N30.01 Acute cystitis with hematuria (principal); E03.9 Hypothyroidism, unspecified; E78.5 Hyperlipidemia, unspecified; Z85.3 Personal history of malignant neoplasm of breast; Z85.828 Personal history of other malignant neoplasm of skin; Z87.891 Personal history of nicotine dependence; Z79.899 Other long term (current) drug therapy
CPT/HCPCS: 81003; 87077; 87086; 87186; 99213; G0463

== ENCOUNTER 2025-02-11 11:43 | Outpatient (CLI) | payer MEDICARE, SELFPAY ==
--- OUTSIDE RECORDS SUMMARY | 2025-02-11 11:56 | XMS_ITS | Encounter Summary ---
Author Organization [facility] Address [facility] [place] [address] Care Team Providers Care Plastic Sheeting Cutter Name Role Phone Tri Sorenson MD Primary Care Provide r + Sherine Flor MD Unavailable [phone] Valentin Bañuelos MD Unavailable [phone] Sanford Gonzalez MD Unavailable [phone] Dwayne Hernandez RN Unavailable Unavailab le Jodi Cooper MD Primary Care Provider + 8 Tri Sorenson MD Primary Care Provide r + Jodi Cooper MD Primary Care Provider + 8 Tri Sorenson MD Primary Care Provide r + Jodi Cooper MD Primary Care Provider + 8 Ashley Dyson MD Unavailable [phone] Jodi Cooper MD Unavailable Lior Cheek MD Unavailable [phone] Juvenal Whipple MD, Reinaldo Hyde Primary [...] st Contact Info) Description 08/28/2017 Lab Requisition [facility] [address] [facility] [address], [place] [address] Delta Mahajan MD RETIRED Social History Tobacco Use Types Packs/Day Years Used Date Smoking Tobacco: Former Cigarettes 0 Q uit: 11/22/1997 Smokeless Tobacco: Never Comments:2 YRS AGO Alcohol Use Standard Drinks/Week Comments No 0 (1 standard drink = 0.6 oz pur e alcohol) Comments No Sex and Gender Information Value Date Recorded Sex Assigned at Female 06/10/2020 6:46 PM CDT Legal Sex Female 6:25 AM FILM WRITER Gender Identity Female 06/10/2020 6:46 PM CDT Sexual Orientation Choose not to disclose 2020 6:46 PM CDT 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 Jar 0. 1:04 PM CDT DERMATOPATHOLOGY LABORATORY [...] characteristic determined by the Dermatopathology Laboratory at [facility]. These tests need not be, and therefore are not, approved by the [place] Food and Drug Administration. The tests are used for clinical purposes. Billing Codes Specimen Charges Stain Charges 19714 1 8 1:04 PM CDT DERMATOPATHOLOGY LABORATORY Embedded Images 8 1:04 PM CDT DERMATOPATHOLOGY LABORATORY Pathology/Cytolog y TISSUE SPECIMEN FROM SKIN / Unknown 08/27/2017 08/28/2017 11:47 AM CDT Delta Mahajan MD LAB - PATHOLOGY/CYTOLOGY ORD ERABLES Final Result DERMATOPATHOLOGY LABORATORY [facility] - Department of Dermatology [address] [place] [address], 5th Floor Lab [address] [phone] documented in this encounter Visit Diagnoses Not on filedocumented in this encounter Care Teams Plastic Sheeting Cutter Relationship Specialty Start Date End Date Tri [...] Medicine 02/27/18 10/12/19 Jodi Cooper MD [address] [place] [address] PCP - Attributed-Ex[facility] 12/22/18 03/23/19 Reinaldo Sanford Jr., MD [address] [place] [address] PCP - General Family Medicine 10/13/19 10/28/19 Jodi Cooper MD PCP - General 10/29/19 10/30/19 Jodi Cooper MD [address] [place] [phone] PCP - Attributed-[facility] 09/22/19 09/09/22 Reinaldo Sanford Jr., MD [address] [place] [address] PCP - General 04/17/21 09/06/21 Tri Sorenson MD [address] [place] [address] PCP - General Family Medicine 09/07/21 Tri Sorenson MD [address] [address] PCP - Attributed-[facility] [place] 03/24/22 12/09/22 Tri Sorenson MD [address] [place] [address] PCP - Attributed-[facility] 12/12/16 07/29/18 Tri Sorenson MD [address] [place] [address] PCP - Attributed-Exclusive Choice 09/21/18 12/21/18 Jodi Cooper MD [address] [place] [address] PCP - Attributed-Exclusive Choice 07/30/18 09/20/18 Sherine Flor MD [address] [place] [address] Referring Physician General Surgery 04/16/15 Valentin Bañuelos MD [address] [place] [address] Radiation Oncologist Radiation Oncology 04/16/15 Sanford Gonzalez MD [address] [place] [address] Obstetrics and Gynecology 08/01/15 12/13/18 Dwayne Hernandez, RN 02/05/17 12/13/18 Ashley Dyson MD [address] [place] [address] Urogynecology 12/14/18 Lior Cheek MD [address] [place] [address] Orthopedic Surgery 03/31/19 04/13/19 documented as of this encounter
--- OUTSIDE RECORDS SUMMARY | 2025-02-11 11:56 | XMS_ITS | Encounter Summary ---
Author Organization [facility] Address [facility] [place] [address] Care Team Providers Care Chief Of Party Name Role Phone Tri Sorenson MD Primary Care Provider [phone] Reason for Referral * Surgical (Routine) - Pending Review Specialty Diagnoses / Procedures Referred By Sherri t Referred To Contact Diagnoses Varicose veins of lower extremity with pain, left Procedures Case request operating room: STAB PHLEBECTOMY (LEFT LEG) Sanford Martines MD [facility]. [address] [place] [address] Phone: tel: fax: Referral ID Status Reason Start Date Expiration Date V isits Requested Visits Authorized [id number] Pending Review 11/26/2024 11/26/2025 1 1 Encounter Details Date Type Department Care Team (Late st Contact Info) Description 11/26/2024 Prep for Procedure [facility], [facility] [address] [place], [place] [id number] Sanford Martines MD [facility]. [facility] [address] [place] [address] Social History Tobacco Use Types Packs/Day Years [...] Care Team (Late st Contact Info) Description 03/09/2025 9:15 AM CUSTOMS VERIFIER [facility] [address] [place] [address] Sanford Mratines MD [facility]. [facility] [address] [place] [address] Scheduled Orders Name Type Priority Associated Diagnoses Orde r Schedule Case request operating room: STAB PHLEBECTOMY (LEFT LEG) Case Request Routine Varicose veins of lower extremity with pain, left Once for 1 Occurrences starting 11/26/2024 until 11/26/2024 documented as of this encounter Results * (ABNORMAL) COMPREHENSIVE METABOLIC PANEL (01/28/2025 9:23 AM CUSTOMS VERIFIER) [facility] GLUCOSE 99 70 - 99 MG/DL 01/28/2025 10:03 AM [facility] BUN 21(H) 7 - 18 MG/DL 01/28/2025 10:03 AM [facility] CREATININE S/P/B 0.85 0.55 - 1.02 MG/DL 01/28/2025 10:03 AM [facility] SODIUM S/P/B 141 136 - 145 MMOL/L 01/28/2025 10:03 AM [facility] POTASSIUM S/P/B 3.8 3.5 - 5.1 MMOL/L 01/28/2025 10:03 AM [facility] CHLORIDE S/P/B 108 97 - 115 MMOL/L 01/28/2025 10:03 AM [facility] CO2 31.5 21 - 32 MMOL/L 01/28/2025 10:03 AM [facility] CALCIUM S/P/B 9.5 8.5 - 10.1 MG/DL 01/28/2025 10:03 AM [facility] BILIRUBIN TOTAL S/P/B 0.7 0.2 - 1.2 MG/DL 01/28/2025 10:03 AM [facility] Comment: THIS ASSAY IS NOT RECOMMENDED FOR PATIENTS UNDERGOING TREATMENT WITH ELTROMBOPAG DUE TO THE POTENTIAL FOR FALSELY ELEVATED RESULTS. TOTAL PROTEIN S/P/B 6.6 6.4 - 8.2 G/DL 01/28/2025 10:03 AM [facility] ALBUMIN S/P/B 3.5 3.4 - 5.0 G/DL 01/28/2025 10:03 AM [facility] AST 17 15 - 37 U/L 01/28/2025 10:03 AM [facility] ALT 32 14 - 55 U/L 01/28/2025 10:03 AM [facility] ALKALINE PHOSPHATASE S/P/B 58 50 - 136 U/L 01/28/2025 10:03 AM [facility] ANION GAP 1.5(L) 2 - 10 MMOL/L 01/28/2025 10:03 AM [facility] BUN CREATININE RATIO 24.7 6 - 26 01/28/2025 10:03 AM [facility] A/G RATIO 1.1 1.0 - 2.0 RATIO 01/28/2025 10:03 AM [facility] GFR ESTIMATE 74(L) >90 ML/MIN/1.7 3 M2 01/28/2025 10:03 AM [facility] Comment: NOTE: eGFR is not calculated for patients <18 years of age or gender unknown. This is an estimated GFR calculation using the new CKD EPI creatinine equation without race and so does not require a correction factor for race. This estimated GFR should not be used for calculating drug doses. 01/28/2025 9:23 AM CUSTOMS VERIFIER Sanford Martines MD LABORATORY Final Result [facility] [address] [place] [address], * (ABNORMAL) CBC W/DIFF AUTOMATED (01/28/2025 9:23 AM CUSTOMS VERIFIER) WBC 9.00 4.5 - 11.0 x10'3/uL 01/28/2025 9:35 AM [facility] RBC 5.06 4.20 - 5.40 x10'6/uL 01/28/2025 9:35 AM [facility] HGB 14.9 12.0 - 16.0 G/DL 01/28/2025 9:35 AM [facility] HCT 45.2 38.0 - 48.0 % 01/28/2025 9:35 AM [facility] MCV 89.3 81.0 - 99.0 FL 01/28/2025 9:35 AM [facility] MCH 29.4 27.0 - 31.0 PG 01/28/2025 9:35 AM [facility] MCHC 33.0 32.0 - 36.0 G/DL 01/28/2025 9:35 AM [facility] RDW 14.6(H) 11.5 - 14.5 % 01/28/2025 9:35 AM [facility] PLT 282 130 - 400 x10'3/uL 01/28/2025 9:35 AM [facility] MPV 9.6 9.3 - 12.2 FL 01/28/2025 9:35 AM [facility] DIFFERENTIAL TYPE AUTOMATED DIFFERENTIAL 01/28/2025 9:35 AM [facility] NEUTROPHILS % 61.8 % 01/28/2025 9:35 AM [facility] LYMPHOCYTES % 27.7 % 01/28/2025 9:35 AM [facility] MONOCYTES % 8.9 % 01/28/2025 9:35 AM [facility] EOSINOPHILS 0.8 % 01/28/2025 9:35 AM [facility] BASOPHILS 0.4 % 01/28/2025 9:35 AM [facility] IMMATURE GRANS % 0.4 % 01/29/20 9:35 AM [facility] ABS. NEUTROPHILS 5.56 1.80 - 7.70 x10'3/uL 01/28/2025 9:35 AM [facility] ABS. LYMPHOCYTES 2.49 1.00 - 4.80 x10'3/uL 01/28/2025 9:35 AM [facility] ABS. MONOCYTES 0.80 0.24 - 0.86 x10'3/uL 01/28/2025 9:35 AM [facility] ABS. EOSINOPHILS 0.07 0.04 - 0.36 x10'3/uL 01/28/2025 9:35 AM [facility] ABS. BASOPHILS 0.04 0.01 - 0.08 x10'3/uL 01/28/2025 9:35 AM [facility] ABS. IMMATURE GRANULOCYTES 0.04 0.00 - 0.49 x10'3/uL 01/28/2025 9:35 AM [facility] 01/28/2025 9:23 AM CUSTOMS VERIFIER us Sanford Martines MD LABORATORY Final Result [facility] [address] [place] [address], documented in this encounter Visit Diagnoses Diagnosis Varicose veins of lower extremity with pain, left- Primary documented in this encounter Additional Health Concerns Assessment Noted Time PHQ-9 Depression Total Score: 2 12/09/19 21 11:40 AM CDT documented as of this encounter Care Teams Chief Of Party Relationship Specialty Start Date End Date Tri Sorenson MD PCP - General FAMILY PRACTICE 10/17/20 documented as of this encounter
--- OUTSIDE RECORDS SUMMARY | 2025-02-11 11:56 | XMS_ITS | Encounter Summary ---
Author Organization [facility] Address [facility] [place] [address] Care Team Providers Care [employer] Special Education Teacher Name Role Phone Tri Sorenson MD Primary Care Provider [phone] Encounter Details Date Type Department Care Team (Late Contact Info) Description 12/27/2021 MyChart Message Enc [facility] - [place] [id number] [facility] [address] [place] [address] Hadley Mcfarland MD [address] [place], [place] [id number] Test at [facility] Social History Tobacco Use Types Packs/Day Years [...] Department Care Team (Late Contact Info) Description 03/09/2025 9:15 AM FIELD TRAINING MANAGER [facility] [address] [place] [address] Sanford Martines MD [facility] [address] [place] [address] documented as of this encounter Visit Diagnoses Not on filedocumented in this encounter Additional Health Concerns Assessment Noted Time PHQ-9 Depression Total Score: 2 12/09/19 21 11:40 AM CDT documented as of this encounter Care Teams [employer] Special [employer] Teacher Relationship Specialty Start Date End Date Tri Sorenson MD PCP - General FAMILY PRACTICE 10/17/20 documented as of this encounter
--- OUTSIDE RECORDS SUMMARY | 2025-02-11 11:56 | XMS_ITS | Encounter Summary ---
Author Organization [facility] Address [facility] [place] [address] Care Team Providers Care Director Of Patient Care Name Role Phone Tri Sorenson MD Primary Care Provider [phone]- [phone] Encounter Details Date Type Department Care Team (Late st Contact Info) Description 02/10/2022 MyChart Message Enc [facility] Medical Group Neu[facility] - [place] [id number] [facility] [address] [place] [address] Hadley Mcfarland MD [address] [place] [address] Nerves Social History Tobacco Use Types [...] Coronavirus/COVID-19? No / Unsure 02/06/2022 6:42 AM BELT LINE FEEDER documented as of this encounter Progress Notes * Radha Ayers MA - 02/11/2022 4:18 PM CST Pt stated she has had injections but has not seen any improvement. LINE FEEDER * Radha Ayers MA - 02/11/2022 3:38 PM CST Please review. LINE FEEDER documented in this encounter Plan of Treatment Upcoming Encounters Date Type Department Care Team (Late st Contact Info) Description 03/09/2025 9:15 AM BELT LINE FEEDER Office Visit [facility] [address] [place] [phone] Sanford Martines MD [address] [address] documented as of this encounter Visit Diagnoses Not on filedocumented in this encounter Additional Health Concerns Assessment Noted Time PHQ-9 Depression Total Score: 2 12/09/19 21 11:40 AM CDT documented as of this encounter Care Teams Director Of Patient Care Relationship Specialty Start Date End Date Tri Sorenson MD PCP - General FAMILY PRACTICE 10/17/20 documented as of this encounter
--- OUTSIDE RECORDS SUMMARY | 2025-02-11 11:56 | XMS_ITS | Encounter Summary ---
Author Organization [facility] Address [facility] [place] [address] Care Team Providers Care Director Of Business Development Name Role Phone Sherine Flor MD Unavailable [phone] Jodi Cooper MD Primary Care Provider [phone] Ashley Dyson MD Unavailable [phone] Juvenal Whipple MD, Reinaldo Hyde Primary Care Provider Jodi Cooper MD Primary Care Provider [phone] Jodi Cooper MD Unavailable Juvenal Whipple MD, Reinaldo Hyde Primary Care Provider Tri Sorenson MD Primary Care Provide r Tri Sorenson MD Unavailable [phone] Encounter Details Date Type Department Care Team (Late st Contact Info) Description 06/23/2019 [facility] Outpatient Visit [facility] Medical [facility] - Family Medicine [address] [place] [phone] Jodi Cooper MD [address] [place] [address] Social History Tobacco Use Types Packs/Day Years Used Date Smoking Tobacco: Former Cigarettes 0 Q uit: 11/22/1997 Smokeless Tobacco: Never Alcohol Use Standard Drinks/Week Comments No 0 (1 standard drink = 0.6 oz pur e alcohol) Comments No Sex and Gender Information Value Date Recorded Sex Assigned at Female 06/10/2020 6:46 PM CDT Legal Sex Female 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 Gender Identity Female 06/10/2020 6:46 PM CDT Sexual Orientation Choose not to disclose 2020 6:46 PM CDT 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 Not on [...] on filedocumented in this encounter Care Teams Director Of Business Development Relationship Specialty Start Date End Date Jodi Cooper MD [address] [address] PCP - General Family Medicine 02/27/18 10/12/19 Reinaldo Sanford Jr., MD [address] [place] [address] PCP - General Family Medicine 10/13/19 10/28/19 Jodi Cooper MD [address] [place] [address] PCP - General 10/29/19 10/30/19 Jodi Cooper MD [address] [place] [phone] PCP - Attributed-[facility] 09/22/19 09/09/22 Reinaldo Sanford Jr., MD [address] [place] [address] PCP - General 04/17/21 09/06/21 Tri Sorenson MD [address] [place] [phone] PCP - General Family Medicine 09/07/21 Tri Sorenson MD [address] [place] [address] PCP - Attributed-[facility] [place] 03/24/22 Sherine Flor MD [address] [place] [address] Referring Physician General Surgery 04/16/15 Ashley Dyson MD [address] [place] [phone] Urogynecology 12/14/18 documented as of this encounter
--- OUTSIDE RECORDS SUMMARY | 2025-02-11 11:56 | XMS_ITS | Encounter Summary ---
Author Organization [facility] Address [facility] [place] [address] Care Team Providers Care Cell Operation Supervisor Name Role Phone Tri Sorenson MD Primary Care Provider [phone]- [phone] Encounter Details Date Type Department Care Team (Late Contact Info) Description 03/18/2021 [employer] Message Enc [facility] Medical Group Family Medicine [facility] [address] [place], [place] [phone] Tri Sorenson MD [address] [place] [phone] Flu Symptoms Social History Tobacco Use [...] st Contact Info) Description 03/09/2025 9:15 AM TESTER FOOD PRODUCTS Office Visit [facility] [address] [place] [phone] Sanford Martines MD [address] [place] [address] documented as of this encounter Visit Diagnoses Not on filedocumented in this encounter Additional Health Concerns Assessment Noted Time PHQ-9 Depression Total Score: 2 12/09/19 21 11:40 AM CDT documented as of this encounter Care Teams Cell Operation Supervisor Relationship Specialty Start Date End Date Tri Sorenson MD PCP - General FAMILY PRACTICE 10/17/20 documented as of this encounter
--- OUTSIDE RECORDS SUMMARY | 2025-02-11 11:56 | XMS_ITS | Encounter Summary ---
Author Organization [facility] Address [facility] [place] [address] Care Team Providers Care Tuckpointer Cleaner Caulker Name Role Phone Tri Sorenson MD Primary Care Provider [phone]- [phone] Encounter Details Date Type Department Care Team (Late Contact Info) Description 11/26/2024 Prep for Procedure [facility] [address] [place], [place] [phone] Sanford Martines MD [facility]. 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 [facility] [address] [place], [place] [phone] documented as of this encounter Visit Diagnoses Not on filedocumented in this encounter Additional Health Concerns Assessment Noted Time PHQ-9 Depression Total Score: 2 12/09/19 21 11:40 AM CDT documented as of this encounter Care Teams Tuckpointer Cleaner Caulker Relationship Specialty Start Date End Date Tri Sorenson MD PCP - General FAMILY PRACTICE 10/17/20 documented as of this encounter
--- OUTSIDE RECORDS SUMMARY | 2025-02-11 11:56 | XMS_ITS | Encounter Summary ---
Author Organization [facility] Address [address] [place] [address] Care Team Providers Care Core Analysis Operator Name Role Phone Tri Sorenson MD Primary Care Provide r Reason for Visit * Reason Comments Results Encounter Details Date Type Department Care Team (Late st Contact Info) Description 04/21/2024 Telephone 65 [facility] by [facility] [address] [address] Tri Sorenson MD [address] [facility] [address] [place] [address] Results Social History Tobacco Use Types Packs/Day Years Used Date Smoking Tobacco: Former Cigarettes 0.5 39 S tarted: 1978 Smokeless Tobacco: Never Alcohol Use Standard Drinks/Week Comments Yes 0 (1 standard drink = 0.6 oz pur e alcohol) Comments No Sex and Gender Information Value Date Recorded Sex Assigned at Female 03/12/2024 2:21 PM BLADE SHARPENER Legal Sex Female 8:50 AM CDT Gender Identity Female 03/12/2024 2:21 PM BLADE SHARPENER Sexual Orientation Choose not to disclose 2023 2:21 PM BLADE SHARPENER documented as of this encounter Miscellaneous Notes * Telephone Encounter - Rose Garcia RN - 04/21/2024 12:21 PM BLADE SHARPENER Just fyi regarding patients response to sleep study results. E SHARPENER * Telephone Encounter - Rose Garcia RN - 04/21/2024 12:19 PM BLADE SHARPENER Patient also stated that she had her pneumonia (Capvaxibe) vaccine today at [facility]. Vaccination record updated. E SHARPENER * Telephone Encounter - Rose Garcia RN - 04/21/2024 12:10 PM BLADE SHARPENER 04/21/2024 12:10 PM Called and notified patient [...] of call. Verbalized understanding. No further questions. E SHARPENER * Telephone Encounter - Tri Sorenson MD - 04/21/2024 11:15 AM BLADE SHARPENER Looks like the final interpretation was updated [...] about this more if she wants appt. E SHARPENER * Telephone Encounter - Rose Garcia RN - 04/21/2024 9:07 AM BLADE SHARPENER Patient inquiring about sleep study results. Noted results were scanned in chart Scan on 04/01/2024 . Noted that Yany called and left a message with [facility] on 04/14/24 regarding formal results of sleep study. She noted Call center if [facility] calls back please transfer to back line. Not sure if they called back regarding this. Please let me know if you want me to call [facility] again regarding this. ty E SHARPENER E SHARPENER * Telephone Encounter - Ashley Rojas - 04/21/2024 8:45 AM CST Copied from [facility] #[id number]. Topic: Patient or Caregiver Communication Request >> Apr 21, 2024 8:43 AM Ashley Manzanares wrote: Patient or Caregiver requesting advice Caller: Leanne Larsen Patient/Caregiver Callback Number: [phone] (home) Call Notes: Leanne Larsen asking for the sleep study test results which 03/18/24. Please advisethe patient, she has made multiple calls to find out results. E SHARPENER documented in this encounter Plan of Treatment Upcoming Encounters Date Type Department Care Team (Late st Contact Info) Description 06/02/2025 9:30 AM CDT Office Visit [facility] [address] [place] [address] [phone] Tri Sorenson MD [address] [address] 12/01/2025 9:30 AM CDT Office Visit [address] [facility] [address] [place] [address] [phone] Tri Sorenson MD [address] [address] documented as of this encounter Visit Diagnoses Not on filedocumented in this encounter Additional Health Concerns Assessment Noted Time PHQ-9 Depression Total Score: 1 02/09/20 24 10:00 AM BLADE SHARPENER documented as of this encounter Care Teams Core Analysis Operator Relationship Specialty Start Date End Date Tri Sorenson MD [address] [phone] PCP - General Family Practice 11/03/23 documented as of this encounter
--- OUTSIDE RECORDS SUMMARY | 2025-02-11 11:56 | XMS_ITS | Encounter Summary ---
Author Organization [facility] Address [address] [place] [address] Care Team Providers Care Belt Back Operator Name Role Phone Sherine Flor MD Unavailable [phone] Ashley Dyson MD Unavailable Tri Sorenson MD Primary Care Provide r Reason for Visit * Reason Onset Date Comments Discuss Surgery 09/04/2023 Encounter Details Date Type Department Care Team (Late st Contact Info) Description 09/04/2023 Telephone [facility] - Centralized Scheduling [address] [place] [address] Ashley Dyson MD [address] [place] [address] Discuss Surgery Social History Tobacco [...] PM CDT Legal Sex Female 6:25 AM 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 Pt can be reached at [phone]. documented in this encounter Plan of Treatment [...] on filedocumented in this encounter Care Teams Belt Back Operator Relationship Specialty Start Date End Date Tri Sorenson MD [address] [phone] PCP - General Family Medicine 09/07/21 Sherine Flor MD [address] [place] [address] Referring Physician General Surgery 04/16/15 Ashley Dyson MD [address] [place] [phone] Urogynecology 12/14/18 documented as of this encounter
--- OUTSIDE RECORDS SUMMARY | 2025-02-11 11:56 | XMS_ITS | Encounter Summary ---
Author Organization [facility] Address [facility] [place] [address] Care Team Providers Care Ichthyologist Name Role Phone Tri Sorenson MD Primary Care Provider [phone]- [phone] Encounter Details Date Type Department Care Team (Late Contact Info) Description 01/22/2021 [employer] Message Enc [facility] Medical Group Family Medicine [place] [address] [place], [place] [phone] Tri Sorenson MD [address] [place] [phone] RE: Medication Questions Social History Tobacco [...] st Contact Info) Description 03/09/2025 9:15 AM REGULATORY COORDINATOR Office Visit [facility] [address] [place] [address] Sanford Martines MD [facility] [address] [place] [address] documented as of this encounter Visit Diagnoses Not on filedocumented in this encounter Additional Health Concerns Assessment Noted Time PHQ-9 Depression Total Score: 2 12/09/19 21 11:40 AM CDT documented as of this encounter Care Teams Ichthyologist Relationship Specialty Start Date End Date Tri Sorenson MD PCP - General FAMILY PRACTICE 10/17/20 documented as of this encounter
--- OUTSIDE RECORDS SUMMARY | 2025-02-11 11:56 | XMS_ITS | Encounter Summary ---
Author Organization [facility] Address [facility] [place] [address] Care Team Providers Care Appliquer Zigzag Name Role Phone Tri Sorenson MD Primary Care Provider [phone]- [phone] Encounter Details Date Type Department Care Team (Late Contact Info) Description 09/22/2024 Prep for Procedure [facility] [address] [place], [place] [phone] Sanford Martines MD [facility]. [facility] [address] [place], [place] [phone] Social History Tobacco Use Types Packs/Day Years [...] st Contact Info) Description 03/09/2025 9:15 AM FITNESS PROFESSIONAL [facility] [address] [place] [phone] Sanford Martines MD [facility]. [facility] [address] [place], [place] [phone] documented as of this encounter Visit Diagnoses Not on filedocumented in this encounter Additional Health Concerns Assessment Noted Time PHQ-9 Depression Total Score: 2 12/09/19 21 11:40 AM CDT documented as of this encounter Care Teams Appliquer Zigzag Relationship Specialty Start Date End Date Tri Sorenson MD PCP - General FAMILY PRACTICE 10/17/20 documented as of this encounter
--- OUTSIDE RECORDS SUMMARY | 2025-02-11 11:56 | XMS_ITS | Encounter Summary ---
Author Organization [facility] Address [facility] [place] [address] Care Team Providers Care Medical Staff Coordinator Name Role Phone Tri Sorenson MD Primary Care Provider +1- [phone] Encounter Details Date Type Department Care Team (Late st Contact Info) Description 07/23/2021 [employer] Message Enc [facility] Medical Group Family Medicine [facility] [address] [place], [place] [phone] Tri Sorenson MD [address] [place] [phone] Test Social History Tobacco Use Types [...] st Contact Info) Description 03/09/2025 9:15 AM WIRELESS COMMUNICATIONS ENGINEER Office Visit [facility] [address] [place] [address] Sanford Martines MD [address] [place] [address] documented as of this encounter Visit Diagnoses Not on filedocumented in this encounter Additional Health Concerns Assessment Noted Time PHQ-9 Depression Total Score: 2 12/09/19 21 11:40 AM CDT documented as of this encounter Care Teams Medical Staff Coordinator Relationship Specialty Start Date End Date Tri Sorenson MD PCP - General FAMILY PRACTICE 10/17/20 documented as of this encounter
--- OUTSIDE RECORDS SUMMARY | 2025-02-11 11:56 | XMS_ITS | Encounter Summary ---
Author Organization [facility] Address [facility] [place] [address] Care Team Providers Care Horse And Wagon Driver Name Role Phone Tri Sorenson MD Primary Care Provider +1- [phone] Encounter Details Date Type Department Care Team (Late st Contact Info) Description 04/27/2021 [employer] Message Enc [facility] Medical Group Family Medicine [facility] [address] [place], [place] [phone] [employer], [facility] Provider Refills from [employer] Social History Tobacco [...] st Contact Info) Description 03/09/2025 9:15 AM FLAME GOUGER Office Visit [facility] [address] [place] [phone] Sanford Martines MD [facility] [address] [place] [address] documented as of this encounter Visit Diagnoses Not on filedocumented in this encounter Additional Health Concerns Assessment Noted Time PHQ-9 Depression Total Score: 2 12/09/19 21 11:40 AM CDT documented as of this encounter Care Teams Horse And Wagon Driver Relationship Specialty Start Date End Date Tri Sorenson MD PCP - General FAMILY PRACTICE 10/17/20 documented as of this encounter
--- OUTSIDE RECORDS SUMMARY | 2025-02-11 11:56 | XMS_ITS | Clinical Summary ---
Author Organization [facility] Address [facility] [place] [address] Care Team Providers Care Plaster Model And Mold Maker Name Role Phone Tri Sorenson MD Primary Care Provider [phone]- [phone] Allergies Active Allergy Reactions Criticality Noted Date Comments Erythromycin Nausea Only High 08/26/2008 Fentanyl Nausea Only,Nausea and Vomiting High 07/2008 Penicillins Nausea Only,Rash High 06/23/2009 Medications B Complex Vitamins (VITAMIN B COMPLEX) Tab 2 Active traZODone (DESYREL) 50 MG tabletIndications: Primary insomnia TAKE 1 TABLET BY MOUTH AT NIGHT AT BEDTIME 90 tablet 3 2 Active levothyroxine (SYNTHROID) 75 MCG tabletIndications: Acquired hypothyroidism TAKE 1 TABLET BY MOUTH IN THE MORNING 90 tablet 3 2 Active meloxicam (MOBIC) 7.5 MG tablet Take 1 tablet (7.5 mg total) by mouth daily. 3 Active linaCLOtide (LINZESS) 290 MCG capsule Take 1 capsule (290 mcg total) by mouth daily as needed. Take on empty stomach at least 30 minutes prior to first meal of the day. Swallow whole. Do not open capsule or chew. Active Pregabalin 300 MG Cap Take 1 capsule by mouth nightly. 4 Active pravastatin (PRAVACHOL) 10 MG tablet Take 1 tablet (10 mg total) by mouth. 5 Active famotidine (PEPCID) 20 MG tablet Take 1 tablet (20 mg total) by mouth 2 (two) times daily. 5 Active propranolol (INDERAL) 40 MG tablet Take 1 tablet (40 mg total) by mouth 2 (two) times daily. 5 Active albuterol sulfate HFA 108 (90 Base) MCG/ACT inhaler Inhale 2 puffs into the lungs every 4 (four) hours as needed. 5 Active chlorthalidone (HYGROTEN) 25 MG tablet Take 1 tablet (25 mg total) by mouth daily. 5 Active Apoaequorin (PREVAGEN OR) Take 1 tablet by mouth daily. Neurvana is current brand Active Probiotic Product (ALIGN) Chew Tab Chew 1 tablet by mouth daily. Active HYDROcodone-acetam inophen (NORCO) 5-325 MG tabletIndications: Acute Pain < 7 Day Supply Take 1 tablet by mouth every 6 (six) hours as needed. Indications: Acute Pain < 7 Day Supply 10 tablet 5 Active albuterol sulfate HFA 108 (90 Base) MCG/ACT inhaler 4 025 Discontin ued(Error ) Active Problems Problem Noted Date Diagnosed Date Acute pain of right shoulder 11/26/2024 Arthritis of right knee 11/26/2024 Atypical nevus 11/26/2024 Chronic seasonal allergic rhinitis 11/26/2024 COVID 11/26/2024 Fall 11/26/2024 Fracture of head of left humerus 11/26/2024 Lumbar back pain 11/26/2024 Primary osteoarthritis of right hip 11/26/2024 Right hip pain 11/26/2024 Sensorineural hearing loss of combined sites, bi lateral 11/26/2024 Status post total hip replacement, right 025 Tympanosclerosis, left ear 11/26/2024 Varicose veins of lower extremity with pain, lef t 11/26/2024 Varicose veins of left lower extremity with pain 11/24/2024 Intercostal pain 11/04/2023 Overview (08/25/2024): APR23: A [...] History of malignant neoplasm of breast 07/20/19 Marital conflict 07/19/2022 Overview (08/25/2024): Continues to [...] salad Evening snack - pringles A&P: Offered saw boss referral, declines at this time, wants to see if she is able to get more activity and lose the weight, will work on adding in more fruits and vegetables Pain in both lower extremities 04/04/2022 Constipation 11/01/2021 Overview (04/05/2022): Uses Linzess as needed with good relief Eating more prunes lately A&P: No changes Pulmonary emphysema, unspecified emphysema type 07/11/2021 Overview (11/01/2021): Used to be on [...] on lyrica A&P: F/u per Dr. Cornell, [facility] maintenance 10/17/2020 Overview (11/02/2021): Colon screening: overdue -agreeable for referral today Lung screening: Breast screening: just had 5 years cancer free; will continue f/u with local care A&P referred for colonoscopy, would like to continue lung ca screening (we've previously discussed risk and benefits of screening); Prevnar 20 today Assessment & Plan (10/17/2020 7:51 [...] Requesting Percocet. MRI ordered. Need to see promotion specialist after MRI. Right foot drop 04/25/2017 Overview (03/27/2022): 04/24/2018: Ongoing problem. Seeing a neurologist. She continues to have painful paresthesia affecting her right lower extremity both proximal and distal in the sciatic nerve distribution as well as right peroneal nerve distribution Has been referred to a neurologist at [facility]. Scheduled to see her next week. [...] S/p bladder sling with Dr. Dyson with [facility]; still follows Has issues now with retention [...] Encounters Date Type Department Care Team Description 01/28/2025 10:04 AM REIMBURSEMENT REPRESENTATIVE Anesthesia Event [facility] [place] [address] Josey Bolanos MD Jarvis, Brittany L, CIVIL RIGHTS INVESTIGATOR 01/28/2025 9:30 AM REIMBURSEMENT REPRESENTATIVE - 01/28/2025 11:01 AM REIMBURSEMENT REPRESENTATIVE Surgery [facility] [place] [address] Sanford Cornell MD STAB PHLEBECTOMY (LEFT LEG) 01/28/2025 9:18 AM REIMBURSEMENT REPRESENTATIVE - 01/28/2025 11:55 AM REIMBURSEMENT REPRESENTATIVE Hospital Encounter [facility] [place] [address] Sanford Cornell MD Discharge Disposition: Home or Self Care (Routine Discharge) 01/28/2025 9:17 AM REIMBURSEMENT REPRESENTATIVE Hospital Encounter [facility] [address] Sanford Cornell MD Discharge Disposition: Home or Self Care (Routine Discharge) 01/28/2025 Travel 01/20/2025 365looks Message Enc [facility] [place] [address] Jake [facility] Provider Surgery instructions 01/20/2025 Travel 01/06/2025 11:20 AM CDT - 01/06/2025 11:40 AM CDT Surgery [facility] [place] [address] [phone] Tanesha Walsh MD BLOCK SACROILIAC JOINT 01/06/2025 10:18 AM CDT - 01/06/2025 11:41 AM CDT Hospital Encounter [facility] [place] [address] [phone] Tanesha Walsh MD Discharge Disposition: Home or Self Care (Routine Discharge) 01/06/2025 Travel 11/26/2024 Prep for Procedure [facility] [address] [address] Sanford Cornell MD 11/26/2024 Prep for Procedure [facility] [address] [facility], [address] [place] [address] Sanford Cornell MD 11/24/2024 11:15 AM CDT Office Visit [facility] [address] [place] [address] Sanford Cornell MD Follow Up 11/24/2024 Travel 11/18/2024 Telephone [facility] [place] [address] [phone] Marina Jones RN Follow Up from Last 3 Months Immunizations Immunization Administration Dates Next Due Arexvy Respiratory Syncytial Virus (RSV, adjuvanted) 0.5 mL, PF 12/04/2022 Flublok (Quadrivalent) 12/31/2019 Fluzone High Dose - >Age 65 (Prefilled Syringe) 01/09/2021 Influenza (Generic) 12/31/2019, 8,12/16/2016,2015,11/22/2014 Influenza Adult (Generic) 12/14/2018 PFIZER COVID-19 (ORIGINAL [...] 10/18/2015 Smokeless Tobacco: Never Tobacco Cessation:Counseling Given: Not Answered Alcohol Use Standard Drinks/Week Comments Not Currently [...] Sign Reading Time Taken Comments Blood Pressure 147/76 01/28/2025 11:45 AM REIMBURSEMENT REPRESENTATIVE Pulse 60 01/28/2025 11:45 AM REIMBURSEMENT REPRESENTATIVE Temperature 36.7 C (98.1 F) 01/28/2025 10:44 AM REIMBURSEMENT REPRESENTATIVE Respiratory Rate 16 01/28/2025 11:45 AM REIMBURSEMENT REPRESENTATIVE Oxygen Saturation 97% 01/28/2025 11:45 AM REIMBURSEMENT REPRESENTATIVE Inhaled Oxygen Concentration - - Weight 75.3 kg (166 lb 0.1 oz) 01/28/2025 9:40 A M REIMBURSEMENT REPRESENTATIVE Height 167.6 cm (5' 6) 01/28/2025 9:40 AM REIMBURSEMENT REPRESENTATIVE Body Mass Index 26.79 01/28/2025 9:40 AM REIMBURSEMENT REPRESENTATIVE Plan of Treatment Upcoming Encounters Date Type Department Care Team (Late st Contact Info) Description 03/09/2025 9:15 AM REIMBURSEMENT REPRESENTATIVE Office Visit [facility] [address] [place] [address] Sanford Cornell MD [address] [phone] Health Maintenance Due Date Last Done Comments Lung Cancer Screening 2004 Annual Medicare Wellness Visit 2019 COVID-19 Vaccine ( season) 2024 02/04/2022, 10/01/2021, 11/21/2020, Additional history exists Influenza Adult (#1) 2024 01/09/2021, 12/31/2019, 12/31/2019, Additional history exists Mammogram Screening 07/27/2026 07/27/2024, [...] Completed 04/21/2024, 11/01/2021, 07/21/2018, Additional history exists Hepatitis A Vaccines Aged Out No long er eligible based on patient's age to complete this topic Meningococcal B Vaccine Aged Out No l onger eligible based on patient's age to complete this topic Meningococcal Vaccine Aged Out No ranulfo silvestre eligible based on patient's age to complete this topic RSV Immunizations Under 20 Months Aged Out No longer eligible based on patient's age to complete this topic Procedures Procedure Name Priority Date/Time Associated Diagnosis Comments LIGATION VEIN STRIPPING 01/28/2025 10:04 AM REIMBURSEMENT REPRESENTATIVE Varicose veins of lower extremity with pain, left Case Notes SCHED BY SOPHIA 11/26/2024 [facility] PHONE ASSESS COMPREHENSIVE METABOLIC PANEL Routine 01/28/2025 9:23 AM REIMBURSEMENT REPRESENTATIVE Varicose veins of lower extremity with pain, left CBC W/DIFF AUTOMATED Routine 01/28/2025 9:23 AM REIMBURSEMENT REPRESENTATIVE Varicose veins of lower extremity with pain, left PATHOLOGY Routine 01/28/2025 12:00 AM REIMBURSEMENT REPRESENTATIVE INJECTION,SACROILIAC JOINT 01/06/2025 11:25 AM CDT SI joint arthritis XR PAIN CLINIC C-ARM Today 01/06/2025 10:52 AM CDT COLONOSCOPY GENERIC (SCAN ORDER) 04/08/2022 BONE DENSITY GENERIC (SCAN ORDER) 12/13/2020 HEPATITIS C ANTIBODY 10/19/2020 10:49 AM CDT from Last 3 Months or Most Recently Relevant to Health Maintenance Results * (ABNORMAL) COMPREHENSIVE METABOLIC PANEL (01/28/2025 9:23 AM [facility]) [facility] GLUCOSE 99 70 - 99 MG/DL 01/28/2025 10:03 AM [facility] BUN 21(H) 7 - 18 MG/DL 01/28/2025 10:03 AM [facility] CREATININE S/P/B 0.85 0.55 - 1.02 MG/DL 01/28/2025 10:03 AM [facility] SODIUM S/P/B 141 136 - 145 MMOL/L 01/28/2025 10:03 AM [facility] POTASSIUM S/P/B 3.8 3.5 - 5.1 MMOL/L 01/28/2025 10:03 AM [facility] CHLORIDE S/P/B 108 97 - 115 MMOL/L 01/28/2025 10:03 AM [facility] CO2 31.5 21 - 32 MMOL/L 01/28/2025 10:03 AM [facility] CALCIUM S/P/B 9.5 8.5 - 10.1 MG/DL 01/28/2025 10:03 AM [facility] BILIRUBIN TOTAL S/P/B 0.7 0.2 - 1.2 MG/DL 01/28/2025 10:03 AM [facility] Comment: THIS ASSAY IS NOT RECOMMENDED FOR PATIENTS UNDERGOING TREATMENT WITH ELTROMBOPAG DUE TO THE POTENTIAL FOR FALSELY ELEVATED RESULTS. TOTAL PROTEIN S/P/B 6.6 6.4 - 8.2 G/DL 01/28/2025 10:03 AM [facility] ALBUMIN S/P/B 3.5 3.4 - 5.0 G/DL 01/28/2025 10:03 AM [facility] AST 17 15 - 37 U/L 01/28/2025 10:03 AM [facility] ALT 32 14 - 55 U/L 01/28/2025 10:03 AM [facility] ALKALINE PHOSPHATASE S/P/B 58 50 - 136 U/L 01/28/2025 10:03 AM [facility] ANION GAP 1.5(L) 2 - 10 MMOL/L 01/28/2025 10:03 AM [facility] BUN CREATININE RATIO 24.7 6 - 26 01/28/2025 10:03 AM [facility] A/G RATIO 1.1 1.0 - 2.0 RATIO 01/28/2025 10:03 AM [facility] GFR ESTIMATE 74(L) >90 ML/MIN/1.7 3 M2 01/28/2025 10:03 AM [facility] Comment: NOTE: eGFR is not calculated for patients <18 years of age or gender unknown. This is an estimated GFR calculation using the new CKD EPI creatinine equation without race and so does not require a correction factor for race. This estimated GFR should not be used for calculating drug doses. 01/28/2025 9:23 AM REIMBURSEMENT REPRESENTATIVE Sanford Cornell MD LABORATORY Final Result [facility] [address] [place] [address], [place] [phone] * (ABNORMAL) CBC W/DIFF AUTOMATED (01/28/2025 9:23 AM [facility]) WBC 9.00 4.5 - 11.0 x10'3/uL 01/28/2025 9:35 AM [facility] RBC 5.06 4.20 - 5.40 x10'6/uL 01/28/2025 9:35 AM [facility] HGB 14.9 12.0 - 16.0 G/DL 01/28/2025 9:35 AM [facility] HCT 45.2 38.0 - 48.0 % 01/28/2025 9:35 AM [facility] MCV 89.3 81.0 - 99.0 FL 01/28/2025 9:35 AM [facility] MCH 29.4 27.0 - 31.0 PG 01/28/2025 9:35 AM [facility] MCHC 33.0 32.0 - 36.0 G/DL 01/28/2025 9:35 AM [facility] RDW 14.6(H) 11.5 - 14.5 % 01/28/2025 9:35 AM [facility] PLT 282 130 - 400 x10'3/uL 01/28/2025 9:35 AM [facility] MPV 9.6 9.3 - 12.2 FL 01/28/2025 9:35 AM [facility] DIFFERENTIAL TYPE AUTOMATED DIFFERENTIAL 01/28/2025 9:35 AM [facility] NEUTROPHILS % 61.8 % 01/28/2025 9:35 AM [facility] LYMPHOCYTES % 27.7 % 01/28/2025 9:35 AM [facility] MONOCYTES % 8.9 % 01/28/2025 9:35 AM [facility] EOSINOPHILS 0.8 % 01/28/2025 9:35 AM [facility] BASOPHILS 0.4 % 01/28/2025 9:35 AM [facility] IMMATURE GRANS % 0.4 % 01/29/20 9:35 AM REIMBURSEMENT REPRESENTATIVE [facility] ABS. NEUTROPHILS 5.56 1.80 - 7.70 x10'3/uL 01/28/2025 9:35 AM REIMBURSEMENT REPRESENTATIVE [facility] ABS. LYMPHOCYTES 2.49 1.00 - 4.80 x10'3/uL 01/28/2025 9:35 AM REIMBURSEMENT REPRESENTATIVE [facility] ABS. MONOCYTES 0.80 0.24 - 0.86 x10'3/uL 01/28/2025 9:35 AM REIMBURSEMENT REPRESENTATIVE [facility] ABS. EOSINOPHILS 0.07 0.04 - 0.36 x10'3/uL 01/28/2025 9:35 AM REIMBURSEMENT REPRESENTATIVE [facility] ABS. BASOPHILS 0.04 0.01 - 0.08 x10'3/uL 01/28/2025 9:35 AM REIMBURSEMENT REPRESENTATIVE [facility] ABS. IMMATURE GRANULOCYTES 0.04 0.00 - 0.49 x10'3/uL 01/28/2025 9:35 AM [facility] 01/28/2025 9:23 AM REIMBURSEMENT REPRESENTATIVE us Sanford Cornell MD LABORATORY Final Result Performing Organization Address City/State/[facility] Co de Phone Number [facility] [address] [place] [address], * Pathology (01/28/2025 12:00 AM REIMBURSEMENT REPRESENTATIVE) PATHOLOGY [facility] Department of Laboratory Medicine [address] [place] [address] , extension [phone] Pathology Report Surgical Pathology Report Name: KAILA LARSEN Specimen #: [id number] Age: 2 1955 (Age: 69) Location: [facility] Sex: F Procedure Date: 01/28/2025 [facility] #: [id number] Date Received: 01/31/2025 Date Reported: 02/01/2025 Provider: SANFORD CORNELL MD Source: Varicose vein, left leg Clinical History: Varicose veins, left FINAL DIAGNOSIS: Varicose vein, left leg, phlebectomy: -Fragments of benign vascular tissue (clinically, varicose veins) Gross Description: Received in formalin, labeled with a patient's label and as left leg varicose veins, is a 1.6 x 1.1 x 0.4 cm aggregate of tubular white-stokes rubbery tissue fragments. Sections reveal white-stokes rubbery cut surfaces. There are no grossly identifiable masses or lesions. [employer] sections are submitted in cassette 1. Gross examination (when applicable) was performed at [facility], [address] [place] [address]. This case was interpreted and signed out at [facility], [address] [place] [address]. Electronically Signed Out KINDRA BIRD MD [facility] TISSUE (OTHER (TYPE IN COMMENTS)) 01/28/2025 10:33 AM REIMBURSEMENT REPRESENTATIVE Sanford Cornell MD PATHOLOGY/CYTOLOGY ORDERABLES Fi nal Result [facility] [address] [place] [address], [id number] * XR PAIN CLINIC C-ARM (01/06/2025 10:52 AM CDT) Narrative Radiology, Technologist - 01/06/2025 10:52 AM CDT This report does not contain [...] with a HCV Nucleic Acid Amplification test ([id number]). 10/19/2020 10:4 9 AM CDT 10/19/2020 Narrative [facility] - 10/20/2020 4:06 AM CDT Performed at: 01 - [facility] [address] [id number] Code Official: Daniel Faith PhD, Phone: [phone] us Tri Sorenson MD LABORATORY Final Resu lt Performing Organization Address City/State/[facility] Co de Phone Number [facility] [address] [place] [address] [facility] 1 from Last 3 Months or Most Recently Relevant to Health Maintenance Insurance [facility] MEDICARE Care Teams Plaster Model And Mold Maker Relationship Specialty Start Date End Date Tri Sorenson MD PCP - General FAMILY PRACTICE 10/17/20
--- OUTSIDE RECORDS SUMMARY | 2025-02-11 11:56 | XMS_ITS | Encounter Summary ---
Author Organization [facility] Address [facility] [place] [address] Care Team Providers Care Windows Laptop Technician Name Role Phone Tri Sorenson MD Primary Care Provider +1- [phone] Encounter Details Date Type Department Care Team (Late Contact Info) Description 12/07/2020 DC Deviceshart Message Enc [facility] Family Medicine [facility] [address] [place], [place] [phone] Tri Sorenson MD [address] [place] [phone] Question Social History Tobacco Use Types [...] (Late Contact Info) Description 03/09/2025 9:15 AM BAKER PASTRY Office Visit [facility] [address] [place] [address] Sanford Martines MD [facility] [address] [place] [address] documented as of this encounter Visit Diagnoses Not on filedocumented in this encounter Care Teams Windows Laptop Technician Relationship Specialty Start Date End Date Tri Sorenson MD PCP - General FAMILY PRACTICE 10/17/20 documented as of this encounter
--- OUTSIDE RECORDS SUMMARY | 2025-02-11 11:56 | XMS_ITS | Encounter Summary ---
Author Organization [facility] Address [address] [place] [address] Care Team Providers Care Pocket And Pulley Machine Operator Name Role Phone Tri Sorenson MD Primary Care Provide r Reason for Visit * Reason Comments Question Encounter Details Date Type Department Care Team (Late st Contact Info) Description 10/15/2023 Telephone [facility] [address] [facility] [address] [place] [address] Tri Sorenson MD [address] [facility] [address] [place] [address] Question Social History Tobacco Use Types Packs/Day Years Used Date Smoking Tobacco: Never Assessed Comments Unknown Sex and Gender Information Value Date Recorded Sex Assigned at Female 03/12/2024 2:21 PM STEERSMAN Legal Sex Female 8:50 AM CDT Gender Identity Female 03/12/2024 2:21 PM STEERSMAN Sexual Orientation Choose not to disclose 2023 2:21 PM STEERSMAN documented as of this encounter Miscellaneous Notes * Telephone Encounter - Yaneth Hi - 10/23/2023 3:35 PM CDT LVM for pt to call office back * Telephone Encounter - Erika Caceres - 10/15/2023 4:49 PM CDT Copied from [facility] #[id number]. Topic: Patient or Caregiver Communication Request >> Oct 15, 2023 4:43 PM Erika Cordero wrote: Patient or Caregiver requesting advice Caller: leanne Patient/Caregiver Callback Number: [phone] (home) Call Notes: Patient states insurance [facility] stated they aren't sure if dr. [...] CDT Office Visit [facility] [place] [address] [address] Tri Sorenson MD [address] [address] 12/01/2025 9:30 AM CDT Office Visit [facility] [place] [address] [address] [place] [phone] Tri Sorenson MD [address] [address] documented as of this encounter Visit Diagnoses Not on filedocumented in this encounter Care Teams Pocket And Pulley Machine Operator Relationship Specialty Start Date End Date Tri Sorenson MD [address] [place] [address] PCP - General Family Practice 11/03/23 documented as of this encounter
--- OUTSIDE RECORDS SUMMARY | 2025-02-11 11:56 | XMS_ITS | Encounter Summary ---
Author Organization [facility] Address [facility] [place] [address] Care Team Providers Care Quality Control Representative Name Role Phone Tri Sorenson MD Primary Care Provider +1- [phone] Encounter Details Date Type Department Care Team (Late st Contact Info) Description 02/20/2022 Candid iohart Message Enc [facility] Medical [facility] Family Medicine [facility] [address] [place], [place] [phone] Tri Sorenson MD [address] [place] [phone] Leg pain Social History Tobacco Use [...] Coronavirus/COVID-19? No / Unsure 02/06/2022 6:42 AM NUCLEAR MEDICINE CHIEF TECHNOLOGIST documented as of this encounter Progress Notes * Lalitha Ayoub RN - 02/21/2022 8:39 AM CSTFrom: Leanne Larsen To: Dr. Tri Sorenson Sent: 02/20/2022 4:51 PM NUCLEAR MEDICINE CHIEF TECHNOLOGIST Subject: Leg pain Dr Andrade said: besides asper cream and bio freeze I don't have any treatment options. Please ask her tocheck with her PCP to see if they have other options. Ivory RN EAR MEDICINE CHIEF TECHNOLOGIST documented in this encounter Plan of Treatment Upcoming Encounters Date Type Department Care Team (Late st Contact Info) Description 03/09/2025 9:15 AM NUCLEAR MEDICINE CHIEF TECHNOLOGIST [facility] [address] [place] [address] Sanford Martines MD [address] [address] documented as of this encounter Visit Diagnoses Not on filedocumented in this encounter Additional Health Concerns Assessment Noted Time PHQ-9 Depression Total Score: 2 12/09/19 21 11:40 AM CDT documented as of this encounter Care Teams Quality Control Representative Relationship Specialty Start Date End Date Tri Sorenson MD PCP - General FAMILY PRACTICE 10/17/20 documented as of this encounter
--- OUTSIDE RECORDS SUMMARY | 2025-02-11 11:56 | XMS_ITS | Encounter Summary ---
Author Organization [facility] Address [facility] [place] [address] Care Team Providers Care Deicer Tester Name Role Phone Tri Sorenson MD Primary Care Provider +1- [phone] Encounter Details Date Type Department Care Team (Late Contact Info) Description 08/30/2024 MyChart Message Enc [facility] [facility] [address] [place] [address] Sanford Martines MD [facility] [address] [place], [place] [phone] Right leg Social History Tobacco Use Types [...] st Contact Info) Description 03/09/2025 9:15 AM DOCTOR OF CHIROPRACTIC Office Visit [facility] [address] [place] [address] Sanford Martines MD [facility] [address] [place], [place] [phone] documented as of this encounter Visit Diagnoses Not on filedocumented in this encounter Additional Health Concerns Assessment Noted Time PHQ-9 Depression Total Score: 2 12/09/19 21 11:40 AM CDT documented as of this encounter Care Teams Deicer Tester Relationship Specialty Start Date End Date Tri Sorenson MD PCP - General FAMILY PRACTICE 10/17/20 documented as of this encounter
--- OUTSIDE RECORDS SUMMARY | 2025-02-11 11:56 | XMS_ITS | Encounter Summary ---
Author Organization [facility] Address [facility] [place] [address] Care Team Providers Care Ticket Marker Name Role Phone Tri Sorenson MD Primary Care Provider [phone]- [phone] Encounter Details Date Type Department Care Team (Late Contact Info) Description 12/27/2021 MyChart Message Enc [facility] Medical [facility] Neu[facility] - [place] [id number] [facility] [address] [place] [address] Hadley Mcfarland MD [address] [place] [phone] More test results Social History Tobacco [...] (Late Contact Info) Description 03/09/2025 9:15 AM MANAGEMENT ASSISTANT Office Visit [facility] [address] [place] [address] Sanford Martines MD [facility] [address] [place] [address] documented as of this encounter Visit Diagnoses Not on filedocumented in this encounter Additional Health Concerns Assessment Noted Time PHQ-9 Depression Total Score: 2 12/09/19 21 11:40 AM CDT documented as of this encounter Care Teams Ticket Marker Relationship Specialty Start Date End Date Tri Sorenson MD PCP - General FAMILY PRACTICE 10/17/20 documented as of this encounter
--- OUTSIDE RECORDS SUMMARY | 2025-02-11 11:56 | XMS_ITS | Encounter Summary ---
Author Organization [facility] Address [facility] [place] [address] Care Team Providers Care Sandwich Machine Operator Name Role Phone Tri Sorenson MD Primary Care Provider +1- [phone] Encounter Details Date Type Department Care Team (Late st Contact Info) Description 09/26/2021 AppliLoghart Message Enc [facility] Medical Group Family Medicine [facility] [address] [place], [place] [phone] Tri Sorenson MD [address] [place] [phone] Blood work Social History Tobacco Use [...] st Contact Info) Description 03/09/2025 9:15 AM DISTRIBUTION ESTIMATOR Office Visit [facility] [address] [place] [phone] Sanford Martines MD [place] [address] [place] [address] documented as of this encounter Visit Diagnoses Not on filedocumented in this encounter Additional Health Concerns Assessment Noted Time PHQ-9 Depression Total Score: 2 12/09/19 21 11:40 AM CDT documented as of this encounter Care Teams Sandwich Machine Operator Relationship Specialty Start Date End Date Tri Sorenson MD PCP - General FAMILY PRACTICE 10/17/20 documented as of this encounter
--- OUTSIDE RECORDS SUMMARY | 2025-02-11 11:56 | XMS_ITS | Encounter Summary ---
Author Organization [facility] Address [address] [place] [address] Care Team Providers Care Pc Maintenance Technician Name Role Phone Tri Sorenson MD Primary Care Provide r Reason for Visit * Reason Comments Needs Orders Written Encounter Details Date Type Department Care Team (Late st Contact Info) Description 11/30/2024 Telephone [facility] [address] [address] Tri Sorenson MD [address] [facility] [address] [place] [address] Needs Orders Written Social History Tobacco Use Types Packs/Day Years Used Date Smoking Tobacco: Former Cigarettes 0.5 39 S tarted: 1978 Passive Smoke Exposure: Never Smokeless Tobacco: Never Alcohol Use Standard Drinks/Week Comments Yes 0 (1 standard drink = 0.6 oz pur e alcohol) Comments No Sex and Gender Information Value Date Recorded Sex Assigned at Female 03/12/2024 2:21 PM GAMBLING CASHIER Legal Sex Female 8:50 AM CDT Gender Identity Female 03/12/2024 2:21 PM GAMBLING CASHIER Sexual Orientation Choose not to disclose 2023 2:21 PM GAMBLING CASHIER documented as of this encounter Miscellaneous Notes * Telephone Encounter - Radha Brewer Consuelo - 11/30/2024 3:34 PM CDT Copied from [facility] #[id number]. Topic: CPA Information Request - Order or Referral Request >> Nov 30, 2024 3:27 PM Radha B wrote: Caller Name: Leanne Larsen Patient/Caregiver Callback Number: Telephone Information: Call Notes: Patient stated she was given PT referral but she needed this to go to [facility] Physical Therapy - [facility] PT Caller is requesting: New Referral Has the patient been seen for this issue? YES Requests Referral to Specialty: Physical Therapy Reason for referral (Symptoms / Diagnosis): M25.512 Previously discussed with provider? Yes Is patient requesting a certain provider or facility? Yes Provider / Facility contact information: [facility] Physical [place], [place] Date of Service: documented in this encounter Plan of Treatment Upcoming Encounters Date Type Department Care Team (Late st Contact Info) Description 06/02/2025 9:30 AM CDT Office Visit [facility] [place] [address] [place] [phone] Tri Sorenson MD [address] [phone] 12/01/2025 9:30 AM CDT Office Visit [facility] [place] [address] [place] [address] Tri Sorenson MD [address] [phone] documented as of this encounter Visit Diagnoses Not on filedocumented in this encounter Additional Health Concerns Assessment Noted Time PHQ-9 Depression Total Score: 1 11/27/19 25 8:19 AM CDT documented as of this encounter Care Teams Pc Maintenance Technician Relationship Specialty Start Date End Date Tri Sorenson MD [address] [place] [phone] PCP - General Family Practice 11/03/23 documented as of this encounter
--- OUTSIDE RECORDS SUMMARY | 2025-02-11 11:56 | XMS_ITS | Encounter Summary ---
Author Organization [facility] Address Replaced by [facility] [place] [address] Care Team Providers Care Manager Of Maintenance Name Role Phone Tri Sorenson MD Primary Care Provider +1- [phone] Encounter Details Date Type Department Care Team (Late Contact Info) Description 02/04/2023 MyChart Message Enc [facility] [place] [phone] [place] [address] Sanford Martines MD [place] [address] [place], [place] [phone] Update on my legs Social History Tobacco [...] st Contact Info) Description 03/09/2025 9:15 AM CADD TECHNICIAN Office Visit [facility] [address] [address] Sanford Martines MD [facility] [address] [place], [place] [phone] documented as of this encounter Visit Diagnoses Not on filedocumented in this encounter Additional Health Concerns Assessment Noted Time PHQ-9 Depression Total Score: 2 12/09/19 21 11:40 AM CDT documented as of this encounter Care Teams Manager Of Maintenance Relationship Specialty Start Date End Date Tri Sorenson MD PCP - General FAMILY PRACTICE 10/17/20 documented as of this encounter
--- OUTSIDE RECORDS SUMMARY | 2025-02-11 11:56 | XMS_ITS | Clinical Summary ---
Author Organization [facility] Address [address] [facility] [place] [address] Care Team Providers Care Mold Polisher Name Role Phone Sherine Flor MD Unavailable [phone] Ashley Dyson MD Unavailable [phone] Tri Sorenson MD Primary Care Provide r Source Comments [facility],non-owned Affiliates and Associated Physician Practices is amultiple site organization consisting of ambulatory clinics and hospital sitesin [place], [place], [place] and [place]. This disclosure is being madepursuant to the Care Everywhere program and may not contain all information available regarding this patient. Last updated 17.[facility] Allergies Active Allergy Reactions Criticality Noted Date [...] BREATH AND FOR WHEEZING Active Multiple Minerals-Vitamins ([facility] HZMC-NJX-JIFB-VIT D PO) Take by mouth once daily Active B Gydmedn-Mhgfhn-[place] (B COMPLETE PO) Take by mouth once [...] Requesting Percocet. MRI ordered. Need to see rn document improvement specialist after MRI. Right foot drop 04/25/2017 Overview (12/23/2018): 04/24/2018: Ongoing problem. Seeing a neurologist. She continues to have painful paresthesia affecting her right lower extremity both proximal and distal in the sciatic nerve distribution as well as right peroneal nerve distribution Has been referred to a neurologist at [facility]. Scheduled to see her next week. No [...] Neurology. Assessment & Plan (04/25/2018 12:40 PM LINUX DEVELOPER): FU with neurology as noted. Ductal carcinoma in situ (DCIS) of left breast 0 04/10/2015 Cancer Staging:Clinical stage from 12/15/2015:Stage 0(Tis (DCIS), N0, M0) - Signed by Betty Schafer MD on 12/16/2015 Pathologic stage from 12/16/2015:Stage Unknown(Tis (DCIS), NX, cM0) - Signed by Betty Schafer MD on 12/16/2015 Overview (12/16/2015): Left, upper inner, high grade DCIS. Tis(DCIS)NxM0, stage 0. ER/DE neg, Her-2 neg Architectural distortion on mamm [...] CP/SOB Assessment & Plan (02/01/2015 8:55 AM LINUX DEVELOPER): Patient understands that she needs to quit [...] 2015. Assessment & Plan (04/24/2018 10:38 AM LINUX DEVELOPER): Resolved. Assessment & Plan (02/01/2015 8:56 AM LINUX DEVELOPER): Declines the aid of other medications to help her with smoking cessation at this time We will follow up on this in a few months at her next appointment Lumbar radiculopathy 10/15/2011 Assessment & Plan (04/20/2020 8:33 PM LINUX DEVELOPER): NSAIDs, RICE, tylenol PT Acquired hypothyroidism 06/14/2010 Overview (10/16/2018): Not symptomatic Thyroid function tests have been stable 10/14/18: On levothyroxine 75 mcg daily. Labs last done a year ago. No h/o tremor, weight gain/loss. Assessment & Plan (10/16/2018 5:20 PM CDT): Check labs today. Assessment & Plan (02/01/2015 8:55 AM LINUX DEVELOPER): TSH pending Esophageal reflux 06/14/2010 Overview (07/26/2018): 07/21/2018: Taking 40 mg murmur resolved daily. Has recurrence of symptoms if she stops medication. Assessment & Plan (07/26/2018 6:15 PM CDT): Consider decreasing dose to 20 mg daily. May need to increase back to 40 mg if symptoms recur. Osteoporosis 06/14/2010 Assessment & Plan (04/20/2020 8:34 PM LINUX DEVELOPER): osteoporosis plan: - Continue Calcium 1200 mg/day [...] far. Assessment & Plan (04/01/2019 1:56 PM LINUX DEVELOPER): CT head ordered. Consider Neurology consult. Possible [...] severity. Assessment & Plan (04/01/2019 1:48 PM LINUX DEVELOPER): Tender along ribs on right side. Most [...] dizziness Assessment & Plan (04/25/2018 12:20 PM LINUX DEVELOPER): Recommend Holter monitor. Patient wants to defer [...] (01/21/2018 7:10 PM CDT): Normal UA. Recommend jtnk-ezo-hehslee Pyridium for symptom relief. Urine culture awaited [...] LOC. Assessment & Plan (03/04/2017 4:33 AM LINUX DEVELOPER): Recommend shoulder X rays prior to starting [...] flashes Assessment & Plan (02/01/2015 8:55 AM LINUX DEVELOPER): Resolved Overactive bladder 05/11/2014 9 Anxiety 05/11/2014 [...] night. Assessment & Plan (04/24/2018 10:45 AM LINUX DEVELOPER): Consider increasing Lexapro to 15 mg daily. Encouraged to consider therapy. Assessment & Plan (01/21/2018 1:39 PM CDT): Recommend trying Buspar instead. Need to stop Xanax. May increase Lexapro to 15 mg daily. Assessment & Plan (02/01/2015 8:54 AM LINUX DEVELOPER): Stable, no changes to meds at this [...] 0 Immunizations Immunization Administration Dates Next Due PastBook primary monoval ent 12+ yr 0.3mL Purple cap 10/01/2021,05/13/2020,04/25/2020 INFLUENZA VACCINE 01/03/2018, 7,12/18/2015,2014 INFLUENZA VACCINE, QUADR. (F LUZONE; FLULAVAL; FLUARIX; AFLURIA QUADRIVALENT; 6MO+), 0.5 ML (IIV4) 12/14/2018 PNEUMOCOCCAL PPSV23 07/21/2018 Pneumococcal Pcv13 Conj 01/31/2015 TDAP (7yrs+) 09/18/2012 Zoster Hzv Vacc Recombinant Inj Im 01/19/2020, iNFLUENZA VACCINE, RECOM-WROTHY, QUADR. 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 Not on file [...] (2 - Td or Tdap) 09/18/2022 09/18/2012 SCREENING FOR DIABETES 10/12/2022 0, 04/15/2019, 10/28/2018, Additional history exists COLON MONITORING 02/08/2023 02/08/2013, 02/08/2013 COLONOSCOPY - COLON CA SCREENING 02/08/2023 02/08/2013, 02/08/2013 Colorectal Cancer Screening 02/08/2023 PNEUMOCOCCAL VACCINE 50+ (3 of 3 - PCV20 or PCV21) 07/22/2023 07/21/2018, 01/31/2015 DEPRESSION SCREENING 03/24/2024 MEDICARE AWV CALENDAR YEAR 2024 04/20/2020 COVID-19 VACCINE ( season) 2024 02/04/2022, 10/01/2021, 10/01/2021, Additional history exists INFLUENZA VACCINE (#1) 2024 3, 01/09/2021, 01/19/2020, Additional history exists MAMMOGRAM 07/27/2026 07/27/2024, 05/0 03/2023, 07/23/2023, Additional history exists LIPID TESTING 10/29/2026 10/29/2021, 09/22, 10/14/2018, Additional history exists Respiratory Syncytial Virus (RSV) Vaccine Pt: or over 60 yrs (1 - 1-dose 75+ series) 2029 HEPATITIS C SCREENING Completed 05/11/2014 BONE DENSITY TESTING Completed 12/23/2018, 09/08/19 11 ZOSTER VACCINE Completed 01/19/2020, 10/13/2019 HEPATITIS B VACCINE Aged Out No longe [...] [place], [place] Medical Devices Implanted Type Area Party Supply Specialist Device Identifier Shelf Expiration Date Model / Serial / Lot Grft Tiss Rep Xenform 4 X 7cm Implanted:Qty: 1 on 11/30/2013 by Ashley Dyson MD at [facility] [employer] 12/22/2015 [id number] / / [id number] K-Wire Implanted:Qty: 1 on 02/05/2017 by Benjamin Rivas DO at [facility] 09/20/2026 [id number] / / [id number] Cbl Perc Xtn Intstm Surescan 4.32mm Implanted:Qty: 1 on 09/02/2023 by Ashley Dyson MD at [facility] [employer] 07/07/2025 [id number] / / [id number] Ld Nrstm Intstm 4.32mm Spc L28 Cm Qdpl Implanted:Qty: 1 on 09/02/2023 by Ashley Dyson MD at [facility] N/A: Back [employer] 04/15/2025 [id number] / / [id number] Nrstm Impl 2inx1.7in Intstm Ii Thk.3in - [id number] Implanted:Qty: 1 on 09/16/2023 by Ashley Dyson MD at [facility] N/A: Back [employer] Neurological 12/19/2024 [id number] / [id number] / Procedures Procedure Name Priority Date/Time Associated [...] HEPATITIS C ANTIBODY Routine 05/11/2014 4:07 PM LINUX DEVELOPER Need for hepatitis C screening test ENDOSCOPY, COLON, SCREENING Routine 02/08/2013 6:28 AM LINUX DEVELOPER from Last 3 Months or Most Recently [...] Resulting Agency Comment Lab Testing performed at: [address] [id number] [place] Reinaldo Sanford Jr., MD LAB - CHEMISTR Y ORDERABLES Final Result Performing Organization Address [facility] de Phone Number [facility] ACCOUNT BILL [address] [place] [address] * (ABNORMAL) LIPID PROFILE (10/13/2019 11:53 AM [...] Resulting Agency Comment Lab Testing performed at: [address] [id number] [place] Reinaldo Sanford Jr., MD LAB - CHEMISTR Y ORDERABLES Final Result Performing Organization Address [facility] de Phone Number [facility] ACCOUNT BILL [address] [place] [address] * DEXA BONE DENSITY AXIAL SKELETON (12/23/2018 [...] * HEPATITIS C ANTIBODY (05/11/2014 4:07 PM LINUX DEVELOPER) [facility] Hepatitis C Antibody NON-REACTI VE NON-REACT GREG [facility] Signal to Cut-Off 0.02 <1.00 [facility] Comment: Test Performed at: [facility] [address] [place] [address] KERRI DUBOIS DO,MPH Blood specimen (specimen) BLOOD SPECIMEN / Unknown 05/11/2014 4:07 PM LINUX DEVELOPER 05/11/2014 4:09 PM LINUX DEVELOPER Tri Sorenson MD LAB - CHEMISTRY ORDER JUDITH Final Result [facility] [address] [place] [address] * ENDOSCOPY, COLON, SCREENING (02/08/2013 6:28 AM LINUX DEVELOPER) [facility] Report Endoscopy POC _ Patient Name: Kaila Larsen Procedure Date: 02/08/2013 6:28 AM Date of : 1955 Admit Type: Outpatient Gender: Female Age: 57 Attending MD: Barbie Harris MD _ Procedure: Colonoscopy Indications: Lower abdominal pain, Constipation, Obstipation, Weight loss Providers: Barbie Harris MD (Doctor), Ashley Wilson RN, Thao Fernandez, Clearance Rep Referring MD: Blake Cronin (Referring MD) Medicines: [...] to home. Procedure Code(s): --- Professional --- 80509, Colonoscopy, flexible, proximal to splenic flexure; with biopsy, single or multiple Diagnosis Code(s): --- Professional --- 569.49, Other specified disorders of rectum and anus 569.0, Anal and rectal polyp 455.3, External hemorrhoids without mention of complication 455.0, Internal hemorrhoids without mention of complication 789.09, Abdominal pain, other specified site 564.00, Constipation, unspecified 783.21, Loss of weight CPT (R) 2012 [employer]. All Rights Reserved. The codes documented in this report are preliminary and upon risk engineer review may be revised to meet current compliance requirements. Barbie Harris MD 02/08/2013 7:49 AM Number of Addenda: 0 Note Initiated On: 02/08/2013 6:28 AM [facility] 02/08/2013 6:28 AM LINUX DEVELOPER Narrative [facility] ENDOSCOPY - 02/08/2013 7:50 AM LINUX DEVELOPER Procedure Note Barbie Harris MD - 02/08/2013 7:50 AM CST Barbie Harris MD GI PROCEDURE ORDERABLES Edited [facility] from Last 3 Months or Most Recently Relevant to Health Maintenance Insurance [facility] [place] [address] SELF PAY NO INSURANCE Member Subscriber Plan / Payer (Ef fective for All Dates) Name:Kaila Larsen Member ID:Not on file Relation to Subscriber:Not on file Name:KAILA LARSEN Subscriber ID:Not on file (Home) Address: [address] [place] [address] Payer ID:Not on file Group ID:Not on file Type:Self Pay Address: [place], [place] [facility] [place] [address] Advance Directives * Full Code (Latest Code [...] 11:36 AM 11/09/2009 5:41 AM Care Teams Mold Polisher Relationship Specialty Start Date End Date Tri Sorenson MD [address] [place] [address] PCP - General Family Medicine 09/07/21 Sherine Flor MD [address] [place] [address] Referring Physician General Surgery 04/16/15 Ashley Dyson MD [address] [place] [address] Urogynecology 12/14/18
--- OUTSIDE RECORDS SUMMARY | 2025-02-11 11:56 | XMS_ITS | Encounter Summary ---
Author Organization [facility] Address [address] [place] [address] Care Team Providers Care Beam Dyer Name Role Phone Tri Sorenson MD Primary Care Provide r Reason for Visit * Reason Comments Patient Communication Encounter Details Date Type Department Care Team (Late st Contact Info) Description 11/04/2023 Telephone [facility] by [facility] [address] [address] Tri Sorenson MD 637 [facility] [address] [place] [address] Patient Communication Social History Tobacco Use Types Packs/Day Years Used Date Smoking Tobacco: Former Cigarettes Smokeless Tobacco: Never Alcohol Use Standard Drinks/Week Comments Never 0 (1 standard drink = 0.6 oz pur e alcohol) Comments No Sex and Gender Information Value Date Recorded Sex Assigned at Female 03/12/2024 2:21 PM WINTERIZER Legal Sex Female 8:50 AM CDT Gender Identity Female 03/12/2024 2:21 PM WINTERIZER Sexual Orientation Choose not to disclose 2023 2:21 PM WINTERIZER documented as of this encounter Miscellaneous Notes * Telephone Encounter - Cash Peace - 11/04/2023 10:27 AM CDT Copied from [facility] #[id number]. Topic: Patient or Caregiver Communication Request >> Nov 04, 2023 10:20 AM Cash Betancur wrote: Patient or Caregiver insisting that a message be sent to Care Team Caller: Leanne Larsen Patient/Caregiver Callback Number: [phone] (mobile) Call Notes: Patient states insurance info is not going through and was told to call and be transferred to office if she had any issues documented in this encounter Plan of Treatment Upcoming Encounters Date Type Department Care Team (Late st Contact Info) Description 06/02/2025 9:30 AM CDT Office Visit [facility] [place] [address] [place] [phone] Tri Sorenson MD [address] [place] [phone] 12/01/2025 9:30 AM CDT Office Visit [facility] [place] [address] [address] Tri Sorenson MD [address] [phone] documented as of this encounter Visit Diagnoses Not on filedocumented in this encounter Additional Health Concerns Assessment Noted Time PHQ-9 Depression Total Score: 1 11/03/19 24 9:59 AM CDT documented as of this encounter Care Teams Beam Dyer Relationship Specialty Start Date End Date Tri Sorenson MD [address] [address] PCP - General Family Practice 11/03/23 documented as of this encounter
--- OUTSIDE RECORDS SUMMARY | 2025-02-11 11:56 | XMS_ITS | Encounter Summary ---
Author Organization [facility] Address [facility] [place] [address] Care Team Providers Care Bb Shot Packer Name Role Phone Tri Sorenson MD Primary Care Provider [phone]- [phone] Encounter Details Date Type Department Care Team (Late Contact Info) Description 01/20/2025 2 [employer] Message Enc [facility] Pre-[place]mission [place] [address] Jake, [facility] Provider Surgery instructions Social History Tobacco Use Types Packs/Day Years [...] st Contact Info) Description 03/09/2025 9:15 AM UNDERLINER Office Visit [facility] [phone] Sanford Martines MD [facility] [address] [place] [address] documented as of this encounter Visit Diagnoses Not on filedocumented in this encounter Additional Health Concerns Assessment Noted Time PHQ-9 Depression Total Score: 2 12/09/19 21 11:40 AM CDT documented as of this encounter Care Teams Bb Shot Packer Relationship Specialty Start Date End Date Tri Sorenson MD PCP - General FAMILY PRACTICE 10/17/20 documented as of this encounter
--- OUTSIDE RECORDS SUMMARY | 2025-02-11 11:56 | XMS_ITS | Encounter Summary ---
Author Organization [facility] Address [address] [place] [address] Care Team Providers Care Manager Cosmetic Name Role Phone Tri Sorenson MD Primary Care Provide r Reason for Visit * Reason Comments Remote Monitoring Encounter Details Date Type Department Care Team (Late st Contact Info) Description 01/05/2025 Telephone [facility] Plus by [facility] [address] [address] Tri Sorenson MD 637 [facility] [address] [place] [address] Remote Monitoring Social History Tobacco Use Types Packs/Day Years Used Date Smoking Tobacco: Former Cigarettes 0.5 39 S tarted: 1978 Passive Smoke Exposure: Never Smokeless Tobacco: Never Alcohol Use Standard Drinks/Week Comments Yes 0 (1 standard drink = 0.6 oz pur e alcohol) Comments No Sex and Gender Information Value Date Recorded Sex Assigned at Female 03/12/2024 2:21 PM ASSOCIATE DIRECTOR OF DEVELOPMENT Legal Sex Female 8:50 AM CDT Gender Identity Female 03/12/2024 2:21 PM ASSOCIATE DIRECTOR OF DEVELOPMENT Sexual Orientation Choose not to disclose 2023 2:21 PM ASSOCIATE DIRECTOR OF DEVELOPMENT documented as of this encounter Miscellaneous Notes * Telephone Encounter - Clara Robb RN - 01/05/2025 12:28 PM CDT Patient called in to report upcoming doctors appointments: [facility] is having STAB PHLEBECTOMY (LEFT LEG) 02/11/25 Dr. Almendarez appointment 03/10/25 left revers total shoulder arthroplasty Routed to Dr. Sorenson as FYI. Clara ANGELA * Telephone Encounter - Stephanie Martines - 01/05/2025 11:59 AM CDT Copied from [facility] #[id number]. Topic: Patient Reported Outcome Metrics >> Jan 05, 2025 11:55 AM Stephanie Wynne wrote: Caller Name: Leanne Larsen Callback Number: [phone] Call Notes: Caller is reporting Follow up information from an appointment Patient needs to report Would like TRI SORENSON to know of upcoming appointments. [facility] is having STAB PHLEBECTOMY (LEFT LEG) 02/11/25 Dr. Almendarez appointment 03/10/25 left revers total shoulder arthroplasty documented in this encounter Plan of Treatment Upcoming Encounters Date Type Department Care Team (Late st Contact Info) Description 06/02/2025 9:30 AM CDT Office Visit 65 Prime Plus by [place] [address] [address] [phone] Tri Sorenson MD [address] [phone] 12/01/2025 9:30 AM CDT Office Visit 65 Prime Plus by [place] [address] [address] [phone] Tri Sorenson MD [address] [address] documented as of this encounter Visit Diagnoses Not on filedocumented in this encounter Additional Health Concerns Assessment Noted Time PHQ-9 Depression Total Score: 1 11/27/19 8:19 AM CDT documented as of this encounter Care Teams Manager Cosmetic Relationship Specialty Start Date End Date Tri Sorenson MD [address] [phone] PCP - General Family Practice 11/03/23 documented as of this encounter
--- OUTSIDE RECORDS SUMMARY | 2025-02-11 11:56 | XMS_ITS | Encounter Summary ---
Author Organization [facility] Address Critical access hospital[address] [place] [address] Care Team Providers Care Button Machine Operator Name Role Phone Tri Sorenson MD Primary Care Provider [phone]- [phone] Encounter Details Date Type Department Care Team (Late st Contact Info) Description 10/18/2021 [email or web address] Message Enc [facility] Family Medicine [facility] [address] [place], [place] [phone] Tri Sorenson MD [address] [place] [address] [address] Issues Social History Tobacco Use Types [...] 2:37 PM CDT Subject: Issues Devi Lawson, SUPERVISOR AIRCRAFT MAINTENANCE-CORE STACKER 1:01 PM You can ask your primary for a referral to a neurologist closer to home then. You saw Dr. Vicente who is a neurosurgeon. You need to see a general neurologist. Back to step one to find help documented in this encounter Plan of Treatment Upcoming Encounters Date Type Department Care Team (Late st Contact Info) Description 03/09/2025 9:15 AM TRAINING AND DEVELOPMENT COORDINATOR Office Visit [facility] [address] [place] [address] Sanford Martines MD [facility] [address] [place] [address] documented as of this encounter Visit Diagnoses Not on filedocumented in this encounter Additional Health Concerns Assessment Noted Time PHQ-9 Depression Total Score: 2 12/09/19 21 11:40 AM CDT documented as of this encounter Care Teams Button Machine Operator Relationship Specialty Start Date End Date Tri Sorenson MD PCP - General FAMILY PRACTICE 10/17/20 documented as of this encounter
--- OUTSIDE RECORDS SUMMARY | 2025-02-11 11:56 | XMS_ITS | Encounter Summary ---
Author Organization [facility] Address [facility] [place] [address] Care Team Providers Care Deliver Driver Name Role Phone Tri Sorenson MD Primary Care Provider [phone]- [phone] Encounter Details Date Type Department Care Team (Late Contact Info) Description 12/27/2021 MyChart Message Enc [facility] [place] [address] [facility] [address] [place] [address] Hadley Mcfarland MD [address] [place] [address] [facility] rest results Social History Tobacco [...] (Late Contact Info) Description 03/09/2025 9:15 AM MECHANICAL MAINTENANCE ENGINEER [facility] [address] [place] [address] Sanford Martines MD [facility] [address] [place] [address] documented as of this encounter Visit Diagnoses Not on filedocumented in this encounter Additional Health Concerns Assessment Noted Time PHQ-9 Depression Total Score: 2 12/09/19 21 11:40 AM CDT documented as of this encounter Care Teams Deliver Driver Relationship Specialty Start Date End Date Tri Sorenson MD PCP - General FAMILY PRACTICE 10/17/20 documented as of this encounter
--- OUTSIDE RECORDS SUMMARY | 2025-02-11 11:56 | XMS_ITS | Clinical Summary ---
Author Organization [facility] [address] Address [address] [place] [address] Care Team Providers Care Dry Primer Powder Blender Name Role Phone Tri Sorenson MD Primary Care Provide r Allergies Active Allergy Reactions Criticality Noted Date Comments Erythromycin Nausea and Vomiting, Shortness of Breath/Wheezing High 08/26/2008 Fentanyl Nausea and Vomiting, Shortness of Breath/Wheezing High 08/26/2008 Penicillins Nausea and Vomiting, Rash,Shortness of Breath/Wheezing High 06/23/2009 Medications vitamin B complex (B COMPLEX VITAMINS ORAL) Take by mouth. 07/12/19 22 Active linaCLOtide (LINZESS) 290 mcg capsule Take 290 mcg by mouth 1 time daily as needed. Active doxycycline hyclate (VIBRAMYCIN) 100 mg capsule 09/02/19 24 Active furosemide (LASIX) 20 mg tablet [...] bedtime. 90 Tablet 3 07/20/19 25 Active famotidine (PEPCID) 20 mg tablet TAKE 1 TABLET BY MOUTH TWICE DAILY 200 Tablet 3 09/08/19 25 Active levothyroxine 75 mcg tablet TAKE 1 TABLET BY MOUTH DAILY BEFORE BREAKFAST 100 Tablet 3 11/16/19 25 Active albuterol sulfate HFA 90 mcg/actuation aerosol inhaler Take 2 Puffs by inhalation every 4 hours as needed for Shortness of Breath. 8.5 Gram 3 11/24/19 25 Active Bifidobacterium infantis (Align, B.infantis,) 10.5 mg (10 million cell) Tablet, Chewable Active propranoloL (INDERAL) 40 mg tabletIndications: Intractable headache, unspecified chronicity pattern, unspecified headache type Take 1 tablet by mouth twice daily 180 Tablet 3 12/01/19 25 Active chlorthalidone (HYGROTON) 25 mg tablet TAKE 1 TABLET BY MOUTH DAILY 100 Tablet 3 12/28/19 25 Active pregabalin (LYRICA) 300 mg Capsule Take 1 Capsule (300 mg) by mouth daily. 90 Capsule 3 02/04/20 25 Active pregabalin (LYRICA) 300 mg Capsule Take 1 Capsule (300 mg) by mouth every 12 hours. 180 Capsule 3 08/03/19 25 025 Discontin ued(Reord er) Active Problems Problem Noted Date Diagnosed Date Acute pain of left shoulder 11/26/2024 Headache, unspecified 08/09/2024 Dyslipidemia 11/04/2023 Overview (11/04/2023): [...] cut down, will try to go to [facility] just once daily History of ductal [...] bone mass 08/26/2008 Overview (11/04/2023): Dexas from [facility]: (Has also had done with [facility] and [...] Encounters Date Type Department Care Team Description 02/03/2025 Telephone 65 Prime Plus by [place] [id number] Cathy [address] [address] Tri Sorenson MD Medication Assistance 01/25/2025 Abstract [address] [facility] by [address] [place] [address] Tri Sorenson MD 01/05/2025 Telephone [facility] by [address] [place] [address] Tri Sorenson MD Remote Monitoring 12/26/2024 Refill [address] [facility] by [address] [place] [address] Tri Sorenson MD 12/07/2024 External Device Data [facility] ABSTRACTION Provider, Abstract 12/06/2024 Orders Only 65 [facility] [address] by [address] [place] [address] Provider, Abstract 12/02/2024 Abstract [address] [facility] [address] [place] [address] Tri Sorenson MD 12/02/2024 Abstract [address] [facility] [address] by [address] [place] [address] Tri Sorenson MD 12/01/2024 Results Follow-Up [address] [facility] [address] [place] [address] Tri Sorenson MD TSH REFLEXIVE, HEMOGLOBIN A1C, COMPREHENSIVE METABOLIC PANEL 11/30/2024 Telephone [address] [facility] [address] [place] [address] Tri Sorenson MD Needs Orders Written 11/29/2024 Refill [address] [facility] [address] by [address] [place] [address] Tri Sorenson MD Intractable headache, unspecified chronicity pattern, unspecified headache type 11/26/2024 8:30 AM CDT Office Visit [address] [facility] by [address] [place] [phone] Tri Sorenson MD Alzheimer's dementia with mood disturbance, unspecified dementia severity, unspecified timing of dementia onset ([facility]) (Primary Dx); Prediabetes; Acquired hypothyroidism; Benign hypertension; Acute pain of left shoulder; History of falling; Use of cane as ambulatory aid; Dyslipidemia 11/26/2024 Chart Note [address] [facility] [address] [place] [address] Clara Robb, RN Chart note 11/26/2024 Orders Only [address] [facility] [address] by [address] [place] [address] Tri Sorenson MD Acquired hypothyroidism; Prediabetes; Benign hypertension 11/26/2024 Patient Outreach [address] [facility] by [address] [place] [address] Clara Robb, RN Results 11/25/2024 Orders Only [address] [facility] [address] by [address] [place] [address] Provider, Abstract 11/25/2024 Results Follow-Up 65 [facility] [address] [place] [address] Tri Sorenson MD LIPID PANEL 11/23/2024 Telephone [address] [facility] [address] by [address] [place] [address] Tri Sorenson MD Results; Patient Communication 11/23/2024 Refill [address] [facility] [address] by [address] [place] [address] Tri Sorenson MD Chronic obstructive pulmonary disease, unspecified COPD type ([facility]) (Primary Dx) 11/19/2024 Orders Only [address] [facility] [address] [place] [address] Tri Sorenson MD 11/18/2024 Nurse Triage 65 [facility] Plus by [place] [address] [place] [address] Tri Sorenson MD Neck pain (Primary Dx); SI joint arthritis; Chronic midline low back pain, unspecified whether sciatica present 11/12/2024 Refill [address] [facility] [address] [place] [address] Tri Sorenson MD from Last 3 [...] COVID-19 VACCINE - EMERGENCY USE AUTHORIZATION, MRNA, [id number](PF) 30 MCG/0.3 ML IM SUSP 10/01/2021 (PNEUMOVAX 23)(50 YRS UP) PN EUMOCOCCAL POLYSACCHARIDE (PPV23) 0.5 ML, IM 07/21/2018 (PREVNAR 13)(6 WKS UP) PNEUM OCOCCAL CONJUGATE (PCV13) 0.5 ML, IM 01/31/2015 (PREVNAR 20)(6 WKS UP) PNEUM OCOCCAL CONJUGATE VACCINE 20-VALENT (PCV20), POLYSACCHARIDE [id number] CONJUGATE, ADJUVANT 0.5 ML (PF) IM 11/01/2021 [...] Passive Smoke Exposure: Never Smokeless Tobacco: Never Tobacco Cessation:Counseling Given: No Alcohol Use Standard Drinks/Week Comments Yes 0 (1 standard drink = 0.6 oz pur e alcohol) Comments No Sex and Gender Information Value Date Recorded Sex Assigned at Female 03/12/2024 2:21 PM ORTHOTIC ASSISTANT Legal Sex Female 8:50 AM CDT Gender Identity Female 03/12/2024 2:21 PM ORTHOTIC ASSISTANT Sexual Orientation Choose not to disclose 2023 2:21 PM ORTHOTIC ASSISTANT Last Filed Vital Signs Vital Sign Reading Time Taken Comments Blood Pressure 123/75 11/26/2024 8:19 AM CDT Pulse 70 11/26/2024 8:19 AM CDT Temperature 36.9 C (98.5 F) 11/26/2024 8:19 AM CDT Respiratory Rate 16 11/03/2023 9:51 AM CDT Oxygen Saturation 95% 11/26/2024 8:19 AM CDT Inhaled Oxygen Concentration - - Weight 79.4 kg (175 lb) 11/26/2024 8:19 AM CDT Height 167.6 cm (5' 6) 11/26/2024 8:19 AM CDT Body Mass Index 28.25 11/26/2024 8:19 AM CDT Plan of Treatment Upcoming Encounters Date Type Department Care Team (Late st Contact Info) Description 06/02/2025 9:30 AM CDT Office Visit 65 Prime Plus by [facility] [address] [address] Tri Sorenson MD [address] [address] 12/01/2025 9:30 AM CDT Office Visit 65 Prime Plus by [facility] [address] [facility] [address] [place] [address] Tri Sorenson MD [address] [facility] [address] [place] [address] Health Maintenance Due Date Last Done Comments FIT/ DNA Q 3 YEARS (AUTO ORDER) 1972 FIT/FOBT Q 1 YEAR (AUTO ORDER) 1972 FIT-DNA Q 3 years 1999 FIT/FOBT Q 1 year 1999 Flex Sig/CT Colonography Q 5 years 1999 INFLUENZA VACCINE (#1) 2024 , 01/09/2021, 12/31/2019 COVID-19 Vaccine (2024- 6 season) 2024 02/04/2022, 10/01/2021, 05/13/2020, Additional history exists BREAST CANCER SCREENING 07/27/2025 07/27/2024 OSTEOPOROSIS SCREENING 12/13/2025 12/13/2020, 2020 FLEX SIG/CT COLONOGRAPHY Q 5 YEARS (AUTO ORDER) 04/08/2027 04/08/2022, 04/08/2022 Pre-Diabetes and Diabetes Screening 11/27/2027 11/26/2024 COLORECTAL CANCER SCREENING (AUTO ORDER) 04/08/2032 04/08/2022 COLORECTAL SCREENING 04/08/2032 04/08/2022 Colorectal Cancer Screening (AUTO ORDER) 04/08/2032 Colorectal Cancer Screening 04/08/2032 DTAP/TDAP/TD VACCINES (3 - T d or Tdap) 12/30/2032 12/30/2022, 09/18/2012 ZOSTER VACCINE Completed 01/19/2020, 10/13/2019 RSV VACCINE (60+ or ) Completed 12/04/2022 PNEUMOCOCCAL VACCINE 50+ YEARS Completed 0 04/21/2024, 11/01/2021, 07/21/2018, Additional history exists Medicare Advantage ([place]) Preventative Visit/Annual Wellness Visit Completed 11/26/2024, 02/09/2024 Procedures Procedure Name Priority Date/Time Associated Diagnosis Comments MICROALBUMIN/CREATINI NE RATIO, RANDOM UR Routine 11/26/2024 10:40 AM CDT Prediabetes COMPREHENSIVE METABOLIC PANEL Routine 11/26/2024 10:01 AM CDT Benign hypertension HEMOGLOBIN A1C Routine 11/26/2024 10:01 AM CDT Prediabetes TSH REFLEXIVE Routine 11/26/2024 10:01 AM CDT Acquired hypothyroidism XR CERVICAL SPINE 4 OR 5 VIEWS Routine 11/19/2024 10:21 AM CDT MAMMOGRAM REPORT Routine 07/27/2024 2:14 PM CDT from Last 3 Months or Most Recently Relevant to Health Maintenance Results * (ABNORMAL) MICROALBUMIN/CREATININE RATIO, RANDOM UR (11/26/2024 10:40 AM CDT) CREATININE, URINE 66 20 - 275 mg/dL [facility] ALBUMIN, URINE 2.2 See Note: mg/dL [facility] Comment: Reference Range: Reference Range Not established ALB/CREAT RATIO, URINE 33(H) <30 mg/g creat [facility] Comment: The ADA defines abnormalities in albumin excretion as follows: Albuminuria Category Result (mg/g creatinine) Normal to Mildly increased <30 Moderately increased 30-299 Severely increased > OR = 300 The ADA recommends that at least two of three specimens collected within a 3-6 month period be abnormal before considering a patient to be within a diagnostic category. Test Performed at: [facility] [address] [place] [address] Iron Meza MD Urine URINE SPECIMEN OBTAINED BY CLEAN CATCH PROCEDURE / Unknown 11/26/2024 10:40 AM CDT 11/27/2024 4:09 AM CDT Tri Sorenson MD URINE ORDERABLES Joanie l Result [facility] [phone] [facility] [address] [address] [address] * TSH REFLEXIVE (11/26/2024 10:01 AM CDT) Pathologist [facility] TSH 1.02 0.40 - 4.50 mIU/L [facility] Comment: Test Performed at: [facility] [place] [address] [address] [address] [facility] Blood 11/26/2024 10:0 1 AM CDT 11/27/2024 3:40 AM CDT Tri Sorenson MD CHEMISTRY ORDERABLES Final Result [facility] [phone] [place] [address] [place] [address] * HEMOGLOBIN A1C (11/26/2024 10:01 AM CDT) Pathologist [facility] HEMOGLOBIN A1C 5.5 <5.7 % of total Hgb [facility] Comment: For the purpose of screening for the presence of diabetes: <5.7% Consistent with the absence of diabetes 5.7-6.4% Consistent with increased risk for diabetes (prediabetes) > or =6.5% Consistent with diabetes This assay result is consistent with a decreased risk of diabetes. Currently, no consensus exists regarding use of hemoglobin A1c for diagnosis of diabetes in children. According to [place] Diabetes Association (ADA) guidelines, hemoglobin A1c <7.0% represents optimal control in non- diabetic patients. Different metrics may apply to specific patient populations. Standards of Medical Care in Diabetes(ADA). ESTIMATED AVERAGE GLUCOSE (MG/DL) 111 mg/dL [facility] Jose M ESTIMATED AVERAGE GLUCOSE (MMOL/L) 6.2 mmol/L [facility] Comment: Test Performed at: [facility] [address] [place] [address] [facility] Blood 11/26/2024 10:0 1 AM CDT 11/27/2024 3:40 AM CDT Tri Sorenson MD CHEMISTRY ORDERABLES Final Result [facility] [phone] [facility] [address] [address] [address] * (ABNORMAL) COMPREHENSIVE METABOLIC PANEL (11/26/2024 10:01 AM CDT) GLUCOSE 101(H) 65 - 99 mg/dL [facility] Jose M Comment: Fasting reference interval For someone without known diabetes, a glucose value between 100 and 125 mg/dL is consistent with prediabetes and should be confirmed with a follow-up test. BUN 22 7 - 25 mg/dL [facility] Jose M CREATININE 0.72 0.60 - 1.00 mg/dL [facility] Jose M GFR 90 > OR = 60 mL/min/1. 73m2 [facility] Jose M BUN/CREAT RATIO SEE NOTE: 6 - 22 (calc) [facility] M Comment: Not Reported: BUN and Creatinine are within reference range. SODIUM 139 135 - 146 mmol/L [facility] Jose M POTASSIUM 4.7 3.5 - 5.3 mmol/L [facility] Jose M CHLORIDE 100 98 - 110 mmol/L [facility] Jose M CO2 30 20 - 32 mmol/L [facility] Jose M CALCIUM 9.9 8.6 - 10.4 mg/dL [facility] Jose M TOTAL PROTEIN 6.8 6.1 - 8.1 g/dL [facility] Jose M ALBUMIN 4.4 3.6 - 5.1 g/dL [facility] Jose M GLOBULIN 2.4 1.9 - 3.7 g/dL (calc) [facility] Jose M ALBUMIN/GLOBULIN RATIO 1.8 1.0 - 2.5 (calc) [facility] Jose M BILIRUBIN TOTAL 0.6 0.2 - 1.2 mg/dL [facility] Jose M ALKALINE PHOSPHATASE 60 37 - 153 U/L [facility] AST 21 10 - 35 U/L [facility] Jose M ALT 18 6 - 29 U/L [facility] Comment: Test Performed at: [facility] [address] [address] [address] [facility] Blood 11/26/2024 10:0 1 AM CDT 11/27/2024 3:40 AM CDT us Tri Sorenson MD CHEMISTRY ORDERABLES Final Result [facility] [phone] [facility] [address] [place] [address] * XR CERVICAL SPINE 4 OR 5 VIEWS (11/19/2024 10:21 AM CDT) Anatomical Region Laterality Modality Spine Other us Abstract Provider DIAGNOSTIC IMAGING ORDERABLES Final Result * MAMMOGRAM REPORT (07/27/2024 2:14 PM CDT) us Abstract Provider MAMMO ORDERABLES Final Result Performing Organization Address City/State/[facility] Phone Number [facility] BY [facility]# [id number] [address] [address] from Last 3 Months or Most Recently Relevant to Health Maintenance Insurance [facility] [id number] Care Teams Dry Primer Powder Blender Relationship Specialty Start Date End Date Tri Sorenson MD [address] [address] PCP - General Family Practice 11/03/23
--- OUTSIDE RECORDS SUMMARY | 2025-02-11 11:56 | XMS_ITS | Encounter Summary ---
Author Organization [facility] Address [facility] [place] [address] Care Team Providers Care Integration Engineer Name Role Phone Sherine Flor MD Unavailable [phone] Ashley Dyson MD Unavailable [phone] Jodi Cooper MD Unavailable Juvenal Whipple MD, Reinaldo Hyde Primary Care Provider Tri Sorenson MD Primary Care Provide r Tri Sorenson MD Unavailable [phone] Encounter Details Date Type Department Care Team (Late st Contact Info) Description 12/15/2019 [facility] Outpatient Visit [facility] - Family Medicine [address] [place] [phone] Reinaldo Sanford Jr., MD [address] [place] [address] Social History Tobacco Use Types Packs/Day Years Used Date Smoking Tobacco: Former Cigarettes 0 Q uit: 11/22/1997 Smokeless Tobacco: Never Alcohol Use Standard Drinks/Week Comments No 0 (1 standard drink = 0.6 oz pur e alcohol) Comments No Sex and Gender Information Value Date Recorded Sex Assigned at Female 06/10/2020 6:46 PM CDT Legal Sex Female 6:25 AM MANAGER OF SELECTION AND ASSESSMENT Gender Identity Female 06/10/2020 6:46 PM CDT Sexual Orientation Choose not to disclose 2020 6:46 PM CDT 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 Not on [...] on filedocumented in this encounter Care Teams Integration Engineer Relationship Specialty Start Date End Date Jodi Cooper MD [address] [place] [address] PCP - Attributed[employer] [facility] 09/22/19 09/09/22 Reinaldo Sanford Jr., MD [address] [place] [address] PCP - General 1/25/22 6/16/22 Tri Sorenson MD [address] [place] [address] PCP - General Family Medicine 09/07/21 Tri Sorenson MD [address] [facility] [address] [place] [address] PCP - Critical access hospital 03/24/22 Sherine Flor MD [address] [place] [address] Referring Physician General Surgery 04/16/15 Ashley Dyson MD [address] [place] [address] Urogynecology 12/14/18 documented as of this encounter
--- OUTSIDE RECORDS SUMMARY | 2025-02-11 11:56 | XMS_ITS | Encounter Summary ---
Author Organization [facility] Address [facility] [place] [address] Care Team Providers Care Turnstile Attendant Name Role Phone Sherine Flor MD Unavailable [phone] Ashley Dyson MD Unavailable [phone] Jodi Cooper MD Unavailable Juvenal Whipple MD, Reinaldo Hyde Primary Care Provider Tri Sorenson MD Primary Care Provide r Tri Sorenson MD Unavailable [phone] Encounter Details Date Type Department Care Team (Late st Contact Info) Description 12/30/[address] [facility] Outpatient Visit [facility] - Family Medicine [address] [place] [phone] Reinaldo Sanford Jr., MD [address] [place] [address] Social History Tobacco Use Types Packs/Day Years Used Date Smoking Tobacco: Former Cigarettes 0 Q uit: 11/22/1997 Smokeless Tobacco: Never Alcohol Use Standard Drinks/Week Comments No 0 (1 standard drink = 0.6 oz pur e alcohol) Comments No Sex and Gender Information Value Date Recorded Sex Assigned at Female 06/10/2020 6:46 PM CDT Legal Sex Female 6:25 AM VERIFICATION REP Gender Identity Female 06/10/2020 6:46 PM CDT Sexual Orientation Choose not to disclose 2020 6:46 PM CDT 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 Not on [...] Entry Date Author No 02/05/2017 3:39 PM Cheeynne Montalvo RN documented in this encounter Plan [...] on filedocumented in this encounter Care Teams Turnstile Attendant Relationship Specialty Start Date End Date Jodi Cooper MD [address] [place] [address] PCP - Attributed-[facility] 09/22/19 09/09/22 Reinaldo Sanford Jr., MD [address] [place] [address] PCP - General 1/25/22 6/16/22 Tri Sorenson MD [address] [place] [address] PCP - General Family Medicine 09/07/21 Tri Sorenson MD [address] [facility] [address] [place] [address] PCP - [facility] 03/24/22 Sherine Flor MD [address] [place] [address] Referring Physician General Surgery 04/16/15 Ashley Dyson MD [address] [place] [address] Urogynecology 12/14/18 documented as of this encounter
--- OUTSIDE RECORDS SUMMARY | 2025-02-11 11:56 | XMS_ITS | Encounter Summary ---
Author Organization [facility] Address [facility] [place] [address] Care Team Providers Care Securities Analyst Name Role Phone Tri Sorenson MD Primary Care Provider [phone]- [phone] Encounter Details Date Type Department Care Team (Late st Contact Info) Description 08/29/2021 Zadspacehart Message Enc [facility] Family Medicine [facility] [address] [place], [place] [phone] Tri Sorenson MD [address] [place] [phone] Colonoscopy Social History Tobacco Use Types [...] st Contact Info) Description 03/09/2025 9:15 AM GRINDING SUPERVISOR [facility] [address] [place] [phone] Sanford Martines MD [address] [place] [address] documented as of this encounter Visit Diagnoses Not on filedocumented in this encounter Additional Health Concerns Assessment Noted Time PHQ-9 Depression Total Score: 2 12/09/19 21 11:40 AM CDT documented as of this encounter Care Teams Securities Analyst Relationship Specialty Start Date End Date Tri Sorenson MD PCP - General FAMILY PRACTICE 10/17/20 documented as of this encounter
--- OUTSIDE RECORDS SUMMARY | 2025-02-11 11:57 | XMS_ITS | Encounter Summary ---
Author Organization [facility] Address [facility] [place] [address] Care Team Providers Care Brick Tender Name Role Phone Tri Sorenson MD Primary Care Provider [phone]- [phone] Encounter Details Date Type Department Care Team ([facility] [address] Contact Info) Description 09/10/2022 MyChart Message Enc [facility] THREE [facility], [facility] [address] [place], [place] [phone] Sanford Martines MD [facility]. [facility] [address] [place], [place] [phone] Good morning Social History Tobacco Use Types [...] (Late Contact Info) Description 03/09/2025 9:15 AM CAN REFORMING MACHINE OPERATOR Office Visit [facility] [address] [place] [address] Sanford Martines MD [facility] [address] [place] [address] documented as of this encounter Visit Diagnoses Not on filedocumented in this encounter Additional Health Concerns Assessment Noted Time PHQ-9 Depression Total Score: 2 12/09/19 21 11:40 AM CDT documented as of this encounter Care Teams Brick Tender Relationship Specialty Start Date End Date Tri Sorenson MD PCP - General FAMILY PRACTICE 10/17/20 documented as of this encounter
--- OUTSIDE RECORDS SUMMARY | 2025-02-11 11:57 | XMS_ITS | Encounter Summary ---
Author Organization [facility] Address [facility] [place] [address] Care Team Providers Care Continuous Weld Pipe Mill Supervisor Name Role Phone Tri Sorenson MD Primary Care Provider [phone]- [phone] Encounter Details Date Type Department Care Team (Late st Contact Info) Description 09/07/2022 [employer] Manufacturing Message Enc [facility] THREE [facility], [facility] [address] [place], [place] [phone] Sanford Martines MD [facility]. [facility] [address] [place], [place] [phone] Lymphedema pump Social History Tobacco Use Types [...] st Contact Info) Description 03/09/2025 9:15 AM SWITCHBOARD MANAGER [facility] [address] [place] [address] Sanford Martines MD [facility]. [facility] [address] [place] [address] documented as of this encounter Visit Diagnoses Not on filedocumented in this encounter Additional Health Concerns Assessment Noted Time PHQ-9 Depression Total Score: 2 12/09/19 21 11:40 AM CDT documented as of this encounter Care Teams Continuous Weld Pipe Mill Supervisor Relationship Specialty Start Date End Date Tri Sorenson MD PCP - General FAMILY PRACTICE 10/17/20 documented as of this encounter
--- OUTSIDE RECORDS SUMMARY | 2025-02-11 11:57 | XMS_ITS | Encounter Summary ---
Author Organization [facility] Address [facility] [place] [address] Care Team Providers Care Tugboat Engineer Name Role Phone Tri Sorenson MD Primary Care Provider [phone]- [phone] Encounter Details Date Type Department Care Team (Late st Contact Info) Description 05/30/2022 Supportie Message [facility] [id number] [place] [phone] Sanford Martines MD [address] [address] Test Social History Tobacco Use [...] Coronavirus/COVID-19? No / Unsure 05/27/2022 12:36 PM ADJUNCT ENGLISH INSTRUCTOR documented as of this encounter Progress Notes * Ayse Dean RN - 05/30/2022 9:06 AM CST . NCT ENGLISH INSTRUCTOR documented in this encounter Plan of Treatment Upcoming Encounters Date Type Department Care Team (Late st Contact Info) Description 03/09/2025 9:15 AM ADJUNCT ENGLISH INSTRUCTOR Office Visit [facility] [address] [place] [address] Sanford Martines MD [facility]. [facility] [address] [place] [address] documented as of this encounter Visit Diagnoses Not on filedocumented in this encounter Additional Health Concerns Assessment Noted Time PHQ-9 Depression Total Score: 2 12/09/19 21 11:40 AM CDT documented as of this encounter Care Teams Tugboat Engineer Relationship Specialty Start Date End Date Tri Sorenson MD PCP - General FAMILY PRACTICE 10/17/20 documented as of this encounter
--- OUTSIDE RECORDS SUMMARY | 2025-02-11 11:57 | XMS_ITS | Encounter Summary ---
Author Organization [facility] Address [facility] [place] [address] Care Team Providers Care Food Production Supervisor Name Role Phone Tri Sorenson MD Primary Care Provider +1- [phone] Encounter Details Date Type Department Care Team (Late st Contact Info) Description 09/18/2022 MyChart Message Enc [facility] [address] [place], [place] [phone] [email or web address] Provider Air Quality Message Social History Tobacco [...] st Contact Info) Description 03/09/2025 9:15 AM MEDICAL TYPIST Office [facility] [address] [place] [phone] Sanford Martines MD [address] [place], [place] [phone] documented as of this encounter Visit Diagnoses Not on filedocumented in this encounter Additional Health Concerns Assessment Noted Time PHQ-9 Depression Total Score: 2 12/09/19 21 11:40 AM CDT documented as of this encounter Care Teams Food Production Supervisor Relationship Specialty Start Date End Date Tri Sorenson MD PCP - General FAMILY PRACTICE 10/17/20 documented as of this encounter
[2025-02-11 13:43] LABS: Hematocrit 43.9 % (37.0-47.0); Hemoglobin 14.3 g/dL (12.0-15.0); Immature Granulocyte Percent A 0.8 % (0-0.5); Lymphocytes Absolute Auto 2.58 K/mm3 (0.9-3.2); Mean Corpuscular HGB Conc 32.6 g/dl (32-36); Mean Corpuscular Hemoglobin 29.4 pg (26-34); Mean Corpuscular Volume 90.3 fl (80-100); Nucleated Red Blood Cells Absolute Auto 0.000 K/mm3 (0.0-0.012); Nucleated Red Blood Cells Perc 0.0 % (0.0-0.2); Platelet Count Result 284 k/mm3 (150-375); Red Blood Count 4.86 M/mm3 (4.2-5.4); White Blood Count 8.9 K/mm3 (4.5-10.0)
[2025-02-11 13:54] LABS: Anion Gap 6 mmol/L (4-12); Blood Urea Nitrogen 24 mg/dL (7-17); Calcium 8.9 mg/dL (8.4-10.2); Carbon Dioxide 30 mmol/L (22-30); Chloride 99 mmol/L (98-107); Estimated Glomerular Filt Rate > 60; Glucose 87 mg/dL (65-110); Potassium 3.5 mmol/L (3.4-5.0); Sodium 135 mmol/L (137-145)
[2025-02-11 14:55] LABS: MRSA (PCR) NOT DETECTED (NOT DETECTE)
== END 2025-02-11 11:44 | disposition home or self-care (01) ==
LOC: ANHSURGERY 11:53
PROVIDERS: Anesthesiology; PCP Family Medicine; Visit Provider Orthopaedic Surgery
DX: M19.012 Primary osteoarthritis, left shoulder (principal); Z51.81 Encounter for therapeutic drug level monitoring; Z79.899 Other long term (current) drug therapy; Z01.818 Encounter for other preprocedural examination
CPT/HCPCS: 36415; 80048; 85025; 87641

== ENCOUNTER 2025-03-01 08:40 | Outpatient (CLI) | payer MEDICARE, SELFPAY ==
--- NOTE | ~2025-03-01 | CT_ITS ---
EXAMINATION:CT lung screening DATE: 03/01/2025 09:09 INDICATION: Screening TECHNIQUE: Computed tomography (CT) of the chest was performed without intravenous contrast. The dose-length product (DLP) was 80.67 mGy-cm. COMPARISON: February 26, 2024 FINDINGS: Several subcentimeter nodular foci have developed in the right lung involving all lobes, and appearing to the probably contiguous with small airways. No dominant nodule or mass. The largest measures 7.5 mm in the right lung base image 90 series 4. No consolidation effusion or pneumothorax. Mediastinal structures bones extrathoracic soft tissues, and visualized portions of the upper abdomen within the field of view appear stable. IMPRESSION: Multiple small likely benign right lung nodules with distribution and pattern suggestive of inflammatory or infectious small airways process. Correlate with clinical presentation and exam. While these nodules are most likely benign, a short interval follow-up chest CT is recommended to confirm stability. Recommend follow-up chest CT in 3 months or sooner if clinically appropriate. Lung RADS 3 Reviewed, dictated and finalized at location A. HER TEACHER IMPRESSION: Multiple small likely benign right lung nodules with distribution a nd pattern suggestive of inflammatory or infectious small airways process. Mi elate with clinical presentation and exam. While these nodules are most likely benign, a short interval follow-up chest CT is recommended to confirm stability . Recommend follow-up chest CT in 3 months or sooner if clinically appropriate. Lung RADS 3
== END 2025-03-01 08:41 | disposition home or self-care (01) ==
LOC: MICIMG 08:41
PROVIDERS: PCP Orthopaedic Surgery
DX: Z12.2 Encounter for screening for malignant neoplasm of respiratory organs (principal); Z87.891 Personal history of nicotine dependence; R91.8 Other nonspecific abnormal finding of lung field
CPT/HCPCS: 71271

== ENCOUNTER 2025-03-10 02:09 | Day surgery (SDC) | payer MEDICARE, SELFPAY ==
[2025-02-11 12:14] VITALS: BP 102/49; PULSE 54; RESP 16; TEMP 36.8; O2SAT 97; BMI 27.3
--- NOTE | 2025-02-11 12:36 | PC.NURSE ---
[facility] has started construction of its new state of the art ER which will open Spring 2026. With this, we anticipate parking may be a challenge for some our surgical patients and families. Parking spaces are limited but are available for all Surgical, obstetrics, and ER patients sharing this lot. If you arrive and find you are having a hard time finding a parking space, please note that we understand the challenges, please drive around the hospital and park near Hospital Entrance 1. When you enter this entrance, you can ask a volunteer to direct or take you back to the surgical waiting area to check in. We appreciate everyone?s understanding of these expected challenges while we build for your future. Report to the Outpatient Waiting Room, entrance under the green pavilion located off [address], at time ___6:00AM___ on date ___03/10/25__. Planned Procedure Time: ___7:30AM____.? Time changes happen often and if your time is changed the preop area will call you the afternoon before. - You and your visitor will be asked to self-screen and do not enter if you have any COVID symptoms. Please call surgeon if you need to reschedule. - A mask is optional within the hospital at this time. Patients may have clear liquids (water, carbonated beverages, clear teas, apple juice) until 3 hours prior to surgery (4:30AM) with a maximum of 20 ounces. - No food from midnight until time of surgery and no smoking, or chewing tobacco (or any form of nicotine). No chewing gum, candy or mints. Take only the following medications with a SIP of water on the morning of surgery: __LEVOTHYROXINE ALBUTEROL INHALER OR HYDROCODONE NEEDED. DO NOT STOP ANY OF YOUR OTHER PRESCRIPTION MEDICATIONS PRIOR TO SURGERY EXCEPT THE FOLLOWING Hold all vitamins and supplements for 3 days per anesthesiologist. LAST DOSE 03/06/25 Medications to discontinue per physician ___HOLD MELOXICAM (ALL NSAIDS) 7 DAYS PRE-OP PER DR LEO Date to take last dose 03/02/25 Please no make-up, nail uzbek, hairspray, perfume, deodorant, or body powder the day of surgery.? No jewelry (including any body piercings) or valuables the day of surgery, leave them at home.? Please take a shower or bath the night before, or the morning of, surgery with an antibacterial soap.? Wear comfortable, loose fitting clothing.? - Jewelry must be removed prior to entering the operating room.? Rings and piercings that are not removed may be cut off. - The hospital will not accept responsibility for valuables.? - Please leave all valuables, including medications, at home the day of surgery. If you are going home after surgery, a licensed driver salesman must drive you home.? - NO public transportation without another adult if you receive anesthesia. - We recommend that an adult stay with you for 24 hours following discharge. - We also recommend that you do not drive, make important decision, drink alcoholic beverages, or take any drugs that were not prescribed by your health care provider for at least 24 hours after your discharge time. Follow any additional instructions given to you from your surgeon. Telephone instructions given to ____PATIENT and asked if any additional questions and then verbalized understanding. Patient advised to call surgeon office or pre surgery nurse liaison [phone] if any additional questions.
[2025-03-10] VITALS (17 sets, daily range): BP systolic 101–167; BP diastolic 55–83; PULSE 61–79; RESP 10–18; TEMP 35.9–37; O2SAT 95–100
--- NOTE | ~2025-03-10 | XR_ITS ---
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 Findings: No acute fracture or malalignment. Arthroplasty unremarkable Soft tissues unremarkable. Impression: No acute fracture or malalignment. Reviewed, dictated and finalized at location P. UTER NETWORKING INSTRUCTOR Impression: No acute fracture or malalignment.
--- OUTSIDE RECORDS SUMMARY | 2025-03-10 02:14 | XMS_ITS | Encounter Summary ---
Author Organization [facility] Address [address] [facility] [place] [address] Care Team Providers Care Gas Meter Reader Name Role Phone Sherine Flor MD Unavailable Ashley Dyson MD Unavailable [phone] Tri Sorenson MD Primary Care Provide r Reason for Visit * Reason Onset Date Comments Discuss Surgery 09/04/2023 Encounter Details Date Type Department Care Team (Late st Contact Info) Description 09/04/2023 Telephone [facility] - Centralized Scheduling [address] [place] [address] Ashley Dyson MD [address] [place] [address] Discuss Surgery Social History Tobacco [...] PM CDT Legal Sex Female 6:25 AM 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 Pt can be reached at [phone]. documented in this encounter Plan of Treatment [...] on filedocumented in this encounter Care Teams Gas Meter Reader Relationship Specialty Start Date End Date Tri Sorenson MD [address] [phone] PCP - General Family Medicine 09/07/21 Sherine Flor MD [address] [place] [address] Referring Physician General Surgery 04/16/15 Ashley Dyson MD [address] [place] [phone] Urogynecology 12/14/18 documented as of this encounter
--- OUTSIDE RECORDS SUMMARY | 2025-03-10 02:14 | XMS_ITS | Encounter Summary ---
Author Organization [facility] Address [address] [facility] [place] [address] Care Team Providers Care Pharmacists Name Role Phone Tri Sorenson MD Primary Care Provide r + Sherine Flor MD Unavailable [phone] Valentin Bañuelos MD Unavailable [phone] Sanford Gonzalez MD Unavailable [phone] Dwayne Hernandez RN Unavailable Unavailab le Jodi Cooper MD Primary Care Provider + 8 Tri Sorenson MD Primary Care Provide r + Jodi Cooper MD Primary Care Provider + 8 Tri Sorenson MD Primary Care Provide r + Jodi Cooper MD Primary Care Provider + 8 Ashley Dyson MD Unavailable [phone] Jodi Cooper MD Unavailable Lior Cheek MD Unavailable Juvenal Whipple MD, Reinaldo Hyde [...] st Contact Info) Description 08/28/2017 Lab Requisition [facility] [address] [facility], [place] [address] Delta Mahajan MD RETIRED Social History Tobacco [...] PM CDT Legal Sex Female 6:25 AM AGENCY OWNER Gender Identity Female 06/10/2020 6:46 PM CDT Sexual Orientation Choose not to disclose 2020 6:46 PM CDT 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 Jar 0. 1:04 PM CDT DERMATOPATHOLOGY LABORATORY [...] purposes. Billing Codes Specimen Charges Stain Charges [id number] 1 8 1:04 PM CDT DERMATOPATHOLOGY LABORATORY Embedded Images 8 1:04 PM CDT DERMATOPATHOLOGY LABORATORY Pathology/Cytolog y TISSUE SPECIMEN FROM SKIN / Unknown 08/27/2017 08/28/2017 11:47 AM CDT Delta Mahajan MD LAB - PATHOLOGY/CYTOLOGY ORD ERABLES Final Result DERMATOPATHOLOGY LABORATORY [facility] - Department of Dermatology [address] [place] [address], 5th Floor Lab [address] [phone] documented in this encounter Visit Diagnoses Not on filedocumented in this encounter Care Teams Pharmacists Relationship Specialty Start Date End Date Tri [...] Medicine 02/27/18 10/12/19 Jodi Cooper MD [address] [place] [address] PCP - Attributed-[facility] 12/22/18 03/23/19 Reinaldo Sanford Jr., MD [address] [place] [address] PCP - General Family Medicine 10/13/19 10/28/19 Jodi Cooper MD PCP - General 10/29/19 10/30/19 Jodi Cooper MD [address] [place] [phone] PCP - Attributed-[facility]HP STL 09/22/19 09/09/22 Reinaldo Sanford Jr., MD [address] [place] [address] PCP - General 04/17/21 09/06/21 Tri Sorenson MD [address] [place] [address] PCP - General Family Medicine 09/07/21 Tri Sorenson MD [address] [address] PCP - Attributed-[facility] 03/24/22 12/09/22 Tri Sorenson MD [address] [place] [address] PCP - Attributed-Exclusive Choice 12/12/16 07/29/18 Tri Sorenson MD [address] [place] [address] PCP - Attributed-Exclusive Choice 09/21/18 12/21/18 Jodi Cooper MD [address] [place] [address] PCP - Attributed-Exclusive Choice 07/30/18 09/20/18 Sherine lFor MD [address] [place] [address] Referring Physician General Surgery 04/16/15 Valentin Bañuelos MD [address] [place] [address] Radiation Oncologist Radiation Oncology 04/16/15 Sanford Gonzalez MD [address] [place] [address] Obstetrics and Gynecology 08/01/15 12/13/18 Dwayne Hernandez, RN 02/05/17 12/13/18 Ashley Dyson MD [address] [place] [address] Urogynecology 12/14/18 Lior Cheek MD [address] [place] [address] Orthopedic Surgery 03/31/19 04/13/19 documented as of this encounter
--- OUTSIDE RECORDS SUMMARY | 2025-03-10 02:14 | XMS_ITS | Clinical Summary ---
Author Organization [facility] Address [address] [place] [address] Care Team Providers Care Cloth Calender Name Role Phone Sherine Flor MD Unavailable [phone] Ashley Dyson MD Unavailable [phone] Tri Sorenson MD Primary Care Provide r Source Comments [facility],non-owned Affiliates and Associated Physician Practices is amultiple site organization consisting of ambulatory clinics and hospital sitesin [place], [place], [place] and [place]. This disclosure is being madepursuant to the Care Everywhere program and may not contain all information available regarding this patient. Last updated 17.[facility] Allergies Active Allergy Reactions Criticality Noted Date [...] BREATH AND FOR WHEEZING Active Multiple Minerals-Vitamins ([facility] KNZK-IQE-AFLL-VIT D PO) Take by mouth once daily Active B Wfzozql-Flyieo-WJ (B COMPLETE PO) Take by mouth once [...] Requesting Percocet. MRI ordered. Need to see help desk specialist after MRI. Right foot drop 04/25/2017 Overview (12/23/2018): 04/24/2018: Ongoing problem. Seeing a neurologist. She continues to have painful paresthesia affecting her right lower extremity both proximal and distal in the sciatic nerve distribution as well as right peroneal nerve distribution Has been referred to a neurologist at [facility]. Scheduled to see her next week. [...] Neurology. Assessment & Plan (04/25/2018 12:40 PM DIGITAL CONTROLS TECHNICAL OFFICER): FU with neurology as noted. Ductal carcinoma in situ (DCIS) of left breast 0 04/10/2015 Cancer Staging:Clinical stage from 12/15/2015:Stage 0(Tis (DCIS), N0, M0) - Signed by Betty Schafer MD on 12/16/2015 Pathologic stage from 12/16/2015:Stage Unknown(Tis (DCIS), NX, cM0) - Signed by Betty Schafer MD on 12/16/2015 Overview (12/16/2015): Left, upper inner, high grade DCIS. Tis(DCIS)NxM0, stage 0. ER/W[place] neg, Her-2 neg Architectural distortion on mamm [...] CP/SOB Assessment & Plan (02/01/2015 8:55 AM DIGITAL CONTROLS TECHNICAL OFFICER): Patient understands that she needs to quit [...] 2015. Assessment & Plan (04/24/2018 10:38 AM DIGITAL CONTROLS TECHNICAL OFFICER): Resolved. Assessment & Plan (02/01/2015 8:56 AM DIGITAL CONTROLS TECHNICAL OFFICER): Declines the aid of other medications to help her with smoking cessation at this time We will follow up on this in a few months at her next appointment Lumbar radiculopathy 10/15/2011 Assessment & Plan (04/20/2020 8:33 PM DIGITAL CONTROLS TECHNICAL OFFICER): NSAIDs, RICE, tylenol PT Acquired hypothyroidism 06/14/2010 Overview (10/16/2018): Not symptomatic Thyroid function tests have been stable 10/14/18: On levothyroxine 75 mcg daily. Labs last done a year ago. No h/o tremor, weight gain/loss. Assessment & Plan (10/16/2018 5:20 PM CDT): Check labs today. Assessment & Plan (02/01/2015 8:55 AM DIGITAL CONTROLS TECHNICAL OFFICER): TSH pending Esophageal reflux 06/14/2010 Overview (07/26/2018): 07/21/2018: Taking 40 mg murmur resolved daily. Has recurrence of symptoms if she stops medication. Assessment & Plan (07/26/2018 6:15 PM CDT): Consider decreasing dose to 20 mg daily. May need to increase back to 40 mg if symptoms recur. Osteoporosis 06/14/2010 Assessment & Plan (04/20/2020 8:34 PM DIGITAL CONTROLS TECHNICAL OFFICER): osteoporosis plan: - Continue Calcium 1200 mg/day [...] far. Assessment & Plan (04/01/2019 1:56 PM DIGITAL CONTROLS TECHNICAL OFFICER): CT head ordered. Consider Neurology consult. Possible [...] severity. Assessment & Plan (04/01/2019 1:48 PM DIGITAL CONTROLS TECHNICAL OFFICER): Tender along ribs on right side. Most [...] dizziness Assessment & Plan (04/25/2018 12:20 PM DIGITAL CONTROLS TECHNICAL OFFICER): Recommend Holter monitor. Patient wants to defer [...] (01/21/2018 7:10 PM CDT): Normal UA. Recommend innw-dvh-grmxcco Pyridium for symptom relief. Urine culture awaited [...] LOC. Assessment & Plan (03/04/2017 4:33 AM DIGITAL CONTROLS TECHNICAL OFFICER): Recommend shoulder X rays prior to starting [...] flashes Assessment & Plan (02/01/2015 8:55 AM DIGITAL CONTROLS TECHNICAL OFFICER): Resolved Overactive bladder 05/11/2014 9 Anxiety 05/11/2014 [...] night. Assessment & Plan (04/24/2018 10:45 AM DIGITAL CONTROLS TECHNICAL OFFICER): Consider increasing Lexapro to 15 mg daily. Encouraged to consider therapy. Assessment & Plan (01/21/2018 1:39 PM CDT): Recommend trying Buspar instead. Need to stop Xanax. May increase Lexapro to 15 mg daily. 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 Not on [...] [place] Medical Devices Implanted Type Area Embedded Software Manager Device Identifier Shelf Expiration Date Model / Serial / Lot Grft Tiss Rep Xenform 4 X 7cm Implanted:Qty: 1 on 11/30/2013 by Ashley Dyson MD at [facility] [employer] 12/22/2015 [id number] / / [id number] K-Wire Implanted:Qty: 1 on 02/05/2017 by Benjamin Rivas DO at [facility] 09/20/2026 [id number] / / [id number] Cbl Perc Xtn Intstm Surescan 4.32mm Implanted:Qty: 1 on 09/02/2023 by Ashley Dyson MD at [facility] [employer] 07/07/2025 [id number] / / [id number] Ld Nrstm Intstm 4.32mm Spc L28 Cm Qdpl Implanted:Qty: 1 on 09/02/2023 by Ashley Dyson MD at [facility] N/A: Back [employer] 04/15/2025 [id number] / / [id number] Nrstm Impl 2inx1.7in Intstm Ii Thk.3in - [id number] Implanted:Qty: 1 on 09/16/2023 by Ashley Dyson MD at [facility] N/A: Back [employer] Neurological 12/19/2024 [id number] / [id number] / Procedures Procedure Name Priority Date/Time Associated [...] HEPATITIS C ANTIBODY Routine 05/11/2014 4:07 PM DIGITAL CONTROLS TECHNICAL OFFICER Need for hepatitis C screening test ENDOSCOPY, COLON, SCREENING Routine 02/08/2013 6:28 AM DIGITAL CONTROLS TECHNICAL OFFICER from Last 3 Months or Most Recently [...] Resulting Agency Comment Lab Testing performed at: [address] [id number] [place] Reinaldo Sanford Jr., MD LAB - CHEMISTR Y ORDERABLES Final Result Performing Organization Address [facility] de Phone Number [facility] ACCOUNT BILL [address] [place] [address] * (ABNORMAL) LIPID PROFILE (10/13/2019 11:53 AM [...] Resulting Agency Comment Lab Testing performed at: [address] [phone] [place] Reinaldo Sanford Jr., MD LAB - CHEMISTR Y ORDERABLES Final Result Performing Organization Address [facility] de Phone Number [facility] ACCOUNT BILL [address] [place] [address] * DEXA BONE DENSITY AXIAL SKELETON (12/23/2018 [...] * HEPATITIS C ANTIBODY (05/11/2014 4:07 PM DIGITAL CONTROLS TECHNICAL OFFICER) [facility] Hepatitis C Antibody NON-REACTI VE NON-REACT GREG QUEST Signal to Cut-Off 0.02 <1.00 QUEST Comment: Test Performed at: [facility] [address] [place] [address] KERRI DUBOIS DO,MPH Blood specimen (specimen) BLOOD SPECIMEN / Unknown 05/11/2014 4:07 PM DIGITAL CONTROLS TECHNICAL OFFICER 05/11/2014 4:09 PM DIGITAL CONTROLS TECHNICAL OFFICER Tri Sorenson MD LAB - CHEMISTRY ORDER JUDITH Final Result [facility] [address] [place] [address] * ENDOSCOPY, COLON, SCREENING (02/08/2013 6:28 AM DIGITAL CONTROLS TECHNICAL OFFICER) [facility] Report Endoscopy POC _ Patient Name: Kaila Larsen Procedure Date: 02/08/2013 6:28 AM Date of : 1955 Admit Type: Outpatient Gender: Female Age: 57 Attending MD: Barbie Harris MD _ Procedure: Colonoscopy Indications: Lower abdominal pain, Constipation, Obstipation, Weight loss Providers: Barbie Harris MD (Doctor), Ashley Wilson RN, Thao Fernandez, Cat Operator Referring MD: Blake Cronin (Referring MD) Medicines: [...] to home. Procedure Code(s): --- Professional --- 58712, Colonoscopy, flexible, proximal to splenic flexure; with biopsy, single or multiple Diagnosis Code(s): --- Professional --- 569.49, Other specified disorders of rectum and anus 569.0, Anal and rectal polyp 455.3, External hemorrhoids without mention of complication 455.0, Internal hemorrhoids without mention of complication 789.09, Abdominal pain, other specified site 564.00, Constipation, unspecified 783.21, Loss of weight CPT (R) 2012 [employer]. All Rights Reserved. The codes documented in this report are preliminary and upon c developer review may be revised to meet current compliance requirements. Barbie Harris MD 02/08/2013 7:49 AM Number of Addenda: 0 Note Initiated On: 02/08/2013 6:28 AM [facility] ENDOSCOPY 02/08/2013 6:28 AM DIGITAL CONTROLS TECHNICAL OFFICER Narrative [facility] ENDOSCOPY - 02/08/2013 7:50 AM DIGITAL CONTROLS TECHNICAL OFFICER Procedure Note Barbie Harris MD - 02/08/2013 7:50 AM CST Barbie Harris MD GI PROCEDURE ORDERABLES Edited [facility] ENDOSCOPY from Last 3 Months or Most Recently Relevant to Health Maintenance Insurance [facility] MANAGED MEDICARE ADV SELF PAY NO INSURANCE Member Subscriber Plan / Payer (Ef fective for All Dates) Name:Kaila Larsen Member ID:Not on file Relation to Subscriber:Not on file Name:KAILA LARSEN Subscriber ID:Not on file (Home) Address: [address] [place] [address] Payer ID:Not on file Group ID:Not on file Type:Self Pay Address: [place], [place] [facility] MANAGED MEDICARE ADV Advance Directives * Full [...] AM 11/09/2009 5:41 AM Care Teams Cloth Calender Relationship Specialty Start Date End Date rTi Sorenson MD [address] [place] [address] PCP - General Family Medicine 09/07/21 Sherine Flor MD [address] [place] [address] Referring Physician General Surgery 04/16/15 Ashley Dyson MD [address] [place] [address] Urogynecology 12/14/18
--- OUTSIDE RECORDS SUMMARY | 2025-03-10 02:14 | XMS_ITS | Encounter Summary ---
Author Organization [facility] Address [address] [place] [address] Care Team Providers Care Director Phone Name Role Phone Tri Sorenson MD Primary Care Provide r Reason for Visit * Reason Comments Patient Communication Encounter Details Date Type Department Care Team (Late st Contact Info) Description 11/04/2023 Telephone [facility] [address] [address] Tri Sorenson MD 637 [facility] [address] [place] [address] Patient Communication Social History Tobacco Use Types Packs/Day Years Used Date Smoking Tobacco: Former Cigarettes Smokeless Tobacco: Never Alcohol Use Standard Drinks/Week Comments Never 0 (1 standard drink = 0.6 oz pur e alcohol) Comments No Sex and Gender Information Value Date Recorded Sex Assigned at Female 03/12/2024 2:21 PM ETHNOARCHAEOLOGY PROFESSOR Legal Sex Female 8:50 AM CDT Gender Identity Female 03/12/2024 2:21 PM ETHNOARCHAEOLOGY PROFESSOR Sexual Orientation Choose not to disclose 2023 2:21 PM ETHNOARCHAEOLOGY PROFESSOR documented as of this encounter Miscellaneous Notes * Telephone Encounter - Cash Peace - 11/04/2023 10:27 AM CDT Copied from [facility] #[id number]. Topic: Patient or Caregiver Communication Request >> Nov 04, 2023 10:20 AM Cash Betancur wrote: Patient or Caregiver insisting that a message be sent to Care Team Caller: Leanne Larsen Patient/Caregiver Callback Number: [phone] (mobile) Call Notes: Patient states insurance info is not going through and was told to call and be transferred to office if she had any issues documented in this encounter Plan of Treatment Upcoming Encounters Date Type Department Care Team (Late st Contact Info) Description 06/02/2025 9:30 AM CDT Office Visit [facility] [address] [place] [address] [place] [phone] Tri Sorenson MD [address] [place] [phone] 12/01/2025 9:30 AM CDT Office Visit [facility] [place] [address] [address] Tri Sorenson MD [address] [phone] documented as of this encounter Visit Diagnoses Not on filedocumented in this encounter Additional Health Concerns Assessment Noted Time PHQ-9 Depression Total Score: 1 11/03/19 24 9:59 AM CDT documented as of this encounter Care Teams Director Phone Relationship Specialty Start Date End Date Tri Sorenson MD [address] [phone] PCP - General Family Practice 11/03/23 documented as of this encounter
--- OUTSIDE RECORDS SUMMARY | 2025-03-10 02:14 | XMS_ITS | Encounter Summary ---
Author Organization [facility] Address [address] [place] [address] Care Team Providers Care Underwriting Account Representative Name Role Phone Tri Sorenson MD Primary Care Provide r Reason for Visit * Reason Comments Results Encounter Details Date Type Department Care Team (Late st Contact Info) Description 03/03/2025 Telephone [facility] [address] [facility] [address] [place] [address] Tri Sorenson MD [address] [facility] [address] [place] [address] Results Social History Tobacco Use Types Packs/Day Years Used Date Smoking Tobacco: Former Cigarettes 0.8 39 S tarted: 1978 Passive Smoke Exposure: Never Smokeless Tobacco: Never Alcohol Use Standard Drinks/Week Comments Yes 0 (1 standard drink = 0.6 oz pur e alcohol) Comments No Sex and Gender Information Value Date Recorded Sex Assigned at Female 03/12/2024 2:21 PM COBBLER APPRENTICE Legal Sex Female 8:50 AM CDT Gender Identity Female 03/12/2024 2:21 PM COBBLER APPRENTICE Sexual Orientation Choose not to disclose 2023 2:21 PM COBBLER APPRENTICE documented as of this encounter Miscellaneous Notes * Telephone Encounter - Tri Sorenson MD - 03/03/2025 2:[address] shows multiple small likely benign right lung nodules with distribution and pattern suggestive of inflammatory or infectious small airway process. Most likely benign but short interval CT chest in3 months is recommended. Is she feeling ok? SOB, cough? If having symptoms, let's schedule in person exam. If no symptoms, I'll order CT chest to be done in 3 months for f/u. LER APPRENTICE * Telephone Encounter - Stephanie Martines - 03/03/2025 10:35 AM CST Copied from [facility] #[id number]. Topic: CPA Information Request - Results >> Mar 03, 2025 10:33 AM Stephanie Wynne wrote: Caller is requesting information about results from an order. ? Caller Name: Leanne Larsen Callback Number: [phone] Test Name: CT 03/02/25 done at [facility] in [place]. Results Encounter notes are: In chart with clinical documentation - not approved to provide Did clinic leave instructions to transfer call to a specific line/place? No Call Notes: Results were not given and the patient needs a call back LER APPRENTICE documented in this encounter Plan of Treatment Upcoming Encounters Date Type Department Care Team (Late st Contact Info) Description 06/02/2025 9:30 AM CDT Office Visit [facility] [address] [place] [address] [address] [address] Tri Sorenson MD [address] [address] 12/01/2025 9:30 AM CDT Office Visit [facility] [address] [place] [address] [phone] Tri Sorenson MD [address] [address] documented as of this encounter Visit Diagnoses Not on filedocumented in this encounter Additional Health Concerns Assessment Noted Time PHQ-9 Depression Total Score: 1 11/27/19 8:19 AM CDT documented as of this encounter Care Teams Underwriting Account Representative Relationship Specialty Start Date End Date Tri Sorenson MD [address] [phone] PCP - General Family Practice 11/03/23 documented as of this encounter
--- OUTSIDE RECORDS SUMMARY | 2025-03-10 02:14 | XMS_ITS | Encounter Summary ---
Author Organization [facility] Address [address] [place] [address] Care Team Providers Care Blow Down Operator Name Role Phone Tri Sorenson MD Primary Care Provide r Reason for Visit * Reason Comments Needs Orders Written Encounter Details Date Type Department Care Team (Late st Contact Info) Description 11/30/2024 Telephone [facility] by [facility] [address] [address] Tri Sorenson MD 637 [facility] [address] [place] [address] Needs Orders Written Social History Tobacco Use Types Packs/Day Years Used Date Smoking Tobacco: Former Cigarettes 0.5 39 S tarted: 1978 Passive Smoke Exposure: Never Smokeless Tobacco: Never Alcohol Use Standard Drinks/Week Comments Yes 0 (1 standard drink = 0.6 oz pur e alcohol) Comments No Sex and Gender Information Value Date Recorded Sex Assigned at Female 03/12/2024 2:21 PM WOOL AND PELT GRADER Legal Sex Female 8:50 AM CDT Gender Identity Female 03/12/2024 2:21 PM WOOL AND PELT GRADER Sexual Orientation Choose not to disclose 2023 2:21 PM WOOL AND PELT GRADER documented as of this encounter Miscellaneous Notes * Telephone Encounter - Radha Brewer Consuelo - 11/30/2024 3:34 PM CDT Copied from [facility] #[id number]. Topic: CPA Information Request - Order or Referral Request >> Nov 30, 2024 3:27 PM Radha B wrote: Caller Name: Leanne Larsen Patient/Caregiver Callback Number: Telephone Information: Call Notes: Patient stated she was given PT referral but she needed this to go to [facility] Physical Therapy - [facility] Caller is requesting: New Referral Has the patient been seen for this issue? YES Requests Referral to Specialty: Physical Therapy Reason for referral (Symptoms / Diagnosis): M25.512 Previously discussed with provider? Yes Is patient requesting a certain provider or facility? Yes Provider / Facility contact information: [facility] Physical Therapy -[place], [place] Date of Service: documented in this encounter Plan of Treatment Upcoming Encounters Date Type Department Care Team (Late st Contact Info) Description 06/02/2025 9:30 AM CDT Office Visit [facility] [address] [place] [address] [address] [place] [phone] Tri Sorenson MD [address] [phone] 12/01/2025 9:30 AM CDT Office Visit [facility] [address] [place] [address] [address] [place] [address] Tri Sorenson MD [address] [phone] documented as of this encounter Visit Diagnoses Not on filedocumented in this encounter Additional Health Concerns Assessment Noted Time PHQ-9 Depression Total Score: 1 11/27/19 25 8:19 AM CDT documented as of this encounter Care Teams Blow Down Operator Relationship Specialty Start Date End Date Tri Sorenson MD [address] [place] [phone] PCP - General Family Practice 11/03/23 documented as of this encounter
--- OUTSIDE RECORDS SUMMARY | 2025-03-10 02:14 | XMS_ITS | Clinical Summary ---
Author Organization [facility] [employer] [facility] lin Address [address] [place] [address] Care Team Providers Care Inside Account Representative Name Role Phone Unavailable Primary Care Provider Unavailabl e Social History Tobacco Use Types Packs/Day Years Used Date Smoking Tobacco: Never Assessed Comments Unknown Sex and Gender Information Value Date Recorded Sex Assigned at Not on file Legal Sex Female 2:39 PM EST Gender Identity Not on file Sexual Orientation Not on file Plan of Treatment Not on file Medical Devices Not on file
--- OUTSIDE RECORDS SUMMARY | 2025-03-10 02:14 | XMS_ITS | Encounter Summary ---
Author Organization [facility] Address [address] [place] [address] Care Team Providers Care Systems Technician Name Role Phone Tri Sorenson MD Primary Care Provide r Reason for Visit * Reason Comments Remote Monitoring Encounter Details Date Type Department Care Team (Late st Contact Info) Description 01/05/2025 Telephone [facility] [address] [address] Tri Sorenson MD 637 [facility] [address] [place] [address] Remote Monitoring Social History Tobacco Use Types Packs/Day Years Used Date Smoking Tobacco: Former Cigarettes 0.5 39 S tarted: 1978 Passive Smoke Exposure: Never Smokeless Tobacco: Never Alcohol Use Standard Drinks/Week Comments Yes 0 (1 standard drink = 0.6 oz pur e alcohol) Comments No Sex and Gender Information Value Date Recorded Sex Assigned at Female 03/12/2024 2:21 PM SPRINKLING SYSTEM INSTALLER Legal Sex Female 8:50 AM CDT Gender Identity Female 03/12/2024 2:21 PM SPRINKLING SYSTEM INSTALLER Sexual Orientation Choose not to disclose 2023 2:21 PM SPRINKLING SYSTEM INSTALLER documented as of this encounter Miscellaneous Notes * Telephone Encounter - Clara Robb RN - 01/05/2025 12:28 PM CDT Patient called in to report upcoming doctors appointments: [facility] is having STAB PHLEBECTOMY (LEFT LEG) 02/11/25 Dr. Almendarez appointment 03/10/25 left revers total shoulder arthroplasty Routed to Dr. Sorenson as FYI. Clara ANGELA * Telephone Encounter - Stephanie Martines - 01/05/2025 11:59 AM CDT Copied from [facility] #[id number]. Topic: Patient Reported Outcome Metrics >> Jan 05, 2025 11:55 AM Stephanie Wynne wrote: Caller Name: Leanne Larsen Callback Number: [phone] Call Notes: Caller is reporting Follow up information from an appointment Patient needs to report Would like TRI SORENSON to know of upcoming appointments. [facility] is having STAB PHLEBECTOMY (LEFT LEG) 02/11/25 Dr. Almendarez appointment 03/10/25 left revers total shoulder arthroplasty documented in this encounter Plan of Treatment Upcoming Encounters Date Type Department Care Team (Late st Contact Info) Description 06/02/2025 9:30 AM CDT Office Visit [facility] [address] [place] [address] [address] [phone] Tri Sorenson MD [address] [phone] 12/01/2025 9:30 AM CDT Office Visit [address] [facility] [address] [place] [address] [address] [phone] Tri Sorenson MD [address] [phone] documented as of this encounter Visit Diagnoses Not on filedocumented in this encounter Additional Health Concerns Assessment Noted Time PHQ-9 Depression Total Score: 1 11/27/19 8:19 AM CDT documented as of this encounter Care Teams Systems Technician Relationship Specialty Start Date End Date Tri Sorenson MD [address] [phone] PCP - General Family Practice 11/03/23 documented as of this encounter
--- OUTSIDE RECORDS SUMMARY | 2025-03-10 02:14 | XMS_ITS | Encounter Summary ---
Author Organization [facility] Address [facility] [place] [address] Care Team Providers Care New Car Salesperson Name Role Phone Sherine Flor MD Unavailable [phone] Jodi Cooper MD Primary Care Provider [phone] Ashley Dyson MD Unavailable [phone] Juvenal Whipple MD, Reinaldo Hyde Primary Care Provider Jodi Cooper MD Primary Care Provider [phone] Jodi Cooper MD Unavailable Juvenal Whipple MD, Reinaldo Hyde Primary Care Provider Tri Sorenson MD Primary Care Provide r Tri Sorenson MD Unavailable [phone] Encounter Details Date Type Department Care Team (Late st Contact Info) Description 06/23/2019 [facility] Outpatient Visit [facility] - Family Medicine [address] [place] [phone] Jodi Cooper MD [address] [place] [address] Social History Tobacco Use Types Packs/Day Years Used Date Smoking Tobacco: Former Cigarettes 0 Q uit: 11/22/1997 Smokeless Tobacco: Never Alcohol Use Standard Drinks/Week Comments No 0 (1 standard drink = 0.6 oz pur e alcohol) Comments No Sex and Gender Information Value Date Recorded Sex Assigned at Female 06/10/2020 6:46 PM CDT Legal Sex Female 6:25 AM CAR SALES ASSOCIATE Gender Identity Female 06/10/2020 6:46 PM CDT Sexual Orientation Choose not to disclose 2020 6:46 PM CDT 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 Not on file Not [...] on filedocumented in this encounter Care Teams New Car Salesperson Relationship Specialty Start Date End Date Jodi Cooper MD [address] [address] PCP - General Family Medicine 02/27/18 10/12/19 Reinaldo Sanford Jr., MD [address] [place] [address] PCP - General Family Medicine 10/13/19 10/28/19 Jodi Cooper MD [address] [place] [address] PCP - General 10/29/19 10/30/19 Jodi Cooper MD [address] [place] [phone] PCP - Attributed-[facility] 09/22/19 09/09/22 Reinaldo Sanford Jr., MD [address] [place] [address] PCP - General 04/17/21 09/06/21 Tri Sorenson MD [address] [place] [phone] PCP - General Family Medicine 09/07/21 Tri Sorenson MD [address] [place] [address] PCP - Attributed-[facility] 03/24/22 Sherine Flor MD [address] [place] [address] Referring Physician General Surgery 04/16/15 Ashley Dyson MD [address] [place] [phone] Urogynecology 12/14/18 documented as of this encounter
--- OUTSIDE RECORDS SUMMARY | 2025-03-10 02:14 | XMS_ITS | Encounter Summary ---
Author Organization [facility] Address [facility] [facility] [place] [address] Care Team Providers Care Axle Polisher Name Role Phone Sherine Flor MD Unavailable [phone] Ashley Dyson MD Unavailable [phone] Jodi Cooper MD Unavailable Juvenal Whipple MD, Reinaldo Hyde Primary Care Provider Tri Sorenson MD Primary Care Provide r Tri Sorenson MD Unavailable [phone] Encounter Details Date Type Department Care Team (Late st Contact Info) Description 12/30/2019 [facility] Outpatient Visit [facility] - Family Medicine [address] [place] [phone] Reinaldo Sanford Jr., MD [address] [place] [address] Social History Tobacco Use Types Packs/Day Years Used Date Smoking Tobacco: Former Cigarettes 0 Q uit: 11/22/1997 Smokeless Tobacco: Never Alcohol Use Standard Drinks/Week Comments No 0 (1 standard drink = 0.6 oz pur e alcohol) Comments No Sex and Gender Information Value Date Recorded Sex Assigned at Female 06/10/2020 6:46 PM CDT Legal Sex Female 6:25 AM 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 CAR 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 Gender Identity Female 06/10/2020 6:46 PM CDT Sexual Orientation Choose not to disclose 2020 6:46 PM CDT 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 Not on file [...] on filedocumented in this encounter Care Teams Axle Polisher Relationship Specialty Start Date End Date Jodi Cooper MD [address] [place] [address] PCP - Attributed-[facility] 09/22/19 09/09/22 Reinaldo Sanford Jr., MD [address] [place] [address] PCP - General 1/25/22 6/16/22 Tri Sorenson MD [address] [place] [address] PCP - General Family Medicine 09/07/21 Tri Sorenson MD [address] [facility] [address] [place] [address] PCP - [facility] 03/24/22 Sherine Flor MD [address] [place] [address] Referring Physician General Surgery 04/16/15 Ashley Dyson MD [address] [place] [address] Urogynecology 12/14/18 documented as of this encounter
--- OUTSIDE RECORDS SUMMARY | 2025-03-10 02:14 | XMS_ITS | Encounter Summary ---
Author Organization [facility] Address [address] [place] [address] Care Team Providers Care Dinkey Engine Operator Name Role Phone Tri Sorenson MD Primary Care Provide r Reason for Visit * Reason Comments Question Encounter Details Date Type Department Care Team (Late st Contact Info) Description 10/15/2023 Telephone [address] [facility] [address] [facility] [address] [place] [address] Tri Sorenson MD [address] [facility] [address] [place] [address] Question Social History Tobacco Use Types Packs/Day Years Used Date Smoking Tobacco: Never Assessed Comments Unknown Sex and Gender Information Value Date Recorded Sex Assigned at Female 03/12/2024 2:21 PM PORTABLE MACHINE SANDER Legal Sex Female 8:50 AM CDT Gender Identity Female 03/12/2024 2:21 PM PORTABLE MACHINE SANDER Sexual Orientation Choose not to disclose 2023 2:21 PM PORTABLE MACHINE SANDER documented as of this encounter Miscellaneous Notes * Telephone Encounter - Yaneth Hi - 10/23/2023 3:35 PM CDT LVM for pt to call office back * Telephone Encounter - Erika Caceres - 10/15/2023 4:49 PM CDT Copied from [facility] #[id number]. Topic: Patient or Caregiver Communication Request >> Oct 15, 2023 4:43 PM Erika Cordero wrote: Patient or Caregiver requesting advice Caller: leanne Patient/Caregiver Callback Number: [phone] (home) Call Notes: Patient states insurance [facility] stated they aren't sure if dr. [...] CDT Office Visit [address] [facility] [address] [place] [address] [address] [address] Tri Sorenson MD [address] [address] 12/01/2025 9:30 AM CDT Office Visit [facility] [address] [place] [address] [address] [place] [address] Tri Sorenson MD [address] [address] documented as of this encounter Visit Diagnoses Not on filedocumented in this encounter Care Teams Dinkey Engine Operator Relationship Specialty Start Date End Date Tri Sorenson MD [address] [place] [address] PCP - General Family Practice 11/03/23 documented as of this encounter
--- OUTSIDE RECORDS SUMMARY | 2025-03-10 02:14 | XMS_ITS | Encounter Summary ---
Author Organization [facility] Address [address] [place] [address] Care Team Providers Care Child Care Teacher Name Role Phone Tri Sorenson MD Primary Care Provide r Reason for Visit * Reason Comments Results Encounter Details Date Type Department Care Team (Late st Contact Info) Description 04/21/2024 Telephone [address] [facility] [address] [address] Tri Sorenson MD [address] [facility] [address] [place] [address] Results Social History Tobacco Use Types Packs/Day Years Used Date Smoking Tobacco: Former Cigarettes 0.5 39 S tarted: 1978 Smokeless Tobacco: Never Alcohol Use Standard Drinks/Week Comments Yes 0 (1 standard drink = 0.6 oz pur e alcohol) Comments No Sex and Gender Information Value Date Recorded Sex Assigned at Female 03/12/2024 2:21 PM TRAVELING PASSENGER AGENT Legal Sex Female 8:50 AM CDT Gender Identity Female 03/12/2024 2:21 PM TRAVELING PASSENGER AGENT Sexual Orientation Choose not to disclose 2023 2:21 PM TRAVELING PASSENGER AGENT documented as of this encounter Miscellaneous Notes * Telephone Encounter - Rose Garcia RN - 04/21/2024 12:21 PM TRAVELING PASSENGER AGENT Just fyi regarding patients response to sleep study results. ELING PASSENGER AGENT * Telephone Encounter - Rose Garcia RN - 04/21/2024 12:19 PM TRAVELING PASSENGER AGENT Patient also stated that she had her pneumonia (Capvaxibe) vaccine today at [facility]. Vaccination record updated. ELING PASSENGER AGENT * Telephone Encounter - Rose Garcia RN - 04/21/2024 12:10 PM TRAVELING PASSENGER AGENT 04/21/2024 12:10 PM Called and notified patient [...] of call. Verbalized understanding. No further questions. ELING PASSENGER AGENT * Telephone Encounter - Tri Sorenson MD - 04/21/2024 11:15 AM TRAVELING PASSENGER AGENT Looks like the final interpretation was updated [...] about this more if she wants appt. ELING PASSENGER AGENT * Telephone Encounter - Rose Garcia RN - 04/21/2024 9:07 AM TRAVELING PASSENGER AGENT Patient inquiring about sleep study results. Noted results were scanned in chart Scan on 04/01/2024 . Noted that Yany called and left a message with [facility] on 04/14/24 regarding formal results of sleep study. She noted Call center if [facility] calls back please transfer to back line. Not sure if they called back regarding this. Please let me know if you want me to call [facility] again regarding this. ty ELING PASSENGER AGENT ELING PASSENGER AGENT * Telephone Encounter - Ashley Rojas - 04/21/2024 8:45 AM CST Copied from [facility] #[id number]. Topic: Patient or Caregiver Communication Request >> Apr 21, 2024 8:43 AM Ashley Manzanares wrote: Patient or Caregiver requesting advice Caller: Leanne Larsen Patient/Caregiver Callback Number: [phone] (home) Call Notes: Leanne Larsen asking for the sleep study test results which 03/18/24. Please advisethe patient, she has made multiple calls to find out results. ELING PASSENGER AGENT documented in this encounter Plan of Treatment Upcoming Encounters Date Type Department Care Team (Late st Contact Info) Description 06/02/2025 9:30 AM CDT Office Visit [address] [facility] [address] [place] [address] [address] [phone] Tri Sorenson MD [address] [address] 12/01/2025 9:30 AM CDT Office Visit [address] [place] [address] [address] [phone] Tri Sorenson MD [address] [address] documented as of this encounter Visit Diagnoses Not on filedocumented in this encounter Additional Health Concerns Assessment Noted Time PHQ-9 Depression Total Score: 1 02/09/20 24 10:00 AM TRAVELING PASSENGER AGENT documented as of this encounter Care Teams Child Care Teacher Relationship Specialty Start Date End Date Tri Sorenson MD [address] [phone] PCP - General Family Practice 11/03/23 documented as of this encounter
--- OUTSIDE RECORDS SUMMARY | 2025-03-10 02:14 | XMS_ITS | Data Portability ---
Author Organization [facility] Jael CAST Address [address] [facility] [place] [address] Care Team Providers Care Manufacturing Specialist Name Role Phone TRI LUCIA Primary Care Provider Wendie brown Assessment No assessment recorded. Plan of Treatment Reminders Order Date Submit Date Provider Last Modified By Organization Details Last Modified Time Details Appointments None recorded. Lab None recorded. Referral neurologica l surgeon referral 2023 024 JOCELYN Douglas MD, [address] [facility] [address], [place], [address], 4 10:34:59 physical therapist referral 2023 024 [facility], [address] [facility], [place], [address], 4 10:53:47 Procedures None recorded. Surgeries None recorded. Imaging MRI, lumbar spine, w/o contrast 2023 024 [facility], [address], [place], [address], 4 07:25:22 DEXA 2022 023 [facility], [address], [place], [address], 3 17:58:48 electrocard iogram 2022 023 [email or web address] In-Office Order, Internal Use Only DO Not Attach Compendium DO Not Attach Compendium, Do Not Delete/merge, [id number] 12:08:48 Medication Orders chlorthalid one 25 mg tablet 2022 023 JOCELYN [facility], [facility] [address], [address], [id number], 18:15:34 Patient TargetsNo targets recorded. Patient Instructions Encounter Date Encounter Id Patient Instructions Last Modified By Organization Details Last Modified Time 12/10/2022 [id number] A healthy lifestyle: care instructions [email or web address] Not available 12/10/2022 18:15:33 04/28/2023 [id number] A healthy lifestyle: care instructions [email or web address] Not available 04/28/2023 12:25:42 Reason for Referral [...] glucose 89 mg/dL 70-99 Not Available [facility] ([facility]) [address] [place], [address], 11/08/2022 10:13:28 11/08/19 23 11/08/2022 COMP. METAB OLIC PANEL (14) BUN 18 mg/dL 8-27 Not Available [facility] ([facility]) [address] [place], [address], 11/08/2022 10:13:28 11/08/19 23 11/08/2022 COMP. METAB OLIC PANEL (14) creatinine 0.83 mg/dL 0.57-1 .00 Not Available [facility] ([facility]) [address] [place], [address], 11/08/2022 10:13:28 11/08/19 23 11/08/2022 COMP. METAB OLIC PANEL (14) eGFR 77 mL/mi n/1.7 3 >59 Not Available [facility] ([facility]) [address] [facility], [place], [address], 11/08/2022 10:13:28 11/08/19 23 11/08/2022 COMP. METAB OLIC PANEL (14) BUN/creatini ne ratio 22 12-28 Not Available [facility] ([facility]) [address] [facility], [place], [address], 11/08/2022 10:13:28 11/08/19 23 11/08/2022 COMP. METAB OLIC PANEL (14) sodium 141 mmol/ L 134-14 4 Not Available [facility] ([facility]) [address] [facility], [place], [address], 11/08/2022 10:13:28 11/08/19 23 11/08/2022 COMP. METAB OLIC PANEL (14) potassium 4.1 mmol/ L 3.5-5. 2 Not Available [facility] ([facility]) [address] [facility], [place], [address], 11/08/2022 10:13:28 11/08/19 23 11/08/2022 COMP. METAB OLIC PANEL (14) chloride 102 mmol/ L 96-106 Not Available [facility] ([facility]) [address] [facility], [place], [address], 11/08/2022 10:13:28 11/08/19 23 11/08/2022 COMP. METAB OLIC PANEL (14) carbon dioxide, total 26 mmol/ L 20-29 Not Available [facility] ([facility]) [address] [facility], [place], [address], 11/08/2022 10:13:28 11/08/19 23 11/08/2022 COMP. METAB OLIC PANEL (14) calcium 9.5 mg/dL 8.7-10 .3 Not Available [facility] ([facility]) [address] [facility] [place], [address], 11/08/2022 10:13:28 11/08/19 23 11/08/2022 COMP. METAB OLIC PANEL (14) protein, total 5.9 g/dL 6.0-8. 5 below low normal Not Available [facility] ([facility]) [address] [facility] [place], [address], 11/08/2022 10:13:28 11/08/19 23 11/08/2022 COMP. METAB OLIC PANEL (14) albumin 4.1 g/dL 3.9-4. 9 Not Available [facility] ([facility]) [address] [facility] [place], [address], 11/08/2022 10:13:28 11/08/19 23 11/08/2022 COMP. METAB OLIC PANEL (14) globulin, total 1.8 g/dL 1.5-4. 5 Not Available [facility] ([facility]) [address] [place], [address], 11/08/2022 10:13:28 11/08/19 23 11/08/2022 COMP. METAB OLIC PANEL (14) A/G ratio 2.3 1.2-2. 2 above high normal Not Available [facility] ([facility]) [address] [place], [address], 11/08/2022 10:13:28 11/08/19 23 11/08/2022 COMP. METAB OLIC PANEL (14) bilirubin, total 0.3 mg/dL 0.0-1. 2 Not Available [facility] ([facility]) [address] [facility] [place], [address], 11/08/2022 10:13:28 11/08/19 23 11/08/2022 COMP. METAB OLIC PANEL (14) alkaline phosphatase 68 IU/L 44-121 Not Available [facility] [address] [facility], [place], [address], 11/08/2022 10:13:28 11/08/19 23 11/08/2022 COMP. METAB OLIC PANEL (14) AST (SGOT) 23 IU/L 0-40 Not Available [facility] ([facility]) [address] [facility], [place], [address], 11/08/2022 10:13:28 11/08/19 23 11/08/2022 COMP. METAB OLIC PANEL (14) ALT (SGPT) 21 IU/L 0-32 Not Available [facility] ([facility]) [address] [facility], [place], [address], 11/08/2022 10:13:28 11/08/19 23 11/08/2022 TSH REFLE X TO T4F TSH 1.850 uIU/m L 0.450- 4.500 Not Available [facility] ([facility]) [address] [facility], [place], [address], 11/08/2022 10:13:30 07/20/19 23 07/22/2022 elect rocar diogr am No observ ation record ed. [email or web address] In-Office Order Internal Use Only DO Not Attach Compendium DO Not Attach Compendium, Do Not Delete/merge, [id number] 07/22/2022 09:26:24 07/20/19 23 07/19/2022 elect rocar diogr am No observ ation record ed. [email or web address] In-Office Order Internal Use Only DO Not Attach Compendium DO Not Attach Compendium, Do Not Delete/merge, [id number] 07/19/2022 12:18:25 01/08/20 23 01/07/2023 LDCT, chest , for lung cance r scree shellie No observ ation record ed. JOCELYN [facility] [address] [address], [place], [address], 01/07/2023 15:59:40 02/13/20 23 12/27/2021 nerve condu ction study /EMG (PROC ) No observ ation record ed. [email or web address] Not Available 01/23 09:14:00 02/28/20 23 02/27/2023 DEXA No observ ation record ed. [email or web address] [facility] [address], [place], [address], 03/12/2023 14:30:44 03/04/20 23 07/26/2021 MRI, lumba r spine , w/o contr ast No observ ation record ed. [email or web address] [facility] [address], [place], [address], 05/02/2023 11:29:22 05/05/19 24 05/03/2023 MRI, lumba r spine , w/o contr ast No observ ation record ed. [email or web address] [facility] [address], [place], [address], 05/08/2023 10:01:21 03/29/19 25 07/23/2023 MAMMO , scree shellie, tomos ynthe sis, bilat eral No observ ation record ed. [email or web address] Not Available 03/29 11:17:47 04/01/19 25 03/18/2024 sleep study , diagn ostic (PROC ) No observ ation record ed. [email or web address] [facility] [address] [facility], [place], [address], 04/02/2024 08:22:12 04/01/19 25 03/18/2024 sleep study , diagn ostic (PROC ) No observ ation record ed. [email or web address] [address] [place], [address], 04/02/2024 08:22:27 Result Notes None recorded. Problems Name Problem SNOMED Code Status Onset Date Resolution Date Notes Provider Name and Address Organization Details Recorded Time Constipation 86448232 Active 2022 Tri Lucia MD Attn: Accounting ,[address] [facility], [place], [address] , [facility] 3 18:02:33 Pulmonary emphysema 46591709 Active 2022 Tri Lucia MD Attn: Accounting ,[address] [facility], [place], [address] , [facility] 3 18:08:05 Numbness of foot 633216859 Active 2022 Tri Lucia MD Attn: Accounting ,[address] [place], [address] , [facility] 3 18:05:37 Osteopenia 427439593 Active 2022 Tri Lucia MD Attn: Accounting ,[address] [place], [address] , [facility] 3 18:08:15 History of malignant neoplasm of breast 525350319 Active 2022 Tri Lucia MD Attn: Accounting ,[address] [place], [address] , [facility] 3 18:02:53 Osteoarthriti s 735820885 Active 2022 Tri Lucia MD Attn: Accounting ,[address] [place], [address] , [facility] 3 18:08:21 Dyslipidemia 777725116 Active 2022 Tri Lucia MD Attn: Accounting ,[address] [place], [address] , [facility] 3 18:02:28 Insomnia 171694332 Active 2022 Tri Lucia MD Attn: Accounting ,[address] [place], [address] , [place] [facility] 3 18:02:43 Venous stasis 85126787 Active 2022 Tri Lucia MD Attn: Accounting ,[address] [place], [address] , [place] [facility] 3 18:08:30 Female urinary stress incontinence 85694883 Active 2022 Tri Lucia MD Attn: Accounting ,[address] [place], [address] , [place] [facility] 3 18:02:25 Hypothyroidis m 14601623 Active 2022 Tri Lucia MD Attn: Accounting ,[address] [place], [address] , [facility] 3 09:17:06 Gastroesophag eal reflux disease 125983113 Active 2022 Tri Lucia MD Attn: Accounting ,[address] [place], [address] , [facility] 3 18:11:59 Chest pain 29588962 Active 2022 Tri Lucia MD Attn: Accounting ,[address] [place], [address] , [facility] 3 18:11:44 Marital conflict 31065759 Active 2022 Tri Lucia MD Attn: Accounting ,[address] [place], [address] , [place] [facility] 3 11:11:41 Essential hypertension 18743854 Active 2022 Tri Lucia MD Attn: Accounting ,[address] [place], [address] , [place] [facility] 3 18:12:43 Lumbar radiculopathy 930870364 Active 2022 Tri Lucia MD Attn: Accounting ,[address] [place], [address] [facility] 3 18:19:30 Problem Notes None recorded. Procedures Surgical History Date Name Laterality Status Provider Name and Address Organization Details Recorded Time Partial hysterectomy completed Dahlia ArceEMILY [facility] 07/19/2022 09:22:01 screening for malignant neoplasm of breast completed Dahlia ArceEMILY [facility] 07/19/2022 09:22:16 cholecystectomy completed Dahlia Miranda emeterioEMILY [facility] 07/19/2022 09:22:27 Appendectomy completed Dahlia ArceEMILY [facility] 07/19/2022 09:22:39 total replacement of hip completed Dahlia ArceEMILY [facility] 07/19/2022 09:23:02 excision of bunion completed Dahlia ArceEMILY [facility] 07/19/2022 09:23:17 procedure on neck completed Dahlia Rios seanEMILY [facility] 07/19/2022 09:23:52 Imaging Results None recorded. Procedure Notes None recorded. Medical Equipment None Reported. Allergies Allergen ID Allergen Name Allergen Category Reaction Reaction Severity Criticality Documentation Date Start Date Code Code System Note Provider Name and Address Organization Details Recorded Time 525342 Product containin g penicilli n (product) medicatio n nausea Not available Not available 07/19/2022 76779 8001 SNOMED [facility] 08:57:38 953048 fentanyl medicatio n nausea Not available Not available 07/19/2022 4337 RxNorm Dahlia Arce MA monica [facility] 3 08:57:57 781286 erythromy aniyah medicatio n nausea Not available Not available 07/19/2022 4053 RxNorm Dahlia Arce MA monica [facility] 3 08:58:47 Medications Name Sig Start [...] active Not Available Not Available Not Avai lablisa Align (B. is) active Not Available Not [...] Updated DateTime 4 170.18 cm 28.3 kg/m2 44030.2 2 g 98.3 [degF] 60 /min 18 /min 113/68 mm[Hg] Yessica Evans MA [facility] 4 11:29:21 Date Recorded Body height Body mass index (BMI) Body weight Respiratory rate Body temperature Heart rate Systolic And Diastolic Provider Name and Address Organization Details Last Updated DateTime 4 170.18 cm 28.1 kg/m2 20686.7 8 g 16 /min 96.7 [degF] 61 /min 128/76 mm[Hg] Keith Aguilar MA [facility] 4 10:34:40 Date Recorded Body height Body mass index (BMI) Body weight Body temperature Heart rate Oxygen saturation Respiratory rate Systolic And Diastolic Provider Name and Address Organization Details Last Updated DateTime 3 170.18 cm 30.1 kg/m2 12498.8 4 g 98.3 [degF] 67 /min 97 % 16 /min 158/85 mm[Hg] Dahlia rAce MA [facility] 3 09:08:07 Date Recorded Body height Body mass index (BMI) Body weight Body temperature Respiratory rate Oxygen saturation Heart rate Systolic And Diastolic Provider Name and Address Organization Details Last Updated DateTime 3 170.18 cm 28.4 kg/m2 34512.0 2 g 97.1 [degF] 16 /min 99 % 61 /min 153/82 mm[Hg] Keith Aguilar MA [facility] 3 09:38:08 Date Recorded Body height Body mass index (BMI) Body weight Respiratory rate Body temperature Oxygen saturation Heart rate Systolic And Diastolic Provider Name and Address Organization Details Last Updated DateTime 3 170.18 cm 27.6 kg/m2 33706.3 6 g 16 /min 98.4 [degF] 100 % 63 /min 127/76 mm[Hg] Dahlia Arce MA [facility] 3 09:38:40 Social History Question Answer Notes LastModified by Organizat ion Details LastModified Time Tobacco Smoking Status Former Smoker Dahlia Arce MA null, [facility] 07/19/2022 09:03:16 Do You Have An Advance [...] Functional Status Question Answer Note LastModified by Organizat ion Details LastModified Time Do you use any illicit or recreational drugs? No Information not available 07/19/2022 What is your level of alcohol consumption? None Information not available 07/19/2022 Are you currently employed? No retired Information not available 07/19/2022 Are you able to care for yourself independently? Yes Information not available 07/19/2022 What is your exercise level? Occasional Information not available 07/19/2022 Mental Status None recorded. Family History Relationship Description Onset Age of this Age Resolved Age Notes LastModified by Organization Details LastModified Time Father Heart disease [email or web address] Not available 2022 09:02:10 Notes:Mother: cancer between heart/lung-now Medical History Condition Response Coronary Artery Disease N Other N Atrial Fibrillation N High Blood Pressure N Thyroid Problems Y Kidney or Bladder Problems Y Depression N COPD N Blood Clots N GI Problems N Skin Problems N Eating Disorder N Anemia N Heart Attack (NM) N Diabetes N Anxiety Disorder N Muscle, Joint, or Bone Problems N Seizures/Epilepsy N Acid Reflux (GERD) Y Cancer Y Stroke N Allergies N Asthma N ADHD N Substance Abuse N High Cholesterol N Hepatitis N Liver Disease N Schizophrenia N Headaches N Osteoporosis N Heart Failure N Gynecological History Statement/Question Response Date of LMP Obstetrics History GPAL:G 0 P 0 0 0 0 Immunizations Vaccine Type Date Status Note Provider Bunny villalta and Address Organization Details Recorded Time zoster, [...] [facility] 03/03/2023 10:26:25 Pneumococcal conjugate PCV20, polysaccharide RNJ119 conjugate, adjuvant, PF 2 completed EMILY [place], [place] - [facility] 03/03/2023 10:28:14 COVID-19, mRNA, LNP-S, bivalent, PF, 30 mcg/0.3 mL dose 2 completed EMILY [place], [place] - [facility] 03/03/2023 10:30:03 Past Encounters Encounter ID Performer Location Encounter Start Date Encounter Closed Date Diagnosis/Indication Diagnosis SNOMED-CT Code Diagnosis ICD10 Code Diagnosis IMO Codes Diagnosis Note [id number] MD Alisson Pereira [address] [facility] [place] [address] 07/19/2022 08:48:17 07/23/2022 15:49:55 Constipation 41169344 K59.00 Stable, no changes, continue linzess Dyslipidemia 586028446 E 78.5 Stable. Labs when she RTC in 6 mo for AMWV Female uri nary stress incontinence 17018460 N39.3 Stable, cont f/u with Dr. Dyson Gastroesop hageal reflux disease 676354263 K21.9 Continues on PPI therapyNex t visit get length of time she's had GERD, may want to consider EGD History of malignant neoplasm of breast 470390351 Z85.3 Plan for screening mammogram when she RTC in 6 mo Hypothyroidism 23142018 E03.9 Labs in 6 mo Insomnia 750533427 G47.0 0 Cont trazodone, no changes Numbness of foot 8040024 00 R20.0 We'll reach out to Dr. Andrade's office to coordinate why she was never contacted with results of EMG or for pain management referral to consider ZAY Osteopenia 273456060 M85 .80 Plan for repeat dexa FALL23 Pulmonary emphysema 8743 3001 J43.9 Stable, continue albuterol PRN Chest pain 94654776 R07. 9 I think this is costochond ritisEKG is okWill treat with NSAIDSwill touch base in 1 week how sx are doing; if still having issues will check holter and stress test Essential hypertension 64143523 I10 New dx todayBP high yesterday at Dr. Martines, worse todayWill check BID x 1 week and we'll start rx if needed Marital conflict 1994798 0 Z63.0 She and are both in agreement to make appt with counselor I have suggested [id number] MD Alisson Pereira 14 IM [address] [facility] [place] [address] 12/10/2022 09:16:15 12/24/2022 15:25:41 Overweight 247605130 E66.3 Essential hypertension 69385377 I10 Osteopenia 793462199 M85 .80 Venous stasis 74276102 I 87.8 Numbness of foot 6689532 00 R20.0 Lumbar radiculopathy 128 851408 M54.16 Gastroesop hageal reflux disease 201619436 K21.9 History of malignant neoplasm of breast 201843352 Z85.3 Hypothyroidism 66840505 E03.9 Marital conflict 4876864 0 Z63.0 [id number] MD Alisson Pereira 14 IM [address] [facility] [place] [address] 03/03/2023 09:21:42 03/04/2023 08:09:42 Dyslipidemia 739720273 E78.5 Essential hypertension 75115019 I10 Numbness of foot 5014786 00 R20.0 Osteopenia 031766288 M85 .80 [id number] MD Alisson Pereira 14 IM [address] [facility] [place] [address] 04/28/2023 11:05:58 05/01/2023 11:14:00 Overweight 313230154 E66.3 Spinal serge nosis of lumbar region 85520754 M48.721 [id number] MD Alisson Pereira 14 IM [address] [facility] [place] [address] 07/08/2023 10:26:37 07/14/2023 14:52:46 Essential hypertension 87513219 I10 Lumbar radiculopathy 128 310187 M54.16 Marital conflict 6390048 0 Z63.0 Numbness of foot 6375127 00 R20.0 Venous stasis 74801850 I 87.8 Osteopenia 070654136 M85 .80 Osteoarthritis 885935201 M19.90 Health Concerns Section Related Observation LastModified by Organization Detai ls LastModified Time None Recorded Concern Status LastModified by Organization Details LastModified Time None Recorded Advance Directives Directive N: Payers Insurance Date Sequence Insurance Name Policy Number Policy Esteban Covered Member ID Esteban Member ID Guarantor Name 10/06/2023 1 [facility] (MEDICARE REPLACEMENT/A DVANTAGE - HMO) [id number] Leanne Larsen [id number] Leanne Larsen Notes Date Note Type Note Provider Name and Address Organization Details Recorded Time 3 text/html ROS as noted in the HPI Here to est care with this office, known well to me from previous offices.Reviewed med problems and med list. Discussed some updates with her radicular sx but otherwise her chronic issues are stable. Needs no med refills today. Does complain of chest pain - see problem list Tri Lucia MD Attn: Accounting,[address] [facility], [place], [address], [place] [facility] 07/19/2022 11:15:07 3 text/html ROS as noted in the HPI Here for f/u on numerous issues Chest edkmEFE02: A few weeks of chest pain. Seems [...] ASCVD risk, on atorvastatin 40Foot numbnessLumbar radiculopathyVenous nlzpobCHH40: Hx of R sided sciatica. MRI lumbar [...] want to consider EGD Hx of breast [id number] s/p lumpectomyFollows with Dr. FlorA&P: Mammos per Dr. Flor HypertensionBP high last 2 visitsAlready active and uses minimal added saltA&P: Trial of chlorthalidone. Needs BMP in 3 months HypothryoidismTFTs in range XCU85Lgyx 75mcgA&P: No changesInsomniaOn trazodone Marital ConflictThings are status quo; never went to counselingA&P: Declines referral just for herself at this time OsteoarthrithsS/p total R hip, toe surgeries OsteopeniaDEXA &P: Agreeable to repeat now Stress incontinence/Overactive bladderSeed Dr. Mcdowell with [facility] 2 [facility] bladder - helping immenselyA&P: F/u per [facility] PreventionColorectal screening: cancer screening: via Dr. FlorOsteoporosis screening:LDCT: LIV90Aotyjleq:POA/Code Status: Tri Lucia MD Attn: Accounting,[address] [place], [address], [facility] 12/12/2022 09:15:07 3 text/html ROS as noted in the HPI Here for f/u on numerous issues: Chest dkghKBS59: A few weeks of chest pain. Seems [...] just uses albuterol PRN which is rare McwwexauzimeWCM68Umd elevated ASCVD risk, and had been on atorvastatin 40 but requested to stop it around to see if it stopping would help with pains in legs - it has notAP: Revisit restarting statin next visit since it didn't seem to be overly helpfulFoot numbnessLumbar radiculopathyVenous pegyqvAVM59: Hx of R sided sciatica. MRI lumbar [...] about as best can be expected; no bhesmtnRUO22: Continues to struggle with heaviness or legs, [...] want to consider EGD Hx of breast [id number] s/p lumpectomyFollows with Dr. FlorA&P: Mammos per Dr. Flor HypertensionBP high last 2 visitsAlready active and uses minimal added saltA&P: Trial of chlorthalidone. Needs BMP in 3 jczwihPVZ70: Chlorthalidone started last visit. No complaintsAP: RTC in 3 months and labs at that time HypothyroidismTFTs in range MUM54Jvfp 75mcgA&P: No changesInsomniaOn trazodone Marital ConflictThings are status quo; never went to counselingA&P: Declines referral just for herself at this time. Info given to her re: Prostate Ca Support group OsteoarthritisS/p total R hip, toe surgeries OsteopeniaDexas from [place]: (Has also had done with [facility] and [...] helping immenselyA&P: F/u per [facility] PreventionColorectal screening: KQE56NOSQ: NQE13Oaigswdj:POA/Code Status: Tri Lucia MD Attn: Accounting,[address] [facility], [place], [address], [place] [facility] 03/03/2023 15:42:45 4 text/html ROS as noted in the HPI Here for f/u on numerous issues: Chest wpdwPHA38: A few weeks of chest pain. Seems [...] just uses albuterol PRN which is rare BfjechhgbsmbJSI66Otw elevated ASCVD risk, and had been on atorvastatin 40 but requested to stop it around to see if it stopping would help with pains in legs - it has notAP: Revisit restarting statin next visit since it didn't seem to be overly helpfulNeuropathy with impaired gaitLumbar radiculopathy secondary to spinal OA and sacroilitisVenous ijzbicYNN71: Hx of R sided sciatica. MRI lumbar [...] want to consider EGD Hx of breast [id number] s/p lumpectomyFollows with Dr. FlorA&P: Mammos per Dr. Flor HypertensionBP high last 2 visitsAlready active and uses minimal added saltA&P: Trial of chlorthalidone. Needs BMP in 3 iylsdfYGG40: Chlorthalidone started last visit. No complaintsAP: RTC in 3 months and labs at that time HypothyroidismTFTs in range ESY34Qfdu 75mcgA&P: No changesInsomniaOn trazodone Marital ConflictThings are status quo; never went to counselingA&P: Declines referral just for herself at this time. Info given to her re: Prostate Ca Support group OsteoarthritisS/p total R hip, toe surgeries OsteopeniaDexas from [place]: (Has also had done with [facility] and [...] helping immenselyA&P: F/u per [facility] PreventionColorectal screening: TYI45ADUP: BUV68Uxeyywro:POA/Code Status: Tri Lucia MD Attn: Accounting,[address] [facility], [place], [address], [facility] 04/28/2023 14:29:03 4 text/html ROS as noted in the HPI Here for f/u on numerous issues: Chest wfnxLJP48: A few weeks of chest pain. Seems [...] just uses albuterol PRN which is rare StmfklujahhgYQC90Fzk elevated ASCVD risk, and had been on atorvastatin 40 but requested to stop it around to see if it stopping would help with pains in legs - it has notAP: Revisit restarting statin next visit since it didn't seem to be overly helpfulNeuropathy with impaired gaitLumbar radiculopathy secondary to spinal OA and sacroilitisVenous [id number]: Hx of R sided sciatica. MRI lumbar [...] want to consider EGD Hx of breast [id number] s/p lumpectomyFollows with Dr. FlorA&P: Mammos per Dr. Flor [id number]: Did not discuss in detail today but does't not c/o any related sx On chlorthalidone, lasix.AP: No changes to regimen, will check labs on yearly basis, plan to do in OCT HypothyroidismTFTs in range [id number] 75mcgA&P: No changesInsomniaOn trazodone Marital ConflictThings are status quo; never went to counselingA&P: Declines referral just for herself at this time. Info given to her re: Prostate Ca Support [id number]: This issue continues to be very pressing for her.AP: Discussed options at length encouraged her to see counselor independently and she'll consider. Info given for [facility] which is near her OsteoarthritisS/p total R hip, toe surgeriesOn meloxicam, renal function ok [id number]: No changes, repeat bmp in a few months OsteopeniaDexas from [place]: (Has also had done with [facility] and they measure different sites)DEXA 2020: AP spine 0.0, L hip -0.9DEXA 2022: AP spine 0.4, L hip -0.8On ca/vit DA&P: Improving. No hx of fracture, only hip replacement. Will consider repeating ~2027 Stress incontinence/Overactive bladderSees Dr. Mcdowell with [facility]Getting boxtox x 2 in bladder - helping immenselyContinues on solifenacinA&P: F/u per [facility] PreventionColorectal screening: [id number]: [id number]: UTD on all recommendPOA/Code Status: Social: lives [...] relationship. Tri Lucia MD Attn: Accounting,[address] [facility], [place], [address], [facility] 07/08/2023 16:00:56 OBGyn Episode No OBEpisode recorded.
--- OUTSIDE RECORDS SUMMARY | 2025-03-10 02:14 | XMS_ITS | Encounter Summary ---
Author Organization [facility] Address [facility] [facility] [place] [address] Care Team Providers Care Brick Unloader Tender Name Role Phone Sherine Flor MD Unavailable [phone] Ashley Dyson MD Unavailable [phone] Jodi Cooper MD Unavailable Juvenal Whipple MD, Reinaldo Hyde Primary Care Provider Tri Sorenson MD Primary Care Provide r Tri Sorenson MD Unavailable [phone] Encounter Details Date Type Department Care Team (Late st Contact Info) Description 12/15/[facility] - Family Medicine [address] [place] [id number] Reinaldo Sanford Jr., MD [address] [place] [address] Social History Tobacco Use Types Packs/Day Years Used Date Smoking Tobacco: Former Cigarettes 0 Q uit: 11/22/1997 Smokeless Tobacco: Never Alcohol Use Standard Drinks/Week Comments No 0 (1 standard drink = 0.6 oz pur e alcohol) Comments No Sex and Gender Information Value Date Recorded Sex Assigned at Female 06/10/2020 6:46 PM CDT 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 Gender Identity Female 06/10/2020 6:46 PM CDT Sexual Orientation Choose not to disclose 2020 6:46 PM CDT 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 [address] [place] [address] PCP - [facility] 03/24/22 Sherine Flor MD [address] [place] [address] Referring Physician General Surgery 04/16/15 Ashley Dyson MD [address] [place] [address] Urogynecology 12/14/18 documented as of this encounter
[2025-03-10] MEDS: LACTATED RINGERS 1,000 ML 30 ML IV CONT ×2 (06:35→09:49)
[2025-03-10] MEDS: TRANEXAMIC ACID 1,000MG/ISO100 1,000 MG/100 ML BAG 200 MG IVPB (06:35)
[2025-03-10] MEDS: ACETAMINOPHEN 500 MG TABLET 1000 MG PO (06:35)
[2025-03-10] MEDS: SCOPOLAMINE 1 MG PATCH 1 PATCH TRANSDERM (07:00)
--- NOTE | 2025-03-10 07:02 | WPDANESEPPF ---
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 Patient Data Age: 69 Gender: F Height: 1.68 m Weight: 76.5 kg Last Vital Signs Temp 36.4 C L 03/10/25 06:35 Pulse 63 03/10/25 06:35 Resp 16 03/10/25 06:35 BP 148/55 H 03/10/25 06:35 Pulse Ox 99 03/10/25 06:35 O2 Del Method Room Air 03/10/25 06:35 Allergies Allergy/AdvReac Type Severity Reaction Status Date / Time erythromycin base Allergy Mild Rash Verified 03/10/25 06:52 fentanyl AdvReac Severe Nausea Verified 03/10/25 06:52 Penicillins AdvReac Mild Nausea Verified 03/10/25 06:52 Home Medications ?Medication ?Instructions ?Recorded ?Confirmed ?Type levothyroxine 75 mcg tablet 75 mcg PO DAILY 04/18/20 03/10/25 History (Synthroid) vitamin B complex 1 cap PO DAILY 03/26/22 03/10/25 History albuterol sulfate 90 mcg/actuation 2 puff inhalation QID PRN 12/16/22 02/11/25 Rx aerosol inhaler shortness of breath or wheezing #6.7 grams chlorthalidone 25 mg tablet 25 mg PO DAILY 12/30/22 03/10/25 History linaclotide 290 mcg capsule 290 mcg PO DAILY PRN Constipation 05/14/23 02/11/25 History (Linzess) meloxicam 7.5 mg tablet 7.5 mg PO DAILY 05/14/23 03/10/25 History pravastatin 10 mg tablet 10 mg PO DAILY 11/19/23 03/10/25 History pregabalin 300 mg capsule 300 mg PO HS 12/30/23 03/10/25 History trazodone 50 mg tablet 50 mg PO HS 12/30/23 03/10/25 History famotidine 20 mg tablet 20 mg PO BID 04/08/24 03/10/25 History cholecalciferol (vitamin D3) 50 2,000 unit PO DAILY 02/11/25 03/10/25 History mcg (2,000 unit) capsule hydrocodone 5 mg-acetaminophen 325 1 tablet PO Q6-8H PRN pain 02/11/25 02/14/25 History mg tablet phosphatidylserine 100 mg capsule 100 mg PO DAILY 02/11/25 03/10/25 History propranolol 40 mg tablet 40 mg PO Q12H 02/11/25 03/10/25 History aspirin 81 mg tablet,delayed 81 mg PO BID 14 days #28 tabs 03/10/25 Rx release meloxicam 15 mg tablet 15 mg PO DAILY #30 tabs 03/10/25 Rx oxycodone-acetaminophen 5 mg-325 1 - 2 tablet PO Q4-6H PRN pain #30 03/10/25 Rx mg tablet tabs Laboratory Tests 03/10/25 06:27 Blood Type Pending Antibody Screen Pending Patient hx anesthesia problems: post op nausea/vomiting Family hx anesthesia problems: none Results Review: All pre-operative results and documents have been reviewed as part of the pre-operative evaluation. [facility]LY [facility] Past Medical History Medical History PONV (postoperative nausea and vomiting) Anxiety Hypothyroidism Osteoarthritis GERD (gastroesophageal reflux disease) Hyperlipidemia Foot drop, 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 History of Mohs micrographic surgery for skin cancer (~2014) History of skin cancer History of breast cancer Surgical History Surgical History Status post total hip replacement, right (~07/18/20) History of hysterectomy History of spinal fusion fusion C5-6 History of cholecystectomy History of appendectomy Hx of breast surgery (~2015) Family History Family History Mother Lung cancer Heart disease Hypertension Father Heart disease Hypertension Social History Social History Smoking packs per day: 0.25 Smoking cigarettes per day: 5.0 Years smoked: 20 Smoking pack-years: 5.00 Smoking status: Former smoker Tobacco type: cigarettes Smoking end date: 09/21/12 Additional smoking assessment comments: DENIES ANY FORM OF TOBACCO USE Alcohol intake: never Substance use: never Lack of Transportation: No Lack of Food: Never True Current Housing: I Have Housing Concerned About Future Housing: No Difficulty Paying Gas/Electric Bills: No Difficulty Paying for Meds: No Currently Unemployed: No Education: High School Diploma/GED Difficulty w/ Childcare or Family Care: No Living arrangements: with family Additional living arrangements comments: JOSE Gender identity (if verbalized by the patient): Female Sexual Orientation (if Verbalized by the Patient): Straight or Heterosexual Spiritual care concerns: No Anes - Eval Final PreProcedure Day of Procedure 03/10/25 07:02 Patient weight: overweight Heart: regular rate and rhythm Lungs: clear to auscultation Airway: Mallampati scale class II Neurological: alert and oriented Last oral intake: >/= 8 hours ASA classification: III Emergent: no Anesthetic plan: proceed Anesthesia type and monitoring: general ETT and standard monitoring Results Review: All pre-operative results and documents have been reviewed as part of the pre-operative evaluation. Informed Consent: The patient's anesthetic plan and its attendant risks and benefits were discussed with the patient/family/POA. Questions were solicited and answers provided to the satisfaction of the patient/family/POA.
--- NOTE | 2025-03-10 07:26 | WPDANESPNB ---
Anes - Peripheral Nerve Block Date/Time: 03/10/25 07:26 I have discussed with the patient/family/POA the placement of a peripheral nerve block for post-operative pain management, including associated risks, benefits, complications, and side effects. Alternative methods of post-operative analgesia were detailed. Questions were solicited and answers provided to the satisfaction of the patient/family/POA. Time-Out: A pre-procedural Time-Out was completed immediately before starting the procedure and confirmed: Patient Identification, Site, Procedure, Patient Position and the Availability of Requisite Equipment. Clinical Indications: Acute post-operative pain management requested by the operative surgeon. Nerve Block Insertion Note Anes-nerve block: interscalene left Patient position: supine Skin prep: chlorhexidine Needle: 22 gauge, stimulating, insulated echogenic needle. Needle length: 50 mm Technique: ultrasound Injectate: bupivacaine 0.5% with epi 5 mcg/ml (20cc- no epi) Observations: tolerated well Complications: none Procedure start time:: 721 Procedure end time:: 724
--- NOTE | 2025-03-10 07:27 | WPDHPUPDATE1 ---
History and Physical Update Update Date/Time: 03/10/25 07:27 History and Physical has been reviewed, including an updated exam of the patient. There are NO changes in the patient's condition. Risks, benefits, and alternatives have been discussed and questions answered. Patient agrees to proceed with procedure.
[2025-03-10] MEDS: ceFAZolin 2 GM in SODIUM CHLORIDE 0.9% IV 50 ML 100 ML IVPB ×3 (07:30→23:06)
[2025-03-10] MEDS: SODIUM CHLORIDE 0.9% IV 37.7 ML, MORPHINE SULFATE INJ (*CRX) 2 MG, ROPivacaine HCL 1% 2... INFILTRATE (08:15)
[2025-03-10] MEDS: VANCOMYCIN HCL 1,000 MG VIAL 1000 MG TOPICAL (09:19)
[2025-03-10] MEDS: TRANEXAMIC ACID 1,000 MG/10 ML AMPUL 1000 MG IV PUSH (09:23)
--- NOTE | 2025-03-10 12:24 | PC.NURSE ---
!215:Report received from Sherine ANGELA from pacu, transfer to room 327, oriented to room, sling to left arm intact, denies pain, vss oriented to room, tv, call light, scd's on,and teds on, enc. to call for any assist, call light in reach.
[2025-03-10] MEDS: SODIUM CHLORIDE 0.9% IV 1,000 ML 125 ML IV CONT (13:02)
[2025-03-10] MEDS: PROPRANOLOL HCL 40 MG TABLET PO ×2 (13:10→20:11)
[2025-03-10] MEDS: CHLORTHALIDONE 25 MG TABLET PO (13:11)
[2025-03-10] MEDS: FAMOTIDINE 20 MG TABLET PO (13:11)
[2025-03-10] MEDS: ACETAMINOPHEN 325 MG TABLET 650 MG PO ×3 (13:11→23:06)
[2025-03-10] MEDS: MELOXICAM 7.5 MG TABLET PO (13:11)
[2025-03-10] MEDS: LEVOTHYROXINE SODIUM 75 MCG TABLET PO (13:12)
[2025-03-10] MEDS: SENNA/DOCUSATE SODIUM TABLET 2 TAB PO (13:14)
[2025-03-10] MEDS: ASPIRIN 81 MG ENTERIC TABLET PO ×2 (13:17→20:12)
--- NOTE | 2025-03-10 17:18 | P.OP_ITS ---
Procedure Note - Detailed Date of Procedure 03/10/25 Pre-op Diagnosis primary OA left shoulder Post-op Diagnosis Same Procedure Performed Reverse total shoulder arthroplasty, left Surgeon Vidal Flores MD Anesthesia General and Regional (Interscalene block.) Findings Good bone quality. Minimal glenoid deformity. Posterior superior calcified labrum fragment excised. Moderate generalized laxity. The anterior inferior capsule was not incised. The posterior capsule release was limited to the 7 o'clock position. Subscapularis repair deferred due to coracobrachialis impingement. Description of Procedure The patient was given an interscalene block in the preoperative area. Preoperative antibiotics were given. The patient was transferred to the operating room and a general anesthetic was administered. The beach chair position was used at 45 degrees. All bony prominences were padded. The head was carefully stabilized on the [facility] cigar head pegger. A sterile prep and drape was performed in the usual manner with ChloraPrep. A longitudinal incision was created at the anterior shoulder just lateral to the deltopectoral interval. Careful dissection was performed to expose the interval and protect the cephalic vein. The vein was retracted medially. Anterior circumflex vessel branches were suture ligated. The biceps was tenodesed. A subscapularis tenotomy was performed. The inferior capsule was released, exposing the humeral head. Osteophytes were removed. Care was taken to stay on bone to protect the axillary nerve. The neck anteversion and inclination were carefully assessed. Version was between 20? and 30?. The anatomic head cut was taken with the oscillating saw. The cut protector was placed, and attention was turned to the glenoid. Retractors were placed. Releases were carried out for exposure. The subscapularis was mobilized, the inferior capsule and long head of triceps released, and the superior and middle glenohumeral ligaments released as well. Labral tissue was resected as needed. Version and inclination were corrected according to preoperative templating. The sizing template was used to assess the baseplate position low on the glenoid, with an approximate 0 degrees corrections of retroversion and 5 degrees of inclination. A guide pin was placed. Minimal reaming was used to accomplish a flat surface without violating the subchondral bone. The boss was drilled, and the real component was impacted into position. The central compression screw was placed. Supplemental locking screws were placed superiorly, and 2 inferiorly. The glenosphere was impacted into the taper. Attention was turned to the humerus. The guide pin was placed, central drilling performed, and the broach trial inserted. The proximal humerus was reamed for the inset component. The humeral components were trialed. The real humeral stem, tray, and insert were impacted into position. The shoulder was copiously irrigated periodically with pulsatile lavage. The shoulder was reduced and stability confirmed. Impingement of the lesser tuberosity and the coracobrachialis was observed. It was elected to perform a lesser tubercle plasty. 1 gram of Vancomycin powder was placed in the joint. The remaining tissue was closed with 2-0 Vicryl, 3-0 Stratafix and 4-0 Stratafix, and steri- strips. A sterile silver occlusive dressing and shoulder immobilizer were placed. The patient was transferred to the recovery room. Implants Shoulder Innovations reverse TSA size 1 stem. +0 polyethylene insert. Standard baseplate. 33 + 3 mm glenosphere. Estimated Blood Loss 50 Drains No Pathology None sent Complications No immediate complications Condition Stable Disposition PACU [facility] Billing Surgery - Charge Forward: Surgery Billing
[2025-03-10] MEDS: PREGABALIN (*CRX) 75 MG CAPSULE 300 MG PO (20:10)
[2025-03-10] MEDS: traMADol HCL (*CRX) 50 MG TABLET PO (20:11)
[2025-03-10] MEDS: PRAVASTATIN SODIUM 10 MG TABLET PO (20:12)
[2025-03-11 05:31] VITALS: BP 95/58; PULSE 50; RESP 17; TEMP 36.9; O2SAT 96
[2025-03-11] MEDS: ACETAMINOPHEN 325 MG TABLET 650 MG PO ×2 (05:35→12:16)
[2025-03-11] MEDS: ceFAZolin 2 GM in SODIUM CHLORIDE 0.9% IV 50 ML 100 ML IVPB (05:37)
[2025-03-11] MEDS: LEVOTHYROXINE SODIUM 75 MCG TABLET PO (05:37)
[2025-03-11 06:17] LABS: Hematocrit 40.1 % (37.0-47.0); Hemoglobin 13.1 g/dL (12.0-15.0); Immature Granulocyte Percent A 0.6 % (0-0.5); Lymphocytes Absolute Auto 2.66 K/mm3 (0.9-3.2); Mean Corpuscular HGB Conc 32.7 g/dl (32-36); Mean Corpuscular Hemoglobin 29.8 pg (26-34); Mean Corpuscular Volume 91.3 fl (80-100); Nucleated Red Blood Cells Absolute Auto 0.000 K/mm3 (0.0-0.012); Nucleated Red Blood Cells Perc 0.0 % (0.0-0.2); Platelet Count Result 288 k/mm3 (150-375); Red Blood Count 4.39 M/mm3 (4.2-5.4); White Blood Count 13.8 K/mm3 (4.5-10.0)
[2025-03-11 06:40] LABS: Anion Gap 7 mmol/L (4-12); Blood Urea Nitrogen 20 mg/dL (7-17); Calcium 9.6 mg/dL (8.4-10.2); Carbon Dioxide 29 mmol/L (22-30); Chloride 100 mmol/L (98-107); Estimated CRCL calculation 53 ml/min; Estimated Glomerular Filt Rate > 60; Glucose 104 mg/dL (65-110); Potassium 3.4 mmol/L (3.4-5.0); Sodium 136 mmol/L (137-145)
--- NOTE | 2025-03-11 07:55 | PM.PNORT ---
Progress Note: A&P Assessment and Plan (1) Status post reverse total arthroplasty of left shoulder: Code(s): Z96.612 - Presence of left artificial shoulder joint Status: Acute Assessment and Plan: Postop day 1: Left reverse total shoulder arthroplasty. Patient tolerated procedure well. No complications. Pain manageable with pain medication. No numbness or tingling. We had a lengthy discussion regarding postoperative wound care, limitations, expectations, and exercises. Patient shows good understanding. She has had initial physical therapy and is tolerating it well. DVT prophylaxis: 81 mg baby aspirin b.i.d. for 14 days. Pain medication: Percocet. Patient has followup appointment with Dr. Flores in 3 weeks. Subjective Subjective Date/Time Seen: 03/11/25 07:55 Interval history: Patient resting comfortably. No numbness or tingling. Review of Systems Review of Systems: All systems reviewed & are unremarkable except as noted in HPI and below Exam Narrative: Normal weight 69 y/o Female. Resting comfortably in chair. Wearing sling. Dressing dry and intact with no drainage. Mild swelling. Mild ecchymosis. No erythema. No hematoma. Range of motion limited due to pain. Calf nontender. Neurologic status intact. No varicosities. Distal pulses palpable. Axillary nerve fires. Objective Data Vital Signs Vital Signs: Vital Signs - 24 hr 03/10/25 09:49 03/10/25 10:00 03/10/25 10:05 Temperature 97.2 F L Pulse Rate 72 72 71 Respiratory Rate 10 L 14 14 Blood Pressure 163/83 H 167/77 H 167/76 H Pulse Oximetry 100 100 100 Oxygen Delivery Simple Face Mask Simple Face Mask Simple Face Mask Oxygen Flow Rate 8 8 8 03/10/25 10:20 03/10/25 10:35 03/10/25 10:50 Temperature Pulse Rate 70 70 69 Respiratory Rate 14 16 16 Blood Pressure 160/77 H 162/79 H 152/76 H Pulse Oximetry 100 99 97 Oxygen Delivery Simple Face Mask Room Air Room Air Oxygen Flow Rate 8 03/10/25 11:05 03/10/25 11:20 03/10/25 11:35 Temperature Pulse Rate 69 68 67 Respiratory Rate 12 14 14 Blood Pressure 143/70 H 148/73 H 145/73 H Pulse Oximetry 96 96 97 Oxygen Delivery Room Air Room Air Room Air Oxygen Flow Rate 03/10/25 11:46 12/18/25 12:01 03/10/25 12:31 Temperature 96.7 F L 96.8 F L 97.7 F Pulse Rate 75 69 74 Respiratory Rate 16 18 18 Blood Pressure 155/72 H 152/77 H 138/79 Pulse Oximetry 97 98 97 Oxygen Delivery Oxygen Flow Rate 03/10/25 13:31 03/10/25 14:10 03/10/25 15:08 Temperature 98.3 F Pulse Rate 78 Respiratory Rate 18 Blood Pressure 134/71 Pulse Oximetry 97 Oxygen Delivery Room Air Room Air Oxygen Flow Rate 03/10/25 17:31 03/10/25 20:40 03/10/25 23:25 Temperature 98.6 F 97.9 F 97.2 F L Pulse Rate 79 61 71 Respiratory Rate 16 16 17 Blood Pressure 123/75 110/62 101/80 Pulse Oximetry 96 95 95 Oxygen Delivery Oxygen Flow Rate 03/11/25 05:31 Temperature 98.4 F Pulse Rate 50 L Respiratory Rate 17 Blood Pressure 95/58 L Pulse Oximetry 96 Oxygen Delivery Oxygen Flow Rate Intake/Output Intake/Output: Intake & Output 03/08/25 03/09/25 03/10/25 03/11/25 23:59 23:59 23:59 23:59 Intake Total 640 240 Balance 640 240 Meds/Results Medications: Active Medications Generic Name Dose Route Start Last Admin Trade Name Freq PRN Reason Stop Dose Admin Acetaminophen 650 mg 03/10/25 12:00 03/11/25 05:35 Acetaminophen 325 Mg Tablet PO 650 mg Q6HR PRETTY Administration Albuterol 2 puff 03/10/25 11:46 Albuterol Sulfate (*Sp) Aerosol 1 Puff INHALATION QIDRT PRN Shortness Of Breath Or Wheezing Aspirin 81 mg 03/10/25 11:46 03/10/25 20:12 Aspirin 81 Mg Enteric Tablet PO 81 mg Q12HR PRETTY Administration Chlorthalidone 25 mg 03/10/25 11:46 03/10/25 13:11 Chlorthalidone 25 Mg Tablet PO 25 mg DAILY PRETTY Administration Cyclobenzaprine HCl 5 mg 03/10/25 11:46 Cyclobenzaprine Hcl 5 Mg Tablet PO Q8H PRN Spasms Diphenhydramine HCl 25 mg 03/10/25 11:46 Diphenhydramine Hcl Inj 50 Mg/Ml Vial IV PUSH Q6H PRN Itching Famotidine 20 mg 03/10/25 11:46 03/10/25 17:22 Famotidine 20 Mg Tablet PO Not Given BID PRETTY Hydromorphone HCl 1 mg 03/10/25 11:46 Hydromorphone Hcl Inj (*Crx) 1 Mg/Ml Syr IV PUSH Q2H PRN Breakthrough Pain Rated 7-10 or NPO Hydromorphone HCl 0.5 mg 03/10/25 11:46 Hydromorphone Hcl Inj (*Crx) 1 Mg/Ml Syr IV PUSH Q2H PRN Breakthrough Pain Rated 4-6 or NPO Levothyroxine Sodium 75 mcg 03/10/25 11:46 03/11/25 05:37 Levothyroxine Sodium 75 Mcg Tablet PO 75 mcg DAILY@0630 PRETTY Administration Meloxicam 7.5 mg 03/10/25 11:46 03/10/25 13:11 Meloxicam 7.5 Mg Tablet PO 7.5 mg DAILY PRETTY Administration Naloxone HCl 0.1 mg 03/10/25 11:46 Naloxone Hcl 0.4 Mg/Ml Vial IV PUSH Q2M PRN Opiate Reversal Ondansetron HCl 4 mg 03/10/25 11:46 Ondansetron Inj 4 Mg/2 Ml Vial IV PUSH Q4H PRN Nausea And Vomiting Oxycodone/Acetaminophen 1 tablet 03/10/25 11:46 Oxycodone/Acetaminophen (*Crx) 5-325 Mg Tablet PO Q4H PRN Pain Rated 4-6 Oxycodone/Acetaminophen 1 tab 03/10/25 11:46 Oxycodone/Acetaminophen (*Crx) 10-325 Mg Tablet PO Q6H PRN Pain Rated 7-10 Polyethylene Glycol 17 gm 03/10/25 11:46 03/10/25 13:09 Polyethylene Glycol 3350 17 Gm Powd.Pack PO 17 gm QAM PRETTY Administration Pravastatin Sodium 10 mg 03/10/25 21:00 03/10/25 20:12 Pravastatin Sodium 10 Mg Tablet PO 10 mg HS PRTETY Administration Pregabalin 300 mg 03/10/25 21:00 03/10/25 20:10 Pregabalin (*Crx) 75 Mg Capsule PO 300 mg HS PRETTY Administration Propranolol HCl 40 mg 03/10/25 11:46 03/10/25 20:11 Propranolol Hcl 40 Mg Tablet PO 40 mg Q12HR PRETTY Administration Senna/Docusate Sodium 2 tab 03/10/25 11:46 03/10/25 17:22 Senna/Docusate Sodium Tablet PO Not Given BID PRETTY Tramadol HCl 50 mg 03/10/25 11:46 03/10/25 20:11 Tramadol Hcl (*Crx) 50 Mg Tablet PO 50 mg Q4H PRN Administration Pain Rated 1-3 Trazodone HCl 50 mg 03/10/25 21:00 03/10/25 20:12 Trazodone Hcl 50 Mg Tablet PO 50 mg HS PRETTY Administration Radiology Results: ITS Impressions Shoulder X-Ray 03/10/25 11:18 Impression: No acute fracture or malalignment. Labs Labs: Laboratory Results - last 24 hr 03/11/25 05:53 WBC 13.8 H RBC 4.39 Hgb 13.1 Hct 40.1 MCV 91.3 MCH 29.8 MCHC 32.7 RDW 14.7 H Plt Count 288 MPV 10.4 Immature Gran % (Auto) 0.6 H Neut % (Auto) 69.0 Lymph % (Auto) 19.3 [place] % (Auto) 10.6 H Eos % (Auto) 0.2 Baso % (Auto) 0.3 Lymph # (Auto) 2.66 [place] # (Auto) 1.5 H Eos # (Auto) 0.0 Baso # (Auto) 0.0 Abs Immat Gran (auto) 0.08 H Absolute Neuts (auto) 9.5 H Absolute Nucleated RBC 0.000 Nucleated RBC % 0.0 Sodium 136 L Potassium 3.4 Chloride 100 Carbon Dioxide 29 Anion Gap 7 BUN 20 H Creatinine 0.80 Estim Creat Clear Calc 53 Estimated GFR > 60 Glucose 104 Calcium 9.6
[2025-03-11] MEDS: FAMOTIDINE 20 MG TABLET PO (09:09)
[2025-03-11] MEDS: PROPRANOLOL HCL 40 MG TABLET PO (09:09)
[2025-03-11] MEDS: ASPIRIN 81 MG ENTERIC TABLET PO (09:09)
[2025-03-11] MEDS: SENNA/DOCUSATE SODIUM TABLET 2 TAB PO (09:09)
[2025-03-11] MEDS: CHLORTHALIDONE 25 MG TABLET PO (09:09)
[2025-03-11] MEDS: MELOXICAM 7.5 MG TABLET PO (09:10)
[2025-03-11 09:31] VITALS: BP 112/60; PULSE 61; RESP 20; TEMP 36.4; O2SAT 100
--- NOTE | 2025-03-11 12:55 | WPDANESPN ---
Anes - Prog Note Post-Op Date/Time: 03/11/25 12:55 Cardiovascular status: normal Respiratory status: normal Airway patency: baseline Mental status: baseline Vital Signs: Last Vital Signs Temp 36.4 C L 03/11/25 09:31 Pulse 61 03/11/25 09:31 Resp 20 03/11/25 09:31 BP 112/60 03/11/25 09:31 Pulse Ox 100 03/11/25 09:31 O2 Del Method Room Air 03/10/25 15:08 O2 Flow Rate 8 03/10/25 10:20 Pain Score (VAS): 3 I/O: Intake & Output 03/10/25 03/11/25 03/11/25 23:59 07:59 15:59 Intake Total 340 240 240 Balance 340 240 240 Laboratory Tests 03/11/25 05:53 03/11/25 05:53 03/11/25 05:53 WBC 13.8 H RBC 4.39 Hgb 13.1 Hct 40.1 MCV 91.3 MCH 29.8 MCHC 32.7 RDW 14.7 H Plt Count 288 MPV 10.4 Immature Gran % (Auto) 0.6 H Neut % (Auto) 69.0 Lymph % (Auto) 19.3 Williams % (Auto) 10.6 H Eos % (Auto) 0.2 Baso % (Auto) 0.3 Lymph # (Auto) 2.66 Williams # (Auto) 1.5 H Eos # (Auto) 0.0 Baso # (Auto) 0.0 Abs Immat Gran (auto) 0.08 H Absolute Neuts (auto) 9.5 H Absolute Nucleated RBC 0.000 Nucleated RBC % 0.0 Sodium 136 L Potassium 3.4 Chloride 100 Carbon Dioxide 29 Anion Gap 7 BUN 20 H Creatinine 0.80 Estim Creat Clear Calc 53 Estimated GFR > 60 Glucose 104 Calcium 9.6 Patient Feedback: Patient satisfied with anesthetic care.
== END 2025-03-11 14:07 | disposition home or self-care (01) ==
LOC: ANHSURGERY 07:10 → ANH3MEDSUR 11:50
PROVIDERS: Physician Assistant Surgical; PCP Family Medicine; Visit Provider Orthopaedic Surgery
PROC: (CPT 23472; principal; 2025-03-10 07:30)
DX: M19.012 Primary osteoarthritis, left shoulder (principal); M25.712 Osteophyte, left shoulder; G89.18 Other acute postprocedural pain; E78.5 Hyperlipidemia, unspecified; E03.9 Hypothyroidism, unspecified; K21.9 Gastro-esophageal reflux disease without esophagitis; F41.9 Anxiety disorder, unspecified; Z79.82 Long term (current) use of aspirin; Z79.51 Long term (current) use of inhaled steroids; Z79.891 Long term (current) use of opiate analgesic; Z98.890 Other specified postprocedural states; Z98.1 Arthrodesis status; Z90.49 Acquired absence of other specified parts of digestive tract; Z87.891 Personal history of nicotine dependence; Z85.828 Personal history of other malignant neoplasm of skin; Z85.3 Personal history of malignant neoplasm of breast; Z80.1 Family history of malignant neoplasm of trachea, bronchus and lung; Z82.49 Family history of ischemic heart disease and other diseases of the circulatory system
CPT/HCPCS: 64415; 23472; 36415; 73030; 80048; 85025; 86850; 86900; 86901; 97110; 97161; 97165; 97530; 97535; J0690; A4565; A9270; C1776; J0166; J1100; J1885; J2250; J2270; J2405; J2704; J2795; J3290; J3373; J7030; J7120